=== PATIENT | female | born 1970 | race Caucasian/White ===

== ENCOUNTER → 2017-05-23 12:26 | Outpatient (CLI) | payer MEDICARE, MEDICAID, SELFPAY ==
[2017-05-23 13:43] VITALS: PULSE 100; PULSE 102; PULSE 82; PULSE 94; PULSE 97; PULSE 98; O2SAT 85; O2SAT 92; O2SAT 93; O2SAT 96
--- NOTE | 2017-05-23 14:20 | CPS ---
Patient has oxygen setup by [employer]. She was placed on room air for beginning of test. By 1 minute, spo2 dropped to 85% room air, patient rested and was placed on 2lpm nc which she wore for remainder of test. Her baseline respiratory status she rates at 3, this did not change throughout testing.
--- NOTE | 2017-05-24 08:21 | PCM.PSN.6M ---
PSN 6 Minute Walk Test - 6 Minute Walk Test 6 Minute Walk Test: 6 Minute Walk Test PSN:6-Minute Walk Test Start: 05/23/17 13:43 Freq: Status: Active Protocol: [id number] Document 05/23/17 13:43 [facility] (Rec: 05/23/17 14:25 [facility] [id number]) 6 Minute Walk Test Date Performed 05/23/17 Time Performed 12:30 Height 6 ft Weight: 120 lb Weight in Pounds 120.[address]: Pola Vee FIO2 (% Oxygen) 2 Assistive device used: None Pre-test Oxygen Delivery Method Room Air Pulse Ox (%) 93 Pulse Rate (60-100 beats/min) 94 Dyspnea Chen Scale (0-10) 3 1st minute Oxygen Delivery Method Room Air Pulse Ox (%) 85 Pulse Rate (60-100 beats/min) 102 H Dyspnea Chen Scale (0-10) 3 Number of Rests Taken 1 2nd minute Oxygen Flow Rate (L/min) 2 Oxygen Delivery Method Nasal Cannula Pulse Ox (%) 93 Pulse Rate (60-100 beats/min) 97 Dyspnea Chen Scale (0-10) 3 3rd minute Oxygen Flow Rate (L/min) 2 Oxygen Delivery Method Nasal Cannula Pulse Ox (%) 92 Pulse Rate (60-100 beats/min) 98 Dyspnea Chen Scale (0-10) 3 4th minute Oxygen Flow Rate (L/min) 2 Oxygen Delivery Method Nasal Cannula Pulse Ox (%) 92 Pulse Rate (60-100 beats/min) 97 Dyspnea Chen Scale (0-10) 3 5th minute Oxygen Flow Rate (L/min) 2 Oxygen Delivery Method Nasal Cannula Pulse Ox (%) 93 Pulse Rate (60-100 beats/min) 98 Dyspnea Chen Scale (0-10) 3 6th minute Oxygen Flow Rate (L/min) 2 Oxygen Delivery Method Nasal Cannula Pulse Ox (%) 92 Pulse Rate (60-100 beats/min) 100 Dyspnea Chen Scale (0-10) 3 Post-test Oxygen Flow Rate (L/min) 2 Oxygen Delivery Method Nasal Cannula Pulse Ox (%) 96 Pulse Rate (60-100 beats/min) 82 Dyspnea Chen Scale (0-10) 3 Full Laps Walked 16 Partial Lap, Number of Tiles Walked 44 Total Distance Walked (ft) 988 05/23/17 14:20 [facility]iop[facility] by [employer] Patient has oxygen setup by [employer]. She was placed on room air for beginning of test. By 1 minute, spo2 dropped to 85% room air, patient rested and was placed on 2lpm nc which she wore for remainder of test. Her baseline respiratory status she rates at 3, this did not change throughout testing. Initialized on 05/23/17 14:20 - END OF NOTE - Interpretation Interpretation: The patient ambulated 988 feet over the course of 6 minutes beginning on room air without assistive devices or breaks. Pretesting oxygen saturation was noted to be 93% on room air. By minute #1 of testing, the patient had desaturated to 85%. 2 L of supplemental oxygen was applied and the patient was able to complete the remainder of the test, while maintaining oxygen saturations at or above 88%. - Recommendations Recommendations: 2 L/min of supplemental oxygen should be utilized with exertion.
== END ==
PROVIDERS: Visit Provider Internal Medicine Critical Care Medicine
DX: J44.9 Chronic obstructive pulmonary disease, unspecified (principal)
CPT/HCPCS: 94618

== ENCOUNTER 2017-06-21 08:00 | Outpatient (RCR) | payer MEDICARE, MEDICAID, SELFPAY ==
--- NOTE | 2017-06-07 13:26 | PR.HP_ITS ---
History of Present Illness Arrival date:: 06/07/17 Arrival time:: 13:16 Date of Evaluation: 06/07/17 Referring Physician: Dr. Pola Vee Primary Diagnosis: COPD, Bronchiectasis, tobacco dependence in remission, metastatic lung CA History of Present Illness: The patinet is a 46/Female under the care of Dr. Pola Vee who has evidence of advanced stage COPD. The patient aslo has history of bronchiectasis, metastatic primary lung cancer with a history of tobacco dependence in remission. mMRC Breathless Scale: When is the patient short of breath? Y/N Grade: Description of Breathlessness: 0 I only get breathless with strenuous exercise. 1 I get short of breath when hurrying on level ground or walking up a slight hill. 2 On level ground, I walk slower than people of the same age because of breathless, or have to stop for breath when walking at my own pace. 3 I stop for breath after walking 100 yards or after a few minutes on level ground. 4 I am too breathless to leave the house or I am breathless when dressing. Respiratory Problems: Yes: Retain Secretions, Fatigue, Wheezing, Able to Speak in Full Sentences, Dyspnea at Rest, Dyspnea with Activity, Cough with Secretions No: Dizziness, Dyspnea Lying Down Flat - Secretions Normal Color:: dark green typically white Thick:: Yes Thin:: No Amount/Day:: 1 TSP - typically white to no color, hard to get up. Going to see Dr after this appointment. Cough:: Yes A.T.C.: Yes Sleep Disorder Evaluation: EPWORTH SLEEPINESS SCALE 0 = NO chance of dozing 2 = MODERATE chance of dozing 1 = SLIGHT chance of dozing 3 = HIGH chance of dozing : SITUATION: CHANCE OF DOZING: Sitting and Reading Watching TV Sitting inactive in a public place (i.e. Movies) As a passenger in a car for an hour without a break Lying down to rest in the afternoon when permitted Sitting and talking to someone Sitting quietly after lunch without alcohol In a car, while stopped for a few minutes in traffic Total Total Equals: 1-6 = Adequate Sleep 7-8 = Average > 9 = Sleep Study/Consult Indicated Past Medical History Past Medical History: Cancer - metastatic primary lung cancer, , Emphysema, Hypoxia, - - bronchiectasis, abnormal chest CT, dyspnea, non small cell, adenocardcinoma, unintentional weight loss, tobacco dependence in remission, nocturnal hypoxia, hypersomnia, acute and chronic respiratory failure with hypoxia, borderline elevated troponin, Surgical History: hysterectomy - 1999, - - D&C resolved, port placement, Additional Family History: Grandfather, Uncle and father all had lung, bone, and lymphoma. - Social History Marital Status: - living with significant other 15 years. Assistive Devices:: none; have a wheelchair will take out for long trips. Fall history:: none Interest/Hobbies:: abigail, rodger-stich, once cancer started lose eye sight and difficult Transportation Needs:: own Alcohol:: No Drugs:: No Employment:: Disabilty Smoking Status: Former smoker Quit Smoking Since: almost 2 years Packs per day: 3 Years Smoked: 30 - Living Arrangement Patient lives with other person(s) in the home:: AROUND [place] CLOCK Social History - Smoking History Smoking Status: Former smoker Years Smokin Packs Smoked per Day: 2.5 Hx Smoking Cessation Date: 1 year Hx Tobacco Use: Yes Hx Smoking Exposure: No - Alcohol Use Alcohol Usage: No - Substance Abuse Hx Substance Use: No - Occupation Occupation (List type of work in comments):: Unemployed - disability - Hobbies, Recreation, Social Activities Hobbies: Sewing, Reading Recreational Activities: I am able to engage in a few activities Medications & Vaccination Info Home Medications: Ambulatory Orders Aripiprazole [Abilify] 5 mg PO QHS 03/03/16 Dronabinol [Marinol] 5 mg PO BID PRN PRN 03/03/16 Gabapentin [Neurontin] 300 mg PO 4X/DAY 03/03/16 Guaifenesin [Mucinex] 1,200 mg PO DAILY PRN PRN 03/03/16 Morphine Sulfate [Morphine Sulfate ER] 60 mg PO BID 03/03/16 Oxycodone [Oxyir] 30 mg PO TID PRN PRN 03/03/16 Pramipexole Di-HCl [Mirapex] 1 mg PO QHS 03/03/16 ProMETHAzine [Phenergan] 25 mg PO PRN PRN 03/03/16 Trazodone HCl 200 mg PO QHS 03/03/16 BuPROPion [Wellbutrin] 75 mg PO BID #60 tab 03/06/16 Fluticasone 0.05% [Flonase Nasal [place]] 1 spray NASAL BID #1 bottle 03/06/16 Lorazepam [Ativan] 0.5 mg PO DAILY PRN #0 03/06/16 Nebulizer and Compressor [Portable Nebulizer System] 1 ea MC Q2H PRN PRN #1 ea 03/06/16 methylphenidate 10 mg tablet 10 mg PO QAM AND QPM 04/12/17 prednisone 10 mg tablet 10 mg PO QDAY #30 tab 04/12/17 albuterol sulfate 2.5 mg/3 mL (0.083 %) solution for nebulization 2.5 mg INHALATION Q4H PRN #360 ml 04/25/17 albuterol sulfate HFA 90 mcg/actuation aerosol inhaler 2 puff INHALATION Q6H PRN #1 device 05/17/17 budesonide-formoterol HFA 160 mcg-4.5 mcg/actuation aerosol inhaler 2 inh INHALATION Q12H #10.2 g 05/17/17 tiotropium bromide 2.5 mcg/actuation mist for inhalation 2 puff INHALATION QDAY #1 device 05/17/17 Do you use a peak flow meter at home?: No Do you use a spacer device with your inhalers?: No Number of hospital visits in the last year?: 1 Reason for hospital visits: RESP INF-PNUEM,BRONCHITIS - in for 5 days, OTHER RESP PROBLEMS Do you see your physician on a regular schedule?: Yes How often?: monthly; oncologist twice monthly Has adequate access & meets healthcare needs?: Yes - Drug Regimen Review Indication of potential clinical significant med issues (drug reactions, ineffective therapy, side effects, interactions, duplicate therapy, omissions, dose errors, or non-compliance)?: No problems found during review Was a physician or the physican designee contacted within one calendar day to resolve clinically significant medication issues, including reconcilitation?: No Review of Systems Constitutional: Denies: Chills, Fever, Weight Change HEENT: Denies: Head Aches, Sinus Congestion, Sinus Drainage Cardiovascular: Denies: Chest Pain, Palpitations Respiratory: Reports: Shortness of Breath, Shortness of breath at rest, Shortness of breath upon exertion, Wheezing. Denies: Cough, Sputum production Musculoskeletal: Reports: - - body aches, left hip where tumor was located.. Denies: Joint Pain, Joint Tenderness Skin: Denies: Rash, Wounds Neurological: Reports: Blurred vision. Denies: Focal weakness, Numbness, Tingling Psychiatric: Reports: Anxiety, Depression. Denies: Homicidal Ideations, Suicidal Ideations Advanced Directives - Advanced Directives Power of Customer Support Analyst: No Living Will: No Advance Directives Information Provided: Yes Advance Directives on File: No DNR Order?:: No Coping/Social Support/Other - Abuse and Neglect Do you feel safe in your surroundings?:: YES Are there sign/symptoms of abuse?: No Has anyone physically or mentally abused you?: No Has anyone threatened to harm you in any way?: No Been asked to sign a document that you don't understand?: No - Exacerbation History Number of Exacerbations in a year:: 3 Recent exposure to illness?: No Known carrier?: No Number of Infections per year?: 3 Antibiotic Taken:: Yes I know I have an infection when:: Patient is able to verbalize signs and symptoms. - Nutrition Risk Factor Are you on a special diet?: Yes Diff. chewing/swallowing:: No Have you had a change in your weight?: Yes Amount lost:: 7 to 10 pound Physical Exam - Vital Signs Temperature: 98.7 F Pulse Rate: 84 Respiratory Rate: 18 Pulse Ox at rest: 95 Blood Pressure: 102/60 Nailbeds:: pink Height: 6 ft Weight:: 55.338 kg Weight Source: Standing Scale Body Mass Index (BMI): 16.5 - Physical Exam General: Alert, Oriented x3, Cooperative Neck: Supple, No JVD, Negative Carotid Bruits, Negative Hepatojugular Reflux Lungs: Clear to auscultation, Normal air movement Cardiovascular: Regular rate, Regular Rhythm, No murmurs Extremities: No clubbing, No cyanosis, No edema, Capillary Refill Less than 3 Seconds Musculoskeletal: No Tenderness to Palpation of Joints or Extremities Psych/Mental Status: Normal Affect, Appropriate - Pain Is Patient Pain Free?: Yes Pain Location: back Pain Level: 5/10 - forgot to take medications before driving today. - Hearing/Speech/Vision/Spiritual Cultural/Uatsdin Needs that may affect Treatment Plan: No Do you have any Spiritual/Emotional needs of which our Secondary School Teacher Librarian Ministry could be of assistance?: No Secondary School Teacher Librarian to contact Place of [place]?: No Primary Language: South Korean Preferred Language: South Korean Right Hearing Abillity: Normal Visual Difficulty: Near Sighted, Far Sighted - wears corrective lenses for vision - Motivation to Participate On a scale of 1 to 10, how prepared are you to commit to attending pulmonary rehabilitation?: 10 What do you see as barriers to successfully being able to complete the program? : appointments, other commitments What do you see as the benefits of succesfully completing the program? In other words, what do you hope to get out of participating in the program?: breathing better, correct breathing, increase stamina Do you have a spouse or signficant other, family or friends who will help support you to complete the program?: yes Diagnostic Data Review - Lab Results Hematology/Chemistry: [facility] EHR - Diagnostic and Imaging Results CXR:: [facility] - 6 Minute Walk Test 6 Minute Walk Test: [facility] - Pulmonary Function Test FEV1:: 0 - 38% predicted FVC:: 0 - 08/17/2016 Gold Classification: Gold class IV(very severe COPD)with FEV1/FVC <70, FEV1 <30 % predicted Functioning ADL/IADL - Functional Capacity ADL/IADL GROOMING: Current ability to tend safely to personal hygiene needs (i.e., washing face/hands, hair care, shaving or make up, teeth or denture care, fingernail care).: Able to groom self unaided, w/ or w/o the use of assistive devices. Current ABILITY TO DRESS UPPER BODY safely (with or w/out dressing aids) including undergarments, pullovers, front-opening shirts & blouses, managing zippers, buttons, & snaps:: Gets clothes out, puts on, and removes from upper body w/o assist. Current ABILITY TO DRESS LOWER BODY safely (with or w/out dressing aids) including undergarments, slacks, socks or nylons, shoes:: Able to obtain, put on , & remove clothing and shoes w/out assistance. Bathing: Current ability to wash entire body safely. EXCLUDES grooming (washing face, washing hands and shampooing hair): Uses device to bathe independently in tub/shower, incl getting in &out TOILET TRANSFERRING: Current ability to get to & from the toilet/BSC safely and transfer on & off toilet/commode.: Gets to & from toilet, transfers independently w/ or w/o a device. TOILETING HYGIENE: Current ability to maintain perineal hygiene safely, adjust clothes and/or incontinence pads before & after using toilet, commode, bedpan, urinal. If managing ostomy, includes cleaning: Manages toileting hygiene & clothing management w/out assist TRANSFERRING: Current ability to move safely from bed to chair, or ability to turn and position self in bed if patient is bedfast.: Able to independently transfer. AMBULATION/LOCOMOTION: Current ability to walk safely, once in a standing position, or use wheelchair, once in a seated position, on a variety of surfaces.: Able to IND walk on even/uneven surface&use stairs with or w/o railing FEEDING or EATING: Current ability to feed self meals and snacks safely. NOTE: This refers only to the process of eating, chewing and swallowing, not preparing the food to be eaten.: Able to independently fee ABILITY TO PLAN AND PREPARE MEALS: (e.g., cereal, sandwich) or reheat delivered meals safely.: IND prepare light meals/reheat delvrd meals/Or can but hasn't done so. ABILITY TO USE TELEPHONE: Current ability to answer the phone safely, including dialing numbers, and effectively using the telephone to communicate.: Able to dial numbers and answer calls appropriately and as desired. - Pt Functioning Prior to Problem Self-Care (e.g.,grooming, dressing, & bathing): INDEPENDENT Ambulation: INDEPENDENT Transfer: INDEPENDENT Household tasks (e.g., light meal prep, laundry, shopping): INDEPENDENT
--- NOTE | 2017-06-07 13:36 | PR.ITP_ITS ---
General Information - General Information Admitting Diagnosis: COPD, Metastatic lung cancer, bronchiectasis Gold Classification:: GOLD 3: Severe - Education/Goals Barriers to Learning: Vision Impairment Individual Counseling: Initial Assessment: Dyspnea control techniques at rest, activity, and ADLs, Inhaled and respiratory medications, Exacerbation prevention & management, O2, Rx, system, safety, Intimacy, Safe travel Patient Goals: Breathe better: Initial Assessment, Increase endurance/stamina: Initial Assessment, Return to recreation/hobby: Initial Assessment, Control panic/anxiety: Initial Assessment, Improve diet and nutrition: Initial Assessment, Symptom management: Initial Assessment, Take medications correctly: Initial Assessment, Improve weight: Initial Assessment Exercise - Initial Assessment - Visit Date of Eval: 06/07/17 - Problem/Goals Problems: Knowledge deficit exercise guidelines, Knowledge deficit exercise safety - Exercise Prescription Mode:: Treadmill, Airdyne, NuStep Frequency (x/week): 3 MET LEVEL:: 2 - Plan Plan and Plan to Review:: Benefits of exercise, Core components of exercise, How to measure dyspnea level, How to monitor dyspnea level, Exercise intensity, Exercise safety guideline, Home exercise guidelines, Chen: 3-4/11-13 Disease Management - Initial - Problems/Goals-Hypoxemia Hypoxemia Problems:: Hypoxemia, Needs O2 Rx recommendation, Poor knowledge of O2 use/safety Hypoxemia Goals:: Using O2 as Rx's safely - Problems/Goals-Medications Medication Goals: Adherence to prescribed medications, Correct technique/timing & care of MDI, DPI, nebulizer, and spacer. - Problems/Goals-Bronchial Hygiene Bronchial Hygiene Problems:: Ineffective secretion clearance, Respiratory infection Prevention/Management Bronchial Hygiene Goals:: Pt demonstrates effective cough, effective secretion clearance., Pt describes signs and symptoms of infection. - Initial Assessment SpO2:: 98 Does pt report taking home meds as prescribed?: Yes Medications: Yes MDI, Yes NEB, No Spacer Psychosocial - Initial Assess - Problems/Goals Problems: Depression, Anxiety, Impaired Q.O.L. Psychosocial Goals: Improved psychosocial coping skills., Verbalizes coping strategies., Adequate treatment of depression., Improved Q.O.L. - Psychosocial Test Depression:: Anxiety, Panic, Impaired QOL Referred to MD for counseling:: No - Plan Reviewed screening results: No Instructions given regarding:: Benefits of exercise, Relaxation techniques, Training in coping strategies Stress management: On meds currently, Receiving counseling Tobacco - Initial Assessment - Program Goals Tobacco Program Goals: Complete smoking cessation. Attend education classes. Improve Knowledge Test score - Stage of Change Stages of Change:: Action - Learning Barriers Learning Barriers: Vision, Ready to Learn - Family Support Do you have family support?: Yes - Tobacco Use Tobacco Use: Cigarettes How long ago did you quit using tobacco products?: Greater than or equal to 6 months ago - Intervention Smoking Cessation Referral:: No Individual Education/Counseling:: No Education Schedule Given:: Yes - Education Gave Education Materials For:: Pulmonary Disease, Risk Factors, Breathing Techniques, Medical Compliance, Pulmonary A&P, Exacerbation Signs & Symptoms, Stress & Relaxation Nutrition/Wt Mgmt - Initial - Problems/Goals Problems: Underweight Goals: BMI 21-25 - Weight Management Knowledge Deficit Management of:: Underweight Admit Height:: 6 ft Admit Weight:: 55.338 kg Admit BMI:: 16.5 - Diabetes Diabetes:: No Insulin: No Do you monitor your blood sugar at home?: No - Intervention Referral to dietitian:: No Referral to Diabetic Clinic:: No Will attend diet classes:: No - Plan Nutrition Plan: Yes Review BMI or WC & identify target wt & strategies for wt control, Yes Nutrition education class:, Yes Weight control education class:, Yes Education re: Need for ongoing weight monitoring, Yes Food diary:, Yes Physical activity log: Patient Health Questionnaire Initial Assessment 1. Little interest or pleasure in doing things: Nearly every day 2. Feeling down, depressed, or hopeless: Several days 3. Trouble falling or staying asleep, or sleeping too much: Several days 4. Feeling tired or having little energy: Nearly every day 5. Poor appetite or overeating: Nearly every day 6. Feeling bad about yourself -- or that you are a failure or have let yourself or your family down: More than half the days 7. Trouble concentrating on things, such as reading the newspaper or watching television: Nearly every day 8. Moving or speaking so slowly that other people could have noticed. Or the opposite - being so fidgety or restless that you have been moving around a lot more than usual: More than half the days 9. Thoughts that you would be better off , or of hurting yourself in some way: Not at all How difficult have these problems made it for you to do your work, take care of things at home, or get along with other people?: Very difficult Total Score: 18 COPD Knowledge Test Initial COPD is a lung disease that:: Makes it hard to breathe & gets worse over time In the [place] the term COPD describes 2 main lung conditions:: Emphysema & chronic bronchitis The most common lung irritant that causes COPD is:: Cigarette smoke Common signs and symptoms of COPD include:: An ongoing cough/cough that produces a large amount of mucus, & SOB If you have COPD, what steps can you take?: All of the above Swelling of the ankles is common in COPD:: False Fatigue [tiredness] is common in COPD:: True Wheezing is common in COPD:: True Crushing chest pain is common in COPD:: False Rapid weight loss is common in COPD:: False Breathlessness is a normal response to exercise: True Exercise should be avoided if it makes you short of breath: False All bronchodilators act within 10 minutes: True A spacer device increases the medication to the lungs: False Annual flu vaccine is recommended for pts w/lung disease: True COPD Knowledge Test Total Score:: 13 COPD Assessment Test [CAT] - Questions Never cough = 0, Cough all the time = 5: 4 No phlegm = 0, Chest full of phlegm = 5: 4 No chest tightness = 0, Chest very tight = 5: 3 No breathless w/exertion = 0, Very breathless w/exertion = 5: 5 No limitations w/activity = 0, Very limited w/activity = 5: 5 Confident leaving home = 0, Not at all confident = 5: 3 Sleep soundly = 0, Don't sleep soundly = 5: 3 Lots of energy = 0, No energy at all = 5: 5 Total CAT score:: 32 Self-Efficacy Initial Assessment We would like to know how confident you are in doing certain activities. Please select your confidence level for:: Select your confidence level for the following using the scale 1-10 where 1 is not at all confident and 10 is totally confident. Your score is the average of all 6 responses. Fatigue: How confident are you that you can keep the fatigue caused by your disease from interfering with the things you want to do? Select Number: 2 Physical Discomfort or Pain: How confident are you that you can keep the physical discomfort or pain of your disease from interfering with the things you want to do? Select Number: 4 Emotional Distress: How confident are you that you can keep the emotional distress caused by your disease from interfering with the things you want to do? Select Number: 6 Other Symptoms or Health Problems: How confident are you that you can keep other symptoms or health problems from interfering with the things you want to do? Select Number: 5 Different Tasks and Activities: How confident are you that you can do the different tasks and activities needed to manage your health condition so as to reduce your need to see a doctor? Select Number: 4 Medication: How confident are you that you can do things other than just taking medication to reduce how much your illness affects your everyday life? Select Number: 7 Total Score:: 4 Nutrition Survey - Nutrition Survey Instructions Scoring Instructions: Scoring is as follows: Yes = 1 points. No = 0 point. Patient score that is >/=12 is considered to be at potential nutritional risk and could benefit from a referral to a registered dietitian. - Nutrition Survey Initial Have you lost >10 lbs over the past 2 months without trying?: Yes - unintentional weight loss, and additional 7 pounds this past week. Are you following a special diet at home for diabetes, low fat, or low salt?: No Are you interested in meeting with a dietitian for help understanding your diet? : No Do you eat less than 3 meals a day?: No Do you eat fatty meats (cordova, sausage, ribs, etc), fried foods, desserts, large amounts of salad dressings, margarine, butter, or cheese most days?: No Do you have food allergies? [Enter types in comment field]: No Do you eat in restaurants more than 3 times a week?: No Do you season food with salt, seasoning salt, or garlic salt?: Yes Do you used canned, boxed, frozen meals, or soups, seasoning packets?: Yes Total Score:: 3
[2017-06-07 13:53] VITALS: BP 102/60; PULSE 84; RESP 18; TEMP 37.1; O2SAT 95; BMI 16.5
[2017-06-07 14:39] VITALS: O2SAT 98; BMI 16.5
--- NOTE | 2017-06-07 14:41 | PR.DATECOV_ITS ---
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 Effective Dec 23, 2012 our hours will be changing to 8:00 to 4:30 on Monday, Monday and Monday. First Date of the Month: 06/07/17 Last Date of the Month: 06/21/17
--- NOTE | 2017-06-19 14:58 | PCM.PR.DAT ---
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 Effective Dec 23, 2012 our hours will be changing to 8:00 to 4:30 on Monday, Monday and Monday. First Date of the Month: 06/22/17 Last Date of the Month: 07/21/17
--- NOTE | 2017-06-19 14:58 | PCM.PR.TP ---
Exercise - 30-Day Assessment - Exercise Prescription Mode:: Treadmill, Airdyne, NuStep, Arm Ergometer Frequency (x/week): 3 Duration:: 30 Aerobic Exercise [30-60 min 3-7x/week]:: Progressing Target heart rate: 106 - THRR 106-114 Chen MET Level:: 3 - Home Exercise Home Exercise:: No Disease Management - 30-Day - Hypoxemia Reassessment: Demonstrates knowledge of O2 Rx at rest, Demonstrates knowledge of O2 Rx with exercise, Using O2 as prescribed, Has home O2 as prescribed, Uses port O2 as prescribed - Medications Medication list reviewed:: Yes Taking medications 100% of the time:: Met Medication reassessment: Yes Pt demonstrates correct technique timing for MDI, Yes Pt demonstrates correct technique timing for DPI, Yes Pt demonstrates correct technique timing for NEB, Yes Pt demonstrates correct technique timing for spacer Psychosocial - 30-Day - Assessment Reassessment: Practicing interventions Tobacco - 30-Day Assessment - Program Goals Tobacco Program Goals: Complete smoking cessation. Attend education classes. Improve Knowledge Test score - Stage of Change Stages of Change:: Action - Learning Barriers Learning Barriers: Participates in education - Family Support Do you have family support?: Yes - Tobacco Use Tobacco Use: Non-smoker Do you use smokeless tobacco?: No - Intervention Smoking Cessation Referral:: No Individual Education/Counseling:: No Education Schedule Given:: Yes - Education Gave Education Materials For:: Pulmonary Disease, Risk Factors, Breathing Techniques, Medical Compliance, Pulmonary A&P, Exacerbation Signs & Symptoms, Stress & Relaxation Nutrition/Wt Mgmt - 30-Day - Weight Management Weight Assessment:: Wt loss 1-2 lbs per week Weight:: 52.844 kg - loss of additional 6 pounds. Weight Goals Progress:: Not progressing Patient Health Questionnaire 30-Day Re-eval Assessment 1. Little interest or pleasure in doing things: More than half the days 2. Feeling down, depressed, or hopeless: Several days 3. Trouble falling or staying asleep, or sleeping too much: Several days 4. Feeling tired or having little energy: More than half the days 5. Poor appetite or overeating: More than half the days 6. Feeling bad about yourself -- or that you are a failure or have let yourself or your family down: Several days 7. Trouble concentrating on things, such as reading the newspaper or watching television: Nearly every day 8. Moving or speaking so slowly that other people could have noticed. Or the opposite - being so fidgety or restless that you have been moving around a lot more than usual: More than half the days 9. Thoughts that you would be better off , or of hurting yourself in some way: Not at all How difficult have these problems made it for you to do your work, take care of things at home, or get along with other people?: Very difficult Total Score: 14 COPD Assessment Test [CAT] - Questions Never cough = 0, Cough all the time = 5: 4 No phlegm = 0, Chest full of phlegm = 5: 4 No chest tightness = 0, Chest very tight = 5: 3 No breathless w/exertion = 0, Very breathless w/exertion = 5: 5 No limitations w/activity = 0, Very limited w/activity = 5: 5 Confident leaving home = 0, Not at all confident = 5: 3 Sleep soundly = 0, Don't sleep soundly = 5: 3 Lots of energy = 0, No energy at all = 5: 5 Total CAT score:: 32 Self-Efficacy 30-Day Re-eval Assessment We would like to know how confident you are in doing certain activities. Please select your confidence level for:: Select your confidence level for the following using the scale 1-10 where 1 is not at all confident and 10 is totally confident. Your score is the average of all 6 responses. Fatigue: How confident are you that you can keep the fatigue caused by your disease from interfering with the things you want to do? Select Number: 2 Physical Discomfort or Pain: How confident are you that you can keep the physical discomfort or pain of your disease from interfering with the things you want to do? Select Number: 4 Emotional Distress: How confident are you that you can keep the emotional distress caused by your disease from interfering with the things you want to do? Select Number: 6 Other Symptoms or Health Problems: How confident are you that you can keep other symptoms or health problems from interfering with the things you want to do? Select Number: 5 Different Tasks and Activities: How confident are you that you can do the different tasks and activities needed to manage your health condition so as to reduce your need to see a doctor? Select Number: 4 Medication: How confident are you that you can do things other than just taking medication to reduce how much your illness affects your everyday life? Select Number: 7 Total Score:: 4
== END 2017-06-21 23:59 ==
LOC: PR 08:00
PROVIDERS: Family Provider Family Medicine; PCP Family Medicine; Visit Provider Internal Medicine Critical Care Medicine
DX: J44.9 Chronic obstructive pulmonary disease, unspecified (principal)
CPT/HCPCS: 97150; G0424

== ENCOUNTER 2017-07-21 08:00 | Outpatient (RCR) | payer MEDICARE, MEDICAID, SELFPAY ==
[2017-06-22 00:11] VITALS: PULSE 84; RESP 18; TEMP 37.1; O2SAT 95
--- NOTE | 2017-07-17 13:23 | PCM.PR.DAT ---
Dates of Coverage Times for Dates Of Coverage; All dates of coverage are for physician supervision/lead medical technologist for during the times of 08:00 AM through 4:30 PM. Effective Dec 23, 2012 our hours will be changing to 8:00 to 4:30 on Monday, Monday and Monday. First Date of the Month: 07/23/17 Last Date of the Month: 08/21/17
--- NOTE | 2017-07-17 13:23 | PCM.PR.TP ---
Exercise - 60-Day Assessment - Current Level Mode:: Treadmill, NuStep, Arm Ergometer Frequency (x/week): 3 Duration:: 30 Aerobic Exercise [30-60 min 3-7x/week]:: Progressing Target heart rate: 114 - 106-114 w/max HR 109 Chen.5 MET Level:: 4 - Home Exercise Home Exercise:: No Disease Management - 60-Day - Hypoxemia Reassessment: Demonstrates knowledge of O2 Rx at rest, Demonstrates knowledge of O2 Rx with exercise, Using O2 as prescribed, Has home O2 as prescribed, Uses port O2 as prescribed - Medications Medication list reviewed:: Yes Taking medications 100% of the time:: Met Medication reassessment: Yes Pt demonstrates correct technique timing for MDI, Yes Pt demonstrates correct technique timing for DPI, Yes Pt demonstrates correct technique timing for NEB, Yes Pt demonstrates correct technique timing for spacer - Bronchial Hygiene Bronchial Hygiene Plan: Yes Pt demo correct for device - returned demonstration use of acapella, Yes Pt demo correct for improved hydration, Yes Pt demo correct for hand hygiene, Yes Pt demo correct for verbalize when to call MD Psychosocial - 60-Day - Assessment Depression reassess: Management of stress: Met, Management of depression: Met, Practicing interventions: Met Tobacco - 60-Day Assessment - Program Goals Tobacco Program Goals: Complete smoking cessation. Attend education classes. Improve Knowledge Test score - Stage of Change Stages of Change:: Action - Learning Barriers Learning Barriers: Participates in education - Family Support Do you have family support?: Yes - Tobacco Use Tobacco Use: Non-smoker Do you use smokeless tobacco?: No - Intervention Smoking Cessation Referral:: No Individual Education/Counseling:: No Education Schedule Given:: Yes - Education Gave Education Materials For:: Pulmonary Disease, Risk Factors, Breathing Techniques, Medical Compliance, Pulmonary A&P, Exacerbation Signs & Symptoms, Stress & Relaxation Nutrition/Wt Mgmt - 60-Day - Weight Management Weight:: 117 lb - increased 1 pound Weight Goals Progress:: Progressing Patient Health Questionnaire 60-Day Re-eval Assessment 1. Little interest or pleasure in doing things: Not at all 2. Feeling down, depressed, or hopeless: Not at all 3. Trouble falling or staying asleep, or sleeping too much: Several days 4. Feeling tired or having little energy: Several days 5. Poor appetite or overeating: Not at all 6. Feeling bad about yourself -- or that you are a failure or have let yourself or your family down: Not at all 7. Trouble concentrating on things, such as reading the newspaper or watching television: Not at all 8. Moving or speaking so slowly that other people could have noticed. Or the opposite - being so fidgety or restless that you have been moving around a lot more than usual: Not at all 9. Thoughts that you would be better off , or of hurting yourself in some way: Not at all How difficult have these problems made it for you to do your work, take care of things at home, or get along with other people?: Not difficult at all Total Score: 2 COPD Assessment Test [CAT] - Questions Never cough = 0, Cough all the time = 5: 2 No phlegm = 0, Chest full of phlegm = 5: 0 No chest tightness = 0, Chest very tight = 5: 0 No breathless w/exertion = 0, Very breathless w/exertion = 5: 2 No limitations w/activity = 0, Very limited w/activity = 5: 1 Confident leaving home = 0, Not at all confident = 5: 1 Sleep soundly = 0, Don't sleep soundly = 5: 3 Lots of energy = 0, No energy at all = 5: 2 Total CAT score:: 11 Self-Efficacy 60-Day Re-eval Assessment We would like to know how confident you are in doing certain activities. Please select your confidence level for:: Select your confidence level for the following using the scale 1-10 where 1 is not at all confident and 10 is totally confident. Your score is the average of all 6 responses. Fatigue: How confident are you that you can keep the fatigue caused by your disease from interfering with the things you want to do? Select Number: 8 Physical Discomfort or Pain: How confident are you that you can keep the physical discomfort or pain of your disease from interfering with the things you want to do? Select Number: 8 Emotional Distress: How confident are you that you can keep the emotional distress caused by your disease from interfering with the things you want to do? Select Number: 9 Other Symptoms or Health Problems: How confident are you that you can keep other symptoms or health problems from interfering with the things you want to do? Select Number: 9 Different Tasks and Activities: How confident are you that you can do the different tasks and activities needed to manage your health condition so as to reduce your need to see a doctor? Select Number: 10 Medication: How confident are you that you can do things other than just taking medication to reduce how much your illness affects your everyday life? Select Number: 10 Total Score:: 9
== END 2017-07-22 23:59 ==
LOC: PR 08:00
PROVIDERS: Family Provider Family Medicine; Visit Provider Internal Medicine Critical Care Medicine
DX: J44.9 Chronic obstructive pulmonary disease, unspecified (principal)
CPT/HCPCS: 97150; G0424

== ENCOUNTER → 2017-08-03 14:36 | Outpatient (CLI) | payer MEDICARE, MEDICAID, SELFPAY | PROVIDERS: Visit Provider Nurse Practitioner Acute Care | DX: J44.1 Chronic obstructive pulmonary disease with (acute) exacerbation (principal) | CPT/HCPCS: 87070; 87205 ==

== ENCOUNTER 2017-08-21 08:00 | Outpatient (RCR) | payer MEDICARE, MEDICAID, SELFPAY ==
[2017-07-23 00:16] VITALS: PULSE 84; RESP 18; TEMP 37.1; O2SAT 95
--- NOTE | 2017-08-15 07:28 | PCM.PR.DAT ---
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 Effective Dec 23, 2012 our hours will be changing to 8:00 to 4:30 on Monday, Monday and Monday. First Date of the Month: 08/22/17 Last Date of the Month: 09/20/17
--- NOTE | 2017-08-15 07:28 | PCM.PR.TP ---
Exercise - 90-Day Assessment - Exercise Prescription Mode:: Treadmill, NuStep, Arm Ergometer Frequency (x/week): 3 Duration:: 30 Aerobic Exercise [30-60 min 3-7x/week]:: Progressing Target heart rate: 129 - THRR 114-129 w/max HR of 110 Chen MET Level:: 5 - Home Exercise Home Exercise?: No Disease Management - 90-Day - Hypoxemia Reassessment: Demonstrates knowledge of O2 Rx at rest, Demonstrates knowledge of O2 Rx with exercise, Using O2 as prescribed, Has home O2 as prescribed, Uses port O2 as prescribed - Medications Medication list reviewed:: Yes Taking medications 100% of the time:: Met Psychosocial - 90-Day - Assessment Depression reassess: Management of stress: Met, Management of depression: Met, Practicing interventions: Met Tobacco - 90-Day Assessment - Program Goals Tobacco Program Goals: Complete smoking cessation. Attend education classes. Improve Knowledge Test score - Stage of Change Stages of Change:: Action - Learning Barriers Learning Barriers: Participates in education - Family Support Do you have family support?: Yes - Tobacco Use Tobacco Use: Non-smoker Do you use smokeless tobacco?: No - Intervention Smoking Cessation Referral:: No Individual Education/Counseling:: No Education Schedule Given:: Yes - Education Gave Education Materials For:: Pulmonary Disease, Risk Factors, Breathing Techniques, Medical Compliance, Pulmonary A&P, Exacerbation Signs & Symptoms, Stress & Relaxation Nutrition/Wt Mgmt - 90-Day - Weight Management Weight:: 116 lb Weight Goals Progress:: Progressing Patient Health Questionnaire 90-Day Re-eval Assessment 1. Little interest or pleasure in doing things: Not at all 2. Feeling down, depressed, or hopeless: Not at all 3. Trouble falling or staying asleep, or sleeping too much: Not at all 4. Feeling tired or having little energy: Several days 5. Poor appetite or overeating: More than half the days 6. Feeling bad about yourself -- or that you are a failure or have let yourself or your family down: Not at all 7. Trouble concentrating on things, such as reading the newspaper or watching television: Not at all 8. Moving or speaking so slowly that other people could have noticed. Or the opposite - being so fidgety or restless that you have been moving around a lot more than usual: Not at all 9. Thoughts that you would be better off , or of hurting yourself in some way: Not at all How difficult have these problems made it for you to do your work, take care of things at home, or get along with other people?: Not difficult at all Total Score: 3 COPD Assessment Test [CAT] - Questions Never cough = 0, Cough all the time = 5: 0 No phlegm = 0, Chest full of phlegm = 5: 0 No chest tightness = 0, Chest very tight = 5: 0 No breathless w/exertion = 0, Very breathless w/exertion = 5: 2 No limitations w/activity = 0, Very limited w/activity = 5: 1 Confident leaving home = 0, Not at all confident = 5: 0 Sleep soundly = 0, Don't sleep soundly = 5: 2 Lots of energy = 0, No energy at all = 5: 1 Total CAT score:: 6 Self-Efficacy 90-Day Re-eval Assessment We would like to know how confident you are in doing certain activities. Please select your confidence level for:: Select your confidence level for the following using the scale 1-10 where 1 is not at all confident and 10 is totally confident. Your score is the average of all 6 responses. Fatigue: How confident are you that you can keep the fatigue caused by your disease from interfering with the things you want to do? Select Number: 9 Physical Discomfort or Pain: How confident are you that you can keep the physical discomfort or pain of your disease from interfering with the things you want to do? Select Number: 10 Emotional Distress: How confident are you that you can keep the emotional distress caused by your disease from interfering with the things you want to do? Select Number: 10 Other Symptoms or Health Problems: How confident are you that you can keep other symptoms or health problems from interfering with the things you want to do? Select Number: 10 Different Tasks and Activities: How confident are you that you can do the different tasks and activities needed to manage your health condition so as to reduce your need to see a doctor? Select Number: 10 Medication: How confident are you that you can do things other than just taking medication to reduce how much your illness affects your everyday life? Select Number: 10 Total Score:: 9
== END 2017-08-21 23:59 ==
LOC: PR 08:00
PROVIDERS: Family Provider Family Medicine; PCP Family Medicine; Visit Provider Internal Medicine Critical Care Medicine
DX: J44.9 Chronic obstructive pulmonary disease, unspecified (principal)
CPT/HCPCS: 97150; G0424

== ENCOUNTER 2017-09-13 08:00 | Outpatient (RCR) | payer MEDICARE, MEDICAID, SELFPAY ==
[2017-08-22 00:18] VITALS: PULSE 84; RESP 18; TEMP 37.1; O2SAT 95
--- NOTE | 2017-09-14 09:02 | PR.ITP_ITS ---
General Information - General Information Admitting Diagnosis: Stage 3 COPD Gold Classification:: GOLD 3: Severe - Education/Goals Barriers to Learning: None Patient Goals: Breathe better: Discharge Assessment - Goal Met, Increase endurance/stamina: Discharge Assessment - Goal Met; program really has helped., Return to recreation/hobby: Discharge Assessment - Goal Met; doing alot more activities., Improve diet and nutrition: Discharge Assessment - gained some weight; doing better eating smaller meals., Improve weight: Discharge Assessment - Using protein supplements to gain weight 2-daily. Exercise - Final Assessment - Exercise Prescription Mode:: Treadmill, NuStep, Arm Ergometer Frequency (x/week): 3 Duration:: 30 Aerobic Exercise [30-60 min 3-7x/week]:: Met Further followup [see D/C Summary]:: No Target heart rate: 114-129 Chen MET Level:: 5.5 - 112% increase from start date! 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 Disease Management - Final - Hypoxemia Final Assessment: Demonstrates knowledge of O2 Rx at rest, Demonstrates knowledge of O2 Rx with exercise, Using O2 as prescribed, Has home O2 as prescribed, Uses port O2 as prescribed - Medications Medication list reviewed:: Yes Taking medications 100% of the time:: Met Medication reassessment: Yes Pt demonstrates correct technique timing for MDI, Yes Pt demonstrates correct technique timing for DPI, Yes Pt demonstrates correct technique timing for NEB, Yes Pt demonstrates correct technique timing for spacer - Bronchial Hygiene Bronchial Hygiene Plan: Yes Pt demonstrates correctly for effective cough, Yes Pt demo correct for device - return use acapella, Yes Pt demo correct for sputum management, Yes Pt demo correct for improved hydration, Yes Pt demo correct for evalute sputum, Yes Pt demo correct for verbalize when to call MD Psychosocial - Final Assess - Assessment Depression reassess: Management of stress: Met, Management of depression: Met, Practicing interventions: Met Tobacco - Final Assessment - Program Goals Tobacco Program Goals: Complete smoking cessation. Attend education classes. Improve Knowledge Test score - Stage of Change Stages of Change:: Action - Learning Barriers Learning Barriers: Participates in education, Change in behavior - Family Support Do you have family support?: Yes - Tobacco Use Tobacco Use: Non-smoker - Intervention Education Schedule Given:: Yes - Education Education Goal Reached?: Yes Nutrition/Wt Mgmt - Final - Weight Management Weight:: 118 lb - 122 beginning weight. Encouraged use of Boost or Ensure to prevent weight loss. Weight Goals Progress:: Not progressing Patient Health Questionnaire Discharge Assessment 1. Little interest or pleasure in doing things: Not at all 2. Feeling down, depressed, or hopeless: Not at all 3. Trouble falling or staying asleep, or sleeping too much: Not at all 4. Feeling tired or having little energy: Not at all 5. Poor appetite or overeating: Not at all 6. Feeling bad about yourself -- or that you are a failure or have let yourself or your family down: Not at all 7. Trouble concentrating on things, such as reading the newspaper or watching television: Not at all 8. Moving or speaking so slowly that other people could have noticed. Or the opposite - being so fidgety or restless that you have been moving around a lot more than usual: Not at all 9. Thoughts that you would be better off , or of hurting yourself in some way: Not at all How difficult have these problems made it for you to do your work, take care of things at home, or get along with other people?: Not difficult at all Total Score: 0 COPD Knowledge Test Discharge COPD is a lung disease that:: Makes it hard to breathe & gets worse over time In the [place] the term COPD describes 2 main lung conditions:: Emphysema & chronic bronchitis The most common lung irritant that causes COPD is:: Cigarette smoke Common signs and symptoms of COPD include:: An ongoing cough/cough that produces a large amount of mucus, & SOB If you have COPD, what steps can you take?: All of the above Swelling of the ankles is common in COPD:: False Fatigue [tiredness] is common in COPD:: True Wheezing is common in COPD:: False Crushing chest pain is common in COPD:: False Rapid weight loss is common in COPD:: False Breathlessness is a normal response to exercise: True Exercise should be avoided if it makes you short of breath: False All bronchodilators act within 10 minutes: False A spacer device increases the medication to the lungs: True Annual flu vaccine is recommended for pts w/lung disease: True COPD Knowledge Test Total Score:: 14 COPD Assessment Test [CAT] - Questions Never cough = 0, Cough all the time = 5: 1 No phlegm = 0, Chest full of phlegm = 5: 0 No chest tightness = 0, Chest very tight = 5: 0 No breathless w/exertion = 0, Very breathless w/exertion = 5: 2 No limitations w/activity = 0, Very limited w/activity = 5: 1 Confident leaving home = 0, Not at all confident = 5: 0 Sleep soundly = 0, Don't sleep soundly = 5: 1 Lots of energy = 0, No energy at all = 5: 1 Total CAT score:: 6 Self-Efficacy Discharge Assessment We would like to know how confident you are in doing certain activities. Please select your confidence level for:: Select your confidence level for the following using the scale 1-10 where 1 is not at all confident and 10 is totally confident. Your score is the average of all 6 responses. Fatigue: How confident are you that you can keep the fatigue caused by your disease from interfering with the things you want to do? Select Number: 10 Physical Discomfort or Pain: How confident are you that you can keep the physical discomfort or pain of your disease from interfering with the things you want to do? Select Number: 10 Emotional Distress: How confident are you that you can keep the emotional distress caused by your disease from interfering with the things you want to do? Select Number: 10 Other Symptoms or Health Problems: How confident are you that you can keep other symptoms or health problems from interfering with the things you want to do? Select Number: 10 Different Tasks and Activities: How confident are you that you can do the different tasks and activities needed to manage your health condition so as to reduce your need to see a doctor? Select Number: 10 Medication: How confident are you that you can do things other than just taking medication to reduce how much your illness affects your everyday life? Select Number: 10 Total Score:: 10 Nutrition Survey - Nutrition Survey Instructions Scoring Instructions: Scoring is as follows: Yes = 1 points. No = 0 point. Patient score that is >/=12 is considered to be at potential nutritional risk and could benefit from a referral to a registered dietitian. - Nutrition Survey Discharge Have you lost >10 lbs over the past 2 months without trying?: Yes - began using Boost and/or Ensure to maintain/gain weight. Also eating smaller meals more frequently throughout the day. Are you following a special diet at home for diabetes, low fat, or low salt?: No Are you interested in meeting with a dietitian for help understanding your diet? : No Do you eat less than 3 meals a day?: No Do you eat fatty meats (cordova, sausage, ribs, etc), fried foods, desserts, large amounts of salad dressings, margarine, butter, or cheese most days?: No Do you have food allergies? [Enter types in comment field]: No Do you eat in restaurants more than 3 times a week?: No Do you season food with salt, seasoning salt, or garlic salt?: No Do you used canned, boxed, frozen meals, or soups, seasoning packets?: Yes Total Score:: 2
== END 2017-09-21 23:59 ==
LOC: PR 08:00
PROVIDERS: Family Provider Family Medicine; PCP Family Medicine; Visit Provider Internal Medicine Critical Care Medicine
DX: J44.9 Chronic obstructive pulmonary disease, unspecified (principal)
CPT/HCPCS: 97150; G0424

== ENCOUNTER → 2018-01-04 07:36 | Outpatient (CLI) | payer MEDICARE, MEDICAID, SELFPAY ==
--- NOTE | 2018-01-05 12:04 | PFT ---
INTRODUCTION: The patient is a 52-year-old female that presents for pulmonary function testing secondary to a diagnosis of COPD. Respiratory therapy reports good patient effort. Bronchodilators were used during testing. INTERPRETATION: Forced expiration spirometry demonstrates the presence of a very severe large airways obstructive ventilatory defect. There was a significant response to aerosolized bronchodilators. Spirograms are of good quality and do not plateau indicating slow emptying of the lungs. The respiratory flow volume loop reveals decreased expiratory flow rates at all lung volumes consistent with airways obstruction. Body plethysmography was performed and reveals an elevated TLC and RV, indicative of underlying hyperinflation and air-trapping. Diffusing capacity by single breath CO is relatively preserved at 77% of predicted. When compared to previous pulmonary function studies dated April 2017, there has been a 38% reduction in the patient's FEV1. IMPRESSION: These pulmonary function studies demonstrate the presence of a partially reversible very severe large airways obstructive ventilatory defect with associated hyperinflation and air-trapping. There has been interval worsening the patient's pulmonary function testing, as noted above.
== END ==
PROVIDERS: Family Provider Family Medicine; PCP Family Medicine; Visit Provider Internal Medicine Critical Care Medicine
DX: J44.9 Chronic obstructive pulmonary disease, unspecified (principal)
CPT/HCPCS: 94060; 94726; 94729

== ENCOUNTER → 2018-01-10 10:09 | Outpatient (CLI) | payer MEDICARE, MEDICAID, SELFPAY ==
--- NOTE | 2018-01-10 10:15 | RAD_ITS ---
STUDY: INJECTION OF THE PORTACATHETER. REASON FOR EXAM: Female, 47 years old. No blood return from the indwelling left portacatheter. FLUOROSCOPY TIME (if supplied): (0:27) minutes/seconds. 5 images were obtained. TECHNIQUE: Contrast was injected into the indwelling left portacatheter. Imaging was obtained. COMPARISON: None. FINDINGS: The portacatheter is widely patent. RAD/Con Inj [facility] [employer] Fluro IMPRESSION: The portacatheter is widely patent. Electronically Signed: Hermilo Chowdary MD at 11:30 EDT Tel [phone], Service support ,
== END ==
PROVIDERS: Family Provider Family Medicine; PCP Family Medicine; Visit Provider Internal Medicine Hematology & Oncology
DX: T85.9XXA Unspecified complication of internal prosthetic device, implant and graft, initial encounter (principal)
CPT/HCPCS: 36598; Q9965; A4216

== ENCOUNTER → 2018-01-26 14:25 | Outpatient (CLI) | payer MEDICARE, MEDICAID, SELFPAY ==
[2018-01-26 14:37] VITALS: BP 103/66; PULSE 85; RESP 16; TEMP 36.4; O2SAT 92; BMI 16.7
[2018-01-26 15:30] VITALS: BP 96/52; O2SAT 92
== END ==
PROVIDERS: Family Provider Family Medicine; PCP Family Medicine; Referring Provider Nurse Practitioner Acute Care; Visit Provider Nurse Practitioner Acute Care
DX: E88.01 Alpha-1-antitrypsin deficiency (principal)
CPT/HCPCS: 96365; J7050; A4216; J0256

== ENCOUNTER → 2018-02-05 08:59 | Outpatient (CLI) | payer MEDICARE, MEDICAID, SELFPAY ==
[2018-02-05 09:08] VITALS: BP 111/63; PULSE 107; RESP 18; TEMP 36.4; O2SAT 91; BMI 16.2
== END ==
PROVIDERS: Family Provider Family Medicine; PCP Family Medicine; Referring Provider Nurse Practitioner Acute Care; Visit Provider Nurse Practitioner Acute Care
DX: E88.01 Alpha-1-antitrypsin deficiency (principal)
CPT/HCPCS: 96365; J7050; A4216; J0256

== ENCOUNTER → 2018-02-06 12:51 | Outpatient (CLI) | payer MEDICAID, MEDICARE, SELFPAY | PROVIDERS: Family Provider Family Medicine; PCP Family Medicine | DX: Z00.00 Encounter for general adult medical examination without abnormal findings (principal) ==

== ENCOUNTER → 2018-02-13 14:50 | Outpatient (CLI) | payer MEDICARE, MEDICAID, SELFPAY ==
[2018-02-13 15:08] VITALS: BP 95/61; PULSE 87; RESP 16; TEMP 36.3; O2SAT 94; BMI 15.3
== END ==
PROVIDERS: Family Provider Family Medicine; PCP Family Medicine; Referring Provider Nurse Practitioner Acute Care; Visit Provider Nurse Practitioner Acute Care
DX: E88.01 Alpha-1-antitrypsin deficiency (principal)
CPT/HCPCS: 96365; J7050; A4216; J0256

== ENCOUNTER → 2018-02-21 13:01 | Outpatient (CLI) | payer MEDICARE, MEDICAID, SELFPAY ==
[2018-02-21 13:34] VITALS: BP 102/55; PULSE 84; RESP 18; TEMP 36.8; O2SAT 98; BMI 15.6
== END ==
PROVIDERS: Family Provider Family Medicine; PCP Family Medicine; Referring Provider Nurse Practitioner Acute Care; Visit Provider Nurse Practitioner Acute Care
DX: E88.01 Alpha-1-antitrypsin deficiency (principal)
CPT/HCPCS: 96365; J7050; A4216; J0256

== ENCOUNTER → 2018-02-28 09:25 | Outpatient (CLI) | payer MEDICARE, MEDICAID, SELFPAY ==
[2018-02-28 09:35] VITALS: BP 106/76; PULSE 106; RESP 18; TEMP 37.2; O2SAT 97; BMI 15.2
== END ==
PROVIDERS: Family Provider Family Medicine; PCP Family Medicine; Referring Provider Nurse Practitioner Acute Care; Visit Provider Nurse Practitioner Acute Care
DX: E88.01 Alpha-1-antitrypsin deficiency (principal)
CPT/HCPCS: 96365; 96366; J7050; A4216; J0256

== ENCOUNTER → 2018-03-20 15:37 | Outpatient (CLI) | payer MEDICARE, MEDICAID, SELFPAY ==
[2018-03-20 14:35] VITALS: BMI 16.3
--- OUTSIDE RECORDS SUMMARY | 2018-05-16 08:37 | XMS RPT_ITS ---
:1970 Author Organization [place] Support Name Relationship Address Phone D Unavailable Unavailable Unavailable CHRISTY SAIRA Unavailable [address] + [place] [address] RADHA GRACE Unavailable [address] + [place] [address] D Unavailable Unavailable Unavailable CHRISTY, SAIRA Unavailable [address] + [place] [address] RADHA GRACE Unavailable [address] + [place] [address] D Unavailable Unavailable Unavailable CHRISTY, SAIRA Unavailable [address] + [place] [address] RADHA GRACE Unavailable [address] + [place] [address] D Unavailable Unavailable Unavailable CHRISTY, SAIRA Unavailable [address] + [place] [address] RADHA GRACE Unavailable [address] + [place] [address] D Unavailable Unavailable Unavailable CHRISTY, SAIRA Unavailable [address] + [place] [address] RADHA GRACE Unavailable [address] + [place] [address] D Unavailable Unavailable Unavailable CHRISTY, SAIRA Unavailable [address] + [place] [address] RAHDA GRACE Unavailable [address] + [place] [address] D Unavailable Unavailable Unavailable CHRISTY, SAIRA Unavailable [address] + [place] [address] RAHDA GRACE Unavailable [address] + [place] [address] D Unavailable Unavailable Unavailable CHRISTY, SAIRA Unavailable [address] + [place] [address] RADHA GRACE Unavailable [address] + [place] [address] D Unavailable Unavailable Unavailable CHRISTY, SAIRA Unavailable [address] + [place] [address] LENARD GRACEIN Unavailable [address] + [place] [place] [address] D Unavailable Unavailable Unavailable CHRISTY, SAIRA Unavailable [address] + [place] [address] LENARD GRACEIN Unavailable [address] + [place] [address] D Unavailable Unavailable Unavailable CHRISTY, SAIRA Unavailable [address] + [place] [address] LENARD GRACEIN Unavailable [address] + [place] [address] D Unavailable Unavailable Unavailable ELVA, MIKE Unavailable [address] + [place] [address] LENARD GRACEIN Unavailable [address] + [place] [address] D Unavailable Unavailable Unavailable ELVA, FRANI Unavailable [address] + [place] [address] LENARD GRACEIN Unavailable [address] + [place] [address] D Unavailable Unavailable Unavailable ELVA, MIKE Unavailable [address] + [place] [address] LENARD GRACEIN Unavailable [address] + [place] [address] D Unavailable Unavailable Unavailable ELVA, LATRELLNI Unavailable [address] + [place] [address] LENARD GRACEIN Unavailable [address] + [place] [address] D Unavailable Unavailable Unavailable ELVA, LATRELLNI Unavailable [address] + [place] [address] GRACELENARDIN Unavailable [address] + [place] [address] D Unavailable Unavailable Unavailable ELVA, LATRELLNI Unavailable [address] + [place] [address] LENARD GRACEIN Unavailable [address] + [place] [address] D Unavailable Unavailable Unavailable STEVENSON, FRANI Unavailable [address] + [place] [address] LENARD GRACEIN Unavailable [address] + [place] [address] D Unavailable Unavailable Unavailable STEVENSON, FRANI Unavailable [address] + [place] [place] [address] LENARD GRACEIN Unavailable [address] + [place] [address] D Unavailable Unavailable Unavailable STEVENSON, FRANI Unavailable [address] + [place] [address] LENARD GRACEIN Unavailable [address] + [place] [address] D Unavailable Unavailable Unavailable STEVENSON, FRANI Unavailable [address] + [place] [address] LENARD GRACEIN Unavailable [address] + [place] [address] D Unavailable Unavailable Unavailable STEVENSON, FRANI Unavailable [address] + [place] [address] GRACELENARDIN Unavailable [address] + [place] [address] D Unavailable Unavailable Unavailable STEVENSON, FRANI Unavailable [address] + [place] [address] GRACELENARDIN Unavailable [address] + [place] [address] D Unavailable Unavailable Unavailable STEVENSON, FRANI Unavailable [address] + [place] [address] RADHA GRACE Unavailable [address] + [place] [address] D Unavailable Unavailable Unavailable STEVENSON, FRANI Unavailable [address] + [place] [address] GRACELENARDIN Unavailable [address] + [place] [address] D Unavailable Unavailable Unavailable STEVENSON, FRANI Unavailable [address] + [place] [address] GRACE RADHA Unavailable [address] + [place] [address] D Unavailable Unavailable Unavailable RADHA GRACE Unavailable [address] + [place] [address] D Unavailable Unavailable Unavailable RADHA GRACE Unavailable [address] + [place] [address] D Unavailable Unavailable Unavailable RADHA GRACE Unavailable [address] + [place] [address] D Unavailable Unavailable Unavailable RADHA GRACE Unavailable [address] + [place] [address] D Unavailable Unavailable Unavailable MIKE STEVENSON Unavailable [address] + [place] [address] RADHA GRACE Unavailable [address] + [place] [address] D Unavailable Unavailable Unavailable RADHA GRACE Unavailable [address] + [place] [address] D Unavailable Unavailable Unavailable RADHA GRACE Unavailable [address] + [place] [address] Care Team Providers Name Role Phone CHERYLE CONROYMAN Referring Unavailable RAFIQ, LAPMAN Referring Unavailable RAFIQ, LAPMAN Referring Unavailable RAFIQ, LAPMAN Referring Unavailable RAFIQ, LAPMAN Attending Unavailable RAFIQ, LAPMAN Referring Unavailable RAFIQ, LAPMAN Referring Unavailable LOLY GIORDANO Attending Unavailable LOLY GIORDANO Referring Unavailable RAFIQ, LAPMAN Referring Unavailable RAFIQ, LAPMAN Referring Unavailable RAFIQ, LAPMAN Referring Unavailable RAFIQ, LAPMAN Referring Unavailable RAFIQ, LAPMAN Referring Unavailable RAFIQ, LAPMAN Attending Unavailable RAFIQ, LAPMAN Referring Unavailable RAFIQ, LAPMAN Referring Unavailable RAFIQ, LAPMAN Referring Unavailable RAFIQ, LAPMAN Referring Unavailable RAFIQ, LAPMAN Referring Unavailable RAFIQ, LAPMAN Referring Unavailable RAFIQ, LAPMAN Referring Unavailable LOLY GIORDANO Attending Unavailable LOLY GIORDANO Referring Unavailable RAFIQ, LAPMAN Referring Unavailable RAFIQ, LAPMAN Referring Unavailable RAFIQ, LAPMAN Referring Unavailable RAFIQ, LAPMAN Attending Unavailable RAFIQ, LAPMAN Referring Unavailable RAFIQ, LAPMAN Referring Unavailable RAFIQ, LAPMAN Referring Unavailable RAFIQ, LAPMAN Referring Unavailable CYNTHIA THEODORE Attending Unavailable LINDA SEGUNDO ([facility]) Attending Unavailable LOLY GIORDANO Referring Unavailable RAFIQ, LAPMAN Referring Unavailable RAFIQ, LAPMAN Referring Unavailable RAFIQ, LAPMAN Referring Unavailable CYNTHIA THEODORE Attending Unavailable RAFIQ, LAPMAN Referring Unavailable RAFIQ, LAPMAN Referring Unavailable RAFIQ, LAPMAN Attending Unavailable RAFIQ, LAPMAN Referring Unavailable RAFIQ, LAPMAN Referring Unavailable RAFIQ, LAPMAN Referring Unavailable RAFIQ, LAPMAN Referring Unavailable RAFIQ, LAPMAN Referring Unavailable RAFIQ, LAPMAN Referring Unavailable RAFIQ, LAPMAN Referring Unavailable CYNTHIA THEODORE Attending Unavailable RAFIQ, LAPMAN Referring Unavailable RAFIQ, LAPMAN Referring Unavailable RAFIQ, LAPMAN Referring Unavailable RAFIQ, LAPMAN Attending Unavailable RAFIQ, LAPMAN Referring Unavailable RAFIQ, LAPMAN Referring Unavailable LAGMAN, LOLY Attending Unavailable LAGMAN, LOLY Referring Unavailable RAFIQ, LAPMAN Referring Unavailable RAFIQ, LAPMAN Referring Unavailable RAFIQ, LAPMAN Referring Unavailable RAFIQ, LAPMAN Referring Unavailable RAFIQ, LAPMAN Referring Unavailable RAFIQ, LAPMAN Referring Unavailable RAFIQ, LAPMAN Attending Unavailable RAFIQ, LAPMAN Referring Unavailable RAFIQ, LAPMAN Referring Unavailable RAFIQ, LAPMAN Referring Unavailable RAFIQ, LAPMAN Referring Unavailable Pola Vee D.O. Attending Unavailable Primay Care Physicia, No Primary Care Unavailable Milo FariaO. Attending Unavailable Brown, Sven Referring Unavailable Bursley, Jarod Primary Care Unavailable Anyi Wells Attending Unavailable Wells, Anyi Referring Unavailable Bursley, Jarod Primary Care Unavailable Anyi Wells Attending Unavailable Bursley, Jarod Referring Unavailable Bursley, Jarod Primary Care Unavailable Anyi Wells Attending Unavailable Anyi Wells Referring Unavailable Wells, Anyi Attending Unavailable Bursley, Jarod Referring Unavailable Bursley, Jarod Primary Care Unavailable Candido Faria.O. Attending Unavailable Bursley, Jarod Primary Care Unavailable Sven Vee Referring Unavailable Pola Vee D.O. Attending Unavailable Bursley, Jarod Primary Care Unavailable Wilfredo Ortez Attending Unavailable Candido Faria.O. Referring Unavailable Anyi Wells Attending Unavailable Primay Care Physicia, No Referring Unavailable Milo FariaO. Attending Unavailable Bursley, Jarod Primary Care Unavailable Candido Faria.O. Attending Unavailable Candido Faria.O. Referring Unavailable Candido Faria.Elli. Attending Unavailable Candido Faria.O. Referring Unavailable Primay Care Physicia, No Primary Care Unavailable Pola Vee D.O. Attending Unavailable Primay Care Physicia, No Referring Unavailable Anyi Wells Attending Unavailable Primay Care Physicia, No Referring Unavailable Primay Care Physicia, No Primary Care Unavailable Destiney Ramirez Attending Unavailable Anyi Wells Attending Unavailable Bursley, Jarod Referring Unavailable Anyi Wells Attending Unavailable Priscilla, Anyi Referring Unavailable Bursley, Jarod Primary Care Unavailable Anyi Wells Attending Unavailable Wells, Anyi Referring Unavailable Bursley, Jarod Primary Care Unavailable Wells, Anyi Attending Unavailable Wells, Anyi Referring Unavailable Bursley, Jarod Primary Care Unavailable Wells, Anyi Attending Unavailable Bursley, Jarod Referring Unavailable Wells, Anyi Attending Unavailable Wells, Anyi Referring Unavailable Bursley, Jarod Primary Care Unavailable Wells, Anyi Attending Unavailable Bursley, Jarod Referring Unavailable , NANI Attending Unavailable NANI MUNOZ Referring Unavailable Bursley, Jarod Primary Care Unavailable Wells, Anyi Attending Unavailable Wlels, Anyi Referring Unavailable Bursley, Jarod Primary Care Unavailable Wells, Anyi Attending Unavailable Wells, Anyi Referring Unavailable Bursley, Jarod Primary Care Unavailable Pola Vee D.O. Attending Unavailable Pola Vee D.O. Referring Unavailable Wells, Anyi Attending Unavailable Bursley, Jarod Referring Unavailable Bursley, Jarod Primary Care Unavailable Shannan Conroy Attending Unavailable RafiqShannan Referring Unavailable Bursley, Jarod Primary Care Unavailable Pola Vee D.O. Attending Unavailable Pola Vee D.O. Referring Unavailable Bursley, Jarod Primary Care Unavailable Pola Vee D.O. Attending Unavailable Bursley, Jarod Referring Unavailable Wells, Anyi Attending Unavailable Primay Care Physicia, No Referring Unavailable Bursley, Jarod Primary Care Unavailable Pola Vee D.O. Attending Unavailable Sven Vee Referring Unavailable Bursley, Jarod Primary Care Unavailable Wells, Anyi S Admitting Unavailable Wells, Anyi S Attending Unavailable No Doctor Assigned, Nodr Primary Care Unavailable Priscilla, Anyi S Attending Unavailable No Doctor Assigned, Nodr Primary Care Unavailable Pola Vee Admitting Unavailable Pola Vee Attending Unavailable Bursley, Christopher B Primary Care Unavailable PROBLEMS PROBLEMS DATE TYPE CONDITION / CODE ATTENDING STATUS SOURCE 03/20/2018 Unknown J44.1 - Chronic Wells, Active [place] obstructive [facility] pulmonary disease Hospital with (acute) Repository exacerbation / J44.1(ICD-10) 03/20/2018 Unknown J47.9 - Wells, Active [place] Bronchiectasis, [facility] uncomplicated / Hospital J47.9(ICD-10) Repository 02/27/2018 Unknown E88.01 - Wells, Active [place] [id number] [facility] deficiency / Hospital E88.01(ICD-10) Repository 02/21/2018 Unknown J44.9 - Chronic Wells, Active [place] obstructive [facility] pulmonary disease, Hospital unspecified / Repository J44.9(ICD-10) 02/21/2018 Unknown J96.21 - Acute and Wells, Active [place] chronic respiratory [facility] failure with Hospital hypoxia / Repository J96.21(ICD-10) 02/21/2018 Unknown R09.82 - Postnasal Wells, Active [place] drip / [facility] R09.82(ICD-10) Hospital Repository 02/14/2018 Unknown R63.4 - Abnormal Wells, Active [place] weight loss / [facility] R63.4(ICD-10) Hospital Repository 03/29/2016 Active Secondary malignant NA Active [facility] neoplasm of bone / [place] C79.51(ICD-10) Repository 03/31/2015 Active Other malaise / NA Active [facility] R53.81(ICD-10) [place] Repository 03/31/2015 Active Other fatigue / NA Active [facility] R53.83(ICD-10) [place] Repository 06/22/2017 Active Chronic fatigue, NA Active [facility] unspecified / [place] R53.82(ICD-10) Repository 11/04/2014 Active Malignant neoplasm NA Active [facility] of upper lobe, [place] right bronchus or Repository lung / C34.11(ICD-10) 06/07/2017 Unknown R05 - Cough / Wells, Active [place] R05(ICD-10) [facility] Hospital Repository 01/22/2015 Active Secondary and NA Active [facility] unspecified [place] malignant neoplasm Repository of intra-abdominal lymph nodes / C77.2(ICD-10) 05/31/2013 Active Encounter for NA Active [facility] examination for [place] normal comparison Repository and control in clinical research program / Z00.6(ICD-10) 04/27/2017 Active Malignant neoplasm NA Active [facility] of unspecified part [place] of right bronchus Repository or lung / C34.91(ICD-10) 04/27/2017 Active Secondary malignant NA Active [facility] neoplasm of [place] unspecified lung / Repository C78.00(ICD-10) 04/27/2017 Active Cough / R05(ICD-10) NA Active [facility] [place] Repository 08/24/2014 Active Malignant neoplasm NA Active [facility] of unspecified part [place] of unspecified Repository bronchus or lung / C34.90(ICD-10) 04/14/2017 Active Unknown / NA Active [facility] UNK(Unknown) [place] Repository PROCEDURES PROCEDURES No Procedure Records FoundRESULTS RESULTS CNOVSP Observed: 03/29/2018 Status: COMPLETED Source: [place] 4:40 PM [facility] REPOSITORY Visit (SP) Office ([place]) JAZMYNE HARRISON ([id number]) 1970 F Date Time Provider Department 03/29/18 4:40 PM SHANNAN CONROY During your visit today, we recorded the following information about you: Temperature Pulse Blood pressure Weight 98.9 degrees 82/minute 111/57 52.6 kg Shannan Conroy MD 03/30/2018 7:27 AM Signed PATIENT NAME: Jazmyne Harrison. CLINIC NO: [id number]. ATTENDING PHYSICIAN: Shannan Conroy MD. ?? DATE OF SERVICE: 03/29/2018. DIAGNOSIS: Metastatic (adenocarcinoma) lung cancer, PD-L1+, EGFR AND?ALK negaitve ?? HPI:? Jazmyne Harrison is a 46?year old female whith metastatic (adenocarcinoma) lung cancer. H/o tobacco abuse, COPD who presented with cough and hemoptysis 2012 in the emergency room. Her initial chest x-ray showed a right upper lobe mass. CT scan of chest and subsequent CT-guided lung biopsy revealed non-small cell (adenocarcinoma) lung cancer. ?? Patient had right sided chest pain for over a year. Initially, she thought she pulled a muscle and has been using ibuprofen for pain. She used to smoke 2 packs cigarette per day for over 20 years and recently has cut down to less than 5 cigarettes per day. Chest -ray 2 years ago showed changes consistent with COPD but no lung mass. ?? Staging workup included bone scan show a focal increased activity in the left ilium along the medial left acetabular region. X-ray of the hip showed no lytic or blastic lesion. CT scan of the abdomen showed several small lesions scattered along the left and right hepatic lobes. Otherwise no evidence of metastatic disease. MRI scan and brain also showed no metastatic disease. Patient had a left hip pain for over 2 years. ?? Subsequent PET scan revealed metastatic disease. There were increased activity in the right upper hemithorax along with additional lung nodules in the right side consistent with metastatic disease. There was activity in the mediastinum right prehilar region and bone metastasis at the level of the left acetabulum. ?? Treatment history:? Patient received Taxol/carboplatin/avastin x 4 cycles with near complete response . She was placed on maintenance and Avastin therapy and she progressed on treatment. She then had additional treatment with Avastin and Alimta x4 cycles with further progression of disease. Avastin was discontinued because of hemostasis with her last 2 cycles of chemotherapy. ?? Patient completed palliative radiation therapy to her right upper lobe because of hemostasis and severe pain.She received palliative RT to the right apex lesion 3000 cGy on February 18, 2014 with good control of symptoms. On recent re-staging CT scans, she had improvement in the radiated RUL lesion however had a new 1.8 cm lesion in the RUL. ?? Patient completed 4 cycles of Carboplatin/Abraxane ( 05/02/14- 07/18/14 ) with partial response after 2 cycles and stable disease after 4 cycles. Patient had progression disease in July and started treatment with Check- point inhibitor this year. ?? Patient has progression of her primary lung lesion late last year. Her PET scan was otherwise negative metastatic disease. She had completed palliative radiation therapy to her right upper lobe lung lesion with 2400 cGy in 8 fx in March,. ?? Current treatment:?Nivolumab since July 2014. ?? Interim history: She is tolerating Nivolumab very well. ??She has occasional nonproductive cough, no fever, chills or shortness of breath or any sign of infection.??she is on continuous oxygen 24 hours because of hypoxemia from COPD. Patient denies headaches, + numbness in her left hand as well as on the back of her neck probably from a pinched nerve. She has no hip and lower back pain controlled with pain medications. She was also diagnosed with Alpha 1 antitrypsin deficiency receiving replacement therapy. ?? She has chronic?fatigue but no further weight loss with her prednisone intermittently after OPDIVO. She denies arthritis or neuropathy. Denies jaundice or diarrhea. thyroid function has been normal. ?? All medications AND allergies updated and reviewed by me. ?? Review of system: Appetite: Good Energy level: Fair Denies fevers. Mouth:denies sores Resp:dry cough, denies shortness of breath or hemoptysis Cardiac:denies chest pain/palpitations GI: denied nausea, vomiting or diarrhea. :denies dysuria/hematuria Extrem:pain to left hip and both knees Neuro:foot numbness/tingling/burning-as above. Skin:denies rashes Heme:denies bleeding ?? The ROS is otherwise negative. Past medical history,medications, allergies reviewed. No changes. ?? EXAM:? APPEARANCE Well appearing, alert, in no acute distress, well- hydrated, well nourished. Performance status 80%; BP 111/57 Pulse 82 Temp (Src) 98.9 (Temporal Artery) Wt 116 lb (52.6kg) LMP 05/06/1999 HEENT: Sclerae anicteric, WNL HEART RRR with normal S1 and S2, no murmurs, no gallops, no JVD appreciated LUNG clear to auscultation, diminished breath sound the right upper lobe, scattered rales on the right?lower lobe, no wheezing, LYMPH NODES No cervical lymphadenopathy, No supraclavicular lymphadenopathy and No axillary lymphadenopathy. ABDOMEN bowel sounds normoactive, no bruits, soft, non-tender, non-distended, without organomegaly or palpable masses EXTREMITIES Extremities normal, No deformities, No skin discoloration, No edema and Normal pulses bilaterally. NEURO Awake, alert and oriented x 3, Normal gait and No involuntary motions. SKIN Skin color, texture, turgor normal, no suspicious rashes or lesions ?? LABS: Component Latest Ref Rng AND Units 03/29/2018 WBC, [place] 3.70 - 11.00 k/uL 10.88 RBC, [place] 3.90 - 5.20 m/uL 4.29 Hemoglobin, [place] 11.5 - 15.5 g/dL 12.3 Hematocrit, [place] 36.0 - 46.0 % 39.9 MCV, [place] 80.0 - 100.0 fL 93.0 MCH, [place] 26.0 - 34.0 pg 28.7 MCHC, [place] 30.5 - 36.0 g/dL 30.8 RDW, [place] 11.5 - 15.0 % 15.3 (H) Platelet Cnt, [place] 150 - 400 k/uL 327 MPV, [place] 9.0 - 12.7 fL 9.1 Absol Gran Count 1.45 - 7.50 k/uL 8.87 (H) Component Latest Ref Rng AND Units 03/29/2018 Protein, Total 6.3 - 8.0 g/dL 7.1 Albumin 3.9 - 4.9 g/dL 4.0 Calcium 8.5 - 10.2 mg/dL 9.3 Bilirubin, Total 0.2 - 1.3 mg/dL 0.3 Alkaline Phosphatase 34 - 123 U/L 67 AST 13 - 35 U/L 26 Glucose 74 - 99 mg/dL 102 (H) BUN 7 - 21 mg/dL 12 Creatinine 0.58 - 0.96 mg/dL 0.51 (L) Sodium 136 - 144 mmol/L 137 Potassium 3.7 - 5.1 mmol/L 4.1 Chloride 97 - 105 mmol/L 93 (L) CO2 22 - 30 mmol/L 36 (H) Anion Gap mmol/L 8 ALT 7 - 38 U/L 34 eGFR- >60 eGFR-All Other Races . >60 TSH 0.400 - 5.500 uU/mL 0.922 CXR: Stable chest. ?No acute cardiopulmonary process. ASSESSMENT/PLAN:? 1. Metastatic Lung cancer Metastatic non-small cell (adenocarcinoma) lung cancer; EGFR AND ALK negaitve Tolerating treatment with Nivolumab with stable disease. (CXR) Fatigue and weight loss secondary to her treatment. Chronic hypoxemia secondary to pulmonary fibrosis and COPD AND alpha-1 antitrypsin deficiency. - Continue treatment with Nivolumab 480mg every 4 weeks - Continue MS Contin, and percocet as needed and Neurontin 300mg TID and Marinol as needed - Continue stool softener and laxative as needed. - Continue oxygen therapy and follow-up with Dr. Vee, director of orthopedics for replacement enzyme therapy. - Continue Mucinex and Tessalon Perles as needed for cough. - Repeat CBC, CMP, and chest x-ray?OV in 2?months ?? 2. Upper back pain and hip pain with history of bone metastasis - follow-up palliative medicine ? 3. ?chronic fatigue secondary to lung cancer AND?Immunotherapy treatment. - Continue Ritalin and short-courses of prednisone if needed after each OPDIVO treatment ? 4) left hand numbness- probably secondary to pinch ulnar nerve - no significant change or worsening of symptom. ? Shannan Conroy MD ? Cc: Dr. Loly Martinez LPN 03/29/2018 4:33 PM Signed Est patient. Discuss recent labs and CXR, treatment tomorrow. Barbara Martinez LPN Referring Provider: SHANNAN CONROY [[id number]] Allergies As of Date: 03/29/2018 Noted Allergy Reaction DALIRESP (ROFLUMILAST) 11/10/2017 9 - Itching Comments: red, warm, itching neck, lump in throat Date Reviewed: 03/29/2018 Reviewed by: Barbara Martinez LPN - Fully Assessed Reason for Visit: Established Patient [175] Primary Visit Diagnosis:Bone metastasis (HCC) [C79.51] Other Visit Diagnoses:Malignant neoplasm metastatic to lung, unspecified laterality (HCC) [C78.00] Non-small cell carcinoma of lung, stage 4, unspecified laterality (HCC) [C34.90] Malignant neoplasm of upper lobe of right lung (HCC) [C34.11] Examination of participant in clinical trial [Z00.6] Level of Service: EST PATIENT VISIT LEVEL 4 [[id number]] Disposition: Return in about 8 weeks (around 05/24/2018). LOS history recorded Follow-up and Disposition History Recorded Prescriptions as of 03/29/2018 Sig: DRONABINOL 2.5 MG CAPSULE Take 1 capsule by mouth twice* MORPHINE ER 60 MG TABLET,EXTE* Take 1 tablet by mouth twice * OXYCODONE 30 MG TABLET Take 1-2 tablets by mouth chad* OLANZAPINE 5 MG TABLET Take 1 tablet by mouth daily * PROMETHAZINE 25 MG TABLET Take 1 tablet by mouth every * PRAMIPEXOLE 1 MG TABLET TAKE 1 TABLET BY MOUTH EVERY * METHYLPHENIDATE 10 MG TABLET Take 1.5 tablets by mouth onc* BENZONATATE 100 MG CAPSULE Take 1 capsule by mouth three* ALBUTEROL SULFATE HFA 90 MCG/* Inhale 2 Puffs as instructed * GABAPENTIN 300 MG CAPSULE TAKE ONE CAPSULE BY MOUTH 4 T* PREDNISONE 10 MG TABLET Take 1 tablet by mouth once d* ZANTAC 75 ORAL Take by mouth twice daily. TRAZODONE 100 MG TABLET Take 3 tablets by mouth daily* STOOL SOFTENER ORAL Take 2 tablets by mouth at be* LORAZEPAM 0.5 MG TABLET Take 1-2 tablets PO daily PRN* BUDESONIDE-FORMOTEROL HFA 160* Inhale 1 Puff as instructed t* SODIUM CHLORIDE 0.9% FLUSH NURSING USE ONLY: USED FOR * HEPARIN LOCK FLUSH (PORCINE) * NURSING USE ONLY: USE FOR I* Medication notes this encounter ZANTAC 75 ORAL >> Barbara Martinez LPN 03/29/2018 4:31 PM >> BARBARA MARTINEZ LPN [facility] Mar 29, 2018 4:31 PM As needed Problem List As Of Date 03/29/2018 Noted Resolved Bone metastasis [C79.51] INVALID FOR* Secondary malignant neoplasm of intra-abdominal*INVALID FOR* More... Lung cancer [C34.90] INVALID FOR*06/26/2013 Lung metastases [C78.00] INVALID FOR* Examination of participant in clinical trial [Z*INVALID FOR* History of lung cancer [Z85.118] INVALID FOR* Lung cancer (HCC) [C34.90] INVALID FOR*11/04/2014 Non-small cell carcinoma of lung, stage 4 (HCC)*INVALID FOR* Malignant neoplasm of upper lobe of right lung *INVALID FOR* Malaise and fatigue [R53.81, R53.83] INVALID FOR* Family history of tobacco abuse and dependence *INVALID FOR* RLS (restless legs syndrome) [G25.81] INVALID FOR* COPD (chronic obstructive pulmonary disease) (H* Supplemental oxygen dependent [Z99.81] INVALID FOR* Port catheter in place [Z95.828] INVALID FOR* Chronic back pain [M54.9, G89.29] More... Bone pain [M89.8X9] Bone metastases (HCC) [C79.51] More... Restless leg syndrome [G25.81] Neuropathy (HCC) [G62.9] Nynxz-6-rerbqvoopox deficiency (HCC) [E88.01] INVALID FOR* Visit Notes: >> Barbara Martinez LPN [facility] Mar 29, 2018 4:31 PM Status: Signed Est patient. Discuss recent labs and CXR, treatment tomorrow. Barbara Martinez LPN Encounter Status:Closed by SHANNAN CONROY MD on 03/30/18 TSH Collected: 03/29/2018 Status: F Source: [place] 4:34 PM [facility] REPOSITORY TYPE CODE TESTS RESULT OUT OF RANGE REFERENCE UNITS LAB TSH 0.400-5.500 uU/mL TSH 0.922 Result Comment: If the patient is , TSH reference range varies by gestational period: First Trimester 0.100-2.500 uU/mL Second Trimester 0.200-3.000 uU/mL Third Trimester 0.300-3.000 uU/mL References: 1. Posey L, Keily M, Zana DO, et al. Management of Thyroid Dysfunction during and : An Endocrine Society Clinical Practice Guideline. J Clin Endocrinol Metab, 2012:97:2066-6136. 2. [place] ALLISON. Overview of thyroid disease in . UpToDate. 2016. Accessed on October 09, 2015. Performed By: #### TSH #### [facility] [address] [place], [place] [address] [place] ABS GR + CBC Collected: 03/29/2018 Status: F Source: [place] 4:33 PM [facility] REPOSITORY TYPE CODE TESTS RESULT OUT OF REFERENCE UNITS RANGE LAB WWBC 3.70-11.00 k/uL [place] WBC 10.88 LAB WRBC 3.90-5.20 m/uL [place] RBC 4.29 LAB WHGB 11.5-15.5 g/dL [place] Hemoglobin 12.3 LAB WHCT 36.0-46.0 % [place] Hematocrit 39.9 LAB WMCV 80.0-100.0 fL [place] MCV 93.0 LAB WMCH 26.0-34.0 pg [place] MCH 28.7 LAB WMCHC 30.5-36.0 g/dL [place] MCHC 30.8 LAB WRDW 11.5-15.0 % [place] High RDW 15.3 LAB WPLT 150-400 k/uL [place] Platelet Cnt 327 LAB WMPV 9.0-12.7 fL [place] MPV 9.1 Result Comment: Test performed at: [facility], [address] [place] [address] Rd[address] [place] [address]. LAB ABGRAN 1.45-7.50 k/uL High Absol 8.87 Gran Count COMP METABOLIC PANEL Collected: 03/29/2018 Status: F Source: [place] 4:33 PM [facility] REPOSITORY TYPE CODE TESTS RESULT OUT OF REFERENCE UNITS RANGE LAB TP 6.3-8.0 g/dL Protein, Total 7.1 LAB ALB 3.9-4.9 g/dL Albumin 4.0 LAB CA 8.5-10.2 mg/dL Calcium, Total 9.3 LAB TBIL 0.2-1.3 mg/dL Bilirubin, Total 0.3 LAB ALKP 34-123 U/L Alkaline Phosphatase 67 LAB AST 13-35 U/L AST 26 LAB GLU 74-99 mg/dL Glucose High 102 LAB BUN 7-21 mg/dL BUN 12 LAB CRET 0.58-0.96 mg/dL Creatinine Low 0.51 LAB NA 136-144 mmol/L Sodium 137 LAB K 3.7-5.1 mmol/L Potassium 4.1 LAB CL 97-105 mmol/L Chloride Low 93 LAB CO2 22-30 mmol/L CO2 High 36 LAB AGAP mmol/L Anion Gap 8 LAB ALT 7-38 U/L ALT 34 LAB GFRAA eGFR- >60 Amer. LAB GFRNAA . eGFR-All Other Races >60 Result Comment: eGFR (Estimated GFR) Units of measure: mL/min/1.73 meters squared eGFR is derived from the reexpressed MDRD Study equation using the following parameters: serum creatinine, age, gender and race. The creatinine assay has been calibrated to be traceable to IDMS. An eGFR <60 mL/min/1.73m2 for >3 months is consistent with chronic kidney disease. Refer to KDOQI guidelines for clinical interpretation. In patients with unstable renal function, e.g. those with acute kidney injury, the eGFR may not accurately reflect actual GFR. PROGRESS Observed: 03/29/2018 Status: COMPLETED Source: [place] 4:19 PM [facility] REPOSITORY O ID: [id number] Author: Shannan Conroy Service: (none) Author Type: Physician Type: Progress Notes Filed: 03/30/2018 7:27 AM Note Text: PATIENT NAME: Jazmyne Harrison. CLINIC NO: [id number]. ATTENDING PHYSICIAN: Shannan Conroy MD. ?? DATE OF SERVICE: 03/29/2018. DIAGNOSIS: Metastatic (adenocarcinoma) lung cancer, PD-L1+, EGFR AND?ALK negaitve ?? HPI:? Jazmyne Harrison is a 46?year old female whith metastatic (adenocarcinoma) lung cancer. H/o tobacco abuse, COPD who presented with cough and hemoptysis 2012 in the emergency room. Her initial chest x-ray showed a right upper lobe mass. CT scan of chest and subsequent CT-guided lung biopsy revealed non-small cell (adenocarcinoma) lung cancer. ?? Patient had right sided chest pain for over a year. Initially, she thought she pulled a muscle and has been using ibuprofen for pain. She used to smoke 2 packs cigarette per day for over 20 years and recently has cut down to less than 5 cigarettes per day. Chest -ray 2 years ago showed changes consistent with COPD but no lung mass. ?? Staging workup included bone scan show a focal increased activity in the left ilium along the medial left acetabular region. X-ray of the hip showed no lytic or blastic lesion. CT scan of the abdomen showed several small lesions scattered along the left and right hepatic lobes. Otherwise no evidence of metastatic disease. MRI scan and brain also showed no metastatic disease. Patient had a left hip pain for over 2 years. ?? Subsequent PET scan revealed metastatic disease. There were increased activity in the right upper hemithorax along with additional lung nodules in the right side consistent with metastatic disease. There was activity in the mediastinum right prehilar region and bone metastasis at the level of the left acetabulum. ?? Treatment history:? Patient received Taxol/carboplatin/avastin x 4 cycles with near complete response . She was placed on maintenance and Avastin therapy and she progressed on treatment. She then had additional treatment with Avastin and Alimta x4 cycles with further progression of disease. Avastin was discontinued because of hemostasis with her last 2 cycles of chemotherapy. ?? Patient completed palliative radiation therapy to her right upper lobe because of hemostasis and severe pain.She received palliative RT to the right apex lesion 3000 cGy on February 18, 2014 with good control of symptoms. On recent re-staging CT scans, she had improvement in the radiated RUL lesion however had a new 1.8 cm lesion in the RUL. ?? Patient completed 4 cycles of Carboplatin/Abraxane ( 05/02/14- 07/18/14 ) with partial response after 2 cycles and stable disease after 4 cycles. Patient had progression disease in July and started treatment with Check-point inhibitor this year. ?? Patient has progression of her primary lung lesion late last year. Her PET scan was otherwise negative metastatic disease. She had completed palliative radiation therapy to her right upper lobe lung lesion with 2400 cGy in 8 fx in March,. ?? Current treatment:?Nivolumab since July 2014. ?? Interim history: She is tolerating Nivolumab very well. ??She has occasional nonproductive cough, no fever, chills or shortness of breath or any sign of infection.??she is on continuous oxygen 24 hours because of hypoxemia from COPD. Patient denies headaches, + numbness in her left hand as well as on the back of her neck probably from a pinched nerve. She has no hip and lower back pain controlled with pain medications. She was also diagnosed with Alpha 1 antitrypsin deficiency receiving replacement therapy. ?? She has chronic?fatigue but no further weight loss with her prednisone intermittently after OPDIVO. She denies arthritis or neuropathy. Denies jaundice or diarrhea. thyroid function has been normal. ?? All medications AND allergies updated and reviewed by me. ?? Review of system: Appetite: Good Energy level: Fair Denies fevers. Mouth:denies sores Resp:dry cough, denies shortness of breath or hemoptysis Cardiac:denies chest pain/palpitations GI: denied nausea, vomiting or diarrhea. :denies dysuria/hematuria Extrem:pain to left hip and both knees Neuro:foot numbness/tingling/burning-as above. Skin:denies rashes Heme:denies bleeding ?? The ROS is otherwise negative. Past medical history,medications, allergies reviewed. No changes. ?? EXAM:? APPEARANCE Well appearing, alert, in no acute distress, well-hydrated, well nourished. Performance status 80%; BP 111/57 Pulse 82 Temp (Src) 98.9 (Temporal Artery) Wt 116 lb (52.6kg) LMP 05/06/1999 HEENT: Sclerae anicteric, WNL HEART RRR with normal S1 and S2, no murmurs, no gallops, no JVD appreciated LUNG clear to auscultation, diminished breath sound the right upper lobe, scattered rales on the right?lower lobe, no wheezing, LYMPH NODES No cervical lymphadenopathy, No supraclavicular lymphadenopathy and No axillary lymphadenopathy. ABDOMEN bowel sounds normoactive, no bruits, soft, non-tender, non-distended, without organomegaly or palpable masses EXTREMITIES Extremities normal, No deformities, No skin discoloration, No edema and Normal pulses bilaterally. NEURO Awake, alert and oriented x 3, Normal gait and No involuntary motions. SKIN Skin color, texture, turgor normal, no suspicious rashes or lesions ?? LABS: Component Latest Ref Rng AND Units 03/29/2018 WBC, [place] 3.70 - 11.00 k/uL 10.88 RBC, [place] 3.90 - 5.20 m/uL 4.29 Hemoglobin, [place] 11.5 - 15.5 g/dL 12.3 Hematocrit, [place] 36.0 - 46.0 % 39.9 MCV, [place] 80.0 - 100.0 fL 93.0 MCH, [place] 26.0 - 34.0 pg 28.7 MCHC, [place] 30.5 - 36.0 g/dL 30.8 RDW, [place] 11.5 - 15.0 % 15.3 (H) Platelet Cnt, [place] 150 - 400 k/uL 327 MPV, [place] 9.0 - 12.7 fL 9.1 Absol Gran Count 1.45 - 7.50 k/uL 8.87 (H) Component Latest Ref Rng AND Units 03/29/2018 Protein, Total 6.3 - 8.0 g/dL 7.1 Albumin 3.9 - 4.9 g/dL 4.0 Calcium 8.5 - 10.2 mg/dL 9.3 Bilirubin, Total 0.2 - 1.3 mg/dL 0.3 Alkaline Phosphatase 34 - 123 U/L 67 AST 13 - 35 U/L 26 Glucose 74 - 99 mg/dL 102 (H) BUN 7 - 21 mg/dL 12 Creatinine 0.58 - 0.96 mg/dL 0.51 (L) Sodium 136 - 144 mmol/L 137 Potassium 3.7 - 5.1 mmol/L 4.1 Chloride 97 - 105 mmol/L 93 (L) CO2 22 - 30 mmol/L 36 (H) Anion Gap mmol/L 8 ALT 7 - 38 U/L 34 eGFR- >60 eGFR-All Other Races . >60 TSH 0.400 - 5.500 uU/mL 0.922 CXR: Stable chest. ?No acute cardiopulmonary process. ASSESSMENT/PLAN:? 1. Metastatic Lung cancer Metastatic non-small cell (adenocarcinoma) lung cancer; EGFR AND ALK negaitve Tolerating treatment with Nivolumab with stable disease. (CXR) Fatigue and weight loss secondary to her treatment. Chronic hypoxemia secondary to pulmonary fibrosis and COPD AND alpha-1 antitrypsin deficiency. - Continue treatment with Nivolumab 480mg every 4 weeks - Continue MS Contin, and percocet as needed and Neurontin 300mg TID and Marinol as needed - Continue stool softener and laxative as needed. - Continue oxygen therapy and follow-up with Dr. Vee, director of orthopedics for replacement enzyme therapy. - Continue Mucinex and Tessalon Perles as needed for cough. - Repeat CBC, CMP, and chest x-ray?OV in 2?months ?? 2. Upper back pain and hip pain with history of bone metastasis - follow-up palliative medicine ? 3. ?chronic fatigue secondary to lung cancer AND?Immunotherapy treatment. - Continue Ritalin and short-courses of prednisone if needed after each OPDIVO treatment ? 4) left hand numbness- probably secondary to pinch ulnar nerve - no significant change or worsening of symptom. ? Shannan Conroy MD ? Cc: Dr. oLly Vee XR CHEST 2V FRONTAL/LAT Observed: 03/29/2018 Status: F Source: [place] 4:14 PM [facility] REPOSITORY * * *Final Report* * * DATE OF EXAM: Mar 29 2018 4:14PM WRX [id number] - XR CHEST 2V FRONTAL/LAT / PROCEDURE REASON: Malignant neoplasm of upper lobe of right lung (HCC) * * * * Physician Interpretation * * * * EXAMINATION: CHEST RADIOGRAPH (2 VIEW FRONTAL and LATERAL) CLINICAL HISTORY: Malignant neoplasm of upper lobe of right lung (HCC) MQ: XC2_5 Comparison: 01/05/2018 RESULT: Stable left medication port catheter. Pulmonary interstitial edema in the lower lung zones bilaterally are unchanged. Redemonstration of right apical interstitial and pleural fibrosis, unchanged. Small bilateral pleural effusions. No pneumothorax. Stable cardiomediastinal silhouette. Degenerative changes in the thoracic spine. IMPRESSION: Pulmonary edema with small bilateral pleural effusions. Stable right apical chronic interstitial and pleural fibrosis. Psychology Technician: CHIKA Transcribe Date/Time: Mar 29 2018 9:31P Dictated by : RINA MORALES MD This examination was interpreted and the report reviewed and electronically signed by: RINA MORALES MD on Mar 29 2018 9:34PM EST [id number] Observed: 03/29/2018 Status: COMPLETED Source: [place] 4:08 PM [facility] REPOSITORY O ID: [id number] Author: Dee Wei (Rt) George Phelps Service: (none) Author Type: [employer] Type: Progress Notes Filed: 03/29/2018 4:14 PM Note Text: Radiology Service Progress Note PATIENT NAME: Jazmyne Harrison DATE OF SERVICE: March 29, 2018 TIME: 4:08 PM PATIENT IDENTITY VERIFICATION COMPLETED USING TWO (2) METHODS: Patient confirmed name verbally and Date of . PATIENT GENDER DATA: Female. status: : No status: NO. PATIENT RELEVANT IMPLANT DATA REVIEWED: Not Applicable RADIOLOGY DEPARTMENT: General X-ray: Exam(s) Completed: Chest X-Ray PERIPHERAL IV DATA: Not applicable SIGNED BY: RT Demetria March 29, 2018 4:08 PM PULMONARY VISIT REPORT Observed: 03/21/2018 Status: F Source: [place] 4:[address] [facility] REPOSITORY [facility] of [address] [place] [address] OFFICE VISIT Date of Service: 03/20/18 MR#: [id number] Acct: [id number] Name: JAZMYNE HARRISON Rep #: [id number] : 1970 Provider: Anyi Wells Age/Sex: 47/F Location: [facility] [place] Status: Signed Assessment AND Plan Problems 1. Stage 3 severe COPD by GOLD classification J44.9 Plan Deteriorated. Treating for exacerbation of her COPD, possibly secondary to sinus infection, Augmentin twice daily for 10 days in addition to a prednisone taper. Beginning with a Kenalog injection in the office today. Continue all maintenance medications. Sputum culture pending. Keep previously scheduled routine follow-up. Contact the office if symptoms do not begin to improve after 3 days on these medications. Orders Orders: Medications New: amoxicillin-pot clavulanate 875-125 mg (Augmenti1 tab PO BID 20 tabs 0RF n) HPI Not feeling well: Chief Complaint: Cough HPI Comments Details: This patient presents the office today for an acute visit regarding cough and increasing shortness of breath. She is ambulatory, currently wearing nasal cannula oxygen. She reports that approximately 3-4 days ago she noticed a worsening in shortness of breath and increased need for supplemental oxygen to maintain saturations at 90%. She is coughing, and is productive of green to brown sputum. She reports that her cough is so frequent that she is now having headaches. She has chest tightness, chest congestion but denies any chest pain or palpitations. She denies any hemoptysis. She has not added any btyj-oen-ycnjefd medications to treat her symptoms. She continues compliance with her maintenance medications which consist of Spiriva daily, Symbicort twice daily, Flonase daily, Mucinex twice daily and as needed albuterol. She is also compliant with treatment for her alpha-1 antitrypsin deficiency. She does believe that since beginning treatment for her alpha-1 deficiency her symptoms of exacerbation have been less frequent. Intake Vital Signs03/20/18 Height 5 ft 11 in 03/20/18 Weight: 117 lb 03/20/18 Body Mass Index (BMI) 16.3 Intake Visit Reasons: Not feeling well [facility]ies [facility] Adverse Reaction (Mild, Verified 03/20/18 14:36) Rash Medications Aripiprazole [Abilify] 5 mg PO QHS 03/03/16 [History Confirmed 03/20/18] Dronabinol [Marinol] 2.5 mg PO TID PRN PRN 03/03/16 [History Confirmed 03/20/18] Gabapentin [Neurontin] 300 mg PO 4X/DAY 03/03/16 [History Confirmed 03/20/18] Morphine Sulfate [Morphine Sulfate ER] 60 mg PO BID 03/03/16 [History Confirmed 03/20/18] Oxycodone [Oxyir] 30 mg PO TID PRN PRN 03/03/16 [History Confirmed 03/20/18] Pramipexole Di-HCl [Mirapex] 1 mg PO QHS 03/03/16 [History Confirmed 03/20/18] Trazodone HCl 300 mg PO QHS 03/03/16 [History Confirmed 03/20/18] proMETHazine tablet [Phenergan tablet] 25 mg PO PRN PRN 03/03/16 [History Confirmed 03/20/18] Lorazepam [Ativan] 0.5 mg PO DAILY PRN #0 03/06/16 [Rx Confirmed 03/20/18] Nebulizer and Compressor [Portable Nebulizer System] 1 ea MC Q2H PRN PRN #1 ea 03/06/16 [Rx Confirmed 03/20/18] methylphenidate 10 mg tablet 10 mg PO QAM AND QPM 04/12/17 [History Confirmed 03/20/18] albuterol sulfate 2.5 mg/3 mL (0.083 %) solution for nebulization 2.5 mg INHALATION Q4H PRN #360 ml 04/25/17 [Rx Confirmed 03/20/18] albuterol sulfate HFA 90 mcg/actuation aerosol inhaler 2 puff INHALATION Q6H PRN #1 device 05/17/17 [Rx Confirmed 03/20/18] tiotropium bromide 2.5 mcg/actuation mist for inhalation 2 puff INHALATION QDAY #1 device 05/17/17 [Rx Confirmed 03/20/18] guaifenesin ER 1,200 mg tablet, extended release 12 hr 1,200 mg PO Q12H PRN #60 tab 11/10/17 [Rx Confirmed 03/20/18] budesonide-formoterol HFA 160 mcg-4.5 mcg/actuation aerosol inhaler 2 inh INHALATION Q12H #10.2 g 12/20/17 [Rx Confirmed 03/20/18] fluticasone 50 mcg/actuation nasal spray,suspension 2 spray INTRANASAL DAILY #16 g 02/16/18 [Rx Confirmed 03/20/18] Glassia See Rx Instructions IV QWEEK #12 unit 02/28/18 [Rx Confirmed 03/20/18] acapella See Rx Instructions .ROUTE .MEDSUPPLY #1 ea 03/20/18 [Rx Confirmed 03/20/18] amoxicillin 875 mg-potassium clavulanate 125 mg tablet 1 tab PO BID #20 tab 03/20/18 [Rx Confirmed 03/20/18] prednisone 10 mg tablet 10 mg PO QDAY #30 tab 03/20/18 [Rx Confirmed 03/20/18] PFSH Medical History D AND C (Resolved) Port placement (Resolved) H/O: hysterectomy (Resolved) Wheezing (Acute) Cough (Acute) Bronchiectasis (Chronic) Hypoxia (Acute) Abnormal chest CT (Chronic) Dyspnea (Acute) non small cell lung, adenocarcimona (Chronic) Unintentional weight loss (Chronic) Tobacco dependence in remission (Chronic) Nocturnal hypoxia (Chronic) Hypersomnia (Chronic) Stage 3 severe COPD by GOLD classification (Chronic) Acute and chronic respiratory failure with hypoxia (Chronic) Borderline elevated troponin (Acute) Healthcare-associated pneumonia (Suspected) Metastatic primary lung cancer (Chronic) COPD (chronic obstructive pulmonary disease) (Chronic) Surgical History H/O oral surgery (Resolved) Family History Uncle Cancer lung Father Cancer lung, bone Social History Smoking Status: Former smoker how long ago did patient quit smokin year/2.5 pk/day prior to quitting second hand exposure: Yes alcohol intake: never substance use type: does not use Review of Systems Const CONSTITUTIONAL: Positive fatigue; negative anorexia, body ache, chills, daytime sleepiness, fever(s), night sweats, oral thrush, stops breathing during sleep, weight loss, sleeping in chair, weight loss, weight gain, frequent colds, seasonal allergies, other, headache(s) or orthopnea EETM Ear Nose Throat Mouth: Positive hearing normal; negative hard of hearing, hoarseness, dry mouth in morning, change in vision, itchy eyes, eye pain, swallowing Difficulty, ear pain, nose bleed, headache(s), mouth pain, nasal congestion, nasal discharge, post nasal drip, sinus pain, sinus pressure, sore throat or other Cardio Cardiovascular: Negative chest pain, chest pain at rest, chest pain with activity, irregular heart rhythm, edema, shortness of breath when lying down, palpitations, murmur or other Resp Respiratory: Positive as per HPI, shortness of breath shortness of breath: Positive with activity and cough cough: Positive productive color: Positive thick, yellow and brown; negative pain with cough, wheezing, chest congestion, chest tightness, pain on inspiration, inhalers, increase use of rescue inhalers, snoring, apnea or other Gastro Gastrointestional: Negative bloody stools, change in appetite, difficulty swallowing, reflux, hematemesis, melena stool, loose stool, constipation or other Genitourinary: Negative blood in urine, nocturia, pain with urination or other Musc Musculoskeletal: Negative body pain, back pain, neck pain or other Skin/Breast Skin/Breast: Negative dry skin, itching, rash, unusual bruising, breast lump or other Neuro Neurological: Negative restless legs, confusion, weakness or other Psych Psychocological: Negative abnormal sleep pattern, anxiety, thoughts of hurting self/others, hopelessness or other Lymph Lymphatic: Negative easy bleeding, easy bruising, swollen lymph nodes or other Exam Const Constitutional: Positive conversant, cooperative, in no acute respiratory distress, well developed, well nourished, good hygiene, frail appearing, wearing supplemental oxygen and dyspenic Head Head: Positive normocephalic, atraumatic, frontal sinus tenderness and maxillary sinus tenderness; negative cyanosis of lips/distal nose Eyes Eye: Positive clear conjunctiva; negative nystagmus or scleral abnormality Ears Ear: Positive hearing normal and external ears normal; negative hard of hearing Nose Nose: Positive external nose normal and no nasal discharge; negative epistaxis Mouth Mouth: Positive oral mucosae normal, no lesions, good dentition and posterior oropharynx is adequate; negative post nasal drip, malodorous breath or oral thrush present Mallampati Score: I: Mallampati Score Neck Neck: Positive normal visual inspection, full ROM and trachea midline; negative lymphadenopathy, JVD or tender Chest Wall Chest: Positive symmetric chest movement and increased A/P diameter Resp lung sounds: Positive diminished, wheezes and increased work of breathing; negative rhonchi, rales, dullness to percussion or use of accessory muscles Cardio Cardiac: Positive regular rate, regular rhythm, S1 normal and S2 normal; negative murmur GI GI: Positive normal to inspection; negative distended Genitourinary: Positive deferred [facility] Musculoskeletal: Positive steady gait and ROM normal; negative kyphosis or scoliosis Skin Pulmonary Skin Exam: Positive intact; negative rash Pulses Pulse: Yes pulses normal x4 extremities Extremities Extremities: Yes capillary refill normal, Yes clubbing, No cyanosis, No edema Neuro Neurologic: Yes conversant, Yes no focal neuro deficits, Yes normal concentration, Yes understands questions, Yes cooperative, Yes normal cognition, Yes normal coordination Lymph Lymphatic: No lymphadenopathy, No tenderness Psych Appearance: Positive grossly normal, eye contact and well kempt Mental Status: Positive mental status grossly normal Mood: Positive congruent mood Affect: Positive normal affect Coding Level of Care Code Off vis,est,level 4 Diagnoses Stage 3 severe COPD by GOLD classification J44.9 03/21/18 1623 <Electronically signed by Anyi CARVALHO> Date Anyi FENTONC Cosigner Signature: Date (if applicable) CC: Jarod Mack MD Observed: 03/20/2018 Status: F Source: [place] CULTURE, [place] 3:[address] [facility] REPOSITORY Gram Stain Acceptable Specimen? Yes (<25 Epithelial cells per/lpf) Gram Stain 1+ White Blood Cells 1+ Epithelial cells 2+ Gram positive cocci Rare Gram negative rods Resp. Culture Mixed normal respiratory margi. No Streptococcus pneumoniae, beta-hemolytic Streptococcus or Staphylococcus aureus isolated. Performed By: #### [id number] #### [facility] [address] [place], [place], [address] TSH Collected: 03/02/2018 Status: F Source: [place] 1:54 PM [facility] REPOSITORY TYPE CODE TESTS RESULT OUT OF RANGE REFERENCE UNITS LAB TSH 0.400-5.500 uU/mL TSH 1.970 Result Comment: If the patient is , TSH reference range varies by gestational period: First Trimester 0.100-2.500 uU/mL Second Trimester 0.200-3.000 uU/mL Third Trimester 0.300-3.000 uU/mL References: 1. De Peyman L, Keily M, Zana EK, et al. Management of Thyroid Dysfunction during and : An Endocrine Society Clinical Practice Guideline. J Clin Endocrinol Metab, 2012:97:2390-0047. 2. [place] ALLISON. Overview of thyroid disease in . UpToDate. 2016. Accessed on October 09, 2015. Performed By: #### TSH #### [facility] [address] [place], [place] [address] SEVERO ABS GR + CBC Collected: 03/02/2018 Status: F Source: [place] 1:52 PM [facility] REPOSITORY TYPE CODE TESTS RESULT OUT OF REFERENCE UNITS RANGE LAB WWBC 3.70-11.00 k/uL [place] WBC 10.03 LAB WRBC 3.90-5.20 m/uL [place] RBC 4.04 LAB WHGB 11.5-15.5 g/dL [place] Hemoglobin 11.7 LAB WHCT 36.0-46.0 % [place] Hematocrit 37.3 LAB WMCV 80.0-100.0 fL [place] MCV 92.3 LAB WMCH 26.0-34.0 pg [place] MCH 29.0 LAB WMCHC 30.5-36.0 g/dL [place] MCHC 31.4 LAB WRDW 11.5-15.0 % [place] High RDW 15.9 LAB WPLT 150-400 k/uL [place] Platelet Cnt 253 LAB WMPV 9.0-12.7 fL [place] MPV 9.6 Result Comment: Test performed at: [facility], [address] [place] [address] Rd[address] [place] [address]. LAB ABGRAN 1.45-7.50 k/uL Absol Gran 7.48 Count COMP METABOLIC PANEL Collected: 03/02/2018 Status: F Source: [place] 1:52 PM [facility] REPOSITORY TYPE CODE TESTS RESULT OUT OF REFERENCE UNITS RANGE LAB TP 6.3-8.0 g/dL Protein, Total 7.1 LAB ALB 3.9-4.9 g/dL Albumin 3.9 LAB CA 8.5-10.2 mg/dL Calcium, Total 9.8 LAB TBIL 0.2-1.3 mg/dL Bilirubin, Total 0.2 LAB ALKP 34-123 U/L Alkaline Phosphatase 75 LAB AST 13-35 U/L AST 13 LAB GLU 74-99 mg/dL Glucose High 133 LAB BUN 7-21 mg/dL BUN 9 LAB CRET 0.58-0.96 mg/dL Creatinine Low 0.48 LAB NA 136-144 mmol/L Sodium 136 LAB K 3.7-5.1 mmol/L Potassium Low 3.6 LAB CL 97-105 mmol/L Chloride Low 96 LAB CO2 22-30 mmol/L CO2 High 34 LAB AGAP mmol/L Anion Gap 6 LAB ALT 7-38 U/L ALT 9 LAB GFRAA eGFR- >60 Amer. LAB GFRNAA . eGFR-All Other Races >60 Result Comment: eGFR (Estimated GFR) Units of measure: mL/min/1.73 meters squared eGFR is derived from the reexpressed MDRD Study equation using the following parameters: serum creatinine, age, gender and race. The creatinine assay has been calibrated to be traceable to IDMS. An eGFR <60 mL/min/1.73m2 for >3 months is consistent with chronic kidney disease. Refer to KDOQI guidelines for clinical interpretation. In patients with unstable renal function, e.g. those with acute kidney injury, the eGFR may not accurately reflect actual GFR. PULMONARY VISIT REPORT Observed: 02/16/2018 Status: F Source: [place] 2:[address] [facility] REPOSITORY Pulmonary Medicine of [address] [place] [address] OFFICE VISIT Date of Service: 02/16/18 MR#: [id number] Acct: [id number] Name: JAZMYNE HARRISON Rep #: [id number] : 1970 Provider: Anyi Wells Age/Sex: 47/F Location[place] [facility] [place] Status: Signed Assessment AND Plan 1. Stage 3 severe COPD by GOLD classification J44.9 Plan Improved. Does not appear to be an exacerbation of COPD today. No need for prednisone or antibiotic repeated. Continue current maintenance medication. No additional testing at this time. Contact the office for any new or worsening symptoms. An acute visit and typically be arranged within 1-2 days. Follow-up in 3 months. 2. Acute and chronic respiratory failure with hypoxia J96.21 Plan The patient is using and benefiting from oxygen. Continue to utilize to maintain a saturation of 89-92%. Follow-up in 3 months. 3. PND (post-nasal drip) R09.82 Plan New. Placing on fluticasone nasal spray, 1 spray each nostril daily. Advised that she may increase to 2 sprays each nostril daily if symptoms are not managed with 1 spray each nostril daily. Follow-up with Dr. Vee in 3 months. Contact the office with any new or worsening symptoms in the meantime. Plan Detail Other Medications New: Follow Up 3 Months (DMB) HPI 1 M FU: Chief Complaint: Ear pressure HPI Comments Details: This patient presents to the office today to follow- up after recently being treated for exacerbation of her COPD. She is ambulatory with the use of nasal cannula oxygen. She has completed the antibiotic as prescribed and continues to prednisone taper as prescribed. She reports that she has returned to her baseline is feeling much more improved. Her cough is less frequent and less productive. Her shortness of breath has also improved. She has returned to baseline. She is compliant with Symbicort 2 puffs twice daily, rinse her mouth out after each use. She denies any medication side effects such as sore throat or thrush. She is also compliant with Spiriva daily. She is using her rescue inhaler less frequently. Cough is less frequent and now nonproductive. She does report a sensation of fullness in her ears and popping in her ears. She has her baseline wheezing and chest tightness. The symptoms are somewhat relieved with use of her albuterol. She denies any fever, chills or body aches. She has continued compliance with her Prolastin infusions. She continues to use her noninvasive ventilator with sleep and for rescue. She uses her supplemental oxygen as needed to maintain saturations 89-92%. Intake Vital Signs02/16/18 Height 5 ft 11 in 02/16/18 Weight: 114 lb 02/16/18 Body Mass Index (BMI) 15.9 Intake Visit Reasons: 1 M FU Accompanied by: Self Allergies roflumilast [From Daliresp] Adverse Reaction (Mild, Verified 02/16/18 09:28) Rash Medications Aripiprazole [Abilify] 5 mg PO QHS 03/03/16 [History Confirmed 02/16/18] Dronabinol [Marinol] 2.5 mg PO TID PRN PRN 03/03/16 [History Confirmed 02/16/18] Gabapentin [Neurontin] 300 mg PO 4X/DAY 03/03/16 [History Confirmed 02/16/18] Morphine Sulfate [Morphine Sulfate ER] 60 mg PO BID 03/03/16 [History Confirmed 02/16/18] Oxycodone [Oxyir] 30 mg PO TID PRN PRN 03/03/16 [History Confirmed 02/16/18] Pramipexole Di-HCl [Mirapex] 1 mg PO QHS 03/03/16 [History Confirmed 02/16/18] Trazodone HCl 300 mg PO QHS 03/03/16 [History Confirmed 02/16/18] proMETHazine tablet [Phenergan tablet] 25 mg PO PRN PRN 03/03/16 [History Confirmed 02/16/18] Lorazepam [Ativan] 0.5 mg PO DAILY PRN #0 03/06/16 [Rx Confirmed 02/16/18] Nebulizer and Compressor [Portable Nebulizer System] 1 ea MC Q2H PRN PRN #1 ea 03/06/16 [Rx Confirmed 02/16/18] methylphenidate 10 mg tablet 10 mg PO QAM AND QPM 04/12/17 [History Confirmed 02/16/18] albuterol sulfate 2.5 mg/3 mL (0.083 %) solution for nebulization 2.5 mg INHALATION Q4H PRN #360 ml 04/25/17 [Rx Confirmed 02/16/18] albuterol sulfate HFA 90 mcg/actuation aerosol inhaler 2 puff INHALATION Q6H PRN #1 device 05/17/17 [Rx Confirmed 02/16/18] tiotropium bromide 2.5 mcg/actuation mist for inhalation 2 puff INHALATION QDAY #1 device 05/17/17 [Rx Confirmed 02/16/18] guaifenesin ER 1,200 mg tablet, extended release 12 hr 1,200 mg PO Q12H PRN #60 tab 11/10/17 [Rx Confirmed 02/16/18] budesonide-formoterol HFA 160 mcg-4.5 mcg/actuation aerosol inhaler 2 inh INHALATION Q12H #10.2 g 12/20/17 [Rx Confirmed 02/16/18] prednisone 10 mg tablet 10 mg PO QDAY #30 tab 02/09/18 [Rx Confirmed 02/16/18] fluticasone 50 mcg/actuation nasal spray,suspension 2 spray INTRANASAL DAILY #16 g 02/16/18 [Rx Confirmed 02/16/18] [facility] Medical History D AND C (Resolved) Port placement (Resolved) H/O: hysterectomy (Resolved) Wheezing (Acute) Cough (Acute) Bronchiectasis (Chronic) Hypoxia (Acute) Abnormal chest CT (Chronic) Dyspnea (Acute) non small cell lung, adenocarcimona (Chronic) Unintentional weight loss (Chronic) Tobacco dependence in remission (Chronic) Nocturnal hypoxia (Chronic) Hypersomnia (Chronic) Stage 3 severe COPD by GOLD classification (Chronic) Acute and chronic respiratory failure with hypoxia (Chronic) Borderline elevated troponin (Acute) Healthcare-associated pneumonia (Suspected) Metastatic primary lung cancer (Chronic) COPD (chronic obstructive pulmonary disease) (Chronic) Surgical History H/O oral surgery (Resolved) Family History Uncle Cancer lung Father Cancer lung, bone Social History Smoking Status: Former smoker how long ago did patient quit smokin year/2.5 pk/day prior to quitting second hand exposure: Yes alcohol intake: never substance use type: does not use Review of Systems Const CONSTITUTIONAL: Negative anorexia, body ache, chills, daytime sleepiness, fever(s), night sweats, oral thrush, stops breathing during sleep, weight loss, sleeping in chair, fatigue, weight loss, weight gain, frequent colds, seasonal allergies, other, headache(s) or orthopnea EETM Ear Nose Throat Mouth: Positive hearing normal and post nasal drip; negative hard of hearing, hoarseness, dry mouth in morning, change in vision, itchy eyes, eye pain, swallowing Difficulty, ear pain, nose bleed, headache(s), mouth pain, nasal congestion, nasal discharge, sinus pain, sinus pressure, sore throat or other Cardio Cardiovascular: Negative chest pain, chest pain at rest, chest pain with activity, irregular heart rhythm, edema, shortness of breath when lying down, palpitations, murmur or other Resp Respiratory: Positive as per HPI and shortness of breath shortness of breath: Positive with activity; negative pain with cough, wheezing, chest congestion, cough, chest tightness, pain on inspiration, inhalers, increase use of rescue inhalers, snoring, apnea or other Gastro Gastrointestional: Negative bloody stools, change in appetite, difficulty swallowing, reflux, hematemesis, melena stool, loose stool, constipation or other Genitourinary: Negative blood in urine, nocturia, pain with urination or other Musc Musculoskeletal: Negative body pain, back pain, neck pain or other Skin/Breast Skin/Breast: Negative dry skin, itching, rash, unusual bruising, breast lump or other Neuro Neurological: Negative restless legs, confusion, weakness or other Psych Psychocological: Negative abnormal sleep pattern, anxiety, thoughts of hurting self/others, hopelessness or other Lymph Lymphatic: Negative easy bleeding, easy bruising, swollen lymph nodes or other Exam Const Constitutional: Positive conversant, cooperative, in no acute respiratory distress, well developed, good hygiene, frail appearing, wearing supplemental oxygen and thin Head Head: Positive normocephalic and atraumatic; negative cyanosis of lips/distal nose Eyes Eye: Positive clear conjunctiva; negative nystagmus or scleral abnormality Ears Ear: Positive hearing normal and external ears normal; negative hard of hearing Nose Nose: Positive external nose normal and no nasal discharge; negative epistaxis Mouth Mouth: Positive post nasal drip, oral mucosae normal, no lesions, good dentition and posterior oropharynx is adequate; negative malodorous breath or oral thrush present Mallampati Score: II: Mallampati Score Neck Neck: Positive normal visual inspection, full ROM and trachea midline; negative lymphadenopathy, JVD or tender Chest Wall Chest: Positive symmetric chest movement and increased A/P diameter Resp lung sounds: Positive diminished, wheeze present on forced exhalation, prolonged expiratory time and normal chronic state of increased work of breathing; negative rhonchi, rales or dullness to percussion Cardio Cardiac: Positive S2 normal, regular rate, regular rhythm and S1 normal; negative murmur GI GI: Positive normal to inspection; negative distended Genitourinary: Positive deferred Musc Musculoskeletal: Positive steady gait and ROM normal; negative kyphosis or scoliosis Skin Pulmonary Skin Exam: Positive dermal atrophy and intact; negative rash Pulses Pulse: Yes pulses normal x4 extremities Extremities Extremities: Yes capillary refill normal, Yes clubbing, No cyanosis, No edema Neuro Neurologic: Yes conversant, Yes no focal neuro deficits, Yes normal concentration, Yes understands questions, Yes cooperative, Yes normal coordination, Yes normal cognition Lymph Lymphatic: No lymphadenopathy, No tenderness, No cervical adenopathy Psych Appearance: Positive grossly normal, eye contact and well kempt Mental Status: Positive mental status grossly normal Mood: Positive congruent mood Affect: Positive normal affect Coding Level of Care Code Off vis,est,level 4 Diagnoses Stage 3 severe COPD by GOLD classification J44.9 Acute and chronic respiratory failure with hypoxia J96.21 PND (post-nasal drip) R09.82 02/16/18 1417 <Electronically signed by Anyi CARVALHO> Date Anyi CARVALHO Cosigner Signature: Date (if applicable) CC: Jarod Mack MD PULMONARY VISIT REPORT Observed: 02/12/2018 Status: F Source: [place] 9:40 AM [facility] Pulmonary Medicine of [address] [place] [address] OFFICE VISIT Date of Service: 02/09/18 MR#: [id number] Acct: [id number] Name: JAZMYNE HARRISON Rep #: [id number] : 1970 Provider: Anyi Wells Age/Sex: 47/F Location: [facility] [place] Status: Signed Assessment AND Plan 1. COPD with acute exacerbation J44.1 Plan Deteriorated. Treating with Levaquin, prednisone taper and Kenalog injection in the office today. Continue maintenance medications. No additional testing. Continue Prolastin treatments. Follow up in 7-10 days. Orders Orders: Medications Discontinued: Kenalog (triamcinolone acetonide) Discontinued Rea60 mg (1.5 mL) IM ONCE 1.5 mL 0RF NS son: Office Medication has been Documented as given 2. Acute and chronic respiratory failure with hypoxia J96.21 Plan Continue supplemental oxygen 2 LPM at all times. She is using and benefitting from oxygen. Oder POC. 3. Unintentional weight loss R63.4 Plan Deteriorated. Encouraged to increase calorie intake. Plan Detail Other Medications New: Follow Up 1 Week (CSM) HPI not feeling well: Chief Complaint: shortness of breath HPI Comments Details: This patient presents to the office today for an acute visit regarding shortness of breath and cough. These symptoms presented approximately 4 days ago. She has a cough that she feels should be productive of sputum, however she states that it is difficult to cough out. She is having chest congestion, chest tightness, fatigue, chills and night sweats. She has had a lack of appetite also. She had a fever of 100 a few days ago. She denies any hemoptysis. She has not had any chest pain or palpitations. She is compliant with supplemental oxygen, wearing 2 LPM at all times. She took her oxygen off briefly on room air she dropped to 88%. She checks her saturations at home and reports that on 2 LPM she stays 89-92%. She is using her vest TID. See complete ROS. Intake Vital Signs02/09/18 Pulse Ox 88 02/09/18 Oxygen Delivery Method room air 02/09/18 Height 5 ft 11 in 02/09/18 Weight: 112 lb 02/09/18 Body Mass Index (BMI) 15.6 02/09/18 Blood Pressure 116/72 Intake Visit Reasons: not feeling well Accompanied by: Mother Allergies roflumilast [From Dalires] Adverse Reaction (Mild, Verified 02/09/18 09:36) Rash Medications Aripiprazole [Abilify] 5 mg PO QHS 03/03/16 [History Confirmed 02/09/18] Dronabinol [Marinol] 2.5 mg PO TID PRN PRN 03/03/16 [History Confirmed 02/09/18] Gabapentin [Neurontin] 300 mg PO 4X/DAY 03/03/16 [History Confirmed 02/09/18] Morphine Sulfate [Morphine Sulfate ER] 60 mg PO BID 03/03/16 [History Confirmed 02/09/18] Oxycodone [Oxyir] 30 mg PO TID PRN PRN 03/03/16 [History Confirmed 02/09/18] Pramipexole Di-HCl [Mirapex] 1 mg PO QHS 03/03/16 [History Confirmed 02/09/18] Trazodone HCl 300 mg PO QHS 03/03/16 [History Confirmed 02/09/18] proMETHazine tablet [Phenergan tablet] 25 mg PO PRN PRN 03/03/16 [History Confirmed 02/09/18] Lorazepam [Ativan] 0.5 mg PO DAILY PRN #0 03/06/16 [Rx Confirmed 02/09/18] Nebulizer and Compressor [Portable Nebulizer System] 1 ea MC Q2H PRN PRN #1 ea 03/06/16 [Rx Confirmed 02/09/18] methylphenidate 10 mg tablet 10 mg PO QAM AND QPM 04/12/17 [History Confirmed 02/09/18] albuterol sulfate 2.5 mg/3 mL (0.083 %) solution for nebulization 2.5 mg INHALATION Q4H PRN #360 ml 04/25/17 [Rx Confirmed 02/09/18] albuterol sulfate HFA 90 mcg/actuation aerosol inhaler 2 puff INHALATION Q6H PRN #1 device 05/17/17 [Rx Confirmed 02/09/18] tiotropium bromide 2.5 mcg/actuation mist for inhalation 2 puff INHALATION QDAY #1 device 05/17/17 [Rx Confirmed 02/09/18] guaifenesin ER 1,200 mg tablet, extended release 12 hr 1,200 mg PO Q12H PRN #60 tab 11/10/17 [Rx Confirmed 02/09/18] budesonide-formoterol HFA 160 mcg-4.5 mcg/actuation aerosol inhaler 2 inh INHALATION Q12H #10.2 g 12/20/17 [Rx Confirmed 02/09/18] levofloxacin 750 mg tablet 750 mg PO Q24H 7 Days #7 tab 02/09/18 [Rx Confirmed 02/09/18] prednisone 10 mg tablet 10 mg PO QDAY #30 tab 02/09/18 [Rx Confirmed 02/09/18] PFSH Medical History D AND C (Resolved) Port placement (Resolved) H/O: hysterectomy (Resolved) Wheezing (Acute) Cough (Acute) Bronchiectasis (Chronic) Hypoxia (Acute) Abnormal chest CT (Chronic) Dyspnea (Acute) non small cell lung, adenocarcimona (Chronic) Unintentional weight loss (Chronic) Tobacco dependence in remission (Chronic) Nocturnal hypoxia (Chronic) Hypersomnia (Chronic) Stage 3 severe COPD by GOLD classification (Chronic) Acute and chronic respiratory failure with hypoxia (Chronic) Borderline elevated troponin (Acute) Healthcare-associated pneumonia (Suspected) Metastatic primary lung cancer (Chronic) COPD (chronic obstructive pulmonary disease) (Chronic) Surgical History H/O oral surgery (Resolved) Family History Uncle Cancer lung Father Cancer lung, bone Social History Smoking Status: Former smoker how long ago did patient quit smokin year/2.5 pk/day prior to quitting second hand exposure: Yes alcohol intake: never substance use type: does not use Review of Systems Const CONSTITUTIONAL: Positive anorexia, body ache, chills, night sweats, fatigue and weight loss; negative daytime sleepiness, fever(s), oral thrush, stops breathing during sleep, weight loss, sleeping in chair, weight gain, frequent colds, seasonal allergies, other, headache(s) or orthopnea EETM Ear Nose Throat Mouth: Positive hearing normal; negative hard of hearing, hoarseness, dry mouth in morning, change in vision, itchy eyes, eye pain, swallowing Difficulty, ear pain, nose bleed, headache(s), mouth pain, nasal congestion, nasal discharge, post nasal drip, sinus pain, sinus pressure, sore throat or other Cardio Cardiovascular: Negative chest pain, chest pain at rest, chest pain with activity, irregular heart rhythm, edema, shortness of breath when lying down, palpitations, murmur or other Resp Respiratory: Positive as per HPI, shortness of breath shortness of breath: Positive with activity, wheezing, chest congestion, cough cough: Positive productive color: Positive thick and green and chest tightness; negative pain with cough, pain on inspiration, inhalers, increase use of rescue inhalers, snoring, apnea or other Gastro Gastrointestional: Negative bloody stools, change in appetite, difficulty swallowing, reflux, hematemesis, melena stool, loose stool, constipation or other Genitourinary: Negative blood in urine, nocturia, pain with urination or other Musc Musculoskeletal: Negative body pain, back pain, neck pain or other Skin/Breast Skin/Breast: Negative dry skin, itching, rash, unusual bruising, breast lump or other Neuro Neurological: Negative restless legs, confusion, weakness or other Psych Psychocological: Negative abnormal sleep pattern, anxiety, thoughts of hurting self/others, hopelessness or other Lymph Lymphatic: Negative easy bleeding, easy bruising, swollen lymph nodes or other Exam Const Constitutional: Positive conversant, cooperative, in no acute respiratory distress, well developed, well nourished, good hygiene, frail appearing, wearing supplemental oxygen and dyspenic Head Head: Positive normocephalic and atraumatic; negative cyanosis of lips/distal nose Eyes Eye: Positive clear conjunctiva; negative nystagmus or scleral abnormality Ears Ear: Positive hearing normal and external ears normal; negative hard of hearing Nose Nose: Positive no nasal discharge and external nose normal; negative epistaxis Mouth Mouth: Positive oral mucosae normal, no lesions, good dentition and posterior oropharynx is adequate; negative post nasal drip, malodorous breath or oral thrush present Mallampati Score: I: Mallampati Score Neck Neck: Positive normal visual inspection, full ROM and trachea midline; negative lymphadenopathy, JVD or tender Chest Wall Chest: Positive symmetric chest movement and increased A/P diameter Resp lung sounds: Positive diminished, wheezes, prolonged expiratory time and normal chronic state of increased work of breathing; negative rhonchi, rales, dullness to percussion, wheeze present on forced exhalation or use of accessory muscles Cardio Cardiac: Positive regular rate, regular rhythm, S1 normal and S2 normal; negative murmur GI GI: Positive normal to inspection; negative distended Genitourinary: Positive deferred Musc Musculoskeletal: Positive steady gait and ROM normal; negative kyphosis or scoliosis Skin Pulmonary Skin Exam: Positive intact and dermal atrophy; negative rash, lesion, ulcers or erythema Pulses Pulse: Yes pulses normal x4 extremities Extremities Extremities: Yes capillary refill normal, Yes clubbing, No cyanosis, No edema Neuro Neurologic: Yes conversant, Yes no focal neuro deficits, Yes normal concentration, Yes understands questions, Yes cooperative, Yes normal cognition, Yes normal coordination, No tremor Lymph Lymphatic: No lymphadenopathy, No tenderness, No cervical adenopathy Psych Appearance: Positive grossly normal, eye contact and well kempt Mental Status: Positive mental status grossly normal Mood: Positive congruent mood Affect: Positive normal affect Office Tatyana Cardoso Performing Provider: DEVEN Troy Administered by: Destiney Ramirez on 02/09/18 13:21 Dose Route Admin Location Lot Number Expiration Date NDC 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 60 mg IM Lt Gluteal [id number] 04/24/19 2451-1514-92 [facility] Coding Level of Care Code Off vis,est,level 4 Diagnoses COPD with acute exacerbation J44.1 Acute and chronic respiratory failure with hypoxia J96.21 Unintentional weight loss R63.4 02/12/18 0940 <Electronically signed by Anyi FENTONC> Date Anyi EFNTONC Cosigner Signature: Date (if applicable) CC: Jarod Mack MD QUANT PAIN PANEL, Collected: 02/06/2018 Status: F Source: [place] 1:32 [facility] REPOSIT[facility] TYPE CODE TESTS RESULT OUT OF REFERENCE UNITS RANGE LAB UQCANN <16 ng/mL High 339 Cannabinoid, Urine Result Comment: Tetrahydrocannabinol carboxylic acid (THCA) is a metabolite of bkbba-5-avsihtgasxxdxumkqahp which is the main active component of marijuana. Presence of THCA indicates use of marijuana. LAB UQBNZL <24 ng/mL Benzoylecognine, Ur <24 Result Comment: Benzoylecognine is a metabolite of cocaine. LAB UQACMR <5 ng/mL 6-Acetylmorphine, Ur <5 Result Comment: 6-ALYSSA (6-monoacetylmorphine, also known as 6-acetylmorphine) is a unique metabolite of heroin. Presence of 6-ALYSSA indicates use of heroin. 6-ALYSSA is further metabolized to morphine and absence of 6-ALYSSA does not rule out the use of heroin. LAB UQAMPH <5 ng/mL Amphetamine, Urine <5 LAB UQMAMP <8 ng/mL Methamphetamine, Ur <8 LAB UQBUPR <20 ng/mL Buprenorphine, Ur <20 LAB UQNBUP <20 ng/mL Norbuprenorphine, Ur <20 Result Comment: Norbuprenorphine is the primary active metabolite of buprenorphine. LAB UQMTHD <16 ng/mL Methadone, Urine <16 LAB UQEDDP <6 ng/mL EDDP, Urine <6 Result Comment: EDDP is a metabolite of methadone. LAB UQTRAM <25 ng/mL Tramadol, Urine <25 LAB UQDTRM <20 ng/mL Desmethyltramadol <20 ,Ur Result Comment: Desmethyltramadol is a metabolite of tramadol. LAB UQFNTL <6 ng/mL Fentanyl, Urine <6 LAB UQNFTL <6 ng/mL Norfentanyl, Urine <6 Result Comment: Norfentanyl is a metabolite of fentanyl. LAB UQCODE <11 ng/mL High Codeine, Urine 28 Result Comment: Codeine is not a recognized metabolite of other opiates and its presence indicates use of a codeine containing drug. Codeine is metabolized to morphine. Illicit use of heroin is indicated when 1) both codeine and morphine are detected in urine, and 2) morphine concentration is over 53470 ng/mL, and 3) cjkfzugz-zh-pzxfpjd ratio is above 2. LAB UQMORP <10 ng/mL High Morphine, Urine >5365 Result Comment: Morphine may arise from morphine containing drugs, poppy seeds, or by metabolism of codeine and heroin. Morphine is metabolized to hydromorphone. LAB UQDCDN <5 ng/mL Dihydrocodeine, Ur <5 LAB UQHCOD <8 ng/mL Hydrocodone, Urine <8 Result Comment: Hydrocodone is a metabolite of dihydrocodeine. LAB UQOXYC <10 ng/mL Oxycodone, High Urine >4719 Result Comment: Oxycodone is not a recognized metabolite of other opiates and its presence indicates use of an oxycodone containing drug. Oxycodone is metabolized to oxymorphone. LAB UQHMOR <5 ng/mL Hydromorphone, Ur High 495 Result Comment: Hydromorphone may arise from hydromorphone containing drugs or by metabolism of morphine and hydrocodone. LAB UQOXYM <5 ng/mL Oxymorphone, High Urine >4581 Result Comment: Oxymorphone may arise from oxymorphone containing drugs or by metabolism of oxycodone. LAB UQCREA 42.2-237.9 mg/dL Creatinine, 106.3 Urine LAB UQPH 4.5-8.0 pH, Urine 6.1 LAB UQSPGR 1.002-1.030 Specific 1.014 [place] LAB UQOXID <200 mg/L Oxidants, <38 Urine LAB SVNI01 <51 mg/L <50 NITRITES,URINE LAB SVCH01 <50 mg/L <10 CHROMATE,URINE LAB SVSQ01 Specimen QUALITY,URINE quality results within acceptable limits. LAB UQNOTE Note This test is for Medical use only. Result Comment: This test was developed and its performance characteristics determined by [facility] [place] ([facility]). It has not been cleared or approved by the FDA. -[facility] is regulated under CLIA as qualified to perform high-complexity testing. This test is used for clinical purposes. It should not be regarded as investigational or for research. Performed By: #### UQNTPP #### [facility] [address], [place] [address] PROGRESS Observed: 02/05/2018 Status: COMPLETED Source: LUSK 2:57 PM [facility] REPOSITORY HNO ID: [id number] Author: Loly Giordnao Service: (none) Author Type: Physician Type: Progress Notes Filed: 02/05/2018 4:48 PM Note Text: PALLIATIVE MEDICINE PROGRESS NOTE PDMP website checked and validated. All prescriptions have been APPROPRIATELY filled. No suspicious activity was identified. 02/05/2018 by Loly Giordano MD SERVICE DATE: 02/05/2018 SERVICE TIME: 145 pm Primary Site of Disease/Medical Illness: Lung Site of Metastasis: Bone, Lung, Lymph nodes CHIEF COMPLAINT: right upper back pain, anxiety, depression, neoplasm related fatigue PERTINENT MEDICAL HISTORY: Jazmyne Harrison is a 47 year old female with COPD and tobacco history who presened with cough and hemoptysis around January 2013. An initial CXR showed a right upper lobe mass. CT chest confirmed a mass and a biopsy of the mass showed adenocarcinoma of the lung. CT abdomen showed several small lesions in both hepatic lobes. She also has had chronic left hip pain. X-ray of the hip showed no lesions.? She received Taxol/carboplatin/Avastin with near complete response. She then was placed on maintenance Avastin. However, she progressed and had additional treatment with Avastin and Alimta with further disease progression. Avastin was stopped given hemostasis with her last 2 cycles of chemotherapy. She received palliative radiation to the right apex (30 Gy) completed January 2014. Restaging scans showed improvement of her RUL lesion but unfortunately showed a new lesion in the same lobe. ?? She then started carboplatin/Abraxane form April to June 2014 with partial response. She had disease progression and started nivolumab in July 2014. PET/CT 03/30/15 showed hypermetabolic right upper lobe but no distant metastases. She had a non-FDG avid lesion on the left acetabulum. ?? She was admitted to [facility] around 03/03- for pneumonia. She went home on oxygen and is wearing this all day. She quit smoking after that admission. She had pneumonia for most of March 2017 and now has a chronic cough. ?? She continues to be on nivolumab with no side effects. ? ?? She had a CXR on 06/22/17 per her oncologist and she has stable findings. ? HISTORY OF PRESENT ILLNESS: Today, she is reporting some pain on her left hip as she was sleeping on this side for a long time. She also had some swelling on left christian. This is now improving. She was taking extra doses of oxycodone for this new pain. A recent chest x-ray on 01/05/18 showed stable chest with no acute cardiopulmonary process. She is being followed for right posterior upper chest wall pain that wraps around her scapula. She is taking SR 60 mg bid. She continues to take oxycodone 30 mg every 2 hours as needed for breakthrough pain, averaging 8 tablets a day. She is also taking gabapentin 300 mg 4 times?daily as an?adjuvant. She has numbness and tingling on her hands and feet. ?Her right hip pain is stable. ?? She has severe fatigue. She is on methylphenidate 15 mg bid (8 am/12 nn) which is prescribed by her local psychiatrist. She tried [place] ginseng and did not like it. She has no history of cardiac dysrhythmias. Her appetite and weight are stable. ?? She has had depression and anxiety for a long time and now is under the care and supervision of a local psychiatrist. She also takes lorazepam 0.5 mg, 1-2 tablets at bedtime prn. ? She continues using a CPAP machine. She increased her trazodone 100 mg from 3 tablets (total 300 mg) at night which she says helped her sleep. ? Her bowels move every 4 days with daily bisacodyl and docusate. She is satisfied with this regimen. She has a chronic cough. Her appetite is poor to fair with dronabinol at 2.5 mg bid and olanzapine 2.5 mg qhs. This symptom is bothersome to her. Her weight is stable, however. Modified ESAS ([place] Symptom Assessment Scale) Information Provided By: Patient Pain: Moderate Nausea: None Loss of Appetite: Severe Constipation: None Shortness of Breath: None Drowsiness: None Tiredness: Moderate Depression: Mild Anxiety: Mild How you feel overall: Good Other problem: None Palliative Performance Scale % (PPS): > or = 60 (0) Oral Intake: Moderately reduced (> mouthfuls) (1.0) Edema: Absent (0) Dyspnea at Rest: Absent (0) Delirium: Absent (0) Palliative Prognostic Index (PPI) Total Score: 0-2 Note: The scores from each prognostic domain are added. A score of 0 to 2.0 was associated with a median survival of 90 days; score of 2.1 to 4.0 is 61 days, and score of >4.0 is 12 days. PHYSICAL EXAMINATION: Vital signs: BP (!) 112/44 Pulse 94 Temp 36.8 ?C (98.3 ?F) (Oral) Resp 20 Wt 52.3 kg (115 lb 6.4 oz) LMP 05/06/1999 (Exact Date) SpO2 92% BMI 15.65 kg/m? General Appearance: No apparent distress, Cachetic and Thin Skin: No rash and blanchable erythema on left hip, no swelling appreciated on bilateral temples. Eyes: Normal and No icterus HENT: Atraumatic and Oropharnyx clear with moist mucous membranes Neck: Grossly normal Lungs: Clear to auscultation CV: Regular rate and rhythm Abdomen: Soft, nontender, bowel sounds normal : Not examined Musculoskeletal: No edema and No gross deformity Lymphatics: No cervical, axillary, or inguinal lymphadenopathy Neuro: Alert and oriented to time, place, and person DATA: Diagnostic tests reviewed for today's visit: Most recent labs and imaging results. Opioid Management: Yes Indication for opioid prescribing: Cancer related pain Does the current medication regimen improve the patient's function and/or mobility? :Yes Opioid Risk Screening Tool Score [Administered at onset of prescribing: OPIOID RISK TOOL (ORT) José Miguel each box that applies Family History of Substance Abuse: Female Male Alcohol __1_ (1) ___ (3) Illegal drugs ___ (2) ___ (3) Prescription drugs ___ (4) ___ (4) Personal History of Substance Abuse: Alcohol ___ (3) ___ (3) Illegal drugs ___ (4) ___ (4) Prescription drugs ___ (5) ___ (5) Age (josé miguel box if between 16 and 45) ___ (1) ___ (1) History of Preadolescent Sexual Abuse ___ (3) ___ (0) Psychological Disease Attention deficit disorder, obsessive- compulsive disorder, bipolar, schizophrenia ___ (2) ___ (2) Depression _1__ (1) ___ (1) Scoring Totals: __2__ ____ Scoring (risk) 0?3: low 4?7: moderate ?8: high Opioid and adjuvant Rx history, including intolerances: No Opioid Prescribing Agreement (Benefits and risks discussed, see scanned documents): Yes Last Pain Panel: Urine Panel: No results found for: UQCANN, UQBNZL, LKF0AWL, UQAMPH, UQMAMP, UQBUPRE, UQNORBUP, UQMTHD, UQEDDP, UQTRAM, UQDTRM, UQFNTL, UQNFTL, UQCODE, UQMORP, UQDCDN, UQHCOD, UQOXYC, UQHMOR, UQOXYM, UQCREA, UQPH, UQSPGR, UQOXID, UQSPQ Aberrant result:Pending OARRS check: Yes Aberrant result:No Other: N/A Benefits of Opioid Therapy outweigh risks: Yes ASSESSMENT AND PLAN: 1. Adenocarcinoma of the lung, on nivolumab, stable disease 2. Right upper posterior wall pain, neoplasm related, controlled 3. Anxiety/panic disorder/depression, stable 4. Neoplasm related fatigue, improved 5. Chronic respiratory failure, on home oxygen 6. Emphysema 7. Pain on pressure points, no signs of early pressure ulcers 8. Anorexia?? Plan: 1. Continue?morphine SR 60 mg bid. 2. Continue oxycodone 30 mg every 2 hours as needed for breakthrough pain, average 8 tablets a day. 3. Continue gabapentin 300 mg qid. 4. Continue methylphenidate 15?mg bid (8am/12noon) for fatigue. This is being prescribed by her psychiatrist, Dr. Josep Ashby. 5. For her anorexia, increase olanzapine to 5 mg qhs and continue dronabinol 2.5 mg bid. 6. Chronic opioid pain management agreement signed today. 7. Urine pain panel ordered. 8. She will go to a DME provider and inquire what kind of bed/mattress (egg crate overlay) will be paid for by her insurance. The best prevention is to turn every 2 hours to offload pressure points which may be difficult for her when she is sleeping. 9. I recommended that she keep an accurate list of her medications and let her psychiatrist, Dr. Josep Ashby and myself know if there are any changes to her medication regimen. This is for safety purposes. ? Advance Care Planning: I did not discuss Advance Care Planning at this visit, this was done at a prior encounter. We discussed/reviewed advanced directives. Patient does not have advanced directives currently and I encouraged the patient to complete advanced directives paperwork. The patient's surrogate decision maker is spouse. Next Visit: 12 Weeks I spent 40 minutes with more than 50% of my qoqx-up-rjmb time spent counseling and coordination of care. SIGNATURE: Loly Giordano MD PATIENT NAME: Jazmyne Silvaore DATE: February 05, 2018 TIME: 2:57 PM PAGER/CONTACT #: [phone] CNOVSP Observed: 02/05/2018 Status: COMPLETED Source: LUSK 12:40 PM [facility] REPOSITORY Visit (SP) Office (PALMED) CHRISTYJAZMYNE ([id number]) 1970 F Date Time Provider Department 10/15/18 12:40 PM LOLY GIORDANO During your visit today, we recorded the following information about you: Temperature Pulse Respiration Blood pressure 98.3 degrees 94/minute 20/minute 112/44 Weight 52.3 kg Cricket Corey LPN, SAL 02/05/2018 1:44 PM Signed Additional intake questions: Has the patient had nausea, vomiting, diarrhea, constipation, fatigue for > 1 week? Fatigue, Yes, MD Notified Does the patient have a decreased appetite? Yes Does patient want to see a First Aid Attendant? No (yes to any of above refer patient to schedulers for dietitian appointment) ) Does patient have any new or increased numbness or tingling of extremities? No Is patient interested in fertility information? No Does patient need any prescription refills? No Electronically Signed By: SAL Kitchen MD 02/05/2018 2:13 PM Signed Continue other medications as usual. Please pass by a [facility] outpatient facility to give a urine sample within 24-48 hours. Call your nurse, Jeannette Bradford RN, with any problems ([phone] or after hours [phone] and ask for Palliative Medicine [facility] principal solution specialist) Return to clinic in 3 months. Loly Giordano MD MPH CHANI FACP FAAM February 05, 2018 2:12 PM Loly Giordano MD 02/05/2018 4:48 PM Addendum PALLIATIVE MEDICINE PROGRESS NOTE PDMP website checked and validated. All prescriptions have been APPROPRIATELY filled. No suspicious activity was identified. 02/05/2018 by Loly Giordano MD SERVICE DATE: 02/05/2018 SERVICE TIME: 145 pm Primary Site of Disease/Medical Illness: Lung Site of Metastasis: Bone, Lung, Lymph nodes CHIEF COMPLAINT: right upper back pain, anxiety, depression, neoplasm related fatigue PERTINENT MEDICAL HISTORY: Jazmyne Harrison is a 47 year old female with COPD and tobacco history who presened with cough and hemoptysis around January 2013. An initial CXR showed a right upper lobe mass. CT chest confirmed a mass and a biopsy of the mass showed adenocarcinoma of the lung. CT abdomen showed several small lesions in both hepatic lobes. She also has had chronic left hip pain. X-ray of the hip showed no lesions.? She received Taxol/carboplatin/Avastin with near complete response. She then was placed on maintenance Avastin. However, she progressed and had additional treatment with Avastin and Alimta with further disease progression. Avastin was stopped given hemostasis with her last 2 cycles of chemotherapy. She received palliative radiation to the right apex (30 Gy) completed January 2014. Restaging scans showed improvement of her RUL lesion but unfortunately showed a new lesion in the same lobe. ?? She then started carboplatin/Abraxane form April to June 2014 with partial response. She had disease progression and started nivolumab in July 2014. PET/CT 03/30/15 showed hypermetabolic right upper lobe but no distant metastases. She had a non-FDG avid lesion on the left acetabulum. ?? She was admitted to [facility] around 03/03- for pneumonia. She went home on oxygen and is wearing this all day. She quit smoking after that admission. She had pneumonia for most of March 2017 and now has a chronic cough. ?? She continues to be on nivolumab with no side effects. ? ?? She had a CXR on 06/22/17 per her oncologist and she has stable findings. ? HISTORY OF PRESENT ILLNESS: Today, she is reporting some pain on her left hip as she was sleeping on this side for a long time. She also had some swelling on left christian. This is now improving. She was taking extra doses of oxycodone for this new pain. A recent chest x-ray on 01/05/18 showed stable chest with no acute cardiopulmonary process. She is being followed for right posterior upper chest wall pain that wraps around her scapula. She is taking SR 60 mg bid. She continues to take oxycodone 30 mg every 2 hours as needed for breakthrough pain, averaging 8 tablets a day. She is also taking gabapentin 300 mg 4 times?daily as an?adjuvant. She has numbness and tingling on her hands and feet. ?Her right hip pain is stable. ?? She has severe fatigue. She is on methylphenidate 15 mg bid (8 am/12 nn) which is prescribed by her local psychiatrist. She tried [place] ginseng and did not like it. She has no history of cardiac dysrhythmias. Her appetite and weight are stable. ?? She has had depression and anxiety for a long time and now is under the care and supervision of a local psychiatrist. She also takes lorazepam 0.5 mg, 1-2 tablets at bedtime prn. ? She continues using a CPAP machine. She increased her trazodone 100 mg from 3 tablets (total 300 mg) at night which she says helped her sleep. ? Her bowels move every 4 days with daily bisacodyl and docusate. She is satisfied with this regimen. She has a chronic cough. Her appetite is poor to fair with dronabinol at 2.5 mg bid and olanzapine 2.5 mg qhs. This symptom is bothersome to her. Her weight is stable, however. Modified ESAS ([place] Symptom Assessment Scale) Information Provided By: Patient Pain: Moderate Nausea: None Loss of Appetite: Severe Constipation: None Shortness of Breath: None Drowsiness: None Tiredness: Moderate Depression: Mild Anxiety: Mild How you feel overall: Good Other problem: None Palliative Performance Scale % (PPS): > or = 60 (0) Oral Intake: Moderately reduced (> mouthfuls) (1.0) Edema: Absent (0) Dyspnea at Rest: Absent (0) Delirium: Absent (0) Palliative Prognostic Index (PPI) Total Score: 0-2 Note: The scores from each prognostic domain are added. A score of 0 to 2.0 was associated with a median survival of 90 days; score of 2.1 to 4.0 is 61 days, and score of >4.0 is 12 days. PHYSICAL EXAMINATION: Vital signs: BP (!) 112/44 Pulse 94 Temp 36.8 ?C (98.3 ?F) (Oral) Resp 20 Wt 52.3 kg (115 lb 6.4 oz) LMP 05/06/1999 (Exact Date) SpO2 92% BMI 15.65 kg/m? General Appearance: No apparent distress, Cachetic and Thin Skin: No rash and blanchable erythema on left hip, no swelling appreciated on bilateral temples. Eyes: Normal and No icterus HENT: Atraumatic and Oropharnyx clear with moist mucous membranes Neck: Grossly normal Lungs: Clear to auscultation CV: Regular rate and rhythm Abdomen: Soft, nontender, bowel sounds normal : Not examined Musculoskeletal: No edema and No gross deformity Lymphatics: No cervical, axillary, or inguinal lymphadenopathy Neuro: Alert and oriented to time, place, and person DATA: Diagnostic tests reviewed for today's visit: Most recent labs and imaging results. Opioid Management: Yes Indication for opioid prescribing: Cancer related pain Does the current medication regimen improve the patient's function and/or mobility? :Yes Opioid Risk Screening Tool Score [Administered at onset of prescribing: OPIOID RISK TOOL (ORT) José Miguel each box that applies Family History of Substance Abuse: Female Male Alcohol __1_ (1) ___ (3) Illegal drugs ___ (2) ___ (3) Prescription drugs ___ (4) ___ (4) Personal History of Substance Abuse: Alcohol ___ (3) ___ (3) Illegal drugs ___ (4) ___ (4) Prescription drugs ___ (5) ___ (5) Age (josé miguel box if between 16 and 45) ___ (1) ___ (1) History of Preadolescent Sexual Abuse ___ (3) ___ (0) Psychological Disease Attention deficit disorder, obsessive- compulsive disorder, bipolar, schizophrenia ___ (2) ___ (2) Depression _1__ (1) ___ (1) Scoring Totals: __2__ ____ Scoring (risk) 0?3: low 4?7: moderate ?8: high Opioid and adjuvant Rx history, including intolerances: No Opioid Prescribing Agreement (Benefits and risks discussed, see scanned documents): Yes Last Pain Panel: Urine Panel: No results found for: UQCANN, UQBNZL, VBD2SYN, UQAMPH, UQMAMP, UQBUPRE, UQNORBUP, UQMTHD, UQEDDP, UQTRAM, UQDTRM, UQFNTL, UQNFTL, UQCODE, UQMORP, UQDCDN, UQHCOD, UQOXYC, UQHMOR, UQOXYM, UQCREA, UQPH, UQSPGR, UQOXID, UQSPQ Aberrant result:Pending OARRS check: Yes Aberrant result:No Other: N/A Benefits of Opioid Therapy outweigh risks: Yes ASSESSMENT AND PLAN: 1. Adenocarcinoma of the lung, on nivolumab, stable disease 2. Right upper posterior wall pain, neoplasm related, controlled 3. Anxiety/panic disorder/depression, stable 4. Neoplasm related fatigue, improved 5. Chronic respiratory failure, on home oxygen 6. Emphysema 7. Pain on pressure points, no signs of early pressure ulcers 8. Anorexia?? Plan: 1. Continue?morphine SR 60 mg bid. 2. Continue oxycodone 30 mg every 2 hours as needed for breakthrough pain, average 8 tablets a day. 3. Continue gabapentin 300 mg qid. 4. Continue methylphenidate 15?mg bid (8am/12noon) for fatigue. This is being prescribed by her psychiatrist, Dr. Josep Ashby. 5. For her anorexia, increase olanzapine to 5 mg qhs and continue dronabinol 2.5 mg bid. 6. Chronic opioid pain management agreement signed today. 7. Urine pain panel ordered. 8. She will go to a DME provider and inquire what kind of bed/mattress (egg crate overlay) will be paid for by her insurance. The best prevention is to turn every 2 hours to offload pressure points which may be difficult for her when she is sleeping. 9. I recommended that she keep an accurate list of her medications and let her psychiatrist, Dr. Josep Ashby and myself know if there are any changes to her medication regimen. This is for safety purposes. ? Advance Care Planning: I did not discuss Advance Care Planning at this visit, this was done at a prior encounter. We discussed/reviewed advanced directives. Patient does not have advanced directives currently and I encouraged the patient to complete advanced directives paperwork. The patient's surrogate decision maker is spouse. Next Visit: 12 Weeks I spent 40 minutes with more than 50% of my fjmx-bj-nwty time spent counseling and coordination of care. SIGNATURE: Loly Giordano MD PATIENT NAME: Jazmyne Harrison DATE: February 05, 2018 TIME: 2:57 PM PAGER/CONTACT #: [phone] Referring Provider: LOLY GIORDANO [[id number]] Allergies As of Date: 02/05/2018 Noted Allergy Reaction DALIRESP (ROFLUMILAST) 11/10/2017 9 - Itching Comments: red, warm, itching neck, lump in throat Date Reviewed: 02/05/2018 Reviewed by: Cricket Chaves) SAL Corey - Fully Assessed Reason for Visit: Established Patient [175] Visit Diagnoses:Non-small cell carcinoma of lung, stage 4, unspecified laterality (HCC) [C34.90] Malaise and fatigue [R53.81, R53.83] Anorexia [R63.0] Palliative care encounter [Z51.5] Appetite loss [R63.0] Cancer related pain [G89.3] Neoplastic malignant related fatigue [R53.0] Pain, neuropathic [M79.2] Chronic respiratory failure with hypoxia (HCC) [J96.11] Order(s):methylphenidate (RITALIN) 10 mg tabletTake 1.5 tablets by mouth once daily for 30 days. Take 1.5 tablets (15 mg) at 8 am and 12 noon.Disp: 45 tabletRfl: 0 OLANZapine (ZYPREXA) 2.5 mg tabletTake 2 tablets by mouth daily at bedtime.Disp: 30 tabletRfl: 0 PAIN PANEL, UR QUANT [SQUQNTPP] Order #: [id number] Disposition: Return in about 3 months (around 05/08/2018). Follow-up and Disposition History Recorded Prescriptions as of 02/05/2018 Sig: METHYLPHENIDATE 10 MG TABLET Take 1.5 tablets by mouth onc* OLANZAPINE 2.5 MG TABLET Take 2 tablets by mouth daily* BENZONATATE 100 MG CAPSULE Take 1 capsule by mouth three* MORPHINE ER 60 MG TABLET,EXTE* Take 1 tablet by mouth twice * OXYCODONE 30 MG TABLET Take 1-2 tablets by mouth chad* DRONABINOL 2.5 MG CAPSULE Take 1 capsule by mouth twice* ALBUTEROL SULFATE HFA 90 MCG/* Inhale 2 Puffs as instructed * PROMETHAZINE 25 MG TABLET Take 1 tablet by mouth every * GABAPENTIN 300 MG CAPSULE TAKE ONE CAPSULE BY MOUTH 4 T* PREDNISONE 10 MG TABLET Take 1 tablet by mouth once d* PRAMIPEXOLE 1 MG TABLET TAKE 1 TABLET BY MOUTH DAILY * ZANTAC 75 ORAL Take by mouth twice daily. TRAZODONE 100 MG TABLET Take 3 tablets by mouth daily* STOOL SOFTENER ORAL Take 2 tablets by mouth at be* LORAZEPAM 0.5 MG TABLET Take 1-2 tablets PO daily PRN* BUDESONIDE-FORMOTEROL HFA 160* Inhale 1 Puff as instructed t* SODIUM CHLORIDE 0.9% FLUSH NURSING USE ONLY: USED FOR * HEPARIN LOCK FLUSH (PORCINE) * NURSING USE ONLY: USE FOR I* Problem List As Of Date 02/05/2018 Noted Resolved Bone metastasis [C79.51] INVALID FOR* Secondary malignant neoplasm of intra-abdominal*INVALID FOR* More... Lung cancer [C34.90] INVALID FOR*06/26/2013 Lung metastases [C78.00] INVALID FOR* Examination of participant in clinical trial [Z*INVALID FOR* History of lung cancer [Z85.118] INVALID FOR* Lung cancer (HCC) [C34.90] INVALID FOR*11/04/2014 Non-small cell carcinoma of lung, stage 4 (HCC)*INVALID FOR* Malignant neoplasm of upper lobe of right lung *INVALID FOR* Malaise and fatigue [R53.81, R53.83] INVALID FOR* Family history of tobacco abuse and dependence *INVALID FOR* RLS (restless legs syndrome) [G25.81] INVALID FOR* COPD (chronic obstructive pulmonary disease) (H* Supplemental oxygen dependent [Z99.81] INVALID FOR* Port catheter in place [Z95.828] INVALID FOR* Chronic back pain [M54.9, G89.29] More... Bone pain [M89.8X9] Bone metastases (HCC) [C79.51] More... 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 Please pass by a [facility] outpatient facility to give a urine sample within 24-48 hours. Call your nurse, Jeannette Bradford RN, with any problems ([phone] or after hours [phone] and ask for Palliative Medicine azure principal solution specialist) Return to clinic in 3 months. Loly Giordano MD MPH CHANI FACP [facility] February 05, 2018 2:12 PM Visit Notes: >> Fondthais (Sal) SAL Corey Mon Feb 05, 2018 1:37 PM Status: Signed Additional intake questions: Has the patient had nausea, vomiting, diarrhea, constipation, fatigue for > 1 week? Fatigue, Yes, Notified Does the patient have a decreased appetite? Yes Does patient want to see a First Aid Attendant? No (yes to any of above refer patient to schedulers for dietitian appointment) ) Does patient have any new or increased numbness or tingling of extremities? No Is patient interested in fertility information? No Does patient need any prescription refills? No Electronically Signed By: Cricket Corey LPN Encounter Status:Closed by LOLY GIORDANO MD on 02/05/18 PROGRESS Observed: 02/02/2018 Status: COMPLETED Source: [place] 10:28 AM [facility] [place] REPOSITORY HNO ID: [id number] Author: Shannan Conroy Service: (none) Author Type: Physician Type: Progress Notes Filed: 02/05/2018 7:23 AM Note Text: PATIENT NAME: Jazmyne Harrison. [facility] NO: [id number]. ATTENDING PHYSICIAN: Shannan Conroy MD. ?? DATE OF SERVICE: 02/01/2018. DIAGNOSIS: Metastatic (adenocarcinoma) lung cancer, PD-L1+, EGFR AND?ALK negaitve ?? HPI:? Jazmyne Harrison is a 46?year old female whith metastatic (adenocarcinoma) lung cancer. H/o tobacco abuse, COPD who presented with cough and hemoptysis 2012 in the emergency room. Her initial chest x-ray showed a right upper lobe mass. CT scan of chest and subsequent CT-guided lung biopsy revealed non-small cell (adenocarcinoma) lung cancer. ?? Patient had right sided chest pain for over a year. Initially, she thought she pulled a muscle and has been using ibuprofen for pain. She used to smoke 2 packs cigarette per day for over 20 years and recently has cut down to less than 5 cigarettes per day. Chest -ray 2 years ago showed changes consistent with COPD but no lung mass. ?? Staging workup included bone scan show a focal increased activity in the left ilium along the medial left acetabular region. X-ray of the hip showed no lytic or blastic lesion. CT scan of the abdomen showed several small lesions scattered along the left and right hepatic lobes. Otherwise no evidence of metastatic disease. MRI scan and brain also showed no metastatic disease. Patient had a left hip pain for over 2 years. ?? Subsequent PET scan revealed metastatic disease. There were increased activity in the right upper hemithorax along with additional lung nodules in the right side consistent with metastatic disease. There was activity in the mediastinum right prehilar region and bone metastasis at the level of the left acetabulum. ?? Treatment history:? Patient received Taxol/carboplatin/avastin x 4 cycles with near complete response . She was placed on maintenance and Avastin therapy and she progressed on treatment. She then had additional treatment with Avastin and Alimta x4 cycles with further progression of disease. Avastin was discontinued because of hemostasis with her last 2 cycles of chemotherapy. ?? Patient completed palliative radiation therapy to her right upper lobe because of hemostasis and severe pain.She received palliative RT to the right apex lesion 3000 cGy on February 18, 2014 with good control of symptoms. On recent re-staging CT scans, she had improvement in the radiated RUL lesion however had a new 1.8 cm lesion in the RUL. ?? Patient completed 4 cycles of Carboplatin/Abraxane ( 05/02/14- 07/18/14 ) with partial response after 2 cycles and stable disease after 4 cycles. Patient had progression disease in July and started treatment with Check-point inhibitor this year. ?? Patient has progression of her primary lung lesion late last year. Her PET scan was otherwise negative metastatic disease. She had completed palliative radiation therapy to her right upper lobe lung lesion with 2400 cGy in 8 fx in March,. ?? Current treatment:?Nivolumab since July 2014. ?? Interim history: She is tolerating Nivolumab very well. ??She has occasional nonproductive cough, no fever or shortness of breath or any sign of infection.??she is on continuous oxygen 24 hours because of hypoxemia. Patient denies headaches, complain of a numbness in her left hand as well as on the back of her neck probably from a pinched nerve. She has no hip and lower back pain controlled with pain medications. She has occasional chest and right upper rib pain from coughing. she was also recently diagnosed with Alpha 1 antitrypsin deficiency and possible worsening COPD related to this disorder. ?? She has chronic?fatigue but no further weight loss with her prednisone intermittently. She denies arthritis or neuropathy. Denies jaundice or diarrhea.her thyroid function has been normal. ?? All medications AND allergies updated and reviewed by me. ?? Review of system: Appetite: Good Energy level: Fair Denies fevers. Mouth:denies sores Resp:dry cough, denies shortness of breath or hemoptysis Cardiac:denies chest pain/palpitations GI: denied nausea, vomiting or diarrhea. :denies dysuria/hematuria Extrem:pain to left hip and both knees Neuro:foot numbness/tingling/burning-as above. Skin:denies rashes Heme:denies bleeding ?? The ROS is otherwise negative. Past medical history,medications, allergies reviewed. No changes. ?? EXAM:? APPEARANCE Well appearing, alert, in no acute distress, well-hydrated, well nourished. Performance status 80%; BP 102/62 Pulse 104 Temp (Src) 99.1 (Oral) Wt 116 lb (52.6kg) LMP 05/06/1999 HEENT: Sclerae anicteric, WNL HEART RRR with normal S1 and S2, no murmurs, no gallops, no JVD appreciated LUNG clear to auscultation, diminished breath sound the right upper lobe, scattered rales on the right?lower lobe, no wheezing, LYMPH NODES No cervical lymphadenopathy, No supraclavicular lymphadenopathy and No axillary lymphadenopathy. ABDOMEN bowel sounds normoactive, no bruits, soft, non-tender, non-distended, without organomegaly or palpable masses EXTREMITIES Extremities normal, No deformities, No skin discoloration, No edema and Normal pulses bilaterally. NEURO Awake, alert and oriented x 3, Normal gait and No involuntary motions. SKIN Skin color, texture, turgor normal, no suspicious rashes or lesions ?? LABS: Component Latest Ref Rng AND Units 02/02/2018 WBC, [place] 3.70 - 11.00 k/uL 14.81 (H) RBC, [place] 3.90 - 5.20 m/uL 4.17 Hemoglobin, [place] 11.5 - 15.5 g/dL 11.9 Hematocrit, [place] 36.0 - 46.0 % 38.5 MCV, [place] 80.0 - 100.0 fL 92.3 MCH, [place] 26.0 - 34.0 pg 28.5 MCHC, [place] 30.5 - 36.0 g/dL 30.9 RDW, [place] 11.5 - 15.0 % 15.1 (H) Platelet Cnt, [place] 150 - 400 k/uL 187 MPV, [place] 9.0 - 12.7 fL 9.3 Absol Gran Count 1.45 - 7.50 k/uL 12.90 (H) Component Latest Ref Rng AND Units 02/02/2018 Protein, Total 6.3 - 8.0 g/dL 7.1 Albumin 3.9 - 4.9 g/dL 3.8 (L) Calcium 8.5 - 10.2 mg/dL 9.1 Bilirubin, Total 0.2 - 1.3 mg/dL 0.4 Alkaline Phosphatase 34 - 123 U/L 73 AST 13 - 35 U/L 16 Glucose 74 - 99 mg/dL 96 BUN 7 - 21 mg/dL 8 Creatinine 0.58 - 0.96 mg/dL 0.60 Sodium 136 - 144 mmol/L 137 Potassium 3.7 - 5.1 mmol/L 3.4 (L) Chloride 97 - 105 mmol/L 90 (L) CO2 22 - 30 mmol/L 34 (H) Anion Gap 9 - 18 mmol/L 13 ALT 7 - 38 U/L 6 (L) eGFR- >60 eGFR-All Other Races . >60 TSH 0.400 - 5.500 uU/mL 1.110 CXR: Stable chest. ?No acute cardiopulmonary process. ? ASSESSMENT/PLAN:? 1. Metastatic Lung cancer Metastatic non-small cell (adenocarcinoma) lung cancer; EGFR AND ALK negaitve Tolerating treatment with Nivolumab with stable disease. (CXR) Fatigue and weight loss secondary to her treatment. Chronic hypoxemia secondary to pulmonary fibrosis and COPD AND alpha-1 antitrypsin deficiency. - Continue treatment with Nivolumab every 14 days x 4. - Continue MS Contin, and percocet as needed and Neurontin 300mg TID and Marinol as needed - Continue stool softener and laxative as needed. - Continue oxygen therapy and follow-up with Dr. Vee, director of orthopedics for replacement enzyme therapy. - Continue Mucinex and Tessalon Perles as needed for cough. - flu vaccine today. - Repeat CBC, CMP, TSH and chest x-ray?OV in 2?months ?? 2. Upper back pain and hip pain with history of bone metastasis - follow-up palliative medicine ? 3. chronic fatigue secondary to lung cancer AND Immunotherapy treatment. - Continue Ritalin and short-courses of prednisone if needed after each OPDIVO treatment 4) left hand numbness- probably secondary to pinch ulnar nerve - MRI scan of the brain if her symptom does not improve. or new symptom occurs. I spent 25 minutes in the visit, with more than 50% of the total hjll-vk-ahbb time of the visit in counseling / coordination of care. Shannan Conroy MD ? Cc: Dr. Loly Vee [place] ABS GR + CBC Collected: 02/02/2018 Status: F Source: [place] 9:39 AM [facility] REPOSITORY TYPE CODE TESTS RESULT OUT OF REFERENCE UNITS RANGE LAB WWBC 3.70-11.00 k/uL [place] High WBC 14.81 LAB WRBC 3.90-5.20 m/uL [place] RBC 4.17 LAB WHGB 11.5-15.5 g/dL [place] Hemoglobin 11.9 LAB WHCT 36.0-46.0 % [place] Hematocrit 38.5 LAB WMCV 80.0-100.0 fL [place] MCV 92.3 LAB WMCH 26.0-34.0 pg [place] MCH 28.5 LAB WMCHC 30.5-36.0 g/dL [place] MCHC 30.9 LAB WRDW 11.5-15.0 % [place] High RDW 15.1 LAB WPLT 150-400 k/uL [place] Platelet Cnt 187 LAB WMPV 9.0-12.7 fL [place] MPV 9.3 Result Comment: Test performed at: [facility], [address] [place] [address]. LAB ABGRAN 1.45-7.50 k/uL High Absol 12.90 Gran Count COMP METABOLIC PANEL Collected: 02/02/2018 Status: F Source: [place] 9:39 AM [facility] REPOSITORY TYPE CODE TESTS RESULT OUT OF REFERENCE UNITS RANGE LAB TP 6.3-8.0 g/dL Protein, Total 7.1 LAB ALB 3.9-4.9 g/dL Low Albumin 3.8 LAB CA 8.5-10.2 mg/dL Calcium, Total 9.1 LAB TBIL 0.2-1.3 mg/dL Bilirubin, Total 0.4 LAB ALKP 34-123 U/L Alkaline Phosphatase 73 LAB AST 13-35 U/L AST 16 LAB GLU 74-99 mg/dL Glucose 96 Result Comment: The [place] [employer] (ADA) provides guidance for cutoff values for fasting glucose and random glucose. The ADA defines fasting as no caloric intake for at least 8 hours. Fas ting plasma glucose results between 100 to 125 mg/dL indicate increased risk for diabetes (prediabetes). Fasting plasma glucose results greater than or equal to 126 mg/dL meet the criteria for diagnosis of diabetes. In the absence of unequivocal hyperglycemia, results should be confirmed by repeat testing. In a patient with classic symptoms of hyperglycemia or hyperglycemic crisis, random plasma glucose results greater than or equal to 200 mg/dL meet the criteria for diagnosis of diabetes. Reference: Standards of Medical Care in Diabetes 2016, [place] [employer]. Diabetes Care. 2016.39(Suppl 1). LAB BUN 7-21 mg/dL BUN 8 LAB CRET 0.58-0.96 mg/dL Creatinine 0.60 LAB NA 136-144 mmol/L Sodium 137 LAB K 3.7-5.1 mmol/L Low Potassium 3.4 LAB CL 97-105 mmol/L Low Chloride 90 LAB CO2 22-30 mmol/L CO2 High 34 LAB AGAP 9-18 mmol/L Anion Gap 13 LAB ALT 7-38 U/L Low ALT 6 LAB GFRAA eGFR- Amer. >60 LAB GFRNAA . eGFR-All Other Races >60 Result Comment: eGFR (Estimated GFR) Units of measure: mL/min/1.73 meters squared eGFR is derived from the reexpressed MDRD Study equation using the following parameters: serum creatinine, age, gender and race. The creatinine assay has been calibrated to be traceable to IDMS. An eGFR <60 mL/min/1.73m2 for >3 months is consistent with chronic kidney disease. Refer to KDOQI guidelines for clinical interpretation. In patients with unstable renal function, e.g. those with acute kidney injury, the eGFR may not accurately reflect actual GFR. Performed By: #### CMP, TSH #### [facility] [address] [place] [id number] TSH Collected: 02/02/2018 Status: F Source: [place]US[place] 9:39 AM [facility] REPOSITORY TYPE CODE TESTS RESULT OUT OF RANGE REFERENCE UNITS LAB TSH 0.400-5.500 uU/mL TSH 1.110 Result Comment: If the patient is , TSH reference range varies by gestational period: First Trimester 0.100-2.500 uU/mL Second Trimester 0.200-3.000 uU/mL Third Trimester 0.300-3.000 uU/mL References: 1. Posey L, Keily M, Zana EK, et al. Management of Thyroid Dysfunction during and : An Endocrine Society Clinical Practice Guideline. J Clin Endocrinol Metab, 2012:97:9500-5446. 2. [place] ALLISON. Overview of thyroid disease in . UpToDate. 2016. Accessed on October 09, 2015. Performed By: #### CMP, TSH #### [facility] [address] [place], [place] [address] CNOVSP Observed: 02/02/2018 Status: COMPLETED Source: [place]US[place] 9:20 AM [facility] REPOSITORY Visit (SP) Office ([place]) JAZMYNE HARRISON ([id number]) 1970 F Date Time Provider Department 02/02/18 9:20 AM SHANNAN CONROY During your visit today, we recorded the following information about you: Temperature Pulse Blood pressure Weight 99.1 degrees 104/minute 102/62 52.6 kg Barbara Martinez LPN 02/02/2018 10:14 AM Signed Est patient. Two month office visit. Discuss recent labs and CXR. C/O numbness to right hand/fingers, started this morning. Also c/o lump to back of head, right side, painful to touch. Barbara Conroy MD 02/05/2018 7:23 AM Signed PATIENT NAME: Jazmyne Harrison. CLINIC NO: [id number]. ATTENDING PHYSICIAN: Shannan Conroy MD. ?? DATE OF SERVICE: 02/01/2018. DIAGNOSIS: Metastatic (adenocarcinoma) lung cancer, PD-L1+, EGFR AND?ALK negaitve ?? HPI:? Jazmyne Harrison is a 46?year old female whith metastatic (adenocarcinoma) lung cancer. H/o tobacco abuse, COPD who presented with cough and hemoptysis 2012 in the emergency room. Her initial chest x-ray showed a right upper lobe mass. CT scan of chest and subsequent CT-guided lung biopsy revealed non-small cell (adenocarcinoma) lung cancer. ?? Patient had right sided chest pain for over a year. Initially, she thought she pulled a muscle and has been using ibuprofen for pain. She used to smoke 2 packs cigarette per day for over 20 years and recently has cut down to less than 5 cigarettes per day. Chest -ray 2 years ago showed changes consistent with COPD but no lung mass. ?? Staging workup included bone scan show a focal increased activity in the left ilium along the medial left acetabular region. X-ray of the hip showed no lytic or blastic lesion. CT scan of the abdomen showed several small lesions scattered along the left and right hepatic lobes. Otherwise no evidence of metastatic disease. MRI scan and brain also showed no metastatic disease. Patient had a left hip pain for over 2 years. ?? Subsequent PET scan revealed metastatic disease. There were increased activity in the right upper hemithorax along with additional lung nodules in the right side consistent with metastatic disease. There was activity in the mediastinum right prehilar region and bone metastasis at the level of the left acetabulum. ?? Treatment history:? Patient received Taxol/carboplatin/avastin x 4 cycles with near complete response . She was placed on maintenance and Avastin therapy and she progressed on treatment. She then had additional treatment with Avastin and Alimta x4 cycles with further progression of disease. Avastin was discontinued because of hemostasis with her last 2 cycles of chemotherapy. ?? Patient completed palliative radiation therapy to her right upper lobe because of hemostasis and severe pain.She received palliative RT to the right apex lesion 3000 cGy on February 18, 2014 with good control of symptoms. On recent re-staging CT scans, she had improvement in the radiated RUL lesion however had a new 1.8 cm lesion in the RUL. ?? Patient completed 4 cycles of Carboplatin/Abraxane ( 05/02/14- 07/18/14 ) with partial response after 2 cycles and stable disease after 4 cycles. Patient had progression disease in July and started treatment with Check- point inhibitor this year. ?? Patient has progression of her primary lung lesion late last year. Her PET scan was otherwise negative metastatic disease. She had completed palliative radiation therapy to her right upper lobe lung lesion with 2400 cGy in 8 fx in March,. ?? Current treatment:?Nivolumab since July 2014. ?? Interim history: She is tolerating Nivolumab very well. ??She has occasional nonproductive cough, no fever or shortness of breath or any sign of infection.??she is on continuous oxygen 24 hours because of hypoxemia. Patient denies headaches, complain of a numbness in her left hand as well as on the back of her neck probably from a pinched nerve. She has no hip and lower back pain controlled with pain medications. She has occasional chest and right upper rib pain from coughing. she was also recently diagnosed with Alpha 1 antitrypsin deficiency and possible worsening COPD related to this disorder. ?? She has chronic?fatigue but no further weight loss with her prednisone intermittently. She denies arthritis or neuropathy. Denies jaundice or diarrhea.her thyroid function has been normal. ?? All medications AND allergies updated and reviewed by me. ?? Review of system: Appetite: Good Energy level: Fair Denies fevers. Mouth:denies sores Resp:dry cough, denies shortness of breath or hemoptysis Cardiac:denies chest pain/palpitations GI: denied nausea, vomiting or diarrhea. :denies dysuria/hematuria Extrem:pain to left hip and both knees Neuro:foot numbness/tingling/burning-as above. Skin:denies rashes Heme:denies bleeding ?? The ROS is otherwise negative. Past medical history,medications, allergies reviewed. No changes. ?? EXAM:? APPEARANCE Well appearing, alert, in no acute distress, well- hydrated, well nourished. Performance status 80%; BP 102/62 Pulse 104 Temp (Src) 99.1 (Oral) Wt 116 lb (52.6kg) LMP 05/06/1999 HEENT: Sclerae anicteric, WNL HEART RRR with normal S1 and S2, no murmurs, no gallops, no JVD appreciated LUNG clear to auscultation, diminished breath sound the right upper lobe, scattered rales on the right?lower lobe, no wheezing, LYMPH NODES No cervical lymphadenopathy, No supraclavicular lymphadenopathy and No axillary lymphadenopathy. ABDOMEN bowel sounds normoactive, no bruits, soft, non-tender, non-distended, without organomegaly or palpable masses EXTREMITIES Extremities normal, No deformities, No skin discoloration, No edema and Normal pulses bilaterally. NEURO Awake, alert and oriented x 3, Normal gait and No involuntary motions. SKIN Skin color, texture, turgor normal, no suspicious rashes or lesions ?? LABS: Component Latest Ref Rng AND Units 02/02/2018 WBC, [place] 3.70 - 11.00 k/uL 14.81 (H) RBC, [place] 3.90 - 5.20 m/uL 4.17 Hemoglobin, [place] 11.5 - 15.5 g/dL 11.9 Hematocrit, [place] 36.0 - 46.0 % 38.5 MCV, [place] 80.0 - 100.0 fL 92.3 MCH, [place] 26.0 - 34.0 pg 28.5 MCHC, [place] 30.5 - 36.0 g/dL 30.9 RDW, [place] 11.5 - 15.0 % 15.1 (H) Platelet Cnt, [place] 150 - 400 k/uL 187 MPV, [place] 9.0 - 12.7 fL 9.3 Absol Gran Count 1.45 - 7.50 k/uL 12.90 (H) Component Latest Ref Rng AND Units 02/02/2018 Protein, Total 6.3 - 8.0 g/dL 7.1 Albumin 3.9 - 4.9 g/dL 3.8 (L) Calcium 8.5 - 10.2 mg/dL 9.1 Bilirubin, Total 0.2 - 1.3 mg/dL 0.4 Alkaline Phosphatase 34 - 123 U/L 73 AST 13 - 35 U/L 16 Glucose 74 - 99 mg/dL 96 BUN 7 - 21 mg/dL 8 Creatinine 0.58 - 0.96 mg/dL 0.60 Sodium 136 - 144 mmol/L 137 Potassium 3.7 - 5.1 mmol/L 3.4 (L) Chloride 97 - 105 mmol/L 90 (L) CO2 22 - 30 mmol/L 34 (H) Anion Gap 9 - 18 mmol/L 13 ALT 7 - 38 U/L 6 (L) eGFR- >60 eGFR-All Other Races . >60 TSH 0.400 - 5.500 uU/mL 1.110 CXR: Stable chest. ?No acute cardiopulmonary process. ? ASSESSMENT/PLAN:? 1. Metastatic Lung cancer Metastatic non-small cell (adenocarcinoma) lung cancer; EGFR AND ALK negaitve Tolerating treatment with Nivolumab with stable disease. (CXR) Fatigue and weight loss secondary to her treatment. Chronic hypoxemia secondary to pulmonary fibrosis and COPD AND alpha-1 antitrypsin deficiency. - Continue treatment with Nivolumab every 14 days x 4. - Continue MS Contin, and percocet as needed and Neurontin 300mg TID and Marinol as needed - Continue stool softener and laxative as needed. - Continue oxygen therapy and follow-up with Dr. Vee, director of orthopedics for replacement enzyme therapy. - Continue Mucinex and Tessalon Perles as needed for cough. - flu vaccine today. - Repeat CBC, CMP, TSH and chest x-ray?OV in 2?months ?? 2. Upper back pain and hip pain with history of bone metastasis - follow-up palliative medicine ? 3. chronic fatigue secondary to lung cancer AND Immunotherapy treatment. - Continue Ritalin and short-courses of prednisone if needed after each OPDIVO treatment 4) left hand numbness- probably secondary to pinch ulnar nerve - MRI scan of the brain if her symptom does not improve. or new symptom occurs. I spent 25 minutes in the visit, with more than 50% of the total [id number]-qc-repp time of the visit in counseling / coordination of care. Shannan Conroy MD ? Cc: Dr. 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 LOS history recorded Follow-up and Disposition History Recorded Prescriptions as of 02/02/2018 Sig: MORPHINE ER 60 MG TABLET,EXTE* Take 1 tablet by mouth twice * OXYCODONE 30 MG TABLET Take 1-2 tablets by mouth chad* DRONABINOL 2.5 MG CAPSULE Take 1 capsule by mouth twice* ALBUTEROL SULFATE HFA 90 MCG/* Inhale 2 Puffs as instructed * OLANZAPINE 2.5 MG TABLET Take 1 tablet by mouth daily * PROMETHAZINE 25 MG TABLET Take 1 tablet by mouth every * GABAPENTIN 300 MG CAPSULE TAKE ONE CAPSULE BY MOUTH 4 T* PREDNISONE 10 MG TABLET Take 1 tablet by mouth once d* PRAMIPEXOLE 1 MG TABLET TAKE 1 TABLET BY MOUTH DAILY * METHYLPHENIDATE 10 MG TABLET Take 1 tablet by mouth once d* TRAZODONE 100 MG TABLET Take 3 tablets by mouth daily* STOOL SOFTENER ORAL Take 2 tablets by mouth at be* LORAZEPAM 0.5 MG TABLET Take 1-2 tablets PO daily PRN* BUDESONIDE-FORMOTEROL HFA 160* Inhale 1 Puff as instructed t* SODIUM CHLORIDE 0.9% FLUSH NURSING USE ONLY: USED FOR * HEPARIN LOCK FLUSH (PORCINE) * NURSING USE ONLY: USE FOR I* BENZONATATE 100 MG CAPSULE Take 1 capsule by mouth three* ZANTAC 75 ORAL Take by mouth twice daily. Medication notes this encounter METHYLPHENIDATE 10 MG TABLET >> Barbara Martinez LPN 02/02/2018 9:42 AM >> BARBARA MARTINEZ LPN MonFeb 02, 2018 9:42 AM Taking 1.5 tablets twice a day GABAPENTIN 300 MG CAPSULE >> Barbara Martinez LPN 02/02/2018 9:41 AM >> BARBARA MARTINEZ LPN MonFeb 02, 2018 9:41 AM duplicate Problem List As Of Date 02/02/2018 Noted Resolved Bone metastasis [C79.51] INVALID FOR* Secondary malignant neoplasm of intra-abdominal*INVALID FOR* More... Lung cancer [C34.90] INVALID FOR*06/26/2013 Lung metastases [C78.00] INVALID FOR* Examination of participant in clinical trial [Z*INVALID FOR* History of lung cancer [Z85.118] INVALID FOR* Lung cancer (HCC) [C34.90] INVALID FOR*11/04/2014 Non-small cell carcinoma of lung, stage 4 (HCC)*INVALID FOR* Malignant neoplasm of upper lobe of right lung *INVALID FOR* Malaise and fatigue [R53.81, R53.83] INVALID FOR* Family history of tobacco abuse and dependence *INVALID FOR* RLS (restless legs syndrome) [G25.81] INVALID FOR* COPD (chronic obstructive pulmonary disease) (H* Supplemental oxygen dependent [Z99.81] INVALID FOR* Port catheter in place [Z95.828] INVALID FOR* Chronic back pain [M54.9, G89.29] More... Bone pain [M89.8X9] Bone metastases (HCC) [C79.51] More... Restless leg syndrome [G25.81] Neuropathy (HCC) [G62.9] Gimkz-0-neytgrlvmhc deficiency (HCC) [E88.01] INVALID FOR* Visit Notes: >> Barbara Martinez LPN MonFeb 02, 2018 9:42 AM Status: Signed Est patient. Two month office visit. Discuss recent labs and CXR. C/O numbness to right hand/fingers, started this morning. Also c/o lump to back of head, right side, painful to touch. Barbara Martinez LPN Encounter Status:Closed by SHANNAN CNOROY MD on 02/05/18 PULMONARY VISIT REPORT Observed: 01/12/2018 Status: F Source: [place] 3:[address] [facility] REPOSITORY [facility] of [address] [place] [address] OFFICE VISIT Date of Service: 01/12/18 MR#: [id number] Acct: [id number] Name: JAZMYNE HARRISON Rep #: [id number] : 1970 Provider: Anyi Wells Age/Sex: 47/F Location: [facility] [place] Status: Signed Assessment AND Plan 1. COPD with acute exacerbation J44.1 Plan Deteriorated. Treating for exacerbation with Levaquin 750 mg 7 days, prednisone taper for the next 12 days. Added Mucinex extra strength twice daily. Continue current maintenance medications. No additional testing at this time. Began Prolastin replacement as soon as approved. Follow-up in 1 month. Kenalog injection in the office today. Flu shot when not acutely ill. Orders Orders: Medications Discontinued: Kenalog (triamcinolone acetonide) [id number] mg (1.5 mL) IM ONCE CHANTAL grande Reason: Office Medication has been Documented as given 2. Acute and chronic respiratory failure with hypoxia J96.21 Plan She is using and benefiting from submental oxygen. Continue to titrate oxygen to maintain saturations 89%. Continue to use noninvasive ventilator with sleep and rescue. 3. Tobacco dependence in remission F17.201 Plan Continue to encourage smoking cessation. 4. Primary malignant neoplasm of lung metastatic to other site, unspecified laterality C34.90 Plan Complicates exam, plan, care and prognosis. Continue management to oncology, patient is currently in remission. Plan Detail Other Medications New: Follow Up 1 Month ([facility]) HPI HPI Comments Details: This is a 47 year old very pleasant f, currently under the care of Jarod Mack, , here to follow up on severe chronic obstructive pulmonary disease with a OSCAR index score of 6, alpha-1 antitrypsin deficiency, and chronic hypoxic respiratory failure. JAZMYNE was recently treated with antibiotics and prednisone, and was recently treated in the Urgent care for respiratory problems since the last office visit. She completed her 5 days of Levaquin and 5 days of prednisone 3 days ago. As soon as she stopped taking those medications she began to feel ill again. Current medications consist of Symbicort 2 puffs twice daily, Spiriva daily, and Pro Air rescue inhaler which is being used 3 times daily. She is also using albuterol nebulizer twice daily. Medication side effects: negative for sore throat, thrush, hoarseness, mouth lesions, or bleeding from nose or mouth. The patient reports compliance with rinsing mouth out after each use. JAZMYNE is utilizing Acapella daily, and chest physiotherapy vest 1-2 times daily. Current home oxygen use is 2 LPM on exertion and volume assured ventilation with sleep. She is currently experiencing a cough that is productive of green to brown sputum. She is having persistent fatigue, which she attributes to exhaustion from persistent cough. She has a headache and sinus pressure. She reports wheezing and chest tightness. She denies any fevers or chills but is experiencing body aches. She denies any lower extremity edema. She denies any orthopnea. Compliance report for the past 30 days shows 97% compliance with an average use of 5 hours and 31 minutes. COPD checklist: Last PFTs were done on January 04, 2018 FVC is 61 % of predicted FEV1 is 34 % of predicted FEV1/FVC is 44% of predicted Currently smoking 0 PPD Dyspnea 2 Exacerbations in the past 12 months 4 Last 6 min walk May 23, 2017, ambulated 988 feet, requires 2 L of nasal cannula oxygen on exertion Nutrition fair Mood fair Influenza vaccine pending Pneumococcal vaccine current *The GOLD (Global initiative on Obstructive Lung Disease) divides COPD into 4 categories based on the FEV1: I FEV1/FVC <0.7 and FEV1 <80% II FEV1/FVC <0.7 and FEV1 50-80% III FEV1/FVC <0.7 and FEV1 30-50% IV FEV1/FVC <0.7 and FEV1 <30% (or < 50% with respiratory failure) GOLD additionally stratifies patients by disease severity in order to guide therapy: A FEV1 >50% with few symptoms B FEV1 >50% with frequent symptoms C FEV1 <50% with few symptoms D FEV1 <50% with frequent symptoms Variable points on OSCAR Index 0 1 2 3 Fev1 [] % of predicted 65 50-64 36-49 <35 Distance walked in 6 min >0304 [phone] <149 MMRC dyspnea scale* 0-1 2 3 4 BMI >21 <21 OSCAR Index Score 0-2 2% 6% 19% 3-4 2% 8% 32% 4-6 2% 14% 40% 7-10 5% 31% 80% MMR SCALE Grade Degree of breathlessness related to activities 0 Not troubled by breathlessness except on strenuous exercise Intake Vital Signs01/12/18 Height 6 ft 01/12/18 Weight: 118 lb 01/12/18 Body Mass Index (BMI) 16.0 Intake Visit Reasons: 1 M FU Chief Complaint: Cough Support Service Tech Required: No Accompanied by: Self Is patient in pain?: Yes Allergies roflumilast [From Daliresp] Adverse Reaction (Mild, Verified 01/12/18 14:30) Rash Medications Aripiprazole [Abilify] 5 mg PO QHS 03/03/16 [History Confirmed 01/12/18] Dronabinol [Marinol] 5 mg PO BID PRN PRN 03/03/16 [History Confirmed 01/12/18] Gabapentin [Neurontin] 300 mg PO 4X/DAY 03/03/16 [History Confirmed 01/12/18] Morphine Sulfate [Morphine Sulfate ER] 60 mg PO BID 03/03/16 [History Confirmed 01/12/18] Oxycodone [Oxyir] 30 mg PO TID PRN PRN 03/03/16 [History Confirmed 01/12/18] Pramipexole Di-HCl [Mirapex] 1 mg PO QHS 03/03/16 [History Confirmed 01/12/18] Trazodone HCl 200 mg PO QHS 03/03/16 [History Confirmed 01/12/18] proMETHazine tablet [Phenergan tablet] 25 mg PO PRN PRN 03/03/16 [History Confirmed 01/12/18] Fluticasone 0.05% [Flonase Nasal [place]] 1 spray NASAL BID #1 bottle 03/06/16 [Rx Confirmed 01/12/18] Lorazepam [Ativan] 0.5 mg PO DAILY PRN #0 03/06/16 [Rx Confirmed 01/12/18] Nebulizer and Compressor [Portable Nebulizer System] 1 ea MC Q2H PRN PRN #1 ea 03/06/16 [Rx Confirmed 01/12/18] buPROPion tablets [Wellbutrin tablets] 75 mg PO BID #60 tab 03/06/16 [Rx Confirmed 01/12/18] methylphenidate 10 mg tablet 10 mg PO QAM AND QPM 04/12/17 [History Confirmed 01/12/18] albuterol sulfate 2.5 mg/3 mL (0.083 %) solution for nebulization 2.5 mg INHALATION Q4H PRN #360 ml 04/25/17 [Rx Confirmed 01/12/18] albuterol sulfate HFA 90 mcg/actuation aerosol inhaler 2 puff INHALATION Q6H PRN #1 device 05/17/17 [Rx Confirmed 01/12/18] tiotropium bromide 2.5 mcg/actuation mist for inhalation 2 puff INHALATION QDAY #1 device 05/17/17 [Rx Confirmed 01/12/18] guaifenesin ER 1,200 mg tablet, extended release 12 hr 1,200 mg PO Q12H PRN #60 tab 11/10/17 [Rx Confirmed 01/12/18] budesonide-formoterol HFA 160 mcg-4.5 mcg/actuation aerosol inhaler 2 inh INHALATION Q12H #10.2 g 08/29/18 [Rx Confirmed 01/12/18] levofloxacin 750 mg tablet 750 mg PO Q24H 7 Days #7 tab 01/12/18 [Rx Confirmed 01/12/18] prednisone 10 mg tablet 10 mg PO QDAY #30 tab 01/12/18 [Rx Confirmed 01/12/18] PFSH Medical History D AND C (Resolved) Port placement (Resolved) Wheezing (Acute) Cough (Acute) Bronchiectasis (Chronic) Hypoxia (Acute) Abnormal chest CT (Chronic) Dyspnea (Acute) non small cell lung, adenocarcimona (Chronic) Unintentional weight loss (Chronic) Tobacco dependence in remission (Chronic) Nocturnal hypoxia (Chronic) Hypersomnia (Chronic) Stage 3 severe COPD by GOLD classification (Chronic) Acute and chronic respiratory failure with hypoxia (Chronic) Borderline elevated troponin (Acute) Healthcare-associated pneumonia (Suspected) Metastatic primary lung cancer (Chronic) COPD (chronic obstructive pulmonary disease) (Chronic) Surgical History H/O oral surgery (Resolved) H/O: hysterectomy (Resolved) Family History Uncle Cancer lung Father Cancer lung, bone Social History Smoking Status: Former smoker how long ago did patient quit smokin year/2.5 pk/day prior to quitting second hand exposure: Yes alcohol intake: never substance use type: does not use FEV1% FEV1%: 34 Review of Systems Const CONSTITUTIONAL: Positive body ache, daytime sleepiness, fatigue and headache(s); negative anorexia, chills, fever(s), night sweats, oral thrush, stops breathing during sleep, weight loss, sleeping in chair, weight loss, weight gain, frequent colds, seasonal allergies, other or orthopnea EETM Ear Nose Throat Mouth: Positive hearing normal and headache(s); negative hard of hearing, hoarseness, dry mouth in morning, change in vision, itchy eyes, eye pain, swallowing Difficulty, ear pain, nose bleed, mouth pain, nasal congestion, nasal discharge, post nasal drip, sinus pain, sinus pressure, sore throat or other Cardio Cardiovascular: Negative chest pain, chest pain at rest, chest pain with activity, irregular heart rhythm, edema, shortness of breath when lying down, palpitations, murmur or other Resp Respiratory: Positive as per HPI, shortness of breath shortness of breath: Positive worsening, wheezing, cough cough: Positive productive color: Positive thick and brown and chest tightness; negative pain with cough, chest congestion, pain on inspiration, inhalers, increase use of rescue inhalers, snoring, apnea or other Gastro Gastrointestional: Negative bloody stools, change in appetite, difficulty swallowing, reflux, hematemesis, melena stool, loose stool, constipation or other Genitourinary: Negative blood in urine, nocturia, pain with urination or other Musc Musculoskeletal: Positive back pain; negative body pain, neck pain or other Skin/Breast Skin/Breast: Negative dry skin, itching, rash, unusual bruising, breast lump or other Neuro Neurological: Positive weakness; negative restless legs, confusion or other Psych Psychocological: Negative abnormal sleep pattern, anxiety, thoughts of hurting self/others, hopelessness or other Lymph Lymphatic: Negative easy bleeding, easy bruising, swollen lymph nodes or other Exam Const Constitutional: Positive conversant, cooperative, good hygiene, frail appearing, wearing supplemental oxygen, dyspenic, thin and cachectic Head Head: Positive normocephalic and atraumatic; negative cyanosis of lips/distal nose Eyes Eye: Positive clear conjunctiva; negative nystagmus or scleral abnormality Ears Ear: Positive hearing normal and external ears normal; negative hard of hearing Nose Nose: Positive external nose normal and no nasal discharge; negative epistaxis Mouth Mouth: Positive oral mucosae normal, no lesions, good dentition and posterior oropharynx is adequate; negative post nasal drip, malodorous breath or oral thrush present Mallampati Score: I: Mallampati Score Neck Neck: Positive normal visual inspection, full ROM and trachea midline; negative lymphadenopathy, JVD or tender Chest Wall Chest: Positive symmetric chest movement and increased A/P diameter Resp lung sounds: Positive diminished, wheezes, rhonchi, prolonged expiratory time and normal chronic state of increased work of breathing; negative rales, dullness to percussion or wheeze present on forced exhalation Cardio Cardiac: Positive regular rate, S1 normal, S2 normal and regular rhythm; negative murmur GI GI: Positive normal to inspection; negative distended Genitourinary: Positive deferred Musc Musculoskeletal: Positive steady gait and ROM normal; negative kyphosis or scoliosis Skin Pulmonary Skin Exam: Positive intact; negative rash, lesion, ulcers, erythema or scaly Pulses Pulse: Yes pulses normal x4 extremities Extremities Extremities: Yes capillary refill normal, Yes clubbing, No cyanosis, No edema Neuro Neurologic: Yes conversant, Yes no focal neuro deficits, Yes normal concentration, Yes understands questions, Yes cooperative, Yes normal cognition, Yes normal coordination Lymph Lymphatic: No lymphadenopathy, No tenderness, No cervical adenopathy Psych Appearance: Positive grossly normal, eye contact and well kempt Mental Status: Positive mental status grossly normal Mood: Positive congruent mood Affect: Positive normal affect Office Procedures Kenalog 40 mg/mL suspension for injection (triamcinolone acetonide) 60 mg IM ONCE Procedure Detail Procedure performed by: Destiney Ramirez Lot number: [id number] 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: [employer] date: 04/24/19 Dose of injection (mg): 60 Site of injection: left gluteal IM Medication Given: Yes Office Meds Kenalog Performing Provider: DEVEN Troy Administered by: Destiney Ramirez on 01/12/18 14:59 Dose Route Admin Location Lot Number Expiration Date NDC 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 60 mg IM Lt gluteal [id number] 04/24/19 0683-4222-24 Data Stream [employer]OT Coding Level of Care Code Off vis,est,level 4 Diagnoses COPD with acute exacerbation J44.1 Acute and chronic respiratory failure with hypoxia J96.21 Tobacco dependence in remission F17.201 Primary malignant neoplasm of lung metastatic to other site, unspecified laterality C34.90 Laterality: unspecified laterality 01/12/18 1526 <Electronically signed by Anyi CARVALHO> Date Anyi CARVALHO Cosigner Signature: Date (if applicable) CC: Jarod Mack MD PROGRESS Observed: 01/11/2018 Status: COMPLETED Source: [place] 4:05 PM [facility] REPOSITORY HNO ID: [id number] Author: Cynthia Theodore Service: (none) Author Type: Physician Type: Progress Notes Filed: 01/11/2018 4:15 PM Note Text: FOLLOW UP VISIT - POST OP NAME: Jazmyne Palm [facility] NO.: [id number] DATE OF SERVICE: January 11, 2018 : 1970 REFERRING PHYSICIAN: Jose Mack MD Jazmyne is a patient I am following for metastatic lung cancer. 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 I performed a left subclavian portacath on April 02, 2013. The patient previously noted that there is a small palpable, not just medial to the Port-A-Cath which when she presses against it is uncomfortable. She noted. Once there was a small scab over the site, but has never noticed a spitting suture. Since that visit 2 months ago. She notes no complaints of the tender site. Up to this point, the port has been functioning well, without difficulties. On the last attempted infusion treatment, they had difficulty and were unable to obtain blood return through the catheter. The patient was sent for portogram. This was performed yesterday. This demonstrated no difficulties with access flow or aspiration. VITALS: Blood pressure 84/52, pulse 100, last menstrual period 05/06/1999. On examination, the port incision sites are clean and intact. There is no breakdown over the suture currently. Assessment IMPRESSION: Status post left subclavian port a cath placement PLAN: I am comfortable with the port is in good location with the catheter tip intravascularly. It is possible that the tip of the catheter was either against the vessel sidewall. Its also possible. There is a fibrin sheath over the catheter, but there was such good flow out the end of the catheter on the portogram that I think that is less likely. I am comfortable continuing to use the port. Even if there is challenges with access, so long as her not swelling around the port pocket. Diagnoses: (Z78.9) Problem with vascular access (primary encounter diagnosis) Return to Clinic: The patient is instructed to follow- up with me as needed. Cynthia Theodore MD CNOV Observed: 01/11/2018 Status: COMPLETED Source: [place] 1:10 PM [facility] [place] REPOSITORY Office Visit (GENSWS) JAZMYNE HARRISON ([id number]) 1970 F Date Time Provider Department 01/11/18 1:10 PM CYNTHIA THEODORE GENSWJeremiah During your visit today, we recorded the following information about you: Pulse Blood pressure 100/minute 84/52 Cynthia Theodore MD 01/11/2018 4:15 PM Signed FOLLOW UP VISIT - POST OP NAME: Jazmyne Palm Christy [facility] NO.: [id number] DATE OF SERVICE: January 11, 2018 : 1970 REFERRING PHYSICIAN: Jose Mack MD Jazmyne is a patient I am following for metastatic lung cancer. The patient needed snf IV access for chemotherapy therapy. I performed a left subclavian portacath on April 02, 2013. The patient previously noted that there is a small palpable, not just medial to the Port-A-Cath which when she presses against it is uncomfortable. She noted. Once there was a small scab over the site, but has never noticed a spitting suture. Since that visit 2 months ago. She notes no complaints of the tender site. Up to this point, the port has been functioning well, without difficulties. On the last attempted infusion treatment, they had difficulty and were unable to obtain blood return through the catheter. The patient was sent for portogram. This was performed yesterday. This demonstrated no difficulties with access flow or aspiration. VITALS: Blood pressure 84/52, pulse 100, last menstrual period 05/06/1999. On examination, the port incision sites are clean and intact. There is no breakdown over the suture currently. Assessment IMPRESSION: Status post left subclavian port a cath placement PLAN: I am comfortable with the port is in good location with the catheter tip intravascularly. It is possible that the tip of the catheter was either against the vessel sidewall. Its also possible. There is a fibrin sheath over the catheter, but there was such good flow out the end of the catheter on the portogram that I think that is less likely. I am comfortable continuing to use the port. Even if there is challenges with access, so long as her not swelling around the port pocket. Diagnoses: (Z78.9) Problem with vascular access (primary encounter diagnosis) Return to Clinic: The patient is instructed to follow- up with me as needed. Cynthia Theodore MD Referring Provider: SHANNAN CONROY [[id number]] Allergies As of Date: 01/11/2018 Noted Allergy Reaction DALIRESP (ROFLUMILAST) 11/10/2017 9 - Itching Comments: red, warm, itching neck, lump in throat Date Reviewed: 01/11/2018 Reviewed by: Cynthia Theodore - Fully Assessed Reason for Visit: Established Patient [175] Cmt: consult malfunctioning port Primary Visit Diagnosis:Problem with vascular access [Z78.9] Prescriptions as of 01/11/2018 Sig: MORPHINE ER 60 MG TABLET,EXTE* Take 1 tablet by mouth twice * OXYCODONE 30 MG TABLET Take 1-2 tablets by mouth chad* OLANZAPINE 2.5 MG TABLET Take 1 tablet by mouth daily * PROMETHAZINE 25 MG TABLET Take 1 tablet by mouth every * GABAPENTIN 300 MG CAPSULE TAKE ONE CAPSULE BY MOUTH 4 T* DRONABINOL 2.5 MG CAPSULE Take 1 capsule by mouth twice* PREDNISONE 10 MG TABLET Take 1 tablet by mouth once d* GABAPENTIN 300 MG CAPSULE Take 1 capsule by mouth four * PRAMIPEXOLE 1 MG TABLET TAKE 1 TABLET BY MOUTH DAILY * ARIPIPRAZOLE 5 MG TABLET TAKE 1 TABLET BY MOUTH ONCE D* ZANTAC 75 ORAL Take by mouth twice daily. METHYLPHENIDATE 10 MG TABLET Take 1 tablet by mouth once d* ALBUTEROL SULFATE HFA 90 MCG/* Inhale 2 Puffs as instructed * TRAZODONE 100 MG TABLET Take 3 tablets by mouth daily* STOOL SOFTENER ORAL Take 2 tablets by mouth at be* LORAZEPAM 0.5 MG TABLET Take 1-2 tablets PO daily PRN* BUDESONIDE-FORMOTEROL HFA 160* Inhale 1 Puff as instructed t* SODIUM CHLORIDE 0.9% FLUSH NURSING USE ONLY: USED FOR * HEPARIN LOCK FLUSH (PORCINE) * NURSING USE ONLY: USE FOR I* Problem List As Of Date 01/11/2018 Noted Resolved Bone metastasis [C79.51] INVALID FOR* Secondary malignant neoplasm of intra-abdominal*INVALID FOR* More... Lung cancer [C34.90] INVALID FOR*06/26/2013 Lung metastases [C78.00] INVALID FOR* Examination of participant in clinical trial [Z*INVALID FOR* History of lung cancer [Z85.118] INVALID FOR* Lung cancer (HCC) [C34.90] INVALID FOR*11/04/2014 Non-small cell carcinoma of lung, stage 4 (HCC)*INVALID FOR* Malignant neoplasm of upper lobe of right lung *INVALID FOR* Malaise and fatigue [R53.81, R53.83] INVALID FOR* Family history of tobacco abuse and dependence *INVALID FOR* RLS (restless legs syndrome) [G25.81] INVALID FOR* COPD (chronic obstructive pulmonary disease) (H* Supplemental oxygen dependent [Z99.81] INVALID FOR* Port catheter in place [Z95.828] INVALID FOR* Chronic back pain [M54.9, G89.29] More... Bone pain [M89.8X9] Bone metastases (HCC) [C79.51] More... Restless leg syndrome [G25.81] Neuropathy (HCC) [G62.9] Follow-up and Disposition History Recorded Encounter Status:Closed by CYNTHIA THEODORE MD on 01/11/18 CON INJ CLAYTON EVAL Observed: 01/10/2018 Status: F Source: [place] [facility] 9:[address] [facility] REPOSITORY [facility] Imaging Services [address] [place] [address] Con Inj Clayton Eval [facility] MR#: [id number] Acct: [id number] Name: JAZMYNE HARRISON Rep #: [id number] : 1970 F 47 From: Hermilo Chowdary MD PCP: Jarod Mack MD Status: REG CLI Study: Con Inj Clayton Eval [facility]uro Date of Exam: 01/10/18 Exam# [id number] Ordering Dr: Shannan Conryo MD STUDY: INJECTION OF THE PORTACATHETER. REASON FOR EXAM: Female, 47 years old. No blood return from the indwelling left portacatheter. FLUOROSCOPY TIME (if supplied): (0:27) minutes/seconds. 5 images were obtained. TECHNIQUE: Contrast was injected into the indwelling left portacatheter. Imaging was obtained. COMPARISON: None. FINDINGS: The portacatheter is widely patent. RAD/Con Inj Clayton Eval [facility] IMPRESSION: The portacatheter is widely patent. Electronically Signed: Hermilo Chowdary MD at 11:30 EDT Tel [phone], Service support , CC: Jarod Mack MD; Shannan Conroy MD Psychology Technician: Signed XR CHEST 2V FRONTAL/LAT Observed: 01/05/2018 Status: F Source: [place] 3:29 PM [facility] REPOSITORY * * *Final Report* * * DATE OF EXAM: Jan 05 2018 3:29PM [id number] - XR CHEST 2V FRONTAL/LAT / PROCEDURE REASON: multiple diagnoses * * * * Physician Interpretation * * * * EXAMINATION: CHEST RADIOGRAPH (2 VIEW FRONTAL and LATERAL) CLINICAL HISTORY: Secondary malignant neoplasm of unspecified lung Malignant neoplasm of unspecified part of right bronchus or lung MQ: XC2_5 Comparison: Comparison is made to prior chest dated 07 December 2017 RESULT: Lines, tubes, and devices: Mediport catheter is unchanged and satisfactory in position. Lungs and pleura: Extensive bilateral chronic interstitial lung markings are again identified with right apical thickening and retraction of the right hilum, stable. Pleural parenchymal stranding with peribronchial thickening and likely bronchiectasis again noted in the lingula. Diffuse reticular nodular interstitial pattern is stable. No interval developing masses. No focal airspace consolidation or pleural fluid. Cardiomediastinal silhouette: Macro unchanged mediastinum Other: The bony structures appear stable. IMPRESSION: Stable chest. No acute cardiopulmonary process. Psychology Technician: PSCB Transcribe Date/Time: Jan 05 2018 3:50P Dictated by : KAT ROMO MD This examination was interpreted and the report reviewed and electronically signed by: KAT ROMO MD on Jan 05 2018 3:52PM EST [id number] Observed: 01/05/2018 Status: COMPLETED Source: [place] 3:25 PM [facility] REPOSITORY HNO ID: [id number] Author: ADAM Ramos (Ct) Service: (none) Author Type: Clinical [employer] Truck [employer] Type: Progress Notes Filed: 01/05/2018 3:27 PM Note Text: Radiology Service Progress Note PATIENT NAME: Jazmyne Harrison DATE OF SERVICE: January 05, 2018 TIME: 3:25 PM PATIENT IDENTITY VERIFICATION COMPLETED USING TWO (2) METHODS: Patient confirmed name verbally and Date of . PATIENT GENDER DATA: Female. status: : No status: NO. PATIENT RELEVANT IMPLANT DATA REVIEWED: Not Applicable RADIOLOGY DEPARTMENT: General X-ray: Exam(s) Completed: Chest X-Ray PERIPHERAL IV DATA: Not applicable SIGNED BY: ADAM Ramos January 05, 2018 3:25 PM COMP METABOLIC PANEL Collected: 01/05/2018 Status: F Source: [place] 2:35 PM [facility] REPOSITORY TYPE CODE TESTS RESULT OUT OF REFERENCE UNITS RANGE LAB TP 6.3-8.0 g/dL Protein, Total 6.9 LAB ALB 3.9-4.9 g/dL Low Albumin 3.6 LAB CA 8.5-10.2 mg/dL Calcium, Total 9.6 LAB TBIL 0.2-1.3 mg/dL Bilirubin, Total 0.3 LAB ALKP 32-117 U/L Alkaline Phosphatase 66 LAB AST 13-35 U/L AST 17 LAB GLU 74-99 mg/dL Glucose 90 Result Comment: The [place] [employer] (ADA) provides guidance for cutoff values for fasting glucose and random glucose. The ADA defines fasting as no caloric intake for at least 8 hours. Fas ting plasma glucose results between 100 to 125 mg/dL indicate increased risk for diabetes (prediabetes). Fasting plasma glucose results greater than or equal to 126 mg/dL meet the criteria for diagnosis of diabetes. In the absence of unequivocal hyperglycemia, results should be confirmed by repeat testing. In a patient with classic symptoms of hyperglycemia or hyperglycemic crisis, random plasma glucose results greater than or equal to 200 mg/dL meet the criteria for diagnosis of diabetes. Reference: Standards of Medical Care in Diabetes 2016, [place] [employer]. Diabetes Care. 2016.39(Suppl 1). LAB BUN 7-21 mg/dL BUN 11 LAB CRET 0.58-0.96 mg/dL Creatinine 0.71 LAB NA 136-144 mmol/L Sodium 138 LAB K 3.7-5.1 mmol/L Potassium 3.7 LAB CL 97-105 mmol/L Low Chloride 95 LAB CO2 22-30 mmol/L CO2 High 36 LAB AGAP 9-18 mmol/L Low Anion Gap 7 LAB ALT 7-38 U/L ALT 9 LAB GFRAA eGFR- Amer. >60 LAB GFRNAA . eGFR-All Other Races >60 Result Comment: eGFR (Estimated GFR) Units of measure: mL/min/1.73 meters squared eGFR is derived from the reexpressed MDRD Study equation using the following parameters: serum creatinine, age, gender and race. The creatinine assay has been calibrated to be traceable to IDMS. An eGFR <60 mL/min/1.73m2 for >3 months is consistent with chronic kidney disease. Refer to KDOQI guidelines for clinical interpretation. In patients with unstable renal function, e.g. those with acute kidney injury, the eGFR may not accurately reflect actual GFR. Performed By: #### CMP #### [facility] [address] [place] [id number] [place] ABS GR + CBC Collected: 01/05/2018 Status: F Source: [place] 2:34 PM [facility] REPOSITORY TYPE CODE TESTS RESULT OUT OF REFERENCE UNITS RANGE LAB WWBC 3.70-11.00 k/uL [place] WBC 10.92 LAB WRBC 3.90-5.20 m/uL [place] RBC 4.35 LAB WHGB 11.5-15.5 g/dL [place] Hemoglobin 12.3 LAB WHCT 36.0-46.0 % [place] Hematocrit 40.3 LAB WMCV 80.0-100.0 fL [place] MCV 92.6 LAB WMCH 26.0-34.0 pg [place] MCH 28.3 LAB WMCHC 30.5-36.0 g/dL [place] MCHC 30.5 LAB WRDW 11.5-15.0 % [place] RDW 14.2 LAB WPLT 150-400 k/uL [place] Platelet Cnt 355 LAB WMPV 9.0-12.7 fL Low [place] MPV 8.6 Result Comment: Test performed at: [facility] [place], [address] [place] [address]. LAB ABGRAN 1.45-7.50 k/uL High Absol 7.94 Gran Count PULMONARY FUNCTION Observed: 01/05/2018 Status: F Source: [place] TEST 12:[address] [facility] REPOSITORY [facility] Pulmonary Services/Neurology [address] [place] [address] MR#: [id number] Acct: [id number] Name: JAZMYNE HARRISON Rep #: [id number] : 1970 47 From: Pola Vee DO Referring Dr: Pola Vee D.O. Status: REG CLI Ordering Dr: Date: Location: [facility] Sex: F C INTRODUCTION: The patient is a 52-year-old female that presents for pulmonary function testing secondary to a diagnosis of COPD. Respiratory therapy reports good patient effort. Bronchodilators were used during testing. INTERPRETATION: Forced expiration spirometry demonstrates the presence of a very severe large airways obstructive ventilatory defect. There was a significant response to aerosolized bronchodilators. Spirograms are of good quality and do not plateau indicating slow emptying of the lungs. The respiratory flow volume loop reveals decreased expiratory flow rates at all lung volumes consistent with airways obstruction. Body plethysmography was performed and reveals an elevated TLC and RV, indicative of underlying hyperinflation and air-trapping. Diffusing capacity by single breath CO is relatively preserved at 77% of predicted. When compared to previous pulmonary function studies dated April 2017, there has been a 38% reduction in the patient's FEV1. IMPRESSION: These pulmonary function studies demonstrate the presence of a partially reversible very severe large airways obstructive ventilatory defect with associated hyperinflation and air-trapping. There has been interval worsening the patient's pulmonary function testing, as noted above. 01/05/18 1217 <Electronically signed by Pola Vee DO> Date Pola Vee DO CC: Jarod Mack MD; Pola Vee D.O. Date Dictated: 01/05/181203 Date Transcribed: 01/05/181203 Psychology Technician: SANTINO Signed CNPN Observed: 01/05/2018 Status: COMPLETED Source: [place] 12:00 AM [facility] REPOSITORY Telephone (HEMAWS) JAZMYNE HARRISON ([id number]) 1970 F Date Time Provider Department 01/05/18 SHANNAN CONROY During your visit today, we recorded the following information about you: Shannan Conroy MD 01/05/2018 2:[address] Theodore for port malfunction. Checks x-ray today for cough AND line placement. MD Mercedes Robles Psr 01/05/2018 2:49 PM Signed I called and spoke to Arley in general surgery and he scheduled the patient to see on Monday01/09/18 @ 3:30pm. Arley stated that a portogram at [facility] could be order since we do not do them here, he stated this is what would order. Please advise if you would like to go ahead with the chest x-ray or if you would like a portogram at [facility] scheduled. Mercedes Quezada Psr Shannan Conroy MD 01/08/2018 8:22 AM Signed Please schedule a PORTogram at [facility] She already had her CXR. MD Malu Robles PSR 01/08/2018 10:06 AM Signed Faxed orders and scheduled portogram for 01/10/18 @ 10 AM @ [facility]. Left message for patient to return call. When patient calls back, please confirm the above appointment for her. If that date/time is not acceptable, please have her call [phone] to reschedule at her convenience. Malu Linton PSR Aria Alarcon Psr 01/08/2018 10:30 AM Signed Patient returned call and was relayed message. Allergies As of Date: 01/05/2018 Noted Allergy Reaction DALIRESP (ROFLUMILAST) 11/10/2017 9 - Itching Comments: red, warm, itching neck, lump in throat Date Reviewed: 01/05/2018 Reviewed by: Malu Killian - Fully Assessed Reason for Visit: Referral Request [124] Primary Visit Diagnosis:Malignant neoplasm metastatic to lung, unspecified laterality (HCC) [C78.00] Other Visit Diagnoses:Non-small cell carcinoma of right lung, stage 4 (HCC) [C34.91] Cough in adult [R05] Order(s):XR CHEST 2V FRONTAL/LAT [[id number]] Order #: [id number] FUTURE Prescriptions as of 01/05/2018 Sig: MORPHINE ER 60 MG TABLET,EXTE* Take 1 tablet by mouth twice * OXYCODONE 30 MG TABLET Take 1-2 tablets by mouth chad* OLANZAPINE 2.5 MG TABLET Take 1 tablet by mouth daily * PROMETHAZINE 25 MG TABLET Take 1 tablet by mouth every * GABAPENTIN 300 MG CAPSULE TAKE ONE CAPSULE BY MOUTH 4 T* PREDNISONE 10 MG TABLET Take 1 tablet by mouth once d* PRAMIPEXOLE 1 MG TABLET TAKE 1 TABLET BY MOUTH DAILY * ARIPIPRAZOLE 5 MG TABLET TAKE 1 TABLET BY MOUTH ONCE D* ZANTAC 75 ORAL Take by mouth twice daily. ALBUTEROL SULFATE HFA 90 MCG/* Inhale 2 Puffs as instructed * TRAZODONE 100 MG TABLET Take 3 tablets by mouth daily* STOOL SOFTENER ORAL Take 2 tablets by mouth at be* LORAZEPAM 0.5 MG TABLET Take 1-2 tablets PO daily PRN* BUDESONIDE-FORMOTEROL HFA 160* Inhale 1 Puff as instructed t* SODIUM CHLORIDE 0.9% FLUSH NURSING USE ONLY: USED FOR * HEPARIN LOCK FLUSH (PORCINE) * NURSING USE ONLY: USE FOR I* Problem List As Of Date 01/05/2018 Noted Resolved Bone metastasis [C79.51] INVALID FOR* Secondary malignant neoplasm of intra-abdominal*INVALID FOR* More... Lung cancer [C34.90] INVALID FOR*06/26/2013 Lung metastases [C78.00] INVALID FOR* Examination of participant in clinical trial [Z*INVALID FOR* History of lung cancer [Z85.118] INVALID FOR* Lung cancer (HCC) [C34.90] INVALID FOR*11/04/2014 Non-small cell carcinoma of lung, stage 4 (HCC)*INVALID FOR* Malignant neoplasm of upper lobe of right lung *INVALID FOR* Malaise and fatigue [R53.81, R53.83] INVALID FOR* Family history of tobacco abuse and dependence *INVALID FOR* RLS (restless legs syndrome) [G25.81] INVALID FOR* COPD (chronic obstructive pulmonary disease) (H* Supplemental oxygen dependent [Z99.81] INVALID FOR* Port catheter in place [Z95.828] INVALID FOR* Chronic back pain [M54.9, G89.29] More... Bone pain [M89.8X9] Bone metastases (HCC) [C79.51] More... Restless leg syndrome [G25.81] Neuropathy (HCC) [G62.9] Encounter Status:Closed by SHANNAN CONROY MD on 01/06/18 COMP METABOLIC PANEL Collected: 12/07/2017 Status: F Source: [place] 4:04 PM [facility] REPOSITORY TYPE CODE TESTS RESULT OUT OF REFERENCE UNITS RANGE LAB TP 6.3-8.0 g/dL Protein, Total 7.8 LAB ALB 3.9-4.9 g/dL Albumin 4.0 LAB CA 8.5-10.2 mg/dL Calcium, Total 9.3 LAB TBIL 0.2-1.3 mg/dL Low Bilirubin, Total <0.2 LAB ALKP 32-117 U/L Alkaline Phosphatase 85 LAB AST 13-35 U/L AST 21 LAB GLU 74-99 mg/dL Glucose High 140 Result Comment: The [place] [employer] (ADA) provides guidance for cutoff values for fasting glucose and random glucose. The ADA defines fasting as no caloric intake for at least 8 hours. Fas ting plasma glucose results between 100 to 125 mg/dL indicate increased risk for diabetes (prediabetes). Fasting plasma glucose results greater than or equal to 126 mg/dL meet the criteria for diagnosis of diabetes. In the absence of unequivocal hyperglycemia, results should be confirmed by repeat testing. In a patient with classic symptoms of hyperglycemia or hyperglycemic crisis, random plasma glucose results greater than or equal to 200 mg/dL meet the criteria for diagnosis of diabetes. Reference: Standards of Medical Care in Diabetes 2016, [place] [employer]. Diabetes Care. 2016.39(Suppl 1). LAB BUN 7-21 mg/dL BUN 10 LAB CRET 0.58-0.96 mg/dL Creatinine 0.67 LAB NA 136-144 mmol/L Sodium 138 LAB K 3.7-5.1 mmol/L Potassium 4.2 LAB CL 97-105 mmol/L Low Chloride 90 LAB CO2 22-30 mmol/L CO2 27 LAB AGAP 9-18 mmol/L Anion Gap High 21 LAB ALT 7-38 U/L ALT 8 LAB GFRAA eGFR- Amer. >60 LAB GFRNAA . eGFR-All Other Races >60 Result Comment: eGFR (Estimated GFR) Units of measure: mL/min/1.73 meters squared eGFR is derived from the reexpressed MDRD Study equation using the following parameters: serum creatinine, age, gender and race. The creatinine assay has been calibrated to be traceable to IDMS. An eGFR <60 mL/min/1.73m2 for >3 months is consistent with chronic kidney disease. Refer to KDOQI guidelines for clinical interpretation. In patients with unstable renal function, e.g. those with acute kidney injury, the eGFR may not accurately reflect actual GFR. Performed By: #### CMP #### [facility] [address] [place], [place] [address] [place] ABS GR + CBC Collected: 12/07/2017 Status: F Source: [place] 4:03 PM [facility] REPOSITORY TYPE CODE TESTS RESULT OUT OF REFERENCE UNITS RANGE LAB WWBC 3.70-11.00 k/uL [place] WBC 7.36 LAB WRBC 3.90-5.20 m/uL [place] RBC 4.30 LAB WHGB 11.5-15.5 g/dL [place] Hemoglobin 12.3 LAB WHCT 36.0-46.0 % [place] Hematocrit 40.3 LAB WMCV 80.0-100.0 fL [place] MCV 93.7 LAB WMCH 26.0-34.0 pg [place] MCH 28.6 LAB WMCHC 30.5-36.0 g/dL [place] MCHC 30.5 LAB WRDW 11.5-15.0 % [place] RDW 13.4 LAB WPLT 150-400 k/uL [place] High Platelet Cnt 418 LAB WMPV 9.0-12.7 fL [place] MPV 9.1 Result Comment: Test performed at: [facility] [place], [address] [place] [address]. LAB ABGRAN 1.45-7.50 k/uL Absol Gran 6.44 Count CNOVSP Observed: 12/07/2017 Status: COMPLETED Source: [place] 4:00 PM [facility] REPOSITORY Visit (SP) Office (HEMAWS) JAZMYNE HARRISON ([id number]) 1970 F Date Time Provider Department 12/07/17 4:00 PM SHANNAN CONROY During your visit today, we recorded the following information about you: Temperature Pulse Blood pressure Weight 98.6 degrees 95/minute 92/57 53.5 kg Shannan Conroy MD 12/08/2017 7:54 AM Signed PATIENT NAME: Jazmyne [place]. CLINIC NO: [id number]. ATTENDING PHYSICIAN: Shannan Conroy MD. ?? DATE OF SERVICE: 12/07/2017. DIAGNOSIS: Metastatic (adenocarcinoma) lung cancer, PD-L1+, EGFR AND?ALK negaitve ?? HPI:? Jazmyne [place] is a 46 year old female whith metastatic (adenocarcinoma) lung cancer. H/o tobacco abuse, COPD who presented with cough and hemoptysis 2012 in the emergency room. Her initial chest x-ray showed a right upper lobe mass. CT scan of chest and subsequent CT-guided lung biopsy revealed non-small cell (adenocarcinoma) lung cancer. ?? Patient had right sided chest pain for over a year. Initially, she thought she pulled a muscle and has been using ibuprofen for pain. She used to smoke 2 packs cigarette per day for over 20 years and recently has cut down to less than 5 cigarettes per day. Chest -ray 2 years ago showed changes consistent with COPD but no lung mass. ?? Staging workup included bone scan show a focal increased activity in the left ilium along the medial left acetabular region. X-ray of the hip showed no lytic or blastic lesion. CT scan of the abdomen showed several small lesions scattered along the left and right hepatic lobes. Otherwise no evidence of metastatic disease. MRI scan and brain also showed no metastatic disease. Patient had a left hip pain for over 2 years. ?? Subsequent PET scan revealed metastatic disease. There were increased activity in the right upper hemithorax along with additional lung nodules in the right side consistent with metastatic disease. There was activity in the mediastinum right prehilar region and bone metastasis at the level of the left acetabulum. ?? Treatment history:? Patient received Taxol/carboplatin/avastin x 4 cycles with near complete response . She was placed on maintenance and Avastin therapy and she progressed on treatment. She then had additional treatment with Avastin and Alimta x4 cycles with further progression of disease. Avastin was discontinued because of hemostasis with her last 2 cycles of chemotherapy. ?? Patient completed palliative radiation therapy to her right upper lobe because of hemostasis and severe pain.She received palliative RT to the right apex lesion 3000 cGy on February 18, 2014 with good control of symptoms. On recent re-staging CT scans, she had improvement in the radiated RUL lesion however had a new 1.8 cm lesion in the RUL. ?? Patient completed 4 cycles of Carboplatin/Abraxane ( 05/02/14- 07/18/14 ) with partial response after 2 cycles and stable disease after 4 cycles. Patient had progression disease in July and started treatment with Check- point inhibitor this year. ?? Patient has progression of her primary lung lesion late last year. Her PET scan was otherwise negative metastatic disease. She had completed palliative radiation therapy to her right upper lobe lung lesion with 2400 cGy in 8 fx in March,. ?? Current treatment:?Nivolumab since July 2014. ?? Interim history: She is tolerating Nivolumab very well. She has occasional nonproductive cough, no fever or shortness of breath.??she is on continuous oxygen 24 hours because of hypoxemia.Patient denies headaches, or focal neurological symptoms. She has no hip and lower back pain controlled with pain medications. She has occasional chest and right upper rib pain from coughing. ?? She has chronic fatigue but no further weight loss with her treatment. She had increased her Ritalin which is helping her fatigue. ?no arthritis or neuropathy. Denies jaundice or diarrhea. ?? All medications AND allergies updated and reviewed by me. ?? Review of system: Appetite: Good Energy level: Fair Denies fevers. Mouth:denies sores Resp:dry cough, denies shortness of breath or hemoptysis Cardiac:denies chest pain/palpitations GI: denied nausea, vomiting or diarrhea. :denies dysuria/hematuria Extrem:pain to left hip and both knees Neuro:foot numbness/tingling/burning-as above. Skin:denies rashes Heme:denies bleeding ?? The ROS is otherwise negative. Past medical history,medications, allergies reviewed. No changes. ?? EXAM:? APPEARANCE Well appearing, alert, in no acute distress, well- hydrated, well nourished. Performance status 80%; BP 92/57 Pulse 95 Temp 98.6 Wt 118 lb (53.5kg) SpO2 92[oxygen at 3 L/M via N/C]% LMP 05/06/1999 HEENT: [place]clerae anicteric, WNL HEART RRR with normal S1 and S2, no murmurs, no gallops, no JVD appreciated LUNG clear to auscultation, diminished breath sound the right upper lobe, scattered rales on the right lower lobe, no wheezing, LYMPH NODES No cervical lymphadenopathy, No supraclavicular lymphadenopathy and No axillary lymphadenopathy. ABDOMEN bowel sounds normoactive, no bruits, soft, non-tender, non-distended, without organomegaly or palpable masses EXTREMITIES Extremities normal, No deformities, No skin discoloration, No edema and Normal pulses bilaterally. NEURO Awake, alert and oriented x 3, Normal gait and No involuntary motions. SKIN Skin color, texture, turgor normal, no suspicious rashes or lesions ?? LABS: Component Latest Ref Rng AND Units 12/07/2017 WBC, [place] 3.70 - 11.00 k/uL 7.36 RBC, [place] 3.90 - 5.20 m/uL 4.30 Hemoglobin, [place] 11.5 - 15.5 g/dL 12.3 Hematocrit, [place] 36.0 - 46.0 % 40.3 MCV, [place] 80.0 - 100.0 fL 93.7 MCH, [place] 26.0 - 34.0 pg 28.6 MCHC, [place] 30.5 - 36.0 g/dL 30.5 RDW, [place] 11.5 - 15.0 % 13.4 Platelet Cnt, [place] 150 - 400 k/uL 418 (H) MPV, [place] 9.0 - 12.7 fL 9.1 Absol Gran Count 1.45 - 7.50 k/uL 6.44 Component Latest Ref Rng AND Units 12/07/2017 Protein, Total 6.3 - 8.0 g/dL 7.8 Albumin 3.9 - 4.9 g/dL 4.0 Calcium 8.5 - 10.2 mg/dL 9.3 Bilirubin, Total 0.2 - 1.3 mg/dL <0.2 (L) Alkaline Phosphatase 32 - 117 U/L 85 AST 13 - 35 U/L 21 Glucose 74 - 99 mg/dL 140 (H) BUN 7 - 21 mg/dL 10 Creatinine 0.58 - 0.96 mg/dL 0.67 Sodium 136 - 144 mmol/L 138 Potassium 3.7 - 5.1 mmol/L 4.2 Chloride 97 - 105 mmol/L 90 (L) CO2 22 - 30 mmol/L 27 Anion Gap 9 - 18 mmol/L 21 (H) ALT 7 - 38 U/L 8 eGFR- >60 eGFR-All Other Races . >60 CXR: no changes compared to 11/09/2017 ASSESSMENT/PLAN:? 1. Metastatic Lung cancer Metastatic non-small cell (adenocarcinoma) lung cancer; EGFR AND ALK negaitve Tolerating treatment with Nivolumab with stable disease. (CR) on?CT chest and?bone scan on March 2016.?Fatigue and weight loss secondary to her treatment. Chronic hypoxemia secondary to pulmonary fibrosis and COPD. - Continue treatment with Nivolumab every 14 days x 4. - Continue MS Contin, and percocet as needed and Neurontin 300mg TID and Marinol as needed - Continue stool softener and laxative as needed. - Continue oxygen therapy and follow-up with Dr. Vee, director of orthopedics - Repeat CBC, CMP, TSH and chest x-ray?OV in 2?months ?? 2. Upper back pain and hip pain with history of bone metastasis - follow-up palliative medicine - Repeat bone scan only if indicated with additional or different site of bone pain 3. chronic fatigue secondary to lung cancer AND Immunotherapy treatment. - Continue Ritalin and short courses of prednisone if needed after each OPDIVO treatment Shannan Conroy MD Cc: Dr. Loly Valente LPN, LPN 12/07/2017 4:09 PM Signed Est pt, discuss recent labs and chest x-ray. Pt. Now on continious oxygen Jeannette Valente LPN Referring Provider: SHANNAN CONROY [[id number]] Allergies As of Date: 12/07/2017 Noted Allergy Reaction DALIRESP (ROFLUMILAST) 11/10/2017 9 - Itching Comments: red, warm, itching neck, lump in throat Date Reviewed: 12/07/2017 Reviewed by: Jeannette Lisa (Sal) SAL Valente - Fully Assessed Reason for Visit: Established Patient [175] Primary Visit Diagnosis:Non-small cell carcinoma of right lung, stage 4 (HCC) [C34.91] Other Visit Diagnoses:Bone metastasis (HCC) [C79.51] Malignant neoplasm metastatic to lung, unspecified laterality (HCC) [C78.00] Examination of participant in clinical trial [Z00.6] Malignant neoplasm of upper lobe of right lung (HCC) [C34.11] Pulmonary emphysema, unspecified emphysema type (HCC) [J43.9] Level of Service: EST PATIENT VISIT LEVEL 3 [[id number]] Disposition: Return in about 2 months (around 02/06/2018). Follow-up and Disposition History Recorded Prescriptions as of 12/07/2017 Sig: MORPHINE ER 60 MG TABLET,EXTE* Take 1 tablet by mouth twice * PROMETHAZINE 25 MG TABLET Take 1 tablet by mouth every * OXYCODONE 30 MG TABLET Take 1-2 tablets by mouth chad* OLANZAPINE 2.5 MG TABLET Take 1 tablet by mouth daily * GABAPENTIN 300 MG CAPSULE TAKE ONE CAPSULE BY MOUTH 4 T* DRONABINOL 2.5 MG CAPSULE Take 1 capsule by mouth twice* PREDNISONE 10 MG TABLET Take 1 tablet by mouth once d* GABAPENTIN 300 MG CAPSULE Take 1 capsule by mouth four * PRAMIPEXOLE 1 MG TABLET TAKE 1 TABLET BY MOUTH DAILY * ARIPIPRAZOLE 5 MG TABLET TAKE 1 TABLET BY MOUTH ONCE D* ZANTAC 75 ORAL Take by mouth twice daily. METHYLPHENIDATE 10 MG TABLET Take 1 tablet by mouth once d* ALBUTEROL SULFATE HFA 90 MCG/* Inhale 2 Puffs as instructed * TRAZODONE 100 MG TABLET Take 3 tablets by mouth daily* STOOL SOFTENER ORAL Take 2 tablets by mouth at be* LORAZEPAM 0.5 MG TABLET Take 1-2 tablets PO daily PRN* BUDESONIDE-FORMOTEROL HFA 160* Inhale 1 Puff as instructed t* SODIUM CHLORIDE 0.9% FLUSH NURSING USE ONLY: USED FOR * HEPARIN LOCK FLUSH (PORCINE) * NURSING USE ONLY: USE FOR I* Problem List As Of Date 12/07/2017 Noted Resolved Bone metastasis [C79.51] INVALID FOR* Secondary malignant neoplasm of intra-abdominal*INVALID FOR* More... Lung cancer [C34.90] INVALID FOR*06/26/2013 Lung metastases [C78.00] INVALID FOR* Examination of participant in clinical trial [Z*INVALID FOR* History of lung cancer [Z85.118] INVALID FOR* Lung cancer (HCC) [C34.90] INVALID FOR*11/04/2014 Non-small cell carcinoma of lung, stage 4 (HCC)*INVALID FOR* Malignant neoplasm of upper lobe of right lung *INVALID FOR* Malaise and fatigue [R53.81, R53.83] INVALID FOR* Family history of tobacco abuse and dependence *INVALID FOR* RLS (restless legs syndrome) [G25.81] INVALID FOR* COPD (chronic obstructive pulmonary disease) (H* Supplemental oxygen dependent [Z99.81] INVALID FOR* Port catheter in place [Z95.828] INVALID FOR* Chronic back pain [M54.9, G89.29] More... Bone pain [M89.8X9] Bone metastases (HCC) [C79.51] More... Restless leg syndrome [G25.81] Neuropathy (HCC) [G62.9] Visit Notes: >> Jeannette Lisa (Sal) SAL Valente Ada Dec 07, 2017 4:04 PM Status: Signed Est pt, discuss recent labs and chest x-ray. Pt. Now on continious oxygen Jeannette Valente LPN Encounter Status:Closed by SHANNAN CONROY MD on 12/08/17 PROGRESS Observed: 12/07/2017 Status: COMPLETED Source: [place] 3:55 PM [facility] REPOSITORY HNO ID: [id number] Author: Shannan Conroy Service: (none) Author Type: Physician Type: Progress Notes Filed: 12/08/2017 7:54 AM Note Text: PATIENT NAME: Jazmyne [place]. CLINIC NO: [id number]. ATTENDING PHYSICIAN: Shannan Conroy MD. ?? DATE OF SERVICE: 12/07/2017. DIAGNOSIS: Metastatic (adenocarcinoma) lung cancer, PD-L1+, EGFR AND?ALK negaitve ?? HPI:? Jazmyne [place] is a 46 year old female whith metastatic (adenocarcinoma) lung cancer. H/o tobacco abuse, COPD who presented with cough and hemoptysis 2012 in the emergency room. Her initial chest x-ray showed a right upper lobe mass. CT scan of chest and subsequent CT-guided lung biopsy revealed non-small cell (adenocarcinoma) lung cancer. ?? Patient had right sided chest pain for over a year. Initially, she thought she pulled a muscle and has been using ibuprofen for pain. She used to smoke 2 packs cigarette per day for over 20 years and recently has cut down to less than 5 cigarettes per day. Chest -ray 2 years ago showed changes consistent with COPD but no lung mass. ?? Staging workup included bone scan show a focal increased activity in the left ilium along the medial left acetabular region. X-ray of the hip showed no lytic or blastic lesion. CT scan of the abdomen showed several small lesions scattered along the left and right hepatic lobes. Otherwise no evidence of metastatic disease. MRI scan and brain also showed no metastatic disease. Patient had a left hip pain for over 2 years. ?? Subsequent PET scan revealed metastatic disease. There were increased activity in the right upper hemithorax along with additional lung nodules in the right side consistent with metastatic disease. There was activity in the mediastinum right prehilar region and bone metastasis at the level of the left acetabulum. ?? Treatment history:? Patient received Taxol/carboplatin/avastin x 4 cycles with near complete response . She was placed on maintenance and Avastin therapy and she progressed on treatment. She then had additional treatment with Avastin and Alimta x4 cycles with further progression of disease. Avastin was discontinued because of hemostasis with her last 2 cycles of chemotherapy. ?? Patient completed palliative radiation therapy to her right upper lobe because of hemostasis and severe pain.She received palliative RT to the right apex lesion 3000 cGy on February 18, 2014 with good control of symptoms. On recent re-staging CT scans, she had improvement in the radiated RUL lesion however had a new 1.8 cm lesion in the RUL. ?? Patient completed 4 cycles of Carboplatin/Abraxane ( 05/02/14- 07/18/14 ) with partial response after 2 cycles and stable disease after 4 cycles. Patient had progression disease in July and started treatment with Check-point inhibitor this year. ?? Patient has progression of her primary lung lesion late last year. Her PET scan was otherwise negative metastatic disease. She had completed palliative radiation therapy to her right upper lobe lung lesion with 2400 cGy in 8 fx in March,. ?? Current treatment:?Nivolumab since July 2014. ?? Interim history: She is tolerating Nivolumab very well. She has occasional nonproductive cough, no fever or shortness of breath.??she is on continuous oxygen 24 hours because of hypoxemia.Patient denies headaches, or focal neurological symptoms. She has no hip and lower back pain controlled with pain medications. She has occasional chest and right upper rib pain from coughing. ?? She has chronic fatigue but no further weight loss with her treatment. She had increased her Ritalin which is helping her fatigue. ?no arthritis or neuropathy. Denies jaundice or diarrhea. ?? All medications AND allergies updated and reviewed by me. ?? Review of system: Appetite: Good Energy level: Fair Denies fevers. Mouth:denies sores Resp:dry cough, denies shortness of breath or hemoptysis Cardiac:denies chest pain/palpitations GI: denied nausea, vomiting or diarrhea. :denies dysuria/hematuria Extrem:pain to left hip and both knees Neuro:foot numbness/tingling/burning-as above. Skin:denies rashes Heme:denies bleeding ?? The ROS is otherwise negative. Past medical history,medications, allergies reviewed. No changes. ?? EXAM:? APPEARANCE Well appearing, alert, in no acute distress, well-hydrated, well nourished. Performance status 80%; BP 92/57 Pulse 95 Temp 98.6 Wt 118 lb (53.5kg) SpO2 92[oxygen at 3 L/M via N/C]% LMP 05/06/1999 HEENT: Sclerae anicteric, WNL HEART RRR with normal S1 and S2, no murmurs, no gallops, no JVD appreciated LUNG clear to auscultation, diminished breath sound the right upper lobe, scattered rales on the right lower lobe, no wheezing, LYMPH NODES No cervical lymphadenopathy, No supraclavicular lymphadenopathy and No axillary lymphadenopathy. ABDOMEN bowel sounds normoactive, no bruits, soft, non-tender, non-distended, without organomegaly or palpable masses EXTREMITIES Extremities normal, No deformities, No skin discoloration, No edema and Normal pulses bilaterally. NEURO Awake, alert and oriented x 3, Normal gait and No involuntary motions. SKIN Skin color, texture, turgor normal, no suspicious rashes or lesions ?? LABS: Component Latest Ref Rng AND Units 12/07/2017 WBC, [place] 3.70 - 11.00 k/uL 7.36 RBC, [place] 3.90 - 5.20 m/uL 4.30 Hemoglobin, [place] 11.5 - 15.5 g/dL 12.3 Hematocrit, [place] 36.0 - 46.0 % 40.3 MCV, [place] 80.0 - 100.0 fL 93.7 MCH, [place] 26.0 - 34.0 pg 28.6 MCHC, [place] 30.5 - 36.0 g/dL 30.5 RDW, [place] 11.5 - 15.0 % 13.4 Platelet Cnt, [place] 150 - 400 k/uL 418 (H) MPV, [place] 9.0 - 12.7 fL 9.1 Absol Gran Count 1.45 - 7.50 k/uL 6.44 Component Latest Ref Rng AND Units 12/07/2017 Protein, Total 6.3 - 8.0 g/dL 7.8 Albumin 3.9 - 4.9 g/dL 4.0 Calcium 8.5 - 10.2 mg/dL 9.3 Bilirubin, Total 0.2 - 1.3 mg/dL <0.2 (L) Alkaline Phosphatase 32 - 117 U/L 85 AST 13 - 35 U/L 21 Glucose 74 - 99 mg/dL 140 (H) BUN 7 - 21 mg/dL 10 Creatinine 0.58 - 0.96 mg/dL 0.67 Sodium 136 - 144 mmol/L 138 Potassium 3.7 - 5.1 mmol/L 4.2 Chloride 97 - 105 mmol/L 90 (L) CO2 22 - 30 mmol/L 27 Anion Gap 9 - 18 mmol/L 21 (H) ALT 7 - 38 U/L 8 eGFR- >60 eGFR-All Other Races . >60 CXR: no changes compared to 11/09/2017 ASSESSMENT/PLAN:? 1. Metastatic Lung cancer Metastatic non-small cell (adenocarcinoma) lung cancer; EGFR AND ALK negaitve Tolerating treatment with Nivolumab with stable disease. (CR) on?CT chest and?bone scan on March 2016.?Fatigue and weight loss secondary to her treatment. Chronic hypoxemia secondary to pulmonary fibrosis and COPD. - Continue treatment with Nivolumab every 14 days x 4. - Continue MS Contin, and percocet as needed and Neurontin 300mg TID and Marinol as needed - Continue stool softener and laxative as needed. - Continue oxygen therapy and follow-up with Dr. Vee, director of orthopedics - Repeat CBC, CMP, TSH and chest x-ray?OV in 2?months ?? 2. Upper back pain and hip pain with history of bone metastasis - follow-up palliative medicine - Repeat bone scan only if indicated with additional or different site of bone pain 3. chronic fatigue secondary to lung cancer AND Immunotherapy treatment. - Continue Ritalin and short courses of prednisone if needed after each OPDIVO treatment Shannan Conroy MD Cc: Dr. Loly Giordano XR CHEST 2V FRONTAL/LAT Observed: 12/07/2017 Status: F Source: [place] 3:42 PM [facility] REPOSITORY * * *Final Report* * * DATE OF EXAM: Dec 07 2017 3:42PM [id number] [id number] - XR CHEST 2V FRONTAL/LAT / PROCEDURE REASON: Malignant neoplasm of upper lobe, right bronchus or lung * * * * Physician Interpretation * * * * EXAMINATION: XR CHEST 2V FRONTAL/LAT CLINICAL HISTORY: Lung carcinoma Comparison: 10/12/2017 RESULT: Left central venous catheter is in place with the tip over the mid superior vena cava. Right apical density is unchanged. Scarring and superior retraction of the right hilum is stable. Airspace disease in the left lower lobe is also stable. No suspicious or developing abnormality elsewhere. No pneumothorax. No pleural fluid. IMPRESSION: Stable abnormal appearance of the right lung apex. Airspace disease in the left lung base is unchanged. Psychology Technician: PSCB Transcribe Date/Time: Dec 07 2017 3:47P Dictated by : NELSON OKEEFE MD This examination was interpreted and the report reviewed and electronically signed by: NELSON OKEEFE MD on Dec 07 2017 3:49PM EST [id number] PROGRESS Observed: 12/07/2017 Status: COMPLETED Source: [place] 3:36 PM [facility] REPOSITORY HNO ID: [id number] Author: Sarah Soriano (Rt) George Saab Service: (none) Author Type: [employer] Type: Progress Notes Filed: 12/07/2017 3:43 PM Note Text: Radiology Service Progress Note PATIENT NAME: Jazmyne Harrison DATE OF SERVICE: December 07, 2017 TIME: 3:36 PM PATIENT IDENTITY VERIFICATION COMPLETED USING TWO (2) METHODS: Patient confirmed name verbally and Date of . PATIENT GENDER DATA: Female. status: : No status: NO. PATIENT RELEVANT IMPLANT DATA REVIEWED: Not Applicable RADIOLOGY DEPARTMENT: General X-ray: Exam(s) Completed: Chest X-Ray PERIPHERAL IV DATA: Not applicable SIGNED BY: RT Yoan December 07, 2017 3:36 PM PULMONARY VISIT REPORT Observed: 12/01/2017 Status: F Source: [place] 9:[address] [facility] REPOSITORY [facility] of [address] [place] [address] OFFICE VISIT Date of Service: 11/29/17 MR#: [id number] Acct: [id number] Name: JAZMYNE HARRISON Rep #: [id number] : 1970 Provider: Pola Vee D.O. Age/Sex: 46/F Location[place] [facility] [place] Status: Signed Assessment AND Plan 1. COPD (chronic obstructive pulmonary disease) J44.9 Plan - Pola Vee DO The patient has a history of advanced stage COPD and chronic hypoxemic respiratory failure. She is currently on maximal therapy from an inhaler standpoint, but continues to experience recurrent exacerbations. She was trialed on Daliresp previously but developed a rash and medication intolerance. The patient previously had a borderline alpha-1 level. Therefore, I have advocated rechecking her alpha-1 antitrypsin level and repeating her pulmonary function testing to assess for interval worsening in her pulmonary function. Depending on the level and the results of her pulmonary function testing, she may be a potential candidate for Prolastin C. I did call and personally speak with a member of the [facility] lung transplantation team in order to review the patient's case with them. At the current time, they have a cutoff that the patient has to be cancer free for a period of 5 years. Based upon documentation from the patient's oncologist, the last PET scan indicating disease remission was completed in March 2015. Using that date, she would not be a candidate until 2019. In addition, in order to be considered for potential transplantation, the patient is to be able to walk a minimum distance of 600 feet in 6 minutes. And he must have a BMI greater than 17, which the patient does not currently meet. They advised working to increase the patient's nutritional status and reevaluating in 1 year. Orders Orders: 2. Metastatic primary lung cancer C34.90 Plan - Pola Vee, DO Continue outpatient follow-up with Dr. Conroy of oncology. Continue Opdivo as prescribed. Plan Detail Other Orders Orders: Follow Up 6 Weeks (CSM) HPI HPI Comments Details: The patient is a 46-year-old female who presents to the clinic today for a routine scheduled follow-up office visit. If you recall, the patient has a history of severe COPD and primary lung cancer with metastasis, which has been under the management of Dr. Conroy of Oncology at [facility]. Pulmonary function testing completed in July 2016 showed evidence of a severe large airways obstructive ventilatory defect with an associated significant response to aerosolized bronchodilators, along with evidence of air trapping and a moderate reduction in diffusing capacity. The patient also has a history of bronchiectasis, for which she currently utilizes a smart vest in her home environment. 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 Patient is also currently prescribed an Astral noninvasive ventilator in her home environment, for which she is maintained on iVAPS. The patient previously had a noted borderline low alpha-1 antitrypsin level. She is currently on maximal therapy with Symbicort, Spiriva and as needed albuterol. She is already completed pulmonary rehabilitation. She remains on maintenance therapy from an oncology perspective with Opdivo. Per the last note I have from the patient's oncologist, Dr. Conroy at [facility], her lung cancer (Metastatic (adenocarcinoma) lung cancer, EGFR AND ALK negaitve) history includes the following: Patient received Taxol/carboplatin/avastin x 4 cycles with near complete response . She was placed on maintenance and Avastin therapy and she progressed on treatment. She then had additional treatment with Avastin and Alimta x4 cycles with further progression of disease. Avastin was discontinued because of hemostasis with her last 2 cycles of chemotherapy. Patient completed palliative radiation therapy to her right upper lobe because of hemostasis and severe pain.She received palliative RT to the right apex lesion 3000 cGy on February 18, 2014 with good control of symptoms. On recent re-staging CT scans, she had improvement in the radiated RUL lesion however had a new 1.8 cm lesion in the RUL. Patient completed 4 cycles of Carboplatin/Abraxane ( 05/02/14- 07/18/14 ) with partial response after 2 cycles and stable disease after 4 cycles. Patient had progression and started treatment with Check-point inhibitor. PET scan was otherwise negative metastatic disease. She had completed palliative radiation therapy to her right upper lobe lung lesion with 2400 cGy in 8 fx in March,. Current treatment: Nivolumab since July 2014. Today, the patient is accompanied by her mother. She reports continued difficulties with her breathing with multiple recent exacerbations. She continues to experience exertional dyspnea and frequent coughing. She is utilizing her rescue inhaler on average 3 times per day. She seems a bit discouraged about her current clinical state and wishes there is more that she could do to improve her health. She remains compliant with the use of her trilogy noninvasive ventilator. She remains compliant also with the use of her supplemental oxygen. She denies fevers, chills or night sweats. She denies chest pain, dizziness or lightheadedness. She reports feeling fatigued and rundown most of the time. Intake Vital Signs11/29/17 Height 6 ft 11/29/17 Weight: 116 lb 11/29/17 Body Mass Index (BMI) 15.7 Intake Visit Reasons: 2 M FU Accompanied by: Mother Allergies No Known Allergies Allergy (Verified 11/29/17 13:51) Medications Aripiprazole [Abilify] 5 mg PO QHS 03/03/16 [History Confirmed 11/02/17] Dronabinol [Marinol] 5 mg PO BID PRN PRN 03/03/16 [History Confirmed 11/02/17] Gabapentin [Neurontin] 300 mg PO 4X/DAY 03/03/16 [History Confirmed 11/02/17] Morphine Sulfate [Morphine Sulfate ER] 60 mg PO BID 03/03/16 [History Confirmed 11/02/17] Oxycodone [Oxyir] 30 mg PO TID PRN PRN 03/03/16 [History Confirmed 11/02/17] Pramipexole Di-HCl [Mirapex] 1 mg PO QHS 03/03/16 [History Confirmed 11/02/17] Trazodone HCl 200 mg PO QHS 03/03/16 [History Confirmed 11/02/17] proMETHazine tablet [Phenergan tablet] 25 mg PO PRN PRN 03/03/16 [History Confirmed 11/02/17] Fluticasone 0.05% [Flonase Nasal [place]] 1 spray NASAL BID #1 bottle 03/06/16 [Rx Confirmed 11/02/17] Lorazepam [Ativan] 0.5 mg PO DAILY PRN #0 03/06/16 [Rx Confirmed 11/02/17] Nebulizer and Compressor [Portable Nebulizer System] 1 ea MC Q2H PRN PRN #1 ea 03/06/16 [Rx Confirmed 11/02/17] buPROPion tablets [Wellbutrin tablets] 75 mg PO BID #60 tab 03/06/16 [Rx Confirmed 11/02/17] methylphenidate 10 mg tablet 10 mg PO QAM AND QPM 04/12/17 [History Confirmed 11/02/17] albuterol sulfate 2.5 mg/3 mL (0.083 %) solution for nebulization 2.5 mg INHALATION Q4H PRN #360 ml 04/25/17 [Rx Confirmed 11/02/17] albuterol sulfate HFA 90 mcg/actuation aerosol inhaler 2 puff INHALATION Q6H PRN #1 device 05/17/17 [Rx Confirmed 11/02/17] budesonide-formoterol HFA 160 mcg-4.5 mcg/actuation aerosol inhaler 2 inh INHALATION Q12H #10.2 g 05/17/17 [Rx Confirmed 11/02/17] tiotropium bromide 2.5 mcg/actuation mist for inhalation 2 puff INHALATION QDAY #1 device 05/17/17 [Rx Confirmed 11/02/17] roflumilast 250 mcg tablet 250 mcg PO QDAY #30 tab 11/02/17 [Rx Confirmed 11/02/17] guaifenesin ER 1,200 mg tablet, extended release 12 hr 1,200 mg PO Q12H PRN #60 tab 11/10/17 [Rx] PFSH Medical History D AND C (Resolved) Port placement (Resolved) Wheezing (Acute) Cough (Acute) Bronchiectasis (Chronic) Hypoxia (Acute) Abnormal chest CT (Chronic) Dyspnea (Acute) non small cell lung, adenocarcimona (Chronic) Unintentional weight loss (Chronic) Tobacco dependence in remission (Chronic) Nocturnal hypoxia (Chronic) Hypersomnia (Chronic) Stage 3 severe COPD by GOLD classification (Chronic) Acute and chronic respiratory failure with hypoxia (Chronic) Borderline elevated troponin (Acute) Healthcare-associated pneumonia (Suspected) Metastatic primary lung cancer (Chronic) COPD (chronic obstructive pulmonary disease) (Chronic) Surgical History H/O oral surgery (Resolved) H/O: hysterectomy (Resolved) Family History Uncle Cancer lung Father Cancer lung, bone Social History Smoking Status: Former smoker how long ago did patient quit smokin year/2.5 pk/day prior to quitting second hand exposure: Yes alcohol intake: never substance use type: does not use Review of Systems Const CONSTITUTIONAL: Negative anorexia, body ache, chills, daytime sleepiness, fever(s), night sweats, oral thrush, stops breathing during sleep, weight loss, sleeping in chair, fatigue, weight loss, weight gain, frequent colds, seasonal allergies, other, headache(s) or orthopnea EETM Ear Nose Throat Mouth: Positive hearing normal; negative hard of hearing, hoarseness, dry mouth in morning, change in vision, itchy eyes, eye pain, swallowing Difficulty, ear pain, nose bleed, headache(s), mouth pain, nasal congestion, nasal discharge, post nasal drip, sinus pain, sinus pressure, sore throat or other Cardio Cardiovascular: Negative chest pain, chest pain at rest, chest pain with activity, irregular heart rhythm, edema, shortness of breath when lying down, palpitations, murmur or other Resp Respiratory: Positive as per HPI, shortness of breath shortness of breath: Positive with activity and cough cough: Positive productive color: Positive thick, white and yellow; negative pain with cough, wheezing, chest congestion, chest tightness, pain on inspiration, inhalers, increase use of rescue inhalers, snoring, apnea or other Gastro Gastrointestional: Negative bloody stools, change in appetite, difficulty swallowing, reflux, hematemesis, melena stool, loose stool, constipation or other Genitourinary: Negative blood in urine, nocturia, pain with urination or other Musc Musculoskeletal: Negative body pain, back pain, neck pain or other Skin/Breast Skin/Breast: Negative dry skin, itching, rash, unusual bruising, breast lump or other Neuro Neurological: Positive weakness; negative restless legs, confusion or other Psych Psychocological: Negative abnormal sleep pattern, anxiety, thoughts of hurting self/others, hopelessness or other Lymph Lymphatic: Negative easy bleeding, easy bruising, swollen lymph nodes or other Exam Const Constitutional: Positive conversant, cooperative, in no acute respiratory distress, well developed, well nourished, good hygiene, cachectic, thin and wearing supplemental oxygen Head Head: Positive normocephalic and atraumatic; negative cyanosis of lips/distal nose Eyes Eye: Positive clear conjunctiva; negative nystagmus or scleral abnormality Ears Ear: Positive hearing normal and external ears normal; negative hard of hearing Nose Nose: Positive external nose normal; negative epistaxis Mouth Mouth: Positive oral mucosae normal and posterior oropharynx is adequate; negative no lesions or post nasal drip Mallampati Score: II: Mallampati Score Neck Neck: Positive normal visual inspection and trachea midline; negative lymphadenopathy Chest Wall Chest: Positive symmetric chest movement Normal AP diameter. Resp Globally diminished air movement throughout all lung guillory without appreciable wheezes, rales or rhonchi. Cardio Cardiac: Positive regular rate, regular rhythm, S1 normal and S2 normal; negative rub, gallop or murmur GI GI: Positive normal bowel sounds Soft without distention Genitourinary: Positive deferred Musc Musculoskeletal: Positive steady gait Skin Pulmonary Skin Exam: Positive intact; negative lesion, ulcers, dermal atrophy or rash Pulses Pulse: Yes Pedal pulses present: Extremities Extremities: No clubbing, No cyanosis, No edema Neuro Neurologic: Yes conversant, Yes no focal neuro deficits, Yes cooperative Lymph Lymphatic: No lymphadenopathy Psych Appearance: Positive grossly normal Mental Status: Positive mental status grossly normal Mood: Positive congruent mood Affect: Positive normal affect Coding Level of Care Code Off vis,est,level 3 Diagnoses COPD (chronic obstructive pulmonary disease) J44.9 Metastatic primary lung cancer C34.90 12/01/17840 <Electronically signed by Pola Vee DO> Date Pola Vee DO 12/01/17916<Electronically signed by Anyi Wells NP-C> Cosigner Signature: Date (if applicable) Anyi Wells CC: Jarod Mack MD PROGRESS Observed: 11/30/2017 Status: COMPLETED Source: [place] 8:48 PM [facility] REPOSITORY HNO ID: [id number] Author: Cynthia Theodore Service: (none) Author Type: Physician Type: Progress Notes Filed: 11/30/2017 8:50 PM Note Text: FOLLOW UP VISIT - POST OP NAME: Jazmyne Palm [facility] NO.: [id number] DATE OF SERVICE: 11/02/2017 : 1970 REFERRING PHYSICIAN: Jose Mack MD Jazmyne is a patient I am following for metastatic lung cancer. The patient needed snf IV access for hematuria therapy. I performed a left subclavian portacath on April 02, 2013. The patient currently notes that there is a small palpable, not just medial to the Port-A-Cath which when she presses against it is uncomfortable. She noted. Once there was a small scab over the site, but has never noticed a spitting suture. Otherwise, the port is functioning well, without difficulties. She returns today for follow-up visit. She notes that the site really does not bother her until she presses against. She notes no other difficulties VITALS: Last menstrual period 05/06/1999. On examination, the port incision sites are clean and intact. The area of concern to the patient is a Prolene suture which prevents the Port-A-Cath from rotating. There is no breakdown over the suture currently. Assessment IMPRESSION: Status post left subclavian port a cath placement PLAN: If the patient notes that the stitch/suture is spitting at that site and that there is compromise of the skin, she should return immediately to have that suture excised. Otherwise, as she is currently getting monthly palliative chemotherapy, if we elected to make an incision and remove that suture and the port became infected, it would have to be removed. If the site is persistently bothering her, but I recommend she return next month for excision one week before her next course of chemotherapy. Diagnoses: (Z78.9) Problem with vascular access (primary encounter diagnosis) Return to Clinic: The patient is instructed to follow- up with me as needed. Cynthia Theodore MD CNOV Observed: 11/30/2017 Status: COMPLETED Source: [place] 2:00 PM [facility] REPOSITORY Office Visit (GENSWS) JAZMYNE HARRISON ([id number]) 1970 F Date Time Provider Department 11/30/17 2:00 PM CYNTHIA THEODORE During your visit today, we recorded the following information about you: Cynthia Theodore MD 11/30/2017 8:50 PM Signed FOLLOW UP VISIT - POST OP NAME: Jazmyne Palm [facility] NO.: [id number] DATE OF SERVICE: 11/02/2017 : 1970 REFERRING PHYSICIAN: Jose Mack MD Jazmyne is a patient I am following for metastatic lung cancer. 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 I performed a left subclavian portacath on April 02, 2013. The patient currently notes that there is a small palpable, not just medial to the Port-A-Cath which when she presses against it is uncomfortable. She noted. Once there was a small scab over the site, but has never noticed a spitting suture. Otherwise, the port is functioning well, without difficulties. She returns today for follow-up visit. She notes that the site really does not bother her until she presses against. She notes no other difficulties VITALS: Last menstrual period 05/06/1999. On examination, the port incision sites are clean and intact. The area of concern to the patient is a Prolene suture which prevents the Port-A-Cath from rotating. There is no breakdown over the suture currently. Assessment IMPRESSION: Status post left subclavian port a cath placement PLAN: If the patient notes that the stitch/suture is spitting at that site and that there is compromise of the skin, she should return immediately to have that suture excised. Otherwise, as she is currently getting monthly palliative chemotherapy, if we elected to make an incision and remove that suture and the port became infected, it would have to be removed. If the site is persistently bothering her, but I recommend she return next month for excision one week before her next course of chemotherapy. Diagnoses: (Z78.9) Problem with vascular access (primary encounter diagnosis) Return to Clinic: The patient is instructed to follow- up with me as needed. Cynthia Theodroe MD Referring Provider: SELF [[id number]] Allergies As of Date: 11/30/2017 Noted Allergy Reaction DALIRESP (ROFLUMILAST) 11/10/2017 9 - Itching Comments: red, warm, itching neck, lump in throat Date Reviewed: 11/30/2017 Reviewed by: Cynthia Theodore - Fully Assessed Reason for Visit: check stitch [Other] Primary Visit Diagnosis:Problem with vascular access [Z78.9] Prescriptions as of 11/30/2017 Sig: MORPHINE ER 60 MG TABLET,EXTE* Take 1 tablet by mouth twice * PROMETHAZINE 25 MG TABLET Take 1 tablet by mouth every * OXYCODONE 30 MG TABLET Take 1-2 tablets by mouth chad* OLANZAPINE 2.5 MG TABLET Take 1 tablet by mouth daily * GABAPENTIN 300 MG CAPSULE TAKE ONE CAPSULE BY MOUTH 4 T* DRONABINOL 2.5 MG CAPSULE Take 1 capsule by mouth twice* PREDNISONE 10 MG TABLET Take 1 tablet by mouth once d* GABAPENTIN 300 MG CAPSULE Take 1 capsule by mouth four * PRAMIPEXOLE 1 MG TABLET TAKE 1 TABLET BY MOUTH DAILY * ARIPIPRAZOLE 5 MG TABLET TAKE 1 TABLET BY MOUTH ONCE D* ZANTAC 75 ORAL Take by mouth twice daily. METHYLPHENIDATE 10 MG TABLET Take 1 tablet by mouth once d* ALBUTEROL SULFATE HFA 90 MCG/* Inhale 2 Puffs as instructed * TRAZODONE 100 MG TABLET Take 3 tablets by mouth daily* STOOL SOFTENER ORAL Take 2 tablets by mouth at be* LORAZEPAM 0.5 MG TABLET Take 1-2 tablets PO daily PRN* BUDESONIDE-FORMOTEROL HFA 160* Inhale 1 Puff as instructed t* SODIUM CHLORIDE 0.9% FLUSH NURSING USE ONLY: USED FOR * HEPARIN LOCK FLUSH (PORCINE) * NURSING USE ONLY: USE FOR I* Problem List As Of Date 11/30/2017 Noted Resolved Bone metastasis [C79.51] INVALID FOR* Secondary malignant neoplasm of intra-abdominal*INVALID FOR* More... Lung cancer [C34.90] INVALID FOR*06/26/2013 Lung metastases [C78.00] INVALID FOR* Examination of participant in clinical trial [Z*INVALID FOR* History of lung cancer [Z85.118] INVALID FOR* Lung cancer (HCC) [C34.90] INVALID FOR*11/04/2014 Non-small cell carcinoma of lung, stage 4 (HCC)*INVALID FOR* Malignant neoplasm of upper lobe of right lung *INVALID FOR* Malaise and fatigue [R53.81, R53.83] INVALID FOR* Family history of tobacco abuse and dependence *INVALID FOR* RLS (restless legs syndrome) [G25.81] INVALID FOR* COPD (chronic obstructive pulmonary disease) (H* Supplemental oxygen dependent [Z99.81] INVALID FOR* Port catheter in place [Z95.828] INVALID FOR* Chronic back pain [M54.9, G89.29] More... Bone pain [M89.8X9] Bone metastases (HCC) [C79.51] More... Restless leg syndrome [G25.81] Neuropathy (HCC) [G62.9] Encounter Status:Closed by CYNTHIA THEODORE MD on 11/30/17 CBC W/ AUTO DIFF Collected: 11/29/2017 Status: F Source: JAIN 4:22 PM [facility] REPOSITORY TYPE CODE TESTS RESULT OUT OF RANGE REFERENCE UNITS LAB [id number](L 3.6-11.0 E3/mcL OINC) Normal WBC 9.6 LAB [id number](L 3.90-5.40 E6/mcL OINC) Normal RBC 4.21 LAB 03472572(L 12.0-16.0 G/DL OINC) Normal Hgb 12.2 LAB 41658207(L 36.0-48.0 % OINC) Normal Hct 37.9 LAB 35518832(L 11.5-14.5 % OINC) Normal RDW 13.4 LAB 60825865(L 27.0-31.0 pg OINC) Normal MCH 29.0 LAB [id number](L 33.0-37.0 G/DL OINC) Low MCHC 32.2 LAB 43618443(L 78.0-100.0 fL OINC) Normal MCV 89.9 LAB 50474349(L 7.4-11.0 fL OINC) Low MPV 7.3 LAB [id number](L 130-400 E3/mcL OINC) Normal Platelet 376 Performed By: #### [id number] #### FROILAN [facility] [address] [place] [address] AUTO DIFF Collected: 11/29/2017 Status: F Source: JAIN 4:22 [facility] REPOSITORY Order Comment: Order Added by Discern Expert. TYPE CODE TESTS RESULT OUT OF RANGE REFERENCE UNITS LAB [id number](L 37.0-75.0 % OINC) Normal Neutro Auto 71.9 LAB [id number](L 20.0-55.0 % OINC) Low Lymph Auto 16.4 LAB 34624631(L 0.0-10.0 % OINC) Normal [place] Auto 7.8 LAB 00454712(L 0.0-11.0 % OINC) Normal Eos Auto 3.2 LAB 39768051(L 0.0-2.0 % OINC) Normal Basophil Auto 0.7 LAB 61219846(L 1.4-6.5 E3/mcL OINC) High Neutro 6.9 Absolute LAB 70409884(L 1.2-3.4 E3/mcL OINC) Normal Lymph Absolute 1.6 LAB 74907800(L 0.0-0.7 E3/mcL OINC) High [place] Absolute 0.8 LAB 01729402(L 0.0-0.7 E3/mcL OINC) Normal Eos Absolute 0.3 LAB 35557844(L 0.0-0.2 E3/mcL OINC) Normal Basophil 0.1 Absolute Performed By: #### [id number] #### FROILAN [facility] [address] [id number] BMP Collected: 11/29/2017 Status: F Source: JAIN 4:22 [facility] REPOSITORY TYPE CODE TESTS RESULT OUT OF RANGE REFERENCE UNITS LAB [id number](L 70-99 mg/dL OINC) High Glucose Lvl 100 LAB 18116373(L 7-18 mg/dL OINC) BUN Normal 11 LAB 3421784(LO 0.6-1.3 mg/dL INC) Normal Creatinine 0.8 LAB 69165071(L 5.4-30.0 ratio OINC) Normal BUN/Creat Ratio 13.8 LAB 30381007(L 8.4-10.2 mg/dL OINC) Calcium Normal Lvl 9.0 LAB 98842941(L 136-145 mEq/L OINC) Low Sodium Lvl 131 LAB 60369687(L 3.5-5.1 mEq/L OINC) Normal Potassium Lvl 3.7 LAB 34005698(L 98-107 mEq/L OINC) Low Chloride 88 LAB 48127390(L 24.0-30.0 mEq/L OINC) High CO2 33.4 Performed By: #### [id number] #### FROILAN [facility] [address] [place] [address] EGFR Collected: 11/29/2017 Status: F Source: JAIN 4:22 [facility] REPOSITORY Order Comment: Order added by Discern Expert. TYPE CODE TESTS RESULT OUT OF RANGE REFERENCE UNITS LAB [id number](LO mL/min/1.73 INC) m2 Normal eGFR >60 LAB 09622919(LO mL/min/1.73 INC) m2 Normal eGFR AA >60 Performed By: #### [id number] #### FROILAN [facility] [address] [place] [address] TSH Collected: 11/29/2017 Status: F Source: JAIN 4:22 PM [facility] REPOSITORY TYPE CODE TESTS RESULT OUT OF RANGE REFERENCE UNITS LAB [id number](LO 0.30-5.60 mIU/m INC) Normal TSH 1.94 Performed By: #### [id number] #### FROILAN [facility] [address] [place] [address] COMP METABOLIC PANEL Collected: 11/10/2017 Status: F Source: LUSK 2:31 PM [facility] REPOSITORY TYPE CODE TESTS RESULT OUT OF REFERENCE UNITS RANGE LAB TP 6.3-8.0 g/dL Protein, Total 6.9 LAB ALB 3.9-4.9 g/dL Low Albumin 3.8 LAB CA 8.5-10.2 mg/dL Calcium, Total 8.7 LAB TBIL 0.2-1.3 mg/dL Bilirubin, Total 0.2 LAB ALKP 32-117 U/L Alkaline Phosphatase 70 LAB AST 13-35 U/L AST 22 LAB GLU 74-99 mg/dL Glucose High 102 Result Comment: The [place] [employer] (ADA) provides guidance for cutoff values for fasting glucose and random glucose. The ADA defines fasting as no caloric intake for at least 8 hours. Fas ting plasma glucose results between 100 to 125 mg/dL indicate increased risk for diabetes (prediabetes). Fasting plasma glucose results greater than or equal to 126 mg/dL meet the criteria for diagnosis of diabetes. In the absence of unequivocal hyperglycemia, results should be confirmed by repeat testing. In a patient with classic symptoms of hyperglycemia or hyperglycemic crisis, random plasma glucose results greater than or equal to 200 mg/dL meet the criteria for diagnosis of diabetes. Reference: Standards of Medical Care in Diabetes 2016, [place] [employer]. Diabetes Care. 2016.39(Suppl 1). LAB BUN 7-21 mg/dL BUN 10 LAB CRET 0.58-0.96 mg/dL Creatinine 0.87 LAB NA 136-144 mmol/L Sodium 137 LAB K 3.7-5.1 mmol/L Potassium 4.3 LAB CL 97-105 mmol/L Chloride Low 93 LAB CO2 22-30 mmol/L CO2 30 LAB AGAP 9-18 mmol/L Anion Gap 14 LAB ALT 7-38 U/L ALT 9 LAB GFRAA eGFR- Amer. >60 LAB GFRNAA . eGFR-All Other Races >60 Result Comment: eGFR (Estimated GFR) Units of measure: mL/min/1.73 meters squared eGFR is derived from the reexpressed MDRD Study equation using the following parameters: serum creatinine, age, gender and race. The creatinine assay has been calibrated to be traceable to IDMS. An eGFR <60 mL/min/1.73m2 for >3 months is consistent with chronic kidney disease. Refer to KDOQI guidelines for clinical interpretation. In patients with unstable renal function, e.g. those with acute kidney injury, the eGFR may not accurately reflect actual GFR. Performed By: #### CMP #### [facility] [address] [place], [place] [address] SEVERO ABS GR + CBC Collected: 11/10/2017 Status: F Source: LUSK 2:30 PM [facility] REPOSITORY TYPE CODE TESTS RESULT OUT OF REFERENCE UNITS RANGE LAB WWBC 3.70-11.00 k/uL [place] WBC 9.73 LAB WRBC 3.90-5.20 m/uL [place] RBC 4.29 LAB WHGB 11.5-15.5 g/dL [place] Hemoglobin 12.5 LAB WHCT 36.0-46.0 % [place] Hematocrit 40.1 LAB WMCV 80.0-100.0 fL [place] MCV 93.5 LAB WMCH 26.0-34.0 pg [place] MCH 29.1 LAB WMCHC 30.5-36.0 g/dL [place] MCHC 31.2 LAB WRDW 11.5-15.0 % [place] RDW 13.3 LAB WPLT 150-400 k/uL [place] Platelet Cnt 271 LAB WMPV 9.0-12.7 fL Low [place] MPV 8.9 Result Comment: Test performed at: [facility], [address] [place] [address]. LAB ABGRAN 1.45-7.50 k/uL Absol Gran 6.58 Count PROGRESS Observed: 11/06/2017 Status: COMPLETED Source: LUSK 11:25 PM [facility] REPOSITORY HNO ID: [id number] Author: Linda Martinez) KATHRYN Segundo.JAMIL Service: (none) Author Type: Nurse Practitioner Type: Progress Notes Filed: 11/14/2017 9:20 AM Note Text: PALLIATIVE MEDICINE PROGRESS NOTE SERVICE DATE: 11/06/2017 SERVICE TIME: 1345 Primary Site of Disease/Medical Illness: Lung Site of Metastasis: Bone, Lung, Lymph nodes CHIEF COMPLAINT: Routine F/U visit PERTINENT MEDICAL HISTORY: Jazmyne Harrison is a 46 year old female with COPD and tobacco history who presened with cough and hemoptysis around January 2013. An initial CXR showed a right upper lobe mass. CT chest confirmed a mass and a biopsy of the mass showed adenocarcinoma of the lung. CT abdomen showed several small lesions in both hepatic lobes. She also has had chronic left hip pain. X-ray of the hip showed no lesions.? She received Taxol/carboplatin/Avastin with near complete response. She then was placed on maintenance Avastin. However, she progressed and had additional treatment with Avastin and Alimta with further disease progression. Avastin was stopped given hemostasis with her last 2 cycles of chemotherapy. She received palliative radiation to the right apex (30 Gy) completed January 2014. Restaging scans showed improvement of her RUL lesion but unfortunately showed a new lesion in the same lobe. ?? She then started carboplatin/Abraxane form April to June 2014 with partial response. She had disease progression and started nivolumab in July 2014. PET/CT 03/30/15 showed hypermetabolic right upper lobe but no distant metastases. She had a non-FDG avid lesion on the left acetabulum. ?? She was admitted to [facility] around 03/03- for pneumonia. She went home on oxygen and is wearing this all day. She quit smoking after that admission. She had pneumonia for most of March 2017 and now has a chronic cough. ?? She continues to be on nivolumab with no side effects. ? HISTORY OF PRESENT ILLNESS: The patient is evaluated in Clinic, seen sitting comfortably in the chair. She is unaccompanied. Reports ongoing pain in her upper back which she describes as sharp, throbbing and constant. Also reports left hip pain which is aggravated by walking. She has been taking 6 doses of oxycodone/day which provides relief. Reports constipation, sometimes going without BM for 5-6 days. She notes that her pre-illness baseline was 3-4 days. She does not take a daily laxative. Reports nausea without emesis. Appetite is improved by marinol though it makes her feel high. She has been taking 5mg daily prior to dinner. Energy is helped somewhat by methylphenidate which is prescribed her by psychiatrist. Spirits are ok. Breathing at baseline. Modified ESAS ([place] Symptom Assessment Scale):Information Provided By: Patient Pain: Moderate Nausea: Moderate Loss of Appetite: Moderate Constipation: Moderate Shortness of Breath: Moderate Drowsiness: None Tiredness: Moderate Depression: Mild Anxiety: Mild How you feel overall: Fair Other problem: None Palliative Performance Scale % (PPS): > or = 60 (0) Oral Intake: Normal (0) Edema: Absent (0) Dyspnea at Rest: Absent (0) Delirium: Absent (0) Palliative Prognostic Index (PPI) Total Score: 0-2 Note: The scores from each prognostic domain are added. A score of 0 to 2.0 was associated with a median survival of 90 days; score of 2.1 to 4.0 is 61 days, and score of >4.0 is 12 days. PHYSICAL EXAMINATION: Vital signs: BP 106/64 Pulse 93 Temp 36.3 ?C (97.3 ?F) (Oral) Resp 20 Wt 53 kg (116 lb 14.4 oz) LMP 05/06/1999 (Exact Date) SpO2 100% BMI 15.85 kg/m? General Appearance: No apparent distress Skin: No jaundice, No rash and No breakdown Eyes: Normal and No icterus HENT: Atraumatic, Oropharnyx clear with moist mucous membranes and No mucosal ulcerations Neck: Grossly normal and No JVD Lungs: Clear to auscultation and oxygen supplementation in place via nasal cannula CV: Regular rate and rhythm and No murmur Abdomen: Soft, nontender, bowel sounds normal, No hepatomegaly and No splenomegaly : Not examined Musculoskeletal: No edema and No gross deformity Lymphatics: Not examined Neuro: Alert and oriented to time, place, and person, Delirium absent and No focal weakness DATA: Diagnostic tests reviewed for today's visit: Most recent labs and imaging results. ASSESSMENT AND PLAN: (C34.90) Non-small cell carcinoma of lung, stage 4, unspecified laterality (HCC) (primary encounter diagnosis) (C79.51) Bone metastases (HCC) (G89.3) Neoplasm related pain (Z51.5) Encounter for palliative care (R11.2, T45.1X5A) CINV (chemotherapy-induced nausea and vomiting) PDMP website checked and validated. All prescriptions have been APPROPRIATELY filled. No suspicious activity was identified. 11/13/2017 by LINDA SEGUNDO CNP The patient is evaluated in Clinic, seen sitting comfortably in the chair. She is unaccompanied. Neoplasm-related pain which pt feels is under good control with current regimen (taking 6 doses of oxycodone/day with relief). Appetite is helped by marinol but side effects make her feel high. Ongoing neoplasm-related fatigue despite methylphenidate. Continue morphine SR 60mg every 12 hours. No script needed today Continue oxycodone IR 30mg tabs: Take 1-2 tabs every 2 hours as needed for pain. No script needed today Continue gabapentin 300mg four times daily. Pt instructed to try moving morning dose to bedtime ([id number]) and taking 2 capsules at bedtime instead to improve daytime grogginess Start senna (senokot): Take 1-2 tabs daily for constipation. May titrate up to max of 8 tabs/day if needed. Aim for stools every 2- 4 days of normal caliber. Can get this over the counter Decrease marinol to 2.5mg once to twice a day. If appetite stimulation is not as robust and still giving side effects, consider change to olanzapine 2.5mg at bedtime. Consider dose increase of the Ritalin with patient's psychiatrist to improve daytime fatigue (recommend 15mg twice a day) Nella Elam RN will call the patient in one week to discuss the marinol. If not effective at lower dose, we can try olanzapine instead for appetite and nausea Contact Palliative Medicine with unresolved symptoms, concerns or refill requests Return to Clinic in 3 months Advance Care Planning: I did not discuss Advance Care Planning at this visit. Next Visit: 12 Weeks SIGNATURE: LINDA SEGUNDO CNP PATIENT NAME: Jazmyne Harrison DATE: November 13, 2017 TIME: 11:25 PM PAGER/CONTACT #: [id number] CNOVSP Observed: 11/06/2017 Status: COMPLETED Source: LUSK 1:10 PM [facility] REPOSITORY Visit (SP) Office (PALMED) JAZMYNE HARRISON ([id number]) 1970 F Date Time Provider Department 11/06/17 1:10 PM LINDA SEGUNDO (JAIML) PALMED During your visit today, we recorded the following information about you: Temperature Pulse Respiration Blood pressure 97.3 degrees 93/minute 20/minute 106/64 Weight 53 kg Marie Lucas LPN, SAL 11/06/2017 1:54 PM Signed Additional intake questions: Has the patient had nausea, vomiting, diarrhea, constipation, fatigue for > 1 week? Nausea, Yes, MD Notified Fatigue, Yes, MD Notifiedwould rate her fatigue at a 8. She is feeling the sensation that something is on her neck- tinlging and numbness Does the patient have a decreased appetite? No Does patient want to see a First Aid Attendant? No (yes to any of above refer patient to schedulers for dietitian appointment) ) Does patient have any new or increased numbness or tingling of extremities? Yes, feet and some of her fingers Is patient interested in fertility information? No Does patient need any prescription refills? No Electronically Signed By: SAL Fan CNP, APRN.JAMIL 11/06/2017 2:37 PM Signed Continue morphine SR 60mg every 12 hours Continue oxycodone IR 30mg tabs: Take 1-2 tabs every 2 hours as needed for pain Continue gabapentin 300mg four times daily. You can try omitting your morning capsules and taking 2 capsules at bedtime instead to improve daytime grogginess Start senna (senokot): Take 1-2 tabs daily for constipation. May titrate up to max of 8 tabs/day if needed. Aim for stools every 2-4 days of normal caliber. Can get this over the counter Decrease marinol to 2.5mg once to twice a day. Let's try this for a week. If appetite stimulation is not as robust and still making you feel out of it, we can try olanzapine 2.5mg at bedtime. Consider dose increase of the Ritalin with your psychiatrist to improve daytime fatigue (maybe 15mg twice a day) Nella Elam RN will call you in one week to discuss the marinol. If not effective at lower dose, we can try olanzapine instead for appetite and nausea Contact Palliative Medicine with unresolved symptoms, concerns or refill requests Return to Clinic in 3 months LINDA SEGUNDO CNP, WILDLIFE CONSERVATION OFFICER.JAMIL 11/14/2017 9:20 AM Signed PALLIATIVE MEDICINE PROGRESS NOTE SERVICE DATE: 11/06/2017 SERVICE TIME: 1345 Primary Site of Disease/Medical Illness: Lung Site of Metastasis: Bone, Lung, Lymph nodes CHIEF COMPLAINT: Routine F/U visit PERTINENT MEDICAL HISTORY: Jazmyne Harrison is a 46 year old female with COPD and tobacco history who presened with cough and hemoptysis around January 2013. An initial CXR showed a right upper lobe mass. CT chest confirmed a mass and a biopsy of the mass showed adenocarcinoma of the lung. CT abdomen showed several small lesions in both hepatic lobes. She also has had chronic left hip pain. X-ray of the hip showed no lesions.? She received Taxol/carboplatin/Avastin with near complete response. She then was placed on maintenance Avastin. However, she progressed and had additional treatment with Avastin and Alimta with further disease progression. Avastin was stopped given hemostasis with her last 2 cycles of chemotherapy. She received palliative radiation to the right apex (30 Gy) completed January 2014. Restaging scans showed improvement of her RUL lesion but unfortunately showed a new lesion in the same lobe. ?? She then started carboplatin/Abraxane form April to June 2014 with partial response. She had disease progression and started nivolumab in July 2014. PET/CT 03/30/15 showed hypermetabolic right upper lobe but no distant metastases. She had a non-FDG avid lesion on the left acetabulum. ?? She was admitted to [facility] around 03/03- for pneumonia. She went home on oxygen and is wearing this all day. She quit smoking after that admission. She had pneumonia for most of March 2017 and now has a chronic cough. ?? She continues to be on nivolumab with no side effects. ? HISTORY OF PRESENT ILLNESS: The patient is evaluated in Clinic, seen sitting comfortably in the chair. She is unaccompanied. Reports ongoing pain in her upper back which she describes as sharp, throbbing and constant. Also reports left hip pain which is aggravated by walking. She has been taking 6 doses of oxycodone/day which provides relief. Reports constipation, sometimes going without BM for 5-6 days. She notes that her pre-illness baseline was 3-4 days. She does not take a daily laxative. Reports nausea without emesis. Appetite is improved by marinol though it makes her feel high. She has been taking 5mg daily prior to dinner. Energy is helped somewhat by methylphenidate which is prescribed her by psychiatrist. Spirits are ok. Breathing at baseline. Modified ESAS ([place] Symptom Assessment Scale):Information Provided By: Patient Pain: Moderate Nausea: Moderate Loss of Appetite: Moderate Constipation: Moderate Shortness of Breath: Moderate Drowsiness: None Tiredness: Moderate Depression: Mild Anxiety: Mild How you feel overall: Fair Other problem: None Palliative Performance Scale % (PPS): > or = 60 (0) Oral Intake: Normal (0) Edema: Absent (0) Dyspnea at Rest: Absent (0) Delirium: Absent (0) Palliative Prognostic Index (PPI) Total Score: 0-2 Note: The scores from each prognostic domain are added. A score of 0 to 2.0 was associated with a median survival of 90 days; score of 2.1 to 4.0 is 61 days, and score of >4.0 is 12 days. PHYSICAL EXAMINATION: Vital signs: BP 106/64 Pulse 93 Temp 36.3 ?C (97.3 ?F) (Oral) Resp 20 Wt 53 kg (116 lb 14.4 oz) LMP 05/06/1999 (Exact Date) SpO2 100% BMI 15.85 kg/m? General Appearance: No apparent distress Skin: No jaundice, No rash and No breakdown Eyes: Normal and No icterus HENT: Atraumatic, Oropharnyx clear with moist mucous membranes and No mucosal ulcerations Neck: Grossly normal and No JVD Lungs: Clear to auscultation and oxygen supplementation in place via nasal cannula CV: Regular rate and rhythm and No murmur Abdomen: Soft, nontender, bowel sounds normal, No hepatomegaly and No splenomegaly : Not examined Musculoskeletal: No edema and No gross deformity Lymphatics: Not examined Neuro: Alert and oriented to time, place, and person, Delirium absent and No focal weakness DATA: Diagnostic tests reviewed for today's visit: Most recent labs and imaging results. ASSESSMENT AND PLAN: (C34.90) Non-small cell carcinoma of lung, stage 4, unspecified laterality (HCC) (primary encounter diagnosis) (C79.51) Bone metastases (HCC) (G89.3) Neoplasm related pain (Z51.5) Encounter for palliative care (R11.2, T45.1X5A) CINV (chemotherapy-induced nausea and vomiting) PDMP website checked and validated. All prescriptions have been APPROPRIATELY filled. No suspicious activity was identified. 11/13/2017 by LINDA SEGUNDO CNP The patient is evaluated in Clinic, seen sitting comfortably in the chair. She is unaccompanied. Neoplasm-related pain which pt feels is under good control with current regimen (taking 6 doses of oxycodone/day with relief). Appetite is helped by marinol but side effects make her feel high. Ongoing neoplasm-related fatigue despite methylphenidate. Continue morphine SR 60mg every 12 hours. No script needed today Continue oxycodone IR 30mg tabs: Take 1-2 tabs every 2 hours as needed for pain. No script needed today Continue gabapentin 300mg four times daily. Pt instructed to try moving morning dose to bedtime ([id number]) and taking 2 capsules at bedtime instead to improve daytime grogginess Start senna (senokot): Take 1-2 tabs daily for constipation. May titrate up to max of 8 tabs/day if needed. Aim for stools every 2-4 days of normal caliber. Can get this over the counter Decrease marinol to 2.5mg once to twice a day. If appetite stimulation is not as robust and still giving side effects, consider change to olanzapine 2.5mg at bedtime. Consider dose increase of the Ritalin with patient's psychiatrist to improve daytime fatigue (recommend 15mg twice a day) Nella Elam RN will call the patient in one week to discuss the marinol. If not effective at lower dose, we can try olanzapine instead for appetite and nausea Contact Palliative Medicine with unresolved symptoms, concerns or refill requests Return to Clinic in 3 months Advance Care Planning: I did not discuss Advance Care Planning at this visit. Next Visit: 12 Weeks SIGNATURE: LINDA SEGUNDO CNP PATIENT NAME: Jazmyne Harrison DATE: November 13, 2017 TIME: 11:25 PM PAGER/CONTACT #: [id number] Referring Provider: LOLY GIORDANO [[id number]] Allergies As of Date: 11/06/2017 (No Known Allergies) Date Reviewed: 11/06/2017 Reviewed by: Marie Martin (Industrial Design Engineer) SAL Lucas - Fully Assessed Reason for Visit: Established Patient [175] Primary Visit Diagnosis:Non-small cell carcinoma of lung, stage 4, unspecified laterality (HCC) [C34.90] Other Visit Diagnoses:Bone metastases (HCC) [C79.51] Neoplasm related pain [G89.3] Encounter for palliative care [Z51.5] CINV (chemotherapy-induced nausea and vomiting) [R11.2, T45.1X5A] Order(s):dronabinol (MARINOL) 2.5 mg capsuleTake 1 capsule by mouth twice daily before meals for 30 days.Disp: 60 capsuleRfl: 0 Disposition: Return in about 3 months (around 02/06/2018). Follow-up and Disposition History Recorded Prescriptions as of 11/06/2017 Sig: OXYCODONE 30 MG TABLET Take 1-2 tablets by mouth chad* MORPHINE ER 60 MG TABLET,EXTE* Take 1 tablet by mouth twice * PREDNISONE 10 MG TABLET Take 1 tablet by mouth once d* GABAPENTIN 300 MG CAPSULE Take 1 capsule by mouth four * PRAMIPEXOLE 1 MG TABLET TAKE 1 TABLET BY MOUTH DAILY * ARIPIPRAZOLE 5 MG TABLET TAKE 1 TABLET BY MOUTH ONCE D* ZANTAC 75 ORAL Take by mouth twice daily. METHYLPHENIDATE 10 MG TABLET Take 1 tablet by mouth once d* PROMETHAZINE 25 MG TABLET Take 1 tablet by mouth every * ALBUTEROL SULFATE HFA 90 MCG/* Inhale 2 Puffs as instructed * TRAZODONE 100 MG TABLET Take 3 tablets by mouth daily* STOOL SOFTENER ORAL Take 2 tablets by mouth at be* LORAZEPAM 0.5 MG TABLET Take 1-2 tablets PO daily PRN* BUDESONIDE-FORMOTEROL HFA 160* Inhale 1 Puff as instructed t* SODIUM CHLORIDE 0.9% FLUSH NURSING USE ONLY: USED FOR * HEPARIN LOCK FLUSH (PORCINE) * NURSING USE ONLY: USE FOR I* DRONABINOL 2.5 MG CAPSULE Take 1 capsule by mouth twice* Problem List As Of Date 11/06/2017 Noted Resolved Bone metastasis [C79.51] INVALID FOR* Secondary malignant neoplasm of intra-abdominal*INVALID FOR* More... Lung cancer [C34.90] INVALID FOR*06/26/2013 Lung metastases [C78.00] INVALID FOR* Examination of participant in clinical trial [Z*INVALID FOR* History of lung cancer [Z85.118] INVALID FOR* Lung cancer (HCC) [C34.90] INVALID FOR*11/04/2014 Non-small cell carcinoma of lung, stage 4 (HCC)*INVALID FOR* Malignant neoplasm of upper lobe of right lung *INVALID FOR* Malaise and fatigue [R53.81, R53.83] INVALID FOR* Family history of tobacco abuse and dependence *INVALID FOR* RLS (restless legs syndrome) [G25.81] INVALID FOR* COPD (chronic obstructive pulmonary disease) (H* Supplemental oxygen dependent [Z99.81] INVALID FOR* Port catheter in place [Z95.828] INVALID FOR* Chronic back pain [M54.9, G89.29] More... Bone pain [M89.8X9] Bone metastases (HCC) [C79.51] More... Restless leg syndrome [G25.81] Neuropathy (HCC) [G62.9] Other instructions from your clinician: Continue morphine SR 60mg every 12 hours Continue oxycodone IR 30mg tabs: Take 1-2 tabs every 2 hours as needed for pain Continue gabapentin 300mg four times daily. You can try omitting your morning capsules and taking 2 capsules at bedtime instead to improve daytime grogginess Start senna (senokot): Take 1-2 tabs daily for constipation. May titrate up to max of 8 tabs/day if needed. Aim for stools every 2-4 days of normal caliber. Can get this over the counter Decrease marinol to 2.5mg once to twice a day. Let's try this for a week. If appetite stimulation is not as robust and still making you feel out of it, we can try olanzapine 2.5mg at bedtime. Consider dose increase of the Ritalin with your psychiatrist to improve daytime fatigue (maybe 15mg twice a day) Nella Papa, RN will call you in one week to discuss the marinol. If not effective at lower dose, we can try olanzapine instead for appetite and nausea Contact Palliative Medicine with unresolved symptoms, concerns or refill requests Return to Clinic in 3 months Visit Notes: >> Marie Martin (Sal) SAL Lucas Mon Nov 06, 2017 1:51 PM Status: Signed Additional intake questions: Has the patient had nausea, vomiting, diarrhea, constipation, fatigue for > 1 week? Nausea, Yes, MD Notified Fatigue, Yes, MD Notifiedwould rate her fatigue at a 8. She is feeling the sensation that something is on her neck- tinlging and numbness Does the patient have a decreased appetite? No Does patient want to see a First Aid Attendant? No (yes to any of above refer patient to schedulers for dietitian appointment) ) Does patient have any new or increased numbness or tingling of extremities? Yes, feet and some of her fingers Is patient interested in fertility information? No Does patient need any prescription refills? No PULMONARY VISIT REPORT Observed: 11/03/2017 Status: F Source: [place] 5:[address] [facility] REPOS[facility] Pulmonary Medicine of [address] [place] [address] OFFICE VISIT Date of Service: 11/02/17 MR#: [id number] Acct: [id number] Name: JAZMYNE HARRISON Rep #: [id number] : 1970 Provider: Anyi Wells Age/Sex: 46/F [facility] Status: Signed Assessment AND Plan 1. Stage 3 severe COPD by GOLD classification J44.9 Status Chronic Plan Improved. Continue Daliresp in addition to other previously ordered maintenance medications. No additional testing at this time. Keep previously scheduled routine follow-up. She has been encouraged to contact the office with any worsening symptoms in the meantime. Plan Detail Other Medications New: HPI 6 M FU: Chief Complaint: Cough HPI Comments Details: This patient presents to the office today after recently being treated for exacerbation of her COPD and being started on the medication. She is ambulatory, currently wearing nasal oxygen She reports that she completed the prednisone previously ordered. Urine culture that was obtained at her last office visit root normal respiratory margi, therefore she was not treated with antibiotics. She reports that since completing the prednisone and beginning the Daliresp, or symptoms of shortness of breath and productive cough has She reports that she is now able to expectorate yellow thick sputum, was previously feeling as of the chest congestion should the producing sputum but she was unable to expectorate. She continues to use her chest physiotherapy vest several times daily. He states that now since adding the bowel rest and using the chest physiotherapy vest or cough, shortness of breath, chest congestion and chest tightness has significantly improved. She has not experienced any fever, chills or body aches. She denies any hemoptysis. See complete review of systems. Intake Vital Signs11/02/17 Height 6 ft 11/02/17 Weight: 117 lb 11/02/17 Body Mass Index (BMI) 15.8 Intake Visit Reasons: 6 M FU Accompanied by: Self Allergies No Known Allergies Allergy (Verified 11/02/17 15:16) Medications Aripiprazole [Abilify] 5 mg PO QHS 03/03/16 [History Confirmed 11/02/17] Dronabinol [Marinol] 5 mg PO BID PRN PRN 03/03/16 [History Confirmed 11/02/17] Gabapentin [Neurontin] 300 mg PO 4X/DAY 03/03/16 [History Confirmed 11/02/17] Guaifenesin [Mucinex] 1,200 mg PO DAILY PRN PRN 03/03/16 [History Confirmed 11/02/17] Morphine Sulfate [Morphine Sulfate ER] 60 mg PO BID 03/03/16 [History Confirmed 11/02/17] Oxycodone [Oxyir] 30 mg PO TID PRN PRN 03/03/16 [History Confirmed 11/02/17] Pramipexole Di-HCl [Mirapex] 1 mg PO QHS 03/03/16 [History Confirmed 11/02/17] Trazodone HCl 200 mg PO QHS 03/03/16 [History Confirmed 11/02/17] proMETHazine tablet [Phenergan tablet] 25 mg PO PRN PRN 03/03/16 [History Confirmed 11/02/17] Fluticasone 0.05% [Flonase Nasal [place]] 1 spray NASAL BID #1 bottle 03/06/16 [Rx Confirmed 11/02/17] Lorazepam [Ativan] 0.5 mg PO DAILY PRN #0 03/06/16 [Rx Confirmed 11/02/17] Nebulizer and Compressor [Portable Nebulizer System] 1 ea MC Q2H PRN PRN #1 ea 03/06/16 [Rx Confirmed 11/02/17] buPROPion tablets [Wellbutrin tablets] 75 mg PO BID #60 tab 03/06/16 [Rx Confirmed 11/02/17] methylphenidate 10 mg tablet 10 mg PO QAM AND QPM 04/12/17 [History Confirmed 11/02/17] albuterol sulfate 2.5 mg/3 mL (0.083 %) solution for nebulization 2.5 mg INHALATION Q4H PRN #360 ml 04/25/17 [Rx Confirmed 11/02/17] albuterol sulfate HFA 90 mcg/actuation aerosol inhaler 2 puff INHALATION Q6H PRN #1 device 05/17/17 [Rx Confirmed 11/02/17] budesonide-formoterol HFA 160 mcg-4.5 mcg/actuation aerosol inhaler 2 inh INHALATION Q12H #10.2 g 05/17/17 [Rx Confirmed 11/02/17] tiotropium bromide 2.5 mcg/actuation mist for inhalation 2 puff INHALATION QDAY #1 device 05/17/17 [Rx Confirmed 11/02/17] roflumilast 250 mcg tablet 250 mcg PO QDAY #30 tab 11/02/17 [Rx Confirmed 11/02/17] PFSH Medical History D AND C (Resolved) Port placement (Resolved) Wheezing (Acute) Cough (Acute) Bronchiectasis (Chronic) Hypoxia (Acute) Abnormal chest CT (Chronic) Dyspnea (Acute) non small cell lung, adenocarcimona (Chronic) Unintentional weight loss (Chronic) Tobacco dependence in remission (Chronic) Nocturnal hypoxia (Chronic) Hypersomnia (Chronic) Stage 3 severe COPD by GOLD classification (Chronic) Acute and chronic respiratory failure with hypoxia (Chronic) Borderline elevated troponin (Acute) Healthcare-associated pneumonia (Suspected) Metastatic primary lung cancer (Chronic) COPD (chronic obstructive pulmonary disease) (Chronic) Surgical History H/O oral surgery (Resolved) H/O: hysterectomy (Resolved) Family History Uncle Cancer lung Father Cancer lung, bone Social History Smoking Status: Former smoker how long ago did patient quit smokin year/2.5 pk/day prior to quitting second hand exposure: Yes alcohol intake: never substance use type: does not use Review of Systems Const CONSTITUTIONAL: Negative anorexia, body ache, chills, daytime sleepiness, fever(s), night sweats, oral thrush, stops breathing during sleep, weight loss, sleeping in chair, fatigue, weight loss, weight gain, frequent colds, seasonal allergies, other, headache(s) or orthopnea EETM Ear Nose Throat Mouth: Positive hearing normal; negative hard of hearing, hoarseness, dry mouth in morning, change in vision, itchy eyes, eye pain, swallowing Difficulty, ear pain, nose bleed, headache(s), mouth pain, nasal congestion, nasal discharge, post nasal drip, sinus pain, sinus pressure, sore throat or other Cardio Cardiovascular: Negative chest pain, chest pain at rest, chest pain with activity, irregular heart rhythm, edema, shortness of breath when lying down, palpitations, murmur or other Resp Respiratory: Positive as per HPI, shortness of breath shortness of breath: Positive with activity and cough cough: Positive productive color: Positive thick and yellow; negative pain with cough, wheezing, chest congestion, chest tightness, pain on inspiration, inhalers, increase use of rescue inhalers, snoring, apnea or other Gastro Gastrointestional: Negative bloody stools, change in appetite, difficulty swallowing, reflux, hematemesis, melena stool, loose stool, constipation or other Genitourinary: Negative blood in urine, nocturia, pain with urination or other Musc Musculoskeletal: Negative body pain, back pain, neck pain or other Skin/Breast Skin/Breast: Negative dry skin, itching, rash, unusual bruising, breast lump or other Neuro Neurological: Negative restless legs, confusion, weakness or other Psych Psychocological: Negative abnormal sleep pattern, anxiety, thoughts of hurting self/others, hopelessness or other Lymph Lymphatic: Negative easy bleeding, easy bruising, swollen lymph nodes or other Exam Const Constitutional: Positive conversant, cooperative, in no acute respiratory distress, well developed, well nourished, good hygiene, frail appearing, cachectic, wearing supplemental oxygen and appears older than stated age Head Head: Positive normocephalic and atraumatic; negative cyanosis of lips/distal nose Eyes Eye: Positive clear conjunctiva and nystagmus; negative scleral abnormality Ears Ear: Positive hearing normal and external ears normal; negative hard of hearing Nose Nose: Positive external nose normal and no nasal discharge; negative epistaxis Mouth Mouth: Positive oral mucosae normal, no lesions, good dentition and posterior oropharynx is adequate; negative post nasal drip, malodorous breath or oral thrush present Mallampati Score: I: Mallampati Score Neck Neck: Positive normal visual inspection, full ROM and trachea midline; negative lymphadenopathy, JVD or tender Chest Wall Chest: Positive normal inspection of the chest and symmetric chest movement; negative increased A/P diameter Resp lung sounds: Positive clear to auscultation, diminished, prolonged expiratory time and normal chronic state of increased work of breathing; negative wheezes, rhonchi, rales, dullness to percussion or wheeze present on forced exhalation Cardio Cardiac: Positive regular rate, regular rhythm, S1 normal and S2 normal; negative murmur GI GI: Positive normal to inspection and normal bowel sounds; negative distended Genitourinary: Positive deferred Musc Musculoskeletal: Positive steady gait and ROM normal; negative kyphosis or scoliosis Skin Pulmonary Skin Exam: Positive intact; negative rash, lesion, ulcers, erythema, scaly or dermal atrophy Pulses Pulse: Yes pulses normal x4 extremities Extremities Extremities: Yes capillary refill normal, No clubbing, No cyanosis, No edema, No stasis dermatitis Neuro Neurologic: Yes conversant, Yes no focal neuro deficits, Yes normal concentration, Yes understands questions, Yes cooperative, Yes normal cognition, Yes normal coordination, No tremor Lymph Lymphatic: No lymphadenopathy, No tenderness, No cervical adenopathy, No axillary adenopathy Psych Appearance: Positive grossly normal, eye contact and well kempt Mental Status: Positive mental status grossly normal Mood: Positive congruent mood Affect: Positive normal affect Coding Level of Care Code Off vis,est,level 3 Diagnoses Stage 3 severe COPD by GOLD classification J44.9 11/03/17 7812 <Electronically signed by Anyi Wells EMERGENCY PLANNING AND RESPONSE MANAGER-C> Date Anyi Wells EMERGENCY PLANNING AND RESPONSE MANAGER-C Cosigner Signature: Date (if applicable) CC: Jarod Mack MD PROGRESS Observed: 11/02/2017 Status: COMPLETED Source: [place] 7:46 PM [facility] RE[facility] HNO ID: [id number] Author: Cynthia Theodore Service: (none) Author Type: Physician Type: Progress Notes Filed: 11/02/2017 7:50 PM Note Text: FOLLOW UP VISIT - POST OP NAME: Jazmyne Palm [facility] NO.: [id number] DATE OF SERVICE: 11/02/2017 : 1970 REFERRING PHYSICIAN: Jose Mack MD Jazmyne is a patient I am following for metastatic lung cancer. The patient needed snf IV access for hematuria therapy. I performed a left subclavian portacath on April 02, 2013. The patient currently notes that there is a small palpable, not just medial to the Port-A-Cath which when she presses against it is uncomfortable. She noted. Once there was a small scab over the site, but has never noticed a spitting suture. Otherwise, the port is functioning well, without difficulties VITALS: Blood pressure 86/62, pulse 104, last menstrual period 05/06/1999. On examination, the port incision sites are clean and intact. The area of concern to the patient is a Prolene suture which prevents the Port-A-Cath from rotating. There is no breakdown over the suture currently. Assessment IMPRESSION: Status post left subclavian port a cath placement PLAN: If the patient notes that the stitch/suture is spitting at that site and that there is compromise of the skin, she should return immediately to have that suture excised. Otherwise, as she is currently getting monthly palliative chemotherapy, if we elected to make an incision and remove that suture and the port became infected, it would have to be removed. If the site is persistently bothering her, but I recommend she return next month for excision one week before her next course of chemotherapy. Diagnoses: (Z78.9) Problem with vascular access (primary encounter diagnosis) Return to Clinic: The patient is instructed to follow- up with me as needed. Cynthia Theodore MD CNOV Observed: 11/02/2017 Status: COMPLETED Source: [place] 1:30 PM [facility] REPOSITORY Office Visit (GENSWS) CHRISTYJAZMYNE Palm ([id number]) 1970 F Date Time Provider Department 11/02/17 1:30 PM CYNTHIA THEODORE [place] During your visit today, we recorded the following information about you: Pulse Blood pressure 104/minute 86/62 Cynthia Theodore MD 11/02/2017 7:50 PM Signed FOLLOW UP VISIT - POST OP NAME: Jazmyne Merchantdmore [facility] NO.: [id number] DATE OF SERVICE: 11/02/2017 : 1970 REFERRING PHYSICIAN: Jose Mack MD Jazmyne is a patient I am following for metastatic lung cancer. 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 I performed a left subclavian portacath on April 02, 2013. The patient currently notes that there is a small palpable, not just medial to the Port-A-Cath which when she presses against it is uncomfortable. She noted. Once there was a small scab over the site, but has never noticed a spitting suture. Otherwise, the port is functioning well, without difficulties VITALS: Blood pressure 86/62, pulse 104, last menstrual period 05/06/1999. On examination, the port incision sites are clean and intact. The area of concern to the patient is a Prolene suture which prevents the Port-A-Cath from rotating. There is no breakdown over the suture currently. Assessment IMPRESSION: Status post left subclavian port a cath placement PLAN: If the patient notes that the stitch/suture is spitting at that site and that there is compromise of the skin, she should return immediately to have that suture excised. Otherwise, as she is currently getting monthly palliative chemotherapy, if we elected to make an incision and remove that suture and the port became infected, it would have to be removed. If the site is persistently bothering her, but I recommend she return next month for excision one week before her next course of chemotherapy. Diagnoses: (Z78.9) Problem with vascular access (primary encounter diagnosis) Return to Clinic: The patient is instructed to follow- up with me as needed. Cynthia Theodore MD Referring Provider: SELF [[id number]] Allergies As of Date: 11/02/2017 (No Known Allergies) Date Reviewed: 11/02/2017 Reviewed by: Cynthia Theodore - Fully Assessed Reason for Visit: Established Patient [175] Cmt: Bump near port- was painful Primary Visit Diagnosis:Problem with vascular access [Z78.9] Prescriptions as of 11/02/2017 Sig: OXYCODONE 30 MG TABLET Take 1-2 tablets by mouth chad* MORPHINE ER 60 MG TABLET,EXTE* Take 1 tablet by mouth twice * PREDNISONE 10 MG TABLET Take 1 tablet by mouth once d* GABAPENTIN 300 MG CAPSULE Take 1 capsule by mouth four * PRAMIPEXOLE 1 MG TABLET TAKE 1 TABLET BY MOUTH DAILY * ARIPIPRAZOLE 5 MG TABLET TAKE 1 TABLET BY MOUTH ONCE D* ZANTAC 75 ORAL Take by mouth twice daily. METHYLPHENIDATE 10 MG TABLET Take 1 tablet by mouth once d* DRONABINOL 5 MG CAPSULE Take 1 capsule by mouth twice* PROMETHAZINE 25 MG TABLET Take 1 tablet by mouth every * ALBUTEROL SULFATE HFA 90 MCG/* Inhale 2 Puffs as instructed * TRAZODONE 100 MG TABLET Take 3 tablets by mouth daily* STOOL SOFTENER ORAL Take 2 tablets by mouth at be* LORAZEPAM 0.5 MG TABLET Take 1-2 tablets PO daily PRN* BUDESONIDE-FORMOTEROL HFA 160* Inhale 1 Puff as instructed t* MUCINEX D MAXIMUM STRENGTH OR* Take by mouth as needed. SODIUM CHLORIDE 0.9% FLUSH NURSING USE ONLY: USED FOR * HEPARIN LOCK FLUSH (PORCINE) * NURSING USE ONLY: USE FOR I* Problem List As Of Date 11/02/2017 Noted Resolved Bone metastasis [C79.51] INVALID FOR* Secondary malignant neoplasm of intra-abdominal*INVALID FOR* More... Lung cancer [C34.90] INVALID FOR*06/26/2013 Lung metastases [C78.00] INVALID FOR* Examination of participant in clinical trial [Z*INVALID FOR* History of lung cancer [Z85.118] INVALID FOR* Lung cancer (HCC) [C34.90] INVALID FOR*11/04/2014 Non-small cell carcinoma of lung, stage 4 (HCC)*INVALID FOR* Malignant neoplasm of upper lobe of right lung *INVALID FOR* Malaise and fatigue [R53.81, R53.83] INVALID FOR* Family history of tobacco abuse and dependence *INVALID FOR* RLS (restless legs syndrome) [G25.81] INVALID FOR* COPD (chronic obstructive pulmonary disease) (H* Supplemental oxygen dependent [Z99.81] INVALID FOR* Port catheter in place [Z95.828] INVALID FOR* Chronic back pain [M54.9, G89.29] More... Bone pain [M89.8X9] Bone metastases (HCC) [C79.51] More... Restless leg syndrome [G25.81] Neuropathy (HCC) [G62.9] Follow-up and Disposition History Recorded Encounter Status:Closed by CYNTHIA THEODORE MD on 11/02/17 Observed: 10/20/2017 Status: F Source: [place] 4:[address] [facility] REPOSITORY Final Report: Normal upper respiratory margi isolated Gram Stain Report: Few White Blood Cells Occasional epithelial cells Performed By: #### [id number] #### FROILAN Microbiology Subsection [facility] [place] [address] PULMONARY VISIT REPORT Observed: 10/19/2017 Status: F Source: [place] 4:[address] [facility] REPOSITORY Pulmonary Medicine of [address] [place] [address] OFFICE VISIT Date of Service: 10/19/17 MR#: [id number] Acct: [id number] Name: JAZMYNE HARRISON Rep #: [id number] : 1970 Provider: Anyi Wells Age/Sex: 46/F Location[facility] Status: Signed Assessment AND Plan 1. Bronchiectasis with acute exacerbation J47.1 Plan Deteriorated. Appears to be in exacerbation of her bronchiectasis/very severe COPD today. Will order a sputum culture, which may not be obtained for 1-2 days. Plan to start her on Daliresp. Samples provided for 1 month. Anticipate that after beginning this medication she will have thinner sputum and be able to expectorate a sample for culture and sensitivities. Holding off on ordering any antibiotics until culture and sensitivity results can be retrieved. Minimal wheezing on exam today, therefore I am not going to repeat prednisone at this time. She has been encouraged to contact the office early next week to give us an update on how she is responded to the new medication. If her shortness of breath and ability to expectorate her cough have not responded to the new medication she may require a prednisone taper and or antibiotics. This plan has been conveyed to the patient, she is agreeable. She has been encouraged to report to the emergency department with any worsening symptoms over the weekend. Continue current maintenance medications. Follow-up in 2 weeks to make sure that we have returned her to baseline. Keep previously scheduled routine follow-up with Dr. Vee in approximately 6 weeks from now. 2. Acute and chronic respiratory failure with hypoxia J96.21 Status Chronic Plan Deteriorated. The patient is now requiring supplemental oxygen at all times, and higher doses with exertion. She does have a portable pulse oximeter and has been encouraged to titrate oxygen as needed to maintain saturations 89-92%. No additional testing at this time. Follow-up in 2 weeks. Call the office if symptoms worsen in the meantime. Plan Detail Other Orders Orders: Follow Up 2 Weeks ([facility]) HPI Pneumonia: Chief Complaint: Shortness of breath Details: HPI Comments Details: This patient presents the office today for follow- up after recently being treated for pneumonia by her oncologist. She has called in with continued acute symptoms. She is ambulatory and currently wearing nasal cannula oxygen. She was prescribed Levaquin and prednisone, which she completed today. She reports a continued productive cough of yellow to green sputum. She reports difficulty expectorating the sputum. She has been compliant with her chest physiotherapy vest, but reports that she is not able to expectorate the sputum even with the use of the best. She has been using Mucinex, but reports that it has not been helpful in thinning secretions for her to expectorate. She is reporting increasing shortness of breath, she has been using her albuterol nebulizer twice daily as well as her rescue inhaler twice daily. She has also noticed that she is needing her supplemental oxygen more frequently. She has now been 87% saturation on room air at rest, but with 2 L of nasal cannula oxygen is 93%. She continues compliance with follow-up with the oncologist and had her last chemo treatment 6 days ago. She denies any fevers but reports that she is always cold she does not know if she has had chills. She denies any palpitations. She reports a burning sensation that she points to the bottom of her rib cage, and shows that it radiates around her chest. She denies any hemoptysis. She also reports occasional dizzy feelings and shakiness of the hands. See complete review of systems. She continues compliance with Symbicort 2 puffs twice daily, rinses her mouth out after each use. She denies any medication side effects such as sore throat or thrush. She is also using Flonase nasal spray daily, as well as her Spiriva Respimat daily. Intake Vital Signs10/19/17 Height 6 ft 10/19/17 Weight: 121 lb 10/19/17 Body Mass Index (BMI) 16.4 Intake Visit Reasons: Pneumonia Accompanied by: Self Allergies No Known Allergies Allergy (Verified 10/19/17 14:54) Medications Aripiprazole [Abilify] 5 mg PO QHS 03/03/16 [History Confirmed 10/19/17] Dronabinol [Marinol] 5 mg PO BID PRN PRN 03/03/16 [History Confirmed 10/19/17] Gabapentin [Neurontin] 300 mg PO 4X/DAY 03/03/16 [History Confirmed 10/19/17] Guaifenesin [Mucinex] 1,200 mg PO DAILY PRN PRN 03/03/16 [History Confirmed 10/19/17] Morphine Sulfate [Morphine Sulfate ER] 60 mg PO BID 03/03/16 [History Confirmed 10/19/17] Oxycodone [Oxyir] 30 mg PO TID PRN PRN 03/03/16 [History Confirmed 10/19/17] Pramipexole Di-HCl [Mirapex] 1 mg PO QHS 03/03/16 [History Confirmed 10/19/17] Trazodone HCl 200 mg PO QHS 03/03/16 [History Confirmed 10/19/17] proMETHazine tablet [Phenergan tablet] 25 mg PO PRN PRN 03/03/16 [History Confirmed 10/19/17] Fluticasone 0.05% [Flonase Nasal [place]] 1 spray NASAL BID #1 bottle 03/06/16 [Rx Confirmed 10/19/17] Lorazepam [Ativan] 0.5 mg PO DAILY PRN #0 03/06/16 [Rx Confirmed 10/19/17] Nebulizer and Compressor [Portable Nebulizer System] 1 ea MC Q2H PRN PRN #1 ea 03/06/16 [Rx Confirmed 10/19/17] buPROPion tablets [Wellbutrin tablets] 75 mg PO BID #60 tab 03/06/16 [Rx Confirmed 10/19/17] methylphenidate 10 mg tablet 10 mg PO QAM AND QPM 04/12/17 [History Confirmed 10/19/17] albuterol sulfate 2.5 mg/3 mL (0.083 %) solution for nebulization 2.5 mg INHALATION Q4H PRN #360 ml 04/25/17 [Rx Confirmed 10/19/17] albuterol sulfate HFA 90 mcg/actuation aerosol inhaler 2 puff INHALATION Q6H PRN #1 device 05/17/17 [Rx Confirmed 10/19/17] budesonide-formoterol HFA 160 mcg-4.5 mcg/actuation aerosol inhaler 2 inh INHALATION Q12H #10.2 g 05/17/17 [Rx Confirmed 10/19/17] tiotropium bromide 2.5 mcg/actuation mist for inhalation 2 puff INHALATION QDAY #1 device 05/17/17 [Rx Confirmed 10/19/17] PFSH Medical History D AND C (Resolved) Port placement (Resolved) Wheezing (Acute) Cough (Acute) Bronchiectasis (Chronic) Hypoxia (Acute) Abnormal chest CT (Chronic) Dyspnea (Acute) non small cell lung, adenocarcimona (Chronic) Unintentional weight loss (Chronic) Tobacco dependence in remission (Chronic) Nocturnal hypoxia (Chronic) Hypersomnia (Chronic) Stage 3 severe COPD by GOLD classification (Chronic) Acute and chronic respiratory failure with hypoxia (Acute) Borderline elevated troponin (Acute) Healthcare-associated pneumonia (Suspected) Metastatic primary lung cancer (Chronic) COPD (chronic obstructive pulmonary disease) (Chronic) Surgical History H/O oral surgery (Resolved) H/O: hysterectomy (Resolved) Family History Uncle Cancer lung Father Cancer lung, bone Social History Smoking Status: Former smoker how long ago did patient quit smokin year/2.5 pk/day prior to quitting second hand exposure: Yes alcohol intake: never substance use type: does not use Review of Systems Const CONSTITUTIONAL: Negative anorexia, body ache, chills, daytime sleepiness, fever(s), night sweats, oral thrush, stops breathing during sleep, weight loss, sleeping in chair, fatigue, weight loss, weight gain, frequent colds, seasonal allergies, other, headache(s) or orthopnea EETM Ear Nose Throat Mouth: Positive post nasal drip; negative hard of hearing, hearing normal, hoarseness, dry mouth in morning, change in vision, itchy eyes, eye pain, swallowing Difficulty, ear pain, nose bleed, headache(s), mouth pain, nasal congestion, nasal discharge, sinus pain, sinus pressure, sore throat or other Cardio Cardiovascular: Negative chest pain, chest pain at rest, chest pain with activity, irregular heart rhythm, edema, shortness of breath when lying down, palpitations, murmur or other Resp Respiratory: Positive as per HPI, shortness of breath shortness of breath: Positive with activity and worsening, chest congestion, cough cough: Positive productive color: Positive thick, yellow and green and chest tightness; negative pain with cough, wheezing, pain on inspiration, inhalers, increase use of rescue inhalers, snoring, apnea or other Gastro Gastrointestional: Negative bloody stools, change in appetite, difficulty swallowing, reflux, hematemesis, melena stool, loose stool, constipation or other Genitourinary: Negative blood in urine, nocturia, pain with urination or other Musc Musculoskeletal: Negative body pain, back pain, neck pain or other Skin/Breast Skin/Breast: Negative dry skin, itching, rash, unusual bruising, breast lump or other Neuro Neurological: Negative restless legs, confusion, weakness or other (dizziness/shakes ) Psych Psychocological: Negative abnormal sleep pattern, anxiety, thoughts of hurting self/others, hopelessness or other Lymph Lymphatic: Negative easy bleeding, easy bruising, swollen lymph nodes or other Exam Const Constitutional: Positive conversant, cooperative, in no acute respiratory distress, well developed, good hygiene, frail appearing, wearing supplemental oxygen, dyspenic and cachectic Head Head: Positive normocephalic and atraumatic; negative cyanosis of lips/distal nose Eyes Eye: Positive clear conjunctiva and nystagmus; negative scleral abnormality Ears Ear: Positive external ears normal; negative hard of hearing or hearing normal Nose Nose: Positive external nose normal and no nasal discharge; negative epistaxis Mouth Mouth: Positive post nasal drip, oral mucosae normal, no lesions, good dentition and posterior oropharynx is adequate; negative malodorous breath or oral thrush present Mallampati Score: II: Mallampati Score Neck Neck: Positive normal visual inspection, full ROM and trachea midline; negative lymphadenopathy, JVD or tender Chest Wall Chest: Positive normal inspection of the chest and symmetric chest movement; negative increased A/P diameter Resp lung sounds: Positive diminished, wheezes, wheeze present on forced exhalation, prolonged expiratory time and normal chronic state of increased work of breathing; negative rhonchi, rales or dullness to percussion Cardio Cardiac: Positive regular rate, regular rhythm, S1 normal and S2 normal; negative murmur GI GI: Positive normal to inspection and normal bowel sounds; negative distended Genitourinary: Positive deferred [facility] [place] Musculoskeletal: Positive steady gait and ROM normal; negative kyphosis or scoliosis Skin Pulmonary Skin Exam: Positive intact; negative rash, lesion, ulcers, erythema, scaly or dermal atrophy Pulses Pulse: Yes pulses normal x4 extremities Extremities Extremities: Yes capillary refill normal, No clubbing, No cyanosis, No edema Neuro Neurologic: Yes conversant, Yes no focal neuro deficits, Yes understands questions, No tremor, Yes cooperative, Yes normal cognition, Yes normal coordination, Yes normal concentration Lymph Lymphatic: No lymphadenopathy, No tenderness, No cervical adenopathy, No axillary adenopathy Psych Appearance: Positive grossly normal, eye contact and well kempt Mental Status: Positive mental status grossly normal Mood: Positive congruent mood Affect: Positive normal affect Coding Level of Care Code Off vis,est,level 4 Diagnoses Bronchiectasis with acute exacerbation J47.1 Bronchiectasis type: with acute exacerbation Acute and chronic respiratory failure with hypoxia J96.21 10/19/17 1635 <Electronically signed by Anyi Wells NP-C> Date Anyi Wells NP-C Cosigner Signature: Date (if applicable) CC: Jarod Mack MD CNOVSP Observed: 10/12/2017 Status: COMPLETED Source: [place] 4:00 PM [facility] REPOSITORY Visit (SP) Office ([place]) CHRISTYJAZMYNE LANZA ([id number]) 1970 F Date Time Provider Department 10/12/17 4:00 PM SHANNAN CONROY During your visit today, we recorded the following information about you: Temperature Pulse Blood pressure Weight 98.5 degrees 89/minute 94/66 52.6 kg Jeannette Valente LPN, LPN 10/12/2017 3:06 PM Signed Est pt., discuss recent lab results, tx tomorrow SAL Kruger MD 10/13/2017 8:04 AM Signed PATIENT NAME: Jazmyne Harrison. CLINIC NO: [id number]. ATTENDING PHYSICIAN: Shannan Conroy MD. ?? DATE OF SERVICE: 10/12/2017. DIAGNOSIS: Metastatic (adenocarcinoma) lung cancer, EGFR AND?ALK negaitve ?? HPI:? Jazmyne Harrison is a 46?year old female whith metastatic (adenocarcinoma) lung cancer. H/o tobacco abuse, COPD who presented with cough and hemoptysis 2012 in the emergency room. Her initial chest x-ray showed a right upper lobe mass. CT scan of chest and subsequent CT-guided lung biopsy revealed non-small cell (adenocarcinoma) lung cancer. ?? Patient had right sided chest pain for over a year. Initially, she thought she pulled a muscle and has been using ibuprofen for pain. She used to smoke 2 packs cigarette per day for over 20 years and recently has cut down to less than 5 cigarettes per day. Chest -ray 2 years ago showed changes consistent with COPD but no lung mass. ?? Staging workup included bone scan show a focal increased activity in the left ilium along the medial left acetabular region. X-ray of the hip showed no lytic or blastic lesion. CT scan of the abdomen showed several small lesions scattered along the left and right hepatic lobes. Otherwise no evidence of metastatic disease. MRI scan and brain also showed no metastatic disease. Patient had a left hip pain for over 2 years. ?? Subsequent PET scan revealed metastatic disease. There were increased activity in the right upper hemithorax along with additional lung nodules in the right side consistent with metastatic disease. There was activity in the mediastinum right prehilar region and bone metastasis at the level of the left acetabulum. ?? Treatment history:? Patient received Taxol/carboplatin/avastin x 4 cycles with near complete response . She was placed on maintenance and Avastin therapy and she progressed on treatment. She then had additional treatment with Avastin and Alimta x4 cycles with further progression of disease. Avastin was discontinued because of hemostasis with her last 2 cycles of chemotherapy. ?? Patient completed palliative radiation therapy to her right upper lobe because of hemostasis and severe pain.She received palliative RT to the right apex lesion 3000 cGy on February 18, 2014 with good control of symptoms. On recent re-staging CT scans, she had improvement in the radiated RUL lesion however had a new 1.8 cm lesion in the RUL. ?? Patient completed 4 cycles of Carboplatin/Abraxane ( 05/02/14- 07/18/14 ) with partial response after 2 cycles and stable disease after 4 cycles. Patient had progression disease in July and started treatment with Check- point inhibitor this year. ?? Patient has progression of her primary lung lesion late last year. Her PET scan was otherwise negative metastatic disease. She had completed palliative radiation therapy to her right upper lobe lung lesion with 2400 cGy in 8 fx in March,. ?? Current treatment:?Nivolumab since July 2014. ?? Interim history: She is tolerating Nivolumab very well. ??She has no cough or increased?shortness of breathhe??Patient denies headaches, or focal neurological symptoms. She has no hip and lower back pain controlled with medications (MS Contin, oxycodone and Neurontin). She denies any problem with anxiety, or depression. She has further weight loss since last visit. she has not been taking her supplement or Marinol since she has no nausea. She has chronic?fatigue somewhat improved after starting prednisone x 7 days after OPTIVA treatment. ?? All medications AND allergies updated and reviewed by me. ?? Review of system: Appetite: Fair Energy level: Fair Denies fevers. Mouth:denies sores Resp:dry cough, denies shortness of breath or hemoptysis Cardiac:denies chest pain/palpitations GI: denied nausea, vomiting or diarrhea. :denies dysuria/hematuria Extrem:pain to left hip and both knees Neuro:foot numbness/tingling/burning-as above. Skin:denies rashes Heme:denies bleeding ?? The ROS is otherwise negative. Past medical history,medications, allergies reviewed. No changes. ? Modified ESAS ([place] Symptom Assessment Scale):Information Provided By: ?Patient Pain: ?Mild Nausea: ?None Loss of Appetite: ?Mild Constipation: ?None Shortness of Breath: ?None Drowsiness: ?None Tiredness: ?Mild Depression: ?None Anxiety: ?None How you feel overall: ?Good Other problem: ?None ? Palliative Performance Scale % (PPS): > or = 60 (0) Oral Intake: Normal (0) Edema: Absent (0) Dyspnea at Rest: Absent (0) Delirium: Absent (0) Palliative Prognostic Index (PPI) Total Score: 0-2 Note: ?The scores from each prognostic domain are added. ?A score of 0 to 2.0 was associated with a median survival of 90 days; score of 2.1 to 4.0 is 61 days, and score of >4.0 is 12 days.? ?? EXAM:? APPEARANCE Well appearing, alert, in no acute distress, well- hydrated, thin but not cachectic Performance status 80%; BP 94/66 Pulse 89 Temp 98.5 Wt 116 lb (52.6kg) SpO2 92% LMP 05/06/1999 HEENT: Sclerae anicteric, WNL HEART RRR with normal S1 and S2, no murmurs, no gallops, no JVD appreciated LUNG clear to auscultation, diminished breath sound the right upper lobe, scattered rales on the right?lower lobe, no wheezing, LYMPH NODES No cervical lymphadenopathy, No supraclavicular lymphadenopathy and No axillary lymphadenopathy. ABDOMEN bowel sounds normoactive, no bruits, soft, non-tender, non-distended, without organomegaly or palpable masses EXTREMITIES Extremities normal, No deformities, No skin discoloration, No edema and Normal pulses bilaterally. NEURO Awake, alert and oriented x 3, Normal gait and No involuntary motions. SKIN Skin color, texture, turgor normal, no suspicious rashes or lesions ?? LABS: Component Latest Ref Rng AND Units 10/12/2017 WBC, [place] 3.70 - 11.00 k/uL 8.76 RBC, [place] 3.90 - 5.20 m/uL 4.00 Hemoglobin, [place] 11.5 - 15.5 g/dL 11.9 Hematocrit, [place] 36.0 - 46.0 % 37.1 MCV, [place] 80.0 - 100.0 fL 92.8 MCH, [place] 26.0 - 34.0 pg 29.8 MCHC, [place] 30.5 - 36.0 g/dL 32.1 RDW, [place] 11.5 - 15.0 % 13.8 Platelet Cnt, [place] 150 - 400 k/uL 357 MPV, [place] 9.0 - 12.7 fL 8.9 (L) Absol Gran Count 1.45 - 7.50 k/uL 6.20 Component Latest Ref Rng AND Units 10/12/2017 Protein, Total 6.3 - 8.0 g/dL 7.3 Albumin 3.9 - 4.9 g/dL 3.7 (L) Calcium 8.5 - 10.2 mg/dL 9.6 Bilirubin, Total 0.2 - 1.3 mg/dL 0.2 Alkaline Phosphatase 32 - 117 U/L 88 AST 13 - 35 U/L 18 Glucose 74 - 99 mg/dL 84 BUN 7 - 21 mg/dL 10 Creatinine 0.58 - 0.96 mg/dL 0.73 Sodium 136 - 144 mmol/L 136 Potassium 3.7 - 5.1 mmol/L 4.1 Chloride 97 - 105 mmol/L 94 (L) CO2 22 - 30 mmol/L 30 Anion Gap 9 - 18 mmol/L 12 ALT 7 - 38 U/L 7 eGFR- >60 eGFR-All Other Races . >60 TSH 0.400 - 5.500 uU/mL 1.880 CXR: Pending ASSESSMENT/PLAN:? 1. Metastatic Lung cancer Metastatic non-small cell (adenocarcinoma) lung cancer; EGFR AND ALK negaitve Tolerating treatment with Nivolumab with stable disease. (CR) on?CT chest and?bone scan on March 2016. -?Fatigue and weight loss secondary to her immunotherapy treatment. - Change Nivolumab 480mg every 28 days - Repeat CBC, CMP, and chest x-ray?OV in 2?months ?? 2. Upper back pain and hip pain with history of bone metastasis - Continue MS Contin and oxycodone and Neurontin for her pain. follow-up with palliative medicine, Dr. Giordano - Repeat bone scan only if indicated with additional or different site of bone pain ? 3. nausea and anorexia - resume Marinol 5mg twice daily to improve appetite and Phenergan as needed. - Boost- dietary supplement twice daily and monitor weight. ? 4. Anxiety disorder / depression - Psychotherapy in [place] - address with palliative medicine. ? Shannan Conroy MD ? Cc: Dr. Loly Giordano Referring Provider: SHANNAN CONROY [[id number]] Allergies As of Date: 10/12/2017 (No Known Allergies) Date Reviewed: 10/12/2017 Reviewed by: Jeannette Lisa (Sal) SAL Valente - Fully Assessed Reason for Visit: Established Patient [175] Primary Visit Diagnosis:Malignant neoplasm metastatic to lung, unspecified laterality (HCC) [C78.00] Other Visit Diagnoses:Non-small cell carcinoma of right lung, stage 4 (HCC) [C34.91] Bone metastases (HCC) [C79.51] Malaise and fatigue [R53.81, R53.83] Order(s):XR CHEST 2V FRONTAL/LAT [[id number]] Order #: [id number]. #:[id number] predniSONE (DELTASONE) 10 mg tabletTake 1 tablet by mouth once daily. For 7- 10 daysDisp: 30 tabletRfl: 2 Level of Service: EST PATIENT VISIT LEVEL 4 [[id number]] Disposition: Return in about 2 months (around 12/12/2017). LOS history recorded Follow-up and Disposition History Recorded Prescriptions as of 10/12/2017 Sig: PREDNISONE 10 MG TABLET Take 1 tablet by mouth once d* GABAPENTIN 300 MG CAPSULE Take 1 capsule by mouth four * PRAMIPEXOLE 1 MG TABLET TAKE 1 TABLET BY MOUTH DAILY * MORPHINE ER 60 MG TABLET,EXTE* Take 1 tablet by mouth twice * OXYCODONE 30 MG TABLET Take 1-2 tablets by mouth chad* ARIPIPRAZOLE 5 MG TABLET TAKE 1 TABLET BY MOUTH ONCE D* ZANTAC 75 ORAL Take by mouth twice daily. METHYLPHENIDATE 10 MG TABLET Take 1 tablet by mouth once d* DRONABINOL 5 MG CAPSULE Take 1 capsule by mouth twice* PROMETHAZINE 25 MG TABLET Take 1 tablet by mouth every * ALBUTEROL SULFATE HFA 90 MCG/* Inhale 2 Puffs as instructed * TRAZODONE 100 MG TABLET Take 3 tablets by mouth daily* STOOL SOFTENER ORAL Take 2 tablets by mouth at be* LORAZEPAM 0.5 MG TABLET Take 1-2 tablets PO daily PRN* BUDESONIDE-FORMOTEROL HFA 160* Inhale 1 Puff as instructed t* MUCINEX D MAXIMUM STRENGTH OR* Take by mouth as needed. SODIUM CHLORIDE 0.9% FLUSH NURSING USE ONLY: USED FOR * HEPARIN LOCK FLUSH (PORCINE) * NURSING USE ONLY: USE FOR I* Medication notes this encounter PREDNISONE 10 MG TABLET >> Jeannette Valente LPN, LPN 10/12/2017 2:35 PM >> JEANNETTE VALENTE Oct 12, 2017 2:35 PM Only after treatment Problem List As Of Date 10/12/2017 Noted Resolved Bone metastasis [C79.51] INVALID FOR* Secondary malignant neoplasm of intra-abdominal*INVALID FOR* More... Lung cancer [C34.90] INVALID FOR*06/26/2013 Lung metastases [C78.00] INVALID FOR* Examination of participant in clinical trial [Z*INVALID FOR* History of lung cancer [Z85.118] INVALID FOR* Lung cancer (HCC) [C34.90] INVALID FOR*11/04/2014 Non-small cell carcinoma of lung, stage 4 (HCC)*INVALID FOR* Malignant neoplasm of upper lobe of right lung *INVALID FOR* Malaise and fatigue [R53.81, R53.83] INVALID FOR* Family history of tobacco abuse and dependence *INVALID FOR* RLS (restless legs syndrome) [G25.81] INVALID FOR* COPD (chronic obstructive pulmonary disease) (H* Supplemental oxygen dependent [Z99.81] INVALID FOR* Port catheter in place [Z95.828] INVALID FOR* Chronic back pain [M54.9, G89.29] More... Bone pain [M89.8X9] Bone metastases (HCC) [C79.51] More... Restless leg syndrome [G25.81] Neuropathy (HCC) [G62.9] Visit Notes: >> Jeannette Valente LPN [place] Oct 12, 2017 2:35 PM Status: Signed Est pt., discuss recent lab results, tx tomorrow Jeannette Valente LPN Encounter Status:Closed by SHANNAN CONROY MD on 10/13/17 XR CHEST 2V FRONTAL/LAT Observed: 10/12/2017 Status: F Source: [place] 3:25 PM [facility] [place] REPOSITORY * * *Final Report* * * DATE OF EXAM: Oct 12 2017 3:25PM [id number] - XR CHEST 2V FRONTAL/LAT / PROCEDURE REASON: multiple diagnoses * * * * Physician Interpretation * * * * EXAMINATION: CHEST RADIOGRAPH (2 VIEW FRONTAL and LATERAL) Clinical History: Secondary malignant neoplasm of unspecified lung Malignant neoplasm of unspecified part of right bronchus or lung Secondary malignant neoplasm of bone MQ: XC2_5 Comparison: RESULT: Lines, tubes, and devices: There is a LEFT-sided Mediport Lungs and pleura: Volume loss RIGHT upper lobe with elevation RIGHT hilum. Interval opacification of RIGHT apical cavity surrounding parenchymal density stable. Ill-defined airspace disease LEFT lower lung. Questionable focal infiltrate lateral RIGHT lung base. Stable findings of hyperinflation. Cardiomediastinal silhouette: Stable cardiomediastinal silhouette. Stable deviation trachea to the RIGHT. Other: None IMPRESSION: Left lower lung infiltrate. Questionable focal lateral RIGHT basilar infiltrate. Right upper lobe volume loss RIGHT apical scarring/atelectasis and possible mass. Interval opacification of cavitary lesion in the apex Psychology Technician: CHIKA Transcribe Date/Time: Oct 13 2017 10:13A Dictated by : JOSÉ MIGUEL GATES MD This examination was interpreted and the report reviewed and electronically signed by: JOSÉ MIGUEL GATES MD on Oct 13 2017 10:18AM EST [id number] Observed: 10/12/2017 Status: COMPLETED Source: [place] 3:20 PM [facility] REPOSITORY HNO ID: [id number] Author: Dee Wei (Rt) George Phelps Service: (none) Author Type: [employer] Type: Progress Notes Filed: 10/12/2017 3:25 PM Note Text: Radiology Service Progress Note PATIENT NAME: Jazmyne Harrison DATE OF SERVICE: October 12, 2017 TIME: 3:20 PM PATIENT IDENTITY VERIFICATION COMPLETED USING TWO (2) METHODS: Patient confirmed name verbally and Date of . PATIENT GENDER DATA: Female. status: : No status: NO. PATIENT RELEVANT IMPLANT DATA REVIEWED: Not Applicable RADIOLOGY DEPARTMENT: General X-ray: Exam(s) Completed: Chest X-Ray PERIPHERAL IV DATA: Not applicable SIGNED BY: RT Demetria October 12, 2017 3:20 PM PROGRESS Observed: 10/12/2017 Status: COMPLETED Source: [place] 3:16 PM [facility] REPOSITORY HNO ID: [id number] Author: Shannan Conroy Service: (none) Author Type: Physician Type: Progress Notes Filed: 10/13/2017 8:04 AM Note Text: PATIENT NAME: Jazmyne Harrison. CLINIC NO: [id number]. ATTENDING PHYSICIAN: Shannan Conroy MD. ?? DATE OF SERVICE: 10/12/2017. DIAGNOSIS: Metastatic (adenocarcinoma) lung cancer, EGFR AND?ALK negaitve ?? HPI:? Jazmyne Harrison is a 46?year old female whith metastatic (adenocarcinoma) lung cancer. H/o tobacco abuse, COPD who presented with cough and hemoptysis 2012 in the emergency room. Her initial chest x-ray showed a right upper lobe mass. CT scan of chest and subsequent CT-guided lung biopsy revealed non-small cell (adenocarcinoma) lung cancer. ?? Patient had right sided chest pain for over a year. Initially, she thought she pulled a muscle and has been using ibuprofen for pain. She used to smoke 2 packs cigarette per day for over 20 years and recently has cut down to less than 5 cigarettes per day. Chest -ray 2 years ago showed changes consistent with COPD but no lung mass. ?? Staging workup included bone scan show a focal increased activity in the left ilium along the medial left acetabular region. X-ray of the hip showed no lytic or blastic lesion. CT scan of the abdomen showed several small lesions scattered along the left and right hepatic lobes. Otherwise no evidence of metastatic disease. MRI scan and brain also showed no metastatic disease. Patient had a left hip pain for over 2 years. ?? Subsequent PET scan revealed metastatic disease. There were increased activity in the right upper hemithorax along with additional lung nodules in the right side consistent with metastatic disease. There was activity in the mediastinum right prehilar region and bone metastasis at the level of the left acetabulum. ?? Treatment history:? Patient received Taxol/carboplatin/avastin x 4 cycles with near complete response . She was placed on maintenance and Avastin therapy and she progressed on treatment. She then had additional treatment with Avastin and Alimta x4 cycles with further progression of disease. Avastin was discontinued because of hemostasis with her last 2 cycles of chemotherapy. ?? Patient completed palliative radiation therapy to her right upper lobe because of hemostasis and severe pain.She received palliative RT to the right apex lesion 3000 cGy on February 18, 2014 with good control of symptoms. On recent re-staging CT scans, she had improvement in the radiated RUL lesion however had a new 1.8 cm lesion in the RUL. ?? Patient completed 4 cycles of Carboplatin/Abraxane ( 05/02/14- 07/18/14 ) with partial response after 2 cycles and stable disease after 4 cycles. Patient had progression disease in July and started treatment with Check-point inhibitor this year. ?? Patient has progression of her primary lung lesion late last year. Her PET scan was otherwise negative metastatic disease. She had completed palliative radiation therapy to her right upper lobe lung lesion with 2400 cGy in 8 fx in March,. ?? Current treatment:?Nivolumab since July 2014. ?? Interim history: She is tolerating Nivolumab very well. ??She has no cough or increased?shortness of breathhe??Patient denies headaches, or focal neurological symptoms. She has no hip and lower back pain controlled with medications (MS Contin, oxycodone and Neurontin). She denies any problem with anxiety, or depression. She has further weight loss since last visit. she has not been taking her supplement or Marinol since she has no nausea. She has chronic?fatigue somewhat improved after starting prednisone x 7 days after OPTIVA treatment. ?? All medications AND allergies updated and reviewed by me. ?? Review of system: Appetite: Fair Energy level: Fair Denies fevers. Mouth:denies sores Resp:dry cough, denies shortness of breath or hemoptysis Cardiac:denies chest pain/palpitations GI: denied nausea, vomiting or diarrhea. :denies dysuria/hematuria Extrem:pain to left hip and both knees Neuro:foot numbness/tingling/burning-as above. Skin:denies rashes Heme:denies bleeding ?? The ROS is otherwise negative. Past medical history,medications, allergies reviewed. No changes. ? Modified ESAS ([place] Symptom Assessment Scale):Information Provided By: ?Patient Pain: ?Mild Nausea: ?None Loss of Appetite: ?Mild Constipation: ?None Shortness of Breath: ?None Drowsiness: ?None Tiredness: ?Mild Depression: ?None Anxiety: ?None How you feel overall: ?Good Other problem: ?None ? Palliative Performance Scale % (PPS): > or = 60 (0) Oral Intake: Normal (0) Edema: Absent (0) Dyspnea at Rest: Absent (0) Delirium: Absent (0) Palliative Prognostic Index (PPI) Total Score: 0-2 Note: ?The scores from each prognostic domain are added. ?A score of 0 to 2.0 was associated with a median survival of 90 days; score of 2.1 to 4.0 is 61 days, and score of >4.0 is 12 days.? ?? EXAM:? APPEARANCE Well appearing, alert, in no acute distress, well-hydrated, thin but not cachectic Performance status 80%; BP 94/66 Pulse 89 Temp 98.5 Wt 116 lb (52.6kg) SpO2 92% LMP 05/06/1999 HEENT: Sclerae anicteric, WNL HEART RRR with normal S1 and S2, no murmurs, no gallops, no JVD appreciated LUNG clear to auscultation, diminished breath sound the right upper lobe, scattered rales on the right?lower lobe, no wheezing, LYMPH NODES No cervical lymphadenopathy, No supraclavicular lymphadenopathy and No axillary lymphadenopathy. ABDOMEN bowel sounds normoactive, no bruits, soft, non-tender, non-distended, without organomegaly or palpable masses EXTREMITIES Extremities normal, No deformities, No skin discoloration, No edema and Normal pulses bilaterally. NEURO Awake, alert and oriented x 3, Normal gait and No involuntary motions. SKIN Skin color, texture, turgor normal, no suspicious rashes or lesions ?? LABS: Component Latest Ref Rng AND Units 10/12/2017 WBC, [place] 3.70 - 11.00 k/uL 8.76 RBC, [place] 3.90 - 5.20 m/uL 4.00 Hemoglobin, [place] 11.5 - 15.5 g/dL 11.9 Hematocrit, [place] 36.0 - 46.0 % 37.1 MCV, [place] 80.0 - 100.0 fL 92.8 MCH, [place] 26.0 - 34.0 pg 29.8 MCHC, [place] 30.5 - 36.0 g/dL 32.1 RDW, [place] 11.5 - 15.0 % 13.8 Platelet Cnt, [place] 150 - 400 k/uL 357 MPV, [place] 9.0 - 12.7 fL 8.9 (L) Absol Gran Count 1.45 - 7.50 k/uL 6.20 Component Latest Ref Rng AND Units 10/12/2017 Protein, Total 6.3 - 8.0 g/dL 7.3 Albumin 3.9 - 4.9 g/dL 3.7 (L) Calcium 8.5 - 10.2 mg/dL 9.6 Bilirubin, Total 0.2 - 1.3 mg/dL 0.2 Alkaline Phosphatase 32 - 117 U/L 88 AST 13 - 35 U/L 18 Glucose 74 - 99 mg/dL 84 BUN 7 - 21 mg/dL 10 Creatinine 0.58 - 0.96 mg/dL 0.73 Sodium 136 - 144 mmol/L 136 Potassium 3.7 - 5.1 mmol/L 4.1 Chloride 97 - 105 mmol/L 94 (L) CO2 22 - 30 mmol/L 30 Anion Gap 9 - 18 mmol/L 12 ALT 7 - 38 U/L 7 eGFR- >60 eGFR-All Other Races . >60 TSH 0.400 - 5.500 uU/mL 1.880 CXR: Pending ASSESSMENT/PLAN:? 1. Metastatic Lung cancer Metastatic non-small cell (adenocarcinoma) lung cancer; EGFR AND ALK negaitve Tolerating treatment with Nivolumab with stable disease. (CR) on?CT chest and?bone scan on March 2016. -?Fatigue and weight loss secondary to her immunotherapy treatment. - Change Nivolumab 480mg every 28 days - Repeat CBC, CMP, and chest x-ray?OV in 2?months ?? 2. Upper back pain and hip pain with history of bone metastasis - Continue MS Contin and oxycodone and Neurontin for her pain. follow-up with palliative medicine, Dr. Giordano - Repeat bone scan only if indicated with additional or different site of bone pain ? 3. nausea and anorexia - resume Marinol 5mg twice daily to improve appetite and Phenergan as needed. - Boost- dietary supplement twice daily and monitor weight. ? 4. Anxiety disorder / depression - Psychotherapy in [place] - address with palliative medicine. ? Shannan Conroy MD ? Cc: Dr. Loly BARNARD ABS GR + CBC Collected: 10/12/2017 Status: F Source: [place] 2:32 PM [facility] REPOSITORY TYPE CODE TESTS RESULT OUT OF REFERENCE UNITS RANGE LAB WWBC 3.70-11.00 k/uL [place] WBC 8.76 LAB WRBC 3.90-5.20 m/uL [place] RBC 4.00 LAB WHGB 11.5-15.5 g/dL [place] Hemoglobin 11.9 LAB WHCT 36.0-46.0 % [place] Hematocrit 37.1 LAB WMCV 80.0-100.0 fL [place] MCV 92.8 LAB WMCH 26.0-34.0 pg [place] MCH 29.8 LAB WMCHC 30.5-36.0 g/dL [place] MCHC 32.1 LAB WRDW 11.5-15.0 % [place] RDW 13.8 LAB WPLT 150-400 k/uL [place] Platelet Cnt 357 LAB WMPV 9.0-12.7 fL Low [place] MPV 8.9 Result Comment: Test performed at: [facility] [place], [address] [place] [address]. LAB ABGRAN 1.45-7.50 k/uL Absol Gran 6.20 Count COMP METABOLIC PANEL Collected: 10/12/2017 Status: F Source: [place] 2:32 PM [facility] C[facility] REPOSITORY TYPE CODE TESTS RESULT OUT OF REFERENCE UNITS RANGE LAB TP 6.3-8.0 g/dL Protein, Total 7.3 LAB ALB 3.9-4.9 g/dL Low Albumin 3.7 LAB CA 8.5-10.2 mg/dL Calcium, Total 9.6 LAB TBIL 0.2-1.3 mg/dL Bilirubin, Total 0.2 LAB ALKP 32-117 U/L Alkaline Phosphatase 88 LAB AST 13-35 U/L AST 18 LAB GLU 74-99 mg/dL Glucose 84 Result Comment: The [place] [employer] (ADA) provides guidance for cutoff values for fasting glucose and random glucose. The ADA defines fasting as no caloric intake for at least 8 hours. Fas ting plasma glucose results between 100 to 125 mg/dL indicate increased risk for diabetes (prediabetes). Fasting plasma glucose results greater than or equal to 126 mg/dL meet the criteria for diagnosis of diabetes. In the absence of unequivocal hyperglycemia, results should be confirmed by repeat testing. In a patient with classic symptoms of hyperglycemia or hyperglycemic crisis, random plasma glucose results greater than or equal to 200 mg/dL meet the criteria for diagnosis of diabetes. Reference: Standards of Medical Care in Diabetes 2016, [place] [employer]. Diabetes Care. 2016.39(Suppl 1). LAB BUN 7-21 mg/dL BUN 10 LAB CRET 0.58-0.96 mg/dL Creatinine 0.73 LAB NA 136-144 mmol/L Sodium 136 LAB K 3.7-5.1 mmol/L Potassium 4.1 LAB CL 97-105 mmol/L Chloride Low 94 LAB CO2 22-30 mmol/L CO2 30 LAB AGAP 9-18 mmol/L Anion Gap 12 LAB ALT 7-38 U/L ALT 7 LAB GFRAA eGFR- Amer. >60 LAB GFRNAA . eGFR-All Other Races >60 Result Comment: eGFR (Estimated GFR) Units of measure: mL/min/1.73 meters squared eGFR is derived from the reexpressed MDRD Study equation using the following parameters: serum creatinine, age, gender and race. The creatinine assay has been calibrated to be traceable to IDMS. An eGFR <60 mL/min/1.73m2 for >3 months is consistent with chronic kidney disease. Refer to KDOQI guidelines for clinical interpretation. In patients with unstable renal function, e.g. those with acute kidney injury, the eGFR may not accurately reflect actual GFR. Performed By: #### CMP, TSH #### [facility] [address] [place], [place] [address] TSH Collected: 10/12/2017 Status: F Source: [place] 2:32 PM [facility] REPOSITORY TYPE CODE TESTS RESULT OUT OF RANGE REFERENCE UNITS LAB TSH 0.400-5.500 uU/mL TSH 1.880 Result Comment: If the patient is , TSH reference range varies by gestational period: First Trimester 0.100-2.500 uU/mL Second Trimester 0.200-3.000 uU/mL Third Trimester 0.300-3.000 uU/mL References: 1. Posey L, Keily M, Zana EK, et al. Management of Thyroid Dysfunction during and : An Endocrine Society Clinical Practice Guideline. J Clin Endocrinol Metab, 2012:97:5566-4186. 2. [place] ALLISON. Overview of thyroid disease in . UpToDate. 2016. Accessed on October 09, 2015. Performed By: #### CMP, TSH #### [facility] [address] [place], [place] [address] [place] - INDIVIDUAL Observed: 09/22/2017 Status: F Source: [place] TREATMENT PLAN 5:[address] 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, BS PCP: Jarod Mack MD General Information - General Information Admitting Diagnosis: Stage 3 COPD Gold Classification:: GOLD 3: Severe - Education/Goals Barriers to Learning: None Patient Goals: Breathe better: Discharge Assessment - Goal Met, Increase endurance/stamina: Discharge Assessment - Goal Met; program really has helped., Return to recreation/hobby: Discharge Assessment - Goal Met; doing alot more activities., Improve diet and nutrition: Discharge Assessment - gained some weight; doing better eating smaller meals., Improve weight: Discharge Assessment - Using protein supplements to gain weight 2-daily. Exercise - Final Assessment - Exercise Prescription Mode:: Treadmill, NuStep, Arm Ergometer Frequency (x/week): 3 Duration:: 30 Aerobic Exercise [30-60 min 3-7x/week]:: Met Further followup [see D/C Summary]:: No Target heart rate: 114-129 Chen MET Level:: 5.5 - 112% increase from start date! 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 Disease Management - Final - Hypoxemia Final Assessment: Demonstrates knowledge of O2 Rx at rest, Demonstrates knowledge of O2 Rx with exercise, Using O2 as prescribed, Has home O2 as prescribed, Uses port O2 as prescribed - Medications Medication list reviewed:: Yes Taking medications 100% of the time:: Met Medication reassessment: Yes Pt demonstrates correct technique timing for MDI, Yes Pt demonstrates correct technique timing for DPI, Yes Pt demonstrates correct technique timing for NEB, Yes Pt demonstrates correct technique timing for spacer - Bronchial Hygiene Bronchial Hygiene Plan: Yes Pt demonstrates correctly for effective cough, Yes Pt demo correct for device - return use acapella, Yes Pt demo correct for sputum management, Yes Pt demo correct for improved hydration, Yes Pt demo correct for evalute sputum, Yes Pt demo correct for verbalize when to call MD Psychosocial - Final Assess - Assessment Depression reassess: Management of stress: Met, Management of depression: Met, Practicing interventions: Met Tobacco - Final Assessment - Program Goals Tobacco Program Goals: Complete smoking cessation. Attend education classes. Improve Knowledge Test score - Stage of Change Stages of Change:: Action - Learning Barriers Learning Barriers: Participates in education, Change in behavior - Family Support Do you have family support?: Yes - Tobacco Use Tobacco Use: Non-smoker - Intervention Education Schedule Given:: Yes - Education Education Goal Reached?: Yes Nutrition/Wt Mgmt - Final - Weight Management Weight:: 118 lb - 122 beginning weight. Encouraged use of Boost or Ensure to prevent weight loss. Weight Goals Progress:: Not progressing Patient Health Questionnaire Discharge Assessment 1. Little interest or pleasure in doing things: Not at all 2. Feeling down, depressed, or hopeless: Not at all 3. Trouble falling or staying asleep, or sleeping too much: Not at all 4. Feeling tired or having little energy: Not at all 5. Poor appetite or overeating: Not at all 6. Feeling bad about yourself -- or that you are a failure or have let yourself or your family down: Not at all 7. Trouble concentrating on things, such as reading the newspaper or watching television: Not at all 8. Moving or speaking so slowly that other people could have noticed. Or the opposite - being so fidgety or restless that you have been moving around a lot more than usual: Not at all 9. Thoughts that you would be better off , or of hurting yourself in some way: Not at all How difficult have these problems made it for you to do your work, take care of things at home, or get along with other people?: Not difficult at all Total Score: 0 COPD Knowledge Test Discharge COPD is a lung disease that:: Makes it hard to breathe AND gets worse over time In the [place] the term COPD describes 2 main lung conditions:: Emphysema AND chronic bronchitis The most common lung irritant that causes COPD is:: Cigarette smoke Common signs and symptoms of COPD include:: An ongoing cough/cough that produces a large amount of mucus, AND SOB If you have COPD, what steps can you take?: All of the above Swelling of the ankles is common in COPD:: False Fatigue [tiredness] is common in COPD:: True Wheezing is common in COPD:: False Crushing chest pain is common in COPD:: False Rapid weight loss is common in COPD:: False Breathlessness is a normal response to exercise: True Exercise should be avoided if it makes you short of breath: False All bronchodilators act within 10 minutes: False A spacer device increases the medication to the lungs: True Annual flu vaccine is recommended for pts w/lung disease: True COPD Knowledge Test Total Score:: 14 COPD Assessment Test [CAT] - Questions Never cough = 0, Cough all the time = 5: 1 No phlegm = 0, Chest full of phlegm = 5: 0 No chest tightness = 0, Chest very tight = 5: 0 No breathless w/exertion = 0, Very breathless w/exertion = 5: 2 No limitations w/activity = 0, Very limited w/activity = 5: 1 Confident leaving home = 0, Not at all confident = 5: 0 Sleep soundly = 0, Don't sleep soundly = 5: 1 Lots of energy = 0, No energy at all = 5: 1 Total CAT score:: 6 Self-Efficacy Discharge Assessment We would like to know how confident you are in doing certain activities. Please select your confidence level for:: Select your confidence level for the following using the scale 1-10 where 1 is not at all confident and 10 is totally confident. Your score is the average of all 6 responses. Fatigue: How confident are you that you can keep the fatigue caused by your disease from interfering with the things you want to do? Select Number: 10 Physical Discomfort or Pain: How confident are you that you can keep the physical discomfort or pain of your disease from interfering with the things you want to do? Select Number: 10 Emotional Distress: How confident are you that you can keep the emotional distress caused by your disease from interfering with the things you want to do? Select Number: 10 Other Symptoms or Health Problems: How confident are you that you can keep other symptoms or health problems from interfering with the things you want to do? Select Number: 10 Different Tasks and Activities: How confident are you that you can do the different tasks and activities needed to manage your health condition so as to reduce your need to see a doctor? Select Number: 10 Medication: How confident are you that you can do things other than just taking medication to reduce how much your illness affects your everyday life? Select Number: 10 Total Score:: 10 Nutrition Survey - Nutrition Survey Instructions Scoring Instructions: Scoring is as follows: Yes = 1 points. No = 0 point. Patient score that is >/=12 is considered to be at potential nutritional risk and could benefit from a referral to a registered dietitian. - Nutrition Survey Discharge Have you lost >10 lbs over the past 2 months without trying?: Yes - began using Boost and/or Ensure to maintain/gain weight. Also eating smaller meals more frequently throughout the day. Are you following a special diet at home for diabetes, low fat, or low salt?: No Are you interested in meeting with a dietitian for help understanding your diet?: No Do you eat less than 3 meals a day?: No Do you eat fatty meats (cordova, sausage, ribs, etc), fried foods, desserts, large amounts of salad dressings, margarine, butter, or cheese most days?: No Do you have food allergies? [Enter types in comment field]: No Do you eat in restaurants more than 3 times a week?: No Do you season food with salt, seasoning salt, or garlic salt?: No Do you used canned, boxed, frozen meals, or soups, seasoning packets?: Yes Total Score:: 2 09/14/17 0920 <Electronically signed by Aj Oconnor CRT, RCP, CONCHITA> Date Aj Oconnor CRT, RCP, BS Outcome assessment reviewed. Exercise plan approved as documented. Treatment plan and goals support patient needs/abilities. Continue with current plan. I certify the patient demonstrates improvement and remains willing and capable of participation. the patient continues to benefit from pulmonary services/training. The patient may continue at current intensity, endurance and modality and progress per protocol. 09/22/17 1705<Electronically signed by Romaine Grace MD> Cosigner Signature: Date Romaine Grace MD CC: Signed [place] - INDIVIDUAL Observed: 08/21/2017 Status: F Source: [place] TREATMENT PLAN 7:[address] [facility] REPOSITORY [facility] Pulmonary Rehab Reports [address] [place] [address] [place] - Individual Treatment Plan MR#: [id number] Acct: [id number] Name: JAZMYNE HARRISON Rep #: [id number] : 1970 46 From: Aj Oconnor CRT, RCP, BS PCP: Jarod Mack MD Exercise - 90-Day Assessment - Exercise Prescription Mode:: Treadmill, NuStep, Arm Ergometer Frequency (x/week): 3 Duration:: 30 Aerobic Exercise [30-60 min 3-7x/week]:: Progressing Target heart rate: 129 - THRR 114-129 w/max HR of 110 Chen MET Level:: 5 - Home Exercise Home Exercise?: No Disease Management - 90-Day - Hypoxemia Reassessment: Demonstrates knowledge of O2 Rx at rest, Demonstrates knowledge of O2 Rx with exercise, Using O2 as prescribed, Has home O2 as prescribed, Uses port O2 as prescribed - Medications Medication list reviewed:: Yes Taking medications 100% of the time:: Met Psychosocial - 90-Day - Assessment Depression reassess: Management of stress: Met, Management of depression: Met, Practicing interventions: Met Tobacco - 90-Day Assessment - Program Goals Tobacco Program Goals: Complete smoking cessation. Attend education classes. Improve Knowledge Test score - Stage of Change Stages of Change:: Action - Learning Barriers Learning Barriers: Participates in education - Family Support Do you have family support?: Yes - Tobacco Use Tobacco Use: Non-smoker Do you use smokeless tobacco?: No - Intervention Smoking Cessation Referral:: No Individual Education/Counseling:: No Education Schedule Given:: Yes - Education Gave Education Materials For:: Pulmonary Disease, Risk Factors, Breathing Techniques, Medical Compliance, Pulmonary A AND P, Exacerbation Signs AND Symptoms, Stress AND Relaxation Nutrition/Wt Mgmt - 90-Day - Weight Management Weight:: 116 lb Weight Goals Progress:: Progressing Patient Health Questionnaire 90-Day Re-eval Assessment 1. Little interest or pleasure in doing things: Not at all 2. Feeling down, depressed, or hopeless: Not at all 3. Trouble falling or staying asleep, or sleeping too much: Not at all 4. Feeling tired or having little energy: Several days 5. Poor appetite or overeating: More than half the days 6. Feeling bad about yourself -- or that you are a failure or have let yourself or your family down: Not at all 7. Trouble concentrating on things, such as reading the newspaper or watching television: Not at all 8. Moving or speaking so slowly that other people could have noticed. Or the opposite - being so fidgety or restless that you have been moving around a lot more than usual: Not at all 9. Thoughts that you would be better off , or of hurting yourself in some way: Not at all How difficult have these problems made it for you to do your work, take care of things at home, or get along with other people?: Not difficult at all Total Score: 3 COPD Assessment Test [CAT] - Questions Never cough = 0, Cough all the time = 5: 0 No phlegm = 0, Chest full of phlegm = 5: 0 No chest tightness = 0, Chest very tight = 5: 0 No breathless w/exertion = 0, Very breathless w/exertion = 5: 2 No limitations w/activity = 0, Very limited w/activity = 5: 1 Confident leaving home = 0, Not at all confident = 5: 0 Sleep soundly = 0, Don't sleep soundly = 5: 2 Lots of energy = 0, No energy at all = 5: 1 Total CAT score:: 6 Self-Efficacy 90-Day Re-eval Assessment We would like to know how confident you are in doing certain activities. Please select your confidence level for:: Select your confidence level for the following using the scale 1-10 where 1 is not at all confident and 10 is totally confident. Your score is the average of all 6 responses. Fatigue: How confident are you that you can keep the fatigue caused by your disease from interfering with the things you want to do? Select Number: 9 Physical Discomfort or Pain: How confident are you that you can keep the physical discomfort or pain of your disease from interfering with the things you want to do? Select Number: 10 Emotional Distress: How confident are you that you can keep the emotional distress caused by your disease from interfering with the things you want to do? Select Number: 10 Other Symptoms or Health Problems: How confident are you that you can keep other symptoms or health problems from interfering with the things you want to do? Select Number: 10 Different Tasks and Activities: How confident are you that you can do the different tasks and activities needed to manage your health condition so as to reduce your need to see a doctor? Select Number: 10 Medication: How confident are you that you can do things other than just taking medication to reduce how much your illness affects your everyday life? 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 Exercise plan approved as documented. Treatment plan and goals support patient needs/abilities. Continue with current plan. I certify the patient demonstrates improvement and remains willing and capable of participation. the patient continues to benefit from pulmonary services/training. The patient may continue at current intensity, endurance and modality and progress per protocol. 08/21/171902<Electronically signed by Vahid Benitez MD> Cosigner Signature: Date Vahid Benitez MD CC: Signed PULMONARY VISIT REPORT Observed: 08/04/2017 Status: F Source: [place] 10:[address] [facility] REPOSITORY [facility] of [address] [place] [address] OFFICE VISIT Date of Service: 08/03/17 MR#: [id number] Acct: [id number] Name: JAZMYNE HARRISON Rep #: [id number] : 1970 Provider: Anyi Wells Age/Sex: 46/F Location: [facility] [place] Status: Signed Assessment AND Plan 1. COPD with acute exacerbation J44.1 Status Acute Plan Deteriorated. We will start with a prednisone taper at this time. Sputum culture obtained in the office today, very large amount of thick creamy brown colored sputum will be sent to the lab for culture and sensitivity. Will await for sensitivity results before prescribing an antibiotic. Follow-up with Dr. Vee in 6 weeks. Discussed the possibility of placing the patient on Prolastin, or at least having her evaluated for the appropriateness of it. She is agreeable. She has been encouraged to contact the office on Monday to give us an update on how she is feeling. She is also been encouraged to go to the emergency department this weekend if her symptoms worsen. Orders Orders: Plan Detail Other Medications New: prednisone take 4 tabs for three days, then 3 tabs for three days, then 10 mg PO QDAY 2 tabs for three days, then 1 tab for 3 days Follow Up 6 Weeks (DMB ) HPI NOT FEELING WELL: Chief Complaint: Productive cough HPI Comments Details: This patient presents the office today for an acute visit regarding cough. She is ambulatory, and currently wearing nasal cannula oxygen. She reports that her symptoms have been going on for approximately 3 days. She has a cough that is productive of green to brown sputum, and describes it as thick. She has noticed an increase in wheezing, chest tightness and chest congestion. She is also more short of breath. She reports sinus pressure and right ear pain. She did have a temperature 2 days ago, measured at 100 F, she used Tylenol which relieved that fever. The fever has not recurred since. She continues to use her nebulizer, and admits that she is overusing them. She is currently using the albuterol nebulizer every 2 hours, reports minimal relief that only lasts approximately 30 minutes. She is compliant using her chest physiotherapy vest multiple times a day and finds that it does relieve some of her congestion and allow her to expectorate more sputum. She continues compliance with Symbicort 2 puffs twice daily. She does report rinsing her mouth out after each use and denies medication side effects such as sore throat or thrush. She also continues her Spiriva Respimat daily. Intake Vital Signs08/03/17 Height 6 ft 08/03/17 Weight: 116 lb 08/03/17 Body Mass Index (BMI) 15.7 Intake Visit Reasons: NOT FEELING WELL Accompanied by: Self Allergies No Known Allergies Allergy (Verified 08/03/17 13:33) Medications Aripiprazole [Abilify] 5 mg PO QHS 03/03/16 [History Confirmed 08/03/17] Dronabinol [Marinol] 5 mg PO BID PRN PRN 03/03/16 [History Confirmed 08/03/17] Gabapentin [Neurontin] 300 mg PO 4X/DAY 03/03/16 [History Confirmed 08/03/17] Guaifenesin [Mucinex] 1,200 mg PO DAILY PRN PRN 03/03/16 [History Confirmed 08/03/17] Morphine Sulfate [Morphine Sulfate ER] 60 mg PO BID 03/03/16 [History Confirmed 08/03/17] Oxycodone [Oxyir] 30 mg PO TID PRN PRN 03/03/16 [History Confirmed 08/03/17] Pramipexole Di-HCl [Mirapex] 1 mg PO QHS 03/03/16 [History Confirmed 08/03/17] Trazodone HCl 200 mg PO QHS 03/03/16 [History Confirmed 08/03/17] proMETHazine tablet [Phenergan tablet] 25 mg PO PRN PRN 03/03/16 [History Confirmed 08/03/17] Fluticasone 0.05% [Flonase Nasal [place]] 1 spray NASAL BID #1 bottle 03/06/16 [Rx Confirmed 08/03/17] Lorazepam [Ativan] 0.5 mg PO DAILY PRN #0 03/06/16 [Rx Confirmed 08/03/17] Nebulizer and Compressor [Portable Nebulizer System] 1 ea MC Q2H PRN PRN #1 ea 03/06/16 [Rx Confirmed 08/03/17] buPROPion tablets [Wellbutrin tablets] 75 mg PO BID #60 tab 03/06/16 [Rx Confirmed 08/03/17] methylphenidate 10 mg tablet 10 mg PO QAM AND QPM 04/12/17 [History Confirmed 08/03/17] albuterol sulfate 2.5 mg/3 mL (0.083 %) solution for nebulization 2.5 mg INHALATION Q4H PRN #360 ml 04/25/17 [Rx Confirmed 08/03/17] albuterol sulfate HFA 90 mcg/actuation aerosol inhaler 2 puff INHALATION Q6H PRN #1 device 05/17/17 [Rx Confirmed 08/03/17] budesonide-formoterol HFA 160 mcg-4.5 mcg/actuation aerosol inhaler 2 inh INHALATION Q12H #10.2 g 05/17/17 [Rx Confirmed 08/03/17] tiotropium bromide 2.5 mcg/actuation mist for inhalation 2 puff INHALATION QDAY #1 device 05/17/17 [Rx Confirmed 08/03/17] prednisone 10 mg tablet 10 mg PO QDAY #30 tab 08/03/17 [Rx Confirmed 08/03/17] PFSH Medical History D AND C (Resolved) Port placement (Resolved) Wheezing (Acute) Cough (Acute) Bronchiectasis (Chronic) Hypoxia (Acute) Abnormal chest CT (Chronic) Dyspnea (Acute) non small cell lung, adenocarcimona (Chronic) Unintentional weight loss (Chronic) Tobacco dependence in remission (Chronic) Nocturnal hypoxia (Chronic) Hypersomnia (Chronic) Stage 3 severe COPD by GOLD classification (Chronic) Acute and chronic respiratory failure with hypoxia (Acute) Borderline elevated troponin (Acute) Healthcare-associated pneumonia (Suspected) Metastatic primary lung cancer (Chronic) COPD (chronic obstructive pulmonary disease) (Chronic) Surgical History H/O oral surgery (Resolved) H/O: hysterectomy (Resolved) Family History Uncle Cancer lung Father Cancer lung, bone Social History Smoking Status: Former smoker how long ago did patient quit smokin year/2.5 pk/day prior to quitting second hand exposure: Yes alcohol intake: never substance use type: does not use Review of Systems Const CONSTITUTIONAL: Positive fever(s) (100.0 on TUE, took Tylenol EFF) and fatigue; negative anorexia, body ache, chills, daytime sleepiness, night sweats, oral thrush, stops breathing during sleep, weight loss, sleeping in chair, weight loss, weight gain, frequent colds, seasonal allergies, other, headache(s) or orthopnea EETM Ear Nose Throat Mouth: Positive hearing normal; negative hard of hearing, hoarseness, dry mouth in morning, change in vision, itchy eyes, eye pain, swallowing Difficulty, ear pain (Rt ear), nose bleed, headache(s), mouth pain, nasal congestion, nasal discharge, post nasal drip, sinus pain, sinus pressure, sore throat or other Cardio Cardiovascular: Negative chest pain, chest pain at rest, chest pain with activity, irregular heart rhythm, edema, shortness of breath when lying down, palpitations, murmur or other Resp Respiratory: Positive as per HPI, shortness of breath shortness of breath: Positive with activity, wheezing, chest congestion, cough cough: Positive productive color: Positive thick, brown (light to dark ) and green and chest tightness; negative pain with cough, pain on inspiration, inhalers, increase use of rescue inhalers, snoring, apnea or other Gastro Gastrointestional: Negative bloody stools, change in appetite, difficulty swallowing, reflux, hematemesis, melena stool, loose stool, constipation or other Genitourinary: Negative blood in urine, nocturia, pain with urination or other Musc Musculoskeletal: Negative body pain, back pain, neck pain or other Skin/Breast Skin/Breast: Negative dry skin, itching, rash, unusual bruising, breast lump or other Neuro Neurological: Negative restless legs, confusion, weakness or other Psych Psychocological: Negative abnormal sleep pattern, anxiety, thoughts of hurting self/others, hopelessness or other Lymph Lymphatic: Negative easy bleeding, easy bruising, swollen lymph nodes or other Exam Const Constitutional: Positive conversant, cooperative, in no acute respiratory distress, well developed, well nourished, good hygiene, wearing supplemental oxygen, frail appearing, cachectic, dyspenic and ill appearing Head Head: Positive normocephalic and atraumatic; negative cyanosis of lips/distal nose Eyes Eye: Positive clear conjunctiva and nystagmus; negative scleral abnormality Ears Ear: Positive hearing normal and external ears normal; negative hard of hearing Nose Nose: Positive external nose normal and no nasal discharge; negative epistaxis Mouth Mouth: Positive oral mucosae normal, no lesions, good dentition and crowded posterior oropharynx; negative post nasal drip, malodorous breath or oral thrush present Mallampati Score: III: Mallampati Score Neck Neck: Positive normal visual inspection, full ROM and trachea midline; negative lymphadenopathy, JVD or tender Chest Wall Chest: Positive normal inspection of the chest and symmetric chest movement; negative increased A/P diameter Resp lung sounds: Positive wheezes, wheeze present on forced exhalation, diminished, prolonged expiratory time and increased work of breathing; negative rhonchi, rales, dullness to percussion or use of accessory muscles Cardio Cardiac: Positive regular rate, regular rhythm, S1 normal and S2 normal; negative murmur GI GI: Positive normal to inspection and normal bowel sounds; negative distended Genitourinary: Positive deferred Musc Musculoskeletal: Positive steady gait and ROM normal; negative kyphosis or scoliosis Skin Pulmonary Skin Exam: Positive intact; negative rash, lesion, ulcers, erythema, scaly or dermal atrophy Pulses Pulse: Yes pulses normal x4 extremities Extremities Extremities: Yes capillary refill normal, Yes clubbing, No cyanosis, No edema, No stasis dermatitis Neuro Neurologic: Yes conversant, Yes no focal neuro deficits, Yes cooperative, Yes normal cognition, Yes normal coordination, Yes normal concentration, Yes understands questions Lymph Lymphatic: No lymphadenopathy, No tenderness, No cervical adenopathy, No axillary adenopathy Psych Appearance: Positive grossly normal, eye contact and well kempt Mental Status: Positive mental status grossly normal Mood: Positive congruent mood Affect: Positive normal affect Coding Level of Care Code Off vis,est,level 3 Diagnoses COPD with acute exacerbation J44.1 08/04/17 1037 <Electronically signed by Anyi CARVALHO> Date Anyi CARVALHO Cosigner Signature: Date (if applicable) CC: Jarod Mack MD Observed: 08/03/2017 Status: F Source: [place] CULTURE, SPUTUM 2:[address] [facility] REPOSITORY Gram Stain Acceptable Specimen? Yes (<25 Epithelial cells per/lpf) Gram Stain 3+ White Blood Cells No Epithelial cells No organisms seen Resp. Culture Mixed normal respiratory margi. No Haemophilus, Streptococcus pneumoniae, beta-hemolytic Streptococcus or Staphylococcus aureus isolated. Performed By: #### M100.0800 #### [facility] [address] [place], [address] [place] - INDIVIDUAL Observed: 07/31/2017 Status: F Source: [place] TREATMENT PLAN 8:[address] 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, BS PCP: Care Physician, No Primary Exercise - 60-Day Assessment - Current Level Mode:: Treadmill, NuStep, Arm Ergometer Frequency (x/week): 3 Duration:: 30 Aerobic Exercise [30-60 min 3-7x/week]:: Progressing Target heart rate: 114 - 106-114 w/max HR 109 Chen.5 MET Level:: 4 - Home Exercise Home Exercise:: No Disease Management - 60-Day - Hypoxemia Reassessment: Demonstrates knowledge of O2 Rx at rest, Demonstrates knowledge of O2 Rx with exercise, Using O2 as prescribed, Has home O2 as prescribed, Uses port O2 as prescribed - Medications Medication list reviewed:: Yes Taking medications 100% of the time:: Met Medication reassessment: Yes Pt demonstrates correct technique timing for MDI, Yes Pt demonstrates correct technique timing for DPI, Yes Pt demonstrates correct technique timing for NEB, Yes Pt demonstrates correct technique timing for spacer - Bronchial Hygiene Bronchial Hygiene Plan: Yes Pt demo correct for device - returned demonstration use of acapella, Yes Pt demo correct for improved hydration, Yes Pt demo correct for hand hygiene, Yes Pt demo correct for verbalize when to call MD Psychosocial - 60-Day - Assessment Depression reassess: Management of stress: Met, Management of depression: Met, Practicing interventions: Met Tobacco - 60-Day Assessment - Program Goals Tobacco Program Goals: Complete smoking cessation. Attend education classes. Improve Knowledge Test score - Stage of Change Stages of Change:: Action - Learning Barriers Learning Barriers: Participates in education - Family Support Do you have family support?: Yes - Tobacco Use Tobacco Use: Non-smoker Do you use smokeless tobacco?: No - Intervention Smoking Cessation Referral:: No Individual Education/Counseling:: No Education Schedule Given:: Yes - Education Gave Education Materials For:: Pulmonary Disease, Risk Factors, Breathing Techniques, Medical Compliance, Pulmonary A AND P, Exacerbation Signs AND Symptoms, Stress AND Relaxation Nutrition/Wt Mgmt - 60-Day - Weight Management Weight:: 117 lb - increased 1 pound Weight Goals Progress:: Progressing Patient Health Questionnaire 60-Day Re-eval Assessment 1. Little interest or pleasure in doing things: Not at all 2. Feeling down, depressed, or hopeless: Not at all 3. Trouble falling or staying asleep, or sleeping too much: Several days 4. Feeling tired or having little energy: Several days 5. Poor appetite or overeating: Not at all 6. Feeling bad about yourself -- or that you are a failure or have let yourself or your family down: Not at all 7. Trouble concentrating on things, such as reading the newspaper or watching television: Not at all 8. Moving or speaking so slowly that other people could have noticed. Or the opposite - being so fidgety or restless that you have been moving around a lot more than usual: Not at all 9. Thoughts that you would be better off , or of hurting yourself in some way: Not at all How difficult have these problems made it for you to do your work, take care of things at home, or get along with other people?: Not difficult at all Total Score: 2 COPD Assessment Test [CAT] - Questions Never cough = 0, Cough all the time = 5: 2 No phlegm = 0, Chest full of phlegm = 5: 0 No chest tightness = 0, Chest very tight = 5: 0 No breathless w/exertion = 0, Very breathless w/exertion = 5: 2 No limitations w/activity = 0, Very limited w/activity = 5: 1 Confident leaving home = 0, Not at all confident = 5: 1 Sleep soundly = 0, Don't sleep soundly = 5: 3 Lots of energy = 0, No energy at all = 5: 2 Total CAT score:: 11 Self-Efficacy 60-Day Re-eval Assessment We would like to know how confident you are in doing certain activities. Please select your confidence level for:: Select your confidence level for the following using the scale 1-10 where 1 is not at all confident and 10 is totally confident. Your score is the average of all 6 responses. Fatigue: How confident are you that you can keep the fatigue caused by your disease from interfering with the things you want to do? Select Number: 8 Physical Discomfort or Pain: How confident are you that you can keep the physical discomfort or pain of your disease from interfering with the things you want to do? Select Number: 8 Emotional Distress: How confident are you that you can keep the emotional distress caused by your disease from interfering with the things you want to do? Select Number: 9 Other Symptoms or Health Problems: How confident are you that you can keep other symptoms or health problems from interfering with the things you want to do? Select Number: 9 Different Tasks and Activities: How confident are you that you can do the different tasks and activities needed to manage your health condition so as to reduce your need to see a doctor? Select Number: 10 Medication: How confident are you that you can do things other than just taking medication to reduce how much your illness affects your everyday life? Select Number: 10 Total Score:: 9 07/17/17 1328 <Electronically signed by Aj Oconnor CRT, RCP, BS> Date Aj Oconnor CRT, RCP, BS Outcome assessment reviewed. Exercise plan approved as documented. Treatment plan and goals support patient needs/abilities. Continue with current plan. I certify the patient demonstrates improvement and remains willing and capable of participation. the patient continues to benefit from pulmonary services/training. The patient may continue at current intensity, endurance and modality and progress per protocol. 07/31/17 0853<Electronically signed by Romaine Grace MD> Cosigner Signature: Date Romaine Grace MD CC: Signed PROGRESS Observed: 07/27/2017 Status: COMPLETED Source: [place] 2:34 PM [facility] REPOSITORY O ID: [id number] Author: Loly Giordano Service: (none) Author Type: Physician Type: Progress Notes Filed: 07/27/2017 2:46 PM Note Text: PALLIATIVE MEDICINE PROGRESS NOTE OARRS website checked and validated. All prescriptions have been APPROPRIATELY filled. No suspicious activity was identified.- 07/27/2017 by Loly Giordano MD SERVICE DATE: 07/27/2017 SERVICE TIME: 2 pm Primary Site of Disease/Medical Illness: Lung Site of Metastasis: Bone, Lung, Lymph nodes CHIEF COMPLAINT: right upper back pain, anxiety, depression, neoplasm related fatigue PERTINENT MEDICAL HISTORY: Jazmyne Harrison is a 46 year old female with COPD and tobacco history who presened with cough and hemoptysis around January 2013. An initial CXR showed a right upper lobe mass. CT chest confirmed a mass and a biopsy of the mass showed adenocarcinoma of the lung. CT abdomen showed several small lesions in both hepatic lobes. She also has had chronic left hip pain. X-ray of the hip showed no lesions.? She received Taxol/carboplatin/Avastin with near complete response. She then was placed on maintenance Avastin. However, she progressed and had additional treatment with Avastin and Alimta with further disease progression. Avastin was stopped given hemostasis with her last 2 cycles of chemotherapy. She received palliative radiation to the right apex (30 Gy) completed January 2014. Restaging scans showed improvement of her RUL lesion but unfortunately showed a new lesion in the same lobe. ?? She then started carboplatin/Abraxane form April to June 2014 with partial response. She had disease progression and started nivolumab in July 2014. PET/CT 03/30/15 showed hypermetabolic right upper lobe but no distant metastases. She had a non-FDG avid lesion on the left acetabulum. ?? She was admitted to [facility] around 03/03- for pneumonia. She went home on oxygen and is wearing this all day. She quit smoking after that admission. She had pneumonia for most of March 2017 and now has a chronic cough. ?? She continues to be on nivolumab with no side effects. ? ?? HISTORY OF PRESENT ILLNESS: She had a CXR on 06/22/17 per her oncologist and she has stable findings. ? She is being followed for right posterior upper chest wall pain that wraps around her scapula. She is taking SR 60 mg bid. She continues to take oxycodone 30 mg every 2 hours as needed for breakthrough pain, averaging 8 tablets a day. She is also taking gabapentin 300 mg 4 times daily as an?adjuvant. She has numbness and tingling on her hands and feet. ?Her right hip pain is stable. ?? She has severe fatigue. She is on methylphenidate 10 mg bid. She tried [place] ginseng and did not like it. She has no history of cardiac dysrhythmias. Her appetite and weight are stable. ?? She has had depression and anxiety for a long time. She is seeing a therapist regularly locally. She has now seen a local psychiatrist twice who has started prescribing her medications. She has been weaned off her wellbutrin. She is on ariprazole 5 mg daily. She is on methylphenidate 10 mg bid as above for neoplasm related fatigue. ? She also has started physical therapy. Her daughter has moved out of her house and mother-daughter relationship has improved significantly. ? Recently, she has started using a CPAP machine. She increased her trazodone 100 mg from 3 tablets at night which she says helped her sleep. ? Her bowels move every 4 days with daily bisacodyl and docusate. She is satisfied with this regimen. She has a chronic cough. Her appetite is stable with dronabinol 5 mg bid. Modified ESAS ([place] Symptom Assessment Scale):Information Provided By: Patient Pain: Mild Nausea: None Loss of Appetite: None Constipation: None Shortness of Breath: None Drowsiness: None Tiredness: Mild Depression: None Anxiety: None How you feel overall: Good Other problem: None Palliative Performance Scale % (PPS): > or = 60 (0) Oral Intake: Normal (0) Edema: Absent (0) Dyspnea at Rest: Absent (0) Delirium: Absent (0) Palliative Prognostic Index (PPI) Total Score: 0-2 Note: The scores from each prognostic domain are added. A score of 0 to 2.0 was associated with a median survival of 90 days; score of 2.1 to 4.0 is 61 days, and score of >4.0 is 12 days. PHYSICAL EXAMINATION: Vital signs: BP 118/71 Pulse 97 Temp 36.7 ?C (98 ?F) (Oral) Resp 20 Wt 53.6 kg (118 lb 3.2 oz) LMP 05/06/1999 (Exact Date) SpO2 90% BMI 16.03 kg/m2 General Appearance: No apparent distress, Thin and on chronic oxygen replacement Skin: No jaundice, No rash and No breakdown Eyes: Normal HENT: Atraumatic and Oropharnyx clear with moist mucous membranes Neck: Grossly normal Lungs: Audible respiratory secretions CV: Regular rate and rhythm Abdomen: Soft, nontender, bowel sounds normal : Not examined Musculoskeletal: No edema and No gross deformity Lymphatics: No cervical, axillary, or inguinal lymphadenopathy Neuro: Alert and oriented to time, place, and person DATA: Diagnostic tests reviewed for today's visit: Most recent labs and imaging results. ASSESSMENT AND PLAN: 1. Adenocarcinoma of the lung, on nivolumab, stable disease 2. Right upper posterior wall pain, neoplasm related, controlled 3. Anxiety/panic disorder/depression, stable 4. Neoplasm related fatigue, improved 5. Chronic respiratory failure, on home oxygen 6. Emphysema ?? Plan: 1. Continue morphine SR 60 mg bid. 2. Continue oxycodone 30 mg every 2 hours as needed for breakthrough pain, average 8 tablets a day. 3. Continue gabapentin 300 mg qid. 4. Continue methylphenidate 10 mg bid (8am/12noon) for fatigue. She denies any history of cardiac dysrhythmias. 5.She is seeing a psychologist locally. She also has established care with a local psychiatrist who is now refilling her medications. Advance Care Planning: I did not discuss Advance Care Planning at this visit, this was done at a prior encounter. We discussed goals of care related to the patient's current health and documented this within this note. We discussed/reviewed advanced directives. Patient does not have advanced directives currently and I encouraged the patient to complete advanced directives paperwork. The patient's surrogate decision maker is spouse. Next Visit: 12 Weeks SIGNATURE: Loly Giordano MD PATIENT NAME: Jazmyne Silvaore DATE: July 27, 2017 TIME: 2:34 PM PAGER/CONTACT #: [id number] Observed: 07/27/2017 Status: COMPLETED Source: [place] 1:40 PM [facility] REPOSITORY Visit (SP) Office (PALMDIONISIO) CHRISTYJAZMYNE LANZA ([id number]) 1970 F Date Time Provider Department 07/27/17 1:40 PM LOLY GIORDANO During your visit today, we recorded the following information about you: Temperature Pulse Respiration Blood pressure 98 degrees 97/minute 20/minute 118/71 Weight 53.6 kg Cricket Corey LPN, LPN 07/27/2017 1:46 PM Signed Additional intake questions: Has the patient had nausea, vomiting, diarrhea, constipation, fatigue for ANDgt; 1 week? Nausea, Yes, MD Notified Fatigue, Yes, MD Notified Constipation, Yes, MD Notified Does the patient have a decreased appetite? No Does patient want to see a First Aid Attendant? No (yes to any of above refer patient to schedulers for dietitian appointment) ) Does patient have any new or increased numbness or tingling of extremities? No Is patient interested in fertility information? No Does patient need any prescription refills? Yes, LIP notified Electronically Signed By: SAL Kitchen MD 07/27/2017 2:22 PM Signed Continue other medications as usual. Call your nurse, Jeannette Bradford RN, with any problems ([phone] or after hours [phone] and ask for Palliative Medicine [facility] principal solution specialist) Return to clinic in 3 months. Loly Giordano MD MPH CHANI FACP FAAHPM July 27, 2017 2:20 PM Loly Giordano MD 07/27/2017 2:46 PM Signed PALLIATIVE MEDICINE PROGRESS NOTE OARRS website checked and validated. All prescriptions have been APPROPRIATELY filled. No suspicious activity was identified.- 07/27/2017 by Loly Giordano MD SERVICE DATE: 07/27/2017 SERVICE TIME: 2 pm Primary Site of Disease/Medical Illness: Lung Site of Metastasis: Bone, Lung, Lymph nodes CHIEF COMPLAINT: right upper back pain, anxiety, depression, neoplasm related fatigue PERTINENT MEDICAL HISTORY: Jazmyne Harrison is a 46 year old female with COPD and tobacco history who presened with cough and hemoptysis around January 2013. An initial CXR showed a right upper lobe mass. CT chest confirmed a mass and a biopsy of the mass showed adenocarcinoma of the lung. CT abdomen showed several small lesions in both hepatic lobes. She also has had chronic left hip pain. X-ray of the hip showed no lesions.? She received Taxol/carboplatin/Avastin with near complete response. She then was placed on maintenance Avastin. However, she progressed and had additional treatment with Avastin and Alimta with further disease progression. Avastin was stopped given hemostasis with her last 2 cycles of chemotherapy. She received palliative radiation to the right apex (30 Gy) completed January 2014. Restaging scans showed improvement of her RUL lesion but unfortunately showed a new lesion in the same lobe. ?? She then started carboplatin/Abraxane form April to June 2014 with partial response. She had disease progression and started nivolumab in July 2014. PET/CT 03/30/15 showed hypermetabolic right upper lobe but no distant metastases. She had a non-FDG avid lesion on the left acetabulum. ?? She was admitted to [facility] around 03/03- for pneumonia. She went home on oxygen and is wearing this all day. She quit smoking after that admission. She had pneumonia for most of March 2017 and now has a chronic cough. ?? She continues to be on nivolumab with no side effects. ? ?? HISTORY OF PRESENT ILLNESS: She had a CXR on 06/22/17 per her oncologist and she has stable findings. ? She is being followed for right posterior upper chest wall pain that wraps around her scapula. She is taking SR 60 mg bid. She continues to take oxycodone 30 mg every 2 hours as needed for breakthrough pain, averaging 8 tablets a day. She is also taking gabapentin 300 mg 4 times daily as an?adjuvant. She has numbness and tingling on her hands and feet. ?Her right hip pain is stable. ?? She has severe fatigue. She is on methylphenidate 10 mg bid. She tried [place] ginseng and did not like it. She has no history of cardiac dysrhythmias. Her appetite and weight are stable. ?? She has had depression and anxiety for a long time. She is seeing a therapist regularly locally. She has now seen a local psychiatrist twice who has started prescribing her medications. She has been weaned off her wellbutrin. She is on ariprazole 5 mg daily. She is on methylphenidate 10 mg bid as above for neoplasm related fatigue. ? She also has started physical therapy. Her daughter has moved out of her house and mother-daughter relationship has improved significantly. ? Recently, she has started using a CPAP machine. She increased her trazodone 100 mg from 3 tablets at night which she says helped her sleep. ? Her bowels move every 4 days with daily bisacodyl and docusate. She is satisfied with this regimen. She has a chronic cough. Her appetite is stable with dronabinol 5 mg bid. Modified ESAS ([place] Symptom Assessment Scale):Information Provided By: Patient Pain: Mild Nausea: None Loss of Appetite: None Constipation: None Shortness of Breath: None Drowsiness: None Tiredness: Mild Depression: None Anxiety: None How you feel overall: Good Other problem: None Palliative Performance Scale % (PPS): ANDgt; or = 60 (0) Oral Intake: Normal (0) Edema: Absent (0) Dyspnea at Rest: Absent (0) Delirium: Absent (0) Palliative Prognostic Index (PPI) Total Score: 0-2 Note: The scores from each prognostic domain are added. A score of 0 to 2.0 was associated with a median survival of 90 days; score of 2.1 to 4.0 is 61 days, and score of ANDgt;4.0 is 12 days. PHYSICAL EXAMINATION: Vital signs: BP 118/71 Pulse 97 Temp 36.7 ?C (98 ?F) (Oral) Resp 20 Wt 53.6 kg (118 lb 3.2 oz) LMP 05/06/1999 (Exact Date) SpO2 90% BMI 16.03 kg/m2 General Appearance: No apparent distress, Thin and on chronic oxygen replacement Skin: No jaundice, No rash and No breakdown Eyes: Normal HENT: Atraumatic and Oropharnyx clear with moist mucous membranes Neck: Grossly normal Lungs: Audible respiratory secretions CV: Regular rate and rhythm Abdomen: Soft, nontender, bowel sounds normal : Not examined Musculoskeletal: No edema and No gross deformity Lymphatics: No cervical, axillary, or inguinal lymphadenopathy Neuro: Alert and oriented to time, place, and person DATA: Diagnostic tests reviewed for today's visit: Most recent labs and imaging results. ASSESSMENT AND PLAN: 1. Adenocarcinoma of the lung, on nivolumab, stable disease 2. Right upper posterior wall pain, neoplasm related, controlled 3. Anxiety/panic disorder/depression, stable 4. Neoplasm related fatigue, improved 5. Chronic respiratory failure, on home oxygen 6. Emphysema ?? Plan: 1. Continue morphine SR 60 mg bid. 2. Continue oxycodone 30 mg every 2 hours as needed for breakthrough pain, average 8 tablets a day. 3. Continue gabapentin 300 mg qid. 4. Continue methylphenidate 10 mg bid (8am/12noon) for fatigue. She denies any history of cardiac dysrhythmias. 5.She is seeing a psychologist locally. She also has established care with a local psychiatrist who is now refilling her medications. Advance Care Planning: I did not discuss Advance Care Planning at this visit, this was done at a prior encounter. We discussed goals of care related to the patient's current health and documented this within this note. We discussed/reviewed advanced directives. Patient does not have advanced directives currently and I encouraged the patient to complete advanced directives paperwork. The patient's surrogate decision maker is spouse. Next Visit: 12 Weeks SIGNATURE: Loly Giordano MD PATIENT NAME: Jazmyne Harrison DATE: July 27, 2017 TIME: 2:34 PM PAGER/CONTACT #: [id number] Referring Provider: LOLY GIORDANO [[id number]] Allergies As of Date: 07/27/2017 (No Known Allergies) Date Reviewed: 07/27/2017 Reviewed by: Cricket (Sal) SAL Corey - Fully Assessed Reason for Visit: Established Patient [175] Visit Diagnoses:Non-small cell carcinoma of lung, stage 4, unspecified laterality (HCC) [C34.90] Bone metastases (HCC) [C79.51] Palliative care encounter [Z51.5] Cancer related pain [G89.3] Neoplastic malignant related fatigue [R53.0] Anxiety [F41.9] Depression, unspecified depression type [F32.9] Order(s):morphine SR (MS CONTIN, ORAMORPH SR) 60 mg 12 hr tabletTake 1 tablet by mouth twice daily for 30 days.Disp: 60 tabletRfl: 0 oxyCODONE IR (ROXICODONE) 30 mg immediate release tabletTake 1-2 tablets by mouth every 2 hours as needed for Pain for up to 30 days.Disp: 240 tabletRfl: 0 Disposition: Return in about 3 months (around 10/26/2017). Follow-up and Disposition History Recorded Prescriptions as of 07/27/2017 Sig: MORPHINE ER 60 MG TABLET,EXTE* Take 1 tablet by mouth twice * OXYCODONE 30 MG TABLET Take 1-2 tablets by mouth chad* ARIPIPRAZOLE 5 MG TABLET TAKE 1 TABLET BY MOUTH ONCE D* ZANTAC 75 ORAL Take by mouth twice daily. METHYLPHENIDATE 10 MG TABLET Take 1 tablet by mouth once d* DRONABINOL 5 MG CAPSULE Take 1 capsule by mouth twice* PROMETHAZINE 25 MG TABLET Take 1 tablet by mouth every * PREDNISONE 10 MG TABLET Take 1 tablet by mouth once d* ALBUTEROL SULFATE HFA 90 MCG/* Inhale 2 Puffs as instructed * PRAMIPEXOLE 1 MG TABLET TAKE 1 TABLET BY MOUTH DAILY * TRAZODONE 100 MG TABLET Take 3 tablets by mouth daily* STOOL SOFTENER ORAL Take 2 tablets by mouth at be* GABAPENTIN 300 MG CAPSULE TAKE ONE CAPSULE BY MOUTH 4 T* LORAZEPAM 0.5 MG TABLET Take 1-2 tablets PO daily PRN* BUDESONIDE-FORMOTEROL HFA 160* Inhale 1 Puff as instructed t* MUCINEX D MAXIMUM STRENGTH OR* Take by mouth as needed. SODIUM CHLORIDE 0.9% FLUSH NURSING USE ONLY: USED FOR * HEPARIN LOCK FLUSH (PORCINE) * NURSING USE ONLY: USE FOR I* Problem List As Of Date 07/27/2017 Noted Resolved Bone metastasis [C79.51] INVALID FOR* Secondary malignant neoplasm of intra-abdominal*INVALID FOR* More... Lung cancer [C34.90] INVALID FOR*06/26/2013 Lung metastases [C78.00] INVALID FOR* Examination of participant in clinical trial [Z*INVALID FOR* History of lung cancer [Z85.118] INVALID FOR* Lung cancer (HCC) [C34.90] INVALID FOR*11/04/2014 Non-small cell carcinoma of lung, stage 4 (HCC)*INVALID FOR* Malignant neoplasm of upper lobe of right lung *INVALID FOR* Malaise and fatigue [R53.81, R53.83] INVALID FOR* Family history of tobacco abuse and dependence *INVALID FOR* RLS (restless legs syndrome) [G25.81] INVALID FOR* COPD (chronic obstructive pulmonary disease) (H* Supplemental oxygen dependent [Z99.81] INVALID FOR* Port catheter in place [Z95.828] INVALID FOR* Chronic back pain [M54.9, G89.29] More... Bone pain [M89.8X9] Bone metastases (HCC) [C79.51] More... Restless leg syndrome [G25.81] Neuropathy (HCC) [G62.9] Other instructions from your clinician: Continue other medications as usual. Call your nurse, Jeannette Bradford RN, with any problems ([phone] or after hours [phone] and ask for Palliative Medicine azure principal solution specialist) Return to clinic in 3 months. Loly Giordano MD MPH CHANI FACP [facility] July 27, 2017 2:20 PM Visit Notes: >> Fondalisa (Industrial Design Engineer) SAL Corey Ada Jul 27, 2017 1:44 PM Status: Signed Additional intake questions: Has the patient had nausea, vomiting, diarrhea, constipation, fatigue for > 1 week? Nausea, Yes, Notified Fatigue, Yes, MD Notified Constipation, Yes, MD Notified Does the patient have a decreased appetite? No Does patient want to see a First Aid Attendant? No (yes to any of above refer patient to schedulers for dietitian appointment) ) Does patient have any new or increased numbness or tingling of extremities? No Is patient interested in fertility information? No Does patient need any prescription refills? Yes, LIP notified Electronically Signed By: Cricket Corey LPN Encounter Status:Closed by LOLY GIORDANO MD on 07/27/17 PROGRESS Observed: 07/18/2017 Status: COMPLETED Source: [place] 3:13 PM [facility] REPOSITORY HNO ID: [id number] Author: Nani Galaviz) Javier Service: (none) Author Type: Rn Training Type: Progress Notes Filed: 07/18/2017 3:14 PM Note Text: QUINTEN attempted to call patient to f/u regarding last session to see if she was able to make appointment with psychologist and/or attend [facility] support group. QUINTEN left voicemail for patient with call back number. CNPN Observed: 07/05/2017 Status: COMPLETED Source: [place] 12:00 AM [facility] REPOSITORY Telephone (DEEPA) JAZMYNE HARRISON ([id number]) 1970 F Date Time Provider Department 07/05/17 SHANNAN CONROY During your visit today, we recorded the following information about you: Shannan Conroy MD 07/05/2017 2:50 PM Signed Please change Nivolumab 480mg IV over 60 minutes every 4 weeks starting her next treatment. Please also notify patient about change in schedule based on manufacture recommendations for stable patient on treatment. MD Wen Robles 07/05/2017 4:39 PM Signed Left message for patient to contact office for message below. Please document and close when completed. Please inform patient that she is scheduled for treatment on 07/21 then treatment will be changed to every month instead of every 2 weeks. Aria Alarcon PSR 07/19/2017 9:04 AM Signed Patient notified. Allergies As of Date: 07/05/2017 (No Known Allergies) Date Reviewed: 07/05/2017 Reviewed by: Lyn Henning, RN, RN - Fully Assessed Reason for Visit: Treatment Planning [881] Prescriptions as of 07/05/2017 Sig: ZANTAC 75 ORAL Take by mouth twice daily. MORPHINE ER 60 MG TABLET,EXTE* Take 1 tablet by mouth twice * OXYCODONE 30 MG TABLET Take 1-2 tablets by mouth chad* METHYLPHENIDATE 10 MG TABLET Take 1 tablet by mouth once d* DRONABINOL 5 MG CAPSULE Take 1 capsule by mouth twice* PROMETHAZINE 25 MG TABLET Take 1 tablet by mouth every * PREDNISONE 10 MG TABLET Take 1 tablet by mouth once d* ALBUTEROL SULFATE HFA 90 MCG/* Inhale 2 Puffs as instructed * PRAMIPEXOLE 1 MG TABLET TAKE 1 TABLET BY MOUTH DAILY * TRAZODONE 100 MG TABLET Take 3 tablets by mouth daily* STOOL SOFTENER ORAL Take 2 tablets by mouth at be* ARIPIPRAZOLE 5 MG TABLET TAKE 1 TABLET BY MOUTH ONCE D* LORAZEPAM 0.5 MG TABLET Take 1-2 tablets PO daily PRN* BUDESONIDE-FORMOTEROL HFA 160* Inhale 1 Puff as instructed t* DRONABINOL 5 MG CAPSULE Take 1 capsule by mouth twice* MUCINEX D MAXIMUM STRENGTH OR* Take by mouth as needed. SODIUM CHLORIDE 0.9% FLUSH NURSING USE ONLY: USED FOR * HEPARIN LOCK FLUSH (PORCINE) * NURSING USE ONLY: USE FOR I* Problem List As Of Date 07/05/2017 Noted Resolved Bone metastasis [C79.51] INVALID FOR* Secondary malignant neoplasm of intra-abdominal*INVALID FOR* More... Lung cancer [C34.90] INVALID FOR*06/26/2013 Lung metastases [C78.00] INVALID FOR* Examination of participant in clinical trial [Z*INVALID FOR* History of lung cancer [Z85.118] INVALID FOR* Lung cancer (HCC) [C34.90] INVALID FOR*11/04/2014 Non-small cell carcinoma of lung, stage 4 (HCC)*INVALID FOR* Malignant neoplasm of upper lobe of right lung *INVALID FOR* Malaise and fatigue [R53.81, R53.83] INVALID FOR* Family history of tobacco abuse and dependence *INVALID FOR* RLS (restless legs syndrome) [G25.81] INVALID FOR* COPD (chronic obstructive pulmonary disease) (H* Supplemental oxygen dependent [Z99.81] INVALID FOR* Port catheter in place [Z95.828] INVALID FOR* Chronic back pain [M54.9, G89.29] More... Bone pain [M89.8X9] Bone metastases (HCC) [C79.51] More... Restless leg syndrome [G25.81] Neuropathy (HCC) [G62.9] Encounter Status:Closed by SHANNAN CONROY MD on 07/10/17 PROGRESS Observed: 06/22/2017 Status: COMPLETED Source: [place] 5:16 PM [facility] [place] REPOSITORY HNO ID: [id number] Author: Nani Galaviz) Javier Service: (none) Author Type: Rn Training Type: Progress Notes Filed: 06/22/2017 5:20 PM Note Text: Social Work Problem Referral Note INFORMATION/REFERRAL : Jazmyne Harrison 46 year old female was referred by physician - Dr. Conroy to [facility] Work for the following reason(s): psychiatric illness PERSONS INTERVIEWED: patient INTERVENTION: Individual Counseling and Information AND Referral Service Co-ordination Affect/Mood: The patient is noted as anxious IDENTIFIED PROBLEMS/NEEDS: Patient adjustment to illness Family adjustment to illness Child(bebeto)'s response to parent's diagnosis of cancer Emotional/behavioral/cognitive Intervention/Referral to be provided:Arrangements made for continuity of care Counseling provided for anxiety management IMPRESSION/PLAN: QUINTEN met with patient to discuss increased anxiety symptoms since finding out she is doing better with the cancer. Patient reports since her imaging and labs have been coming back more positive, she is worried about the ball dropping and getting bad news. Patient is currently in counseling and seeing a psychiatrist at [place], but says she doesn't click with the counselor. Patient is interested in seeing one of [facility]'s psychologist's. QUINTEN provided her with their information. QUINTEN discussed how patient has great insight and applauded patient for her attempt to find a counselor that will work well with her. QUINTEN provided supportive, active listening and also referred patient to [place], [facility] and SW's upcoming nutrition support group on August 22 here at [facility]. Patient is interested in these groups. F/U APPOINTMENT: IRON [place] PROGRESS Observed: 06/22/2017 Status: COMPLETED Source: [place] 4:56 PM [facility] RE[facility]IT[facility] HNO ID: [id number] Author: Shannan Conroy Service: (none) Author Type: Physician Type: Progress Notes Filed: 06/23/2017 8:49 AM Note Text: PATIENT NAME: Jazmyne Harrison. CLINIC NO: [id number]. ATTENDING PHYSICIAN: Shannan Conroy MD. ?? DATE OF SERVICE: 06/22/2017. DIAGNOSIS: Metastatic (adenocarcinoma) lung cancer, EGFR AND?ALK negaitve ?? HPI:? Jazmyne Harrison is a 46 year old female whith metastatic (adenocarcinoma) lung cancer. H/o tobacco abuse, COPD who presented with cough and hemoptysis 2012 in the emergency room. Her initial chest x-ray showed a right upper lobe mass. CT scan of chest and subsequent CT-guided lung biopsy revealed non-small cell (adenocarcinoma) lung cancer. ?? Patient had right sided chest pain for over a year. Initially, she thought she pulled a muscle and has been using ibuprofen for pain. She used to smoke 2 packs cigarette per day for over 20 years and recently has cut down to less than 5 cigarettes per day. Chest -ray 2 years ago showed changes consistent with COPD but no lung mass. ?? Staging workup included bone scan show a focal increased activity in the left ilium along the medial left acetabular region. X-ray of the hip showed no lytic or blastic lesion. CT scan of the abdomen showed several small lesions scattered along the left and right hepatic lobes. Otherwise no evidence of metastatic disease. MRI scan and brain also showed no metastatic disease. Patient had a left hip pain for over 2 years. ?? Subsequent PET scan revealed metastatic disease. There were increased activity in the right upper hemithorax along with additional lung nodules in the right side consistent with metastatic disease. There was activity in the mediastinum right prehilar region and bone metastasis at the level of the left acetabulum. ?? Treatment history:? Patient received Taxol/carboplatin/avastin x 4 cycles with near complete response . She was placed on maintenance and Avastin therapy and she progressed on treatment. She then had additional treatment with Avastin and Alimta x4 cycles with further progression of disease. Avastin was discontinued because of hemostasis with her last 2 cycles of chemotherapy. ?? Patient completed palliative radiation therapy to her right upper lobe because of hemostasis and severe pain.She received palliative RT to the right apex lesion 3000 cGy on February 18, 2014 with good control of symptoms. On recent re-staging CT scans, she had improvement in the radiated RUL lesion however had a new 1.8 cm lesion in the RUL. ?? Patient completed 4 cycles of Carboplatin/Abraxane ( 05/02/14- 07/18/14 ) with partial response after 2 cycles and stable disease after 4 cycles. Patient had progression disease in July and started treatment with Check-point inhibitor this year. ?? Patient has progression of her primary lung lesion late last year. Her PET scan was otherwise negative metastatic disease. She had completed palliative radiation therapy to her right upper lobe lung lesion with 2400 cGy in 8 fx in March,. ?? Current treatment:?Nivolumab since July 2014. ?? Interim history: She is tolerating Nivolumab very well. She has no nonproductive cough orincreased shortness of breathhe??Patient denies headaches, or focal neurological symptoms. She has no hip and lower back pain controlled with medications (MS Contin, oxycodone and Neurontin). She denies any problem with anxiety, but has been feeling down lately. She has further weight loss since last visit. She had several bout of bronchitis since her last visit and has been on a course of Levaquin. ?? She has chronic fatigue and occasional nausea. She past decrease Ritalin to once daily and she is sleeping better.?Her?appetite remains?stable after starting prednisone x 7 days after OPTIVA treatment. She would like to go back on Marinol for nausea and weight loss. ?? All medications AND allergies updated and reviewed by me. ?? Review of system: Appetite: Fair Energy level: Fair Denies fevers. Mouth:denies sores Resp:dry cough, denies shortness of breath or hemoptysis Cardiac:denies chest pain/palpitations GI: denied nausea, vomiting or diarrhea. :denies dysuria/hematuria Extrem:pain to left hip and both knees Neuro:foot numbness/tingling/burning-as above. Skin:denies rashes Heme:denies bleeding ?? The ROS is otherwise negative. Past medical history,medications, allergies reviewed. No changes. Modified ESAS ([place] Symptom Assessment Scale):Information Provided By: Patient Pain: Mild Nausea: None Loss of Appetite: Mild Constipation: None Shortness of Breath: None Drowsiness: None Tiredness: Mild Depression: None Anxiety: None How you feel overall: Good Other problem: None ? Palliative Performance Scale % (PPS): > or = 60 (0) Oral Intake: Normal (0) Edema: Absent (0) Dyspnea at Rest: Absent (0) Delirium: Absent (0) Palliative Prognostic Index (PPI) Total Score: 0-2 Note: The scores from each prognostic domain are added. A score of 0 to 2.0 was associated with a median survival of 90 days; score of 2.1 to 4.0 is 61 days, and score of >4.0 is 12 days. ?? EXAM:? APPEARANCE Well appearing, alert, in no acute distress, well-hydrated, thin but not cachectic Performance status 80%; BP 94/68 Pulse 66 Temp 97.9 Wt 118 lb (53.5kg) LMP 05/06/1999 HEENT: Sclerae anicteric, WNL HEART RRR with normal S1 and S2, no murmurs, no gallops, no JVD appreciated LUNG clear to auscultation, diminished breath sound the right upper lobe, scattered rales on the right lower lobe, no wheezing, LYMPH NODES No cervical lymphadenopathy, No supraclavicular lymphadenopathy and No axillary lymphadenopathy. ABDOMEN bowel sounds normoactive, no bruits, soft, non-tender, non-distended, without organomegaly or palpable masses EXTREMITIES Extremities normal, No deformities, No skin discoloration, No edema and Normal pulses bilaterally. NEURO Awake, alert and oriented x 3, Normal gait and No involuntary motions. SKIN Skin color, texture, turgor normal, no suspicious rashes or lesions ?? LABS: Component Latest Ref Rng AND Units 06/22/2017 WBC, [place] 3.70 - 11.00 k/uL 8.89 RBC, [place] 3.90 - 5.20 m/uL 4.20 Hemoglobin, [place] 11.5 - 15.5 g/dL 12.5 Hematocrit, [place] 36.0 - 46.0 % 38.6 MCV, [place] 80.0 - 100.0 fL 91.9 MCH, [place] 26.0 - 34.0 pg 29.8 MCHC, [place] 30.5 - 36.0 g/dL 32.4 RDW, [place] 11.5 - 15.0 % 13.7 Platelet Cnt, [place] 150 - 400 k/uL 232 MPV, [place] 9.0 - 12.7 fL 9.4 Absol Gran Count 1.45 - 7.50 k/uL 7.05 Component Latest Ref Rng AND Units 06/22/2017 Protein, Total 6.3 - 8.0 g/dL 7.2 Albumin 3.9 - 4.9 g/dL 4.0 Calcium 8.5 - 10.2 mg/dL 9.3 Bilirubin, Total 0.2 - 1.3 mg/dL 0.4 Alkaline Phosphatase 32 - 117 U/L 56 AST 13 - 35 U/L 20 Glucose 74 - 99 mg/dL 96 BUN 7 - 21 mg/dL 9 Creatinine 0.58 - 0.96 mg/dL 0.69 Sodium 136 - 144 mmol/L 132 (L) Potassium 3.7 - 5.1 mmol/L 4.3 Chloride 97 - 105 mmol/L 92 (L) CO2 22 - 30 mmol/L 30 Anion Gap 9 - 18 mmol/L 10 ALT 7 - 38 U/L 13 eGFR- >60 eGFR-All Other Races . >60 TSH 0.400 - 5.500 uU/mL 1.390 CXR: No significant or acute changes compared to last chest x-ray in April 2017. PHQ-4 score 1 for anxiety and 2 for depression ASSESSMENT/PLAN:? 1. Metastatic Lung cancer Metastatic non-small cell (adenocarcinoma) lung cancer; EGFR AND ALK negaitve Tolerating treatment with Nivolumab with stable disease. (CR) on?CT chest and?bone scan on March 2016.?Fatigue and weight loss secondary to her treatment. - Continue treatment with Nivolumab every 14 days x 6 - Repeat CBC, CMP, TSH and chest x-ray?OV in 3?months ?? 2. Upper back pain and hip pain with history of bone metastasis - Continue MS Contin and oxycodone and Neurontin for her pain. follow-up with palliative medicine, Dr. Giordano - Repeat bone scan only if indicated with additional or different site of bone pain 3. nausea and anorexia - Start Marinol 5mg twice daily and Phenergan as needed. - Boost- dietary supplement twice daily and monitor weight. 4. Anxiety disorder / depression - Psychotherapy in [facility] for distress management. - consider adding low-dose SSRI. I spent 25 minutes in the visit, with more than 50% of the total [id number] time of the visit in counseling / coordination of care. Shannan Conroy MD Cc: Dr. Loly Giordano ? CNOVSP Observed: 06/22/2017 Status: COMPLETED Source: [place] 4:40 PM [facility] [facility] REPOSITORY Visit (SP) Office (DEEPA) CHRISTYJAZMYNE TARIQ ([id number]) 1970 F Date Time Provider Department 06/22/17 4:40 PM SHANNAN CONROY During your visit today, we recorded the following information about you: Temperature Pulse Blood pressure Weight 97.9 degrees 66/minute 94/68 53.5 kg Barbara Martinez LPN 06/22/2017 4:37 PM Signed Est patient. Discuss recent CXR and labs. Would like a refill of Marinol. Concerned about low BP. Barbara Conroy MD 06/22/2017 4:52 PM Signed Bring in your Living Will ANDamp; DPOA. Shannan Conroy MD 06/23/2017 8:49 AM Signed PATIENT NAME: Jazmyne Harrison. CLINIC NO: [id number]. ATTENDING PHYSICIAN: Shannan Conroy MD. ?? DATE OF SERVICE: 06/22/2017. DIAGNOSIS: Metastatic (adenocarcinoma) lung cancer, EGFR ANDamp;?ALK negaitve ?? HPI:? Jazmyne Harrison is a 46 year old female whith metastatic (adenocarcinoma) lung cancer. H/o tobacco abuse, COPD who presented with cough and hemoptysis 2012 in the emergency room. Her initial chest x-ray showed a right upper lobe mass. CT scan of chest and subsequent CT-guided lung biopsy revealed non-small cell (adenocarcinoma) lung cancer. ?? Patient had right sided chest pain for over a year. Initially, she thought she pulled a muscle and has been using ibuprofen for pain. She used to smoke 2 packs cigarette per day for over 20 years and recently has cut down to less than 5 cigarettes per day. Chest -ray 2 years ago showed changes consistent with COPD but no lung mass. ?? Staging workup included bone scan show a focal increased activity in the left ilium along the medial left acetabular region. X-ray of the hip showed no lytic or blastic lesion. CT scan of the abdomen showed several small lesions scattered along the left and right hepatic lobes. Otherwise no evidence of metastatic disease. MRI scan and brain also showed no metastatic disease. Patient had a left hip pain for over 2 years. ?? Subsequent PET scan revealed metastatic disease. There were increased activity in the right upper hemithorax along with additional lung nodules in the right side consistent with metastatic disease. There was activity in the mediastinum right prehilar region and bone metastasis at the level of the left acetabulum. ?? Treatment history:? Patient received Taxol/carboplatin/avastin x 4 cycles with near complete response . She was placed on maintenance and Avastin therapy and she progressed on treatment. She then had additional treatment with Avastin and Alimta x4 cycles with further progression of disease. Avastin was discontinued because of hemostasis with her last 2 cycles of chemotherapy. ?? Patient completed palliative radiation therapy to her right upper lobe because of hemostasis and severe pain.She received palliative RT to the right apex lesion 3000 cGy on February 18, 2014 with good control of symptoms. On recent re-staging CT scans, she had improvement in the radiated RUL lesion however had a new 1.8 cm lesion in the RUL. ?? Patient completed 4 cycles of Carboplatin/Abraxane ( 05/02/14- 07/18/14 ) with partial response after 2 cycles and stable disease after 4 cycles. Patient had progression disease in July and started treatment with Check- point inhibitor this year. ?? Patient has progression of her primary lung lesion late last year. Her PET scan was otherwise negative metastatic disease. She had completed palliative radiation therapy to her right upper lobe lung lesion with 2400 cGy in 8 fx in March,. ?? Current treatment:?Nivolumab since July 2014. ?? Interim history: She is tolerating Nivolumab very well. She has no nonproductive cough orincreased shortness of breathhe??Patient denies headaches, or focal neurological symptoms. She has no hip and lower back pain controlled with medications (MS Contin, oxycodone and Neurontin). She denies any problem with anxiety, but has been feeling down lately. She has further weight loss since last visit. She had several bout of bronchitis since her last visit and has been on a course of Levaquin. ?? She has chronic fatigue and occasional nausea. She past decrease Ritalin to once daily and she is sleeping better.?Her?appetite remains?stable after starting prednisone x 7 days after OPTIVA treatment. She would like to go back on Marinol for nausea and weight loss. ?? All medications ANDamp; allergies updated and reviewed by me. ?? Review of system: Appetite: Fair Energy level: Fair Denies fevers. Mouth:denies sores Resp:dry cough, denies shortness of breath or hemoptysis Cardiac:denies chest pain/palpitations GI: denied nausea, vomiting or diarrhea. :denies dysuria/hematuria Extrem:pain to left hip and both knees Neuro:foot numbness/tingling/burning-as above. Skin:denies rashes Heme:denies bleeding ?? The ROS is otherwise negative. Past medical history,medications, allergies reviewed. No changes. Modified ESAS ([place] Symptom Assessment Scale):Information Provided By: Patient Pain: Mild Nausea: None Loss of Appetite: Mild Constipation: None Shortness of Breath: None Drowsiness: None Tiredness: Mild Depression: None Anxiety: None How you feel overall: Good Other problem: None ? Palliative Performance Scale % (PPS): ANDgt; or = 60 (0) Oral Intake: Normal (0) Edema: Absent (0) Dyspnea at Rest: Absent (0) Delirium: Absent (0) Palliative Prognostic Index (PPI) Total Score: 0-2 Note: The scores from each prognostic domain are added. A score of 0 to 2.0 was associated with a median survival of 90 days; score of 2.1 to 4.0 is 61 days, and score of ANDgt;4.0 is 12 days. ?? EXAM:? APPEARANCE Well appearing, alert, in no acute distress, well- hydrated, thin but not cachectic Performance status 80%; BP 94/68 Pulse 66 Temp 97.9 Wt 118 lb (53.5kg) LMP 05/06/1999 HEENT: Sclerae anicteric, WNL HEART RRR with normal S1 and S2, no murmurs, no gallops, no JVD appreciated LUNG clear to auscultation, diminished breath sound the right upper lobe, scattered rales on the right lower lobe, no wheezing, LYMPH NODES No cervical lymphadenopathy, No supraclavicular lymphadenopathy and No axillary lymphadenopathy. ABDOMEN bowel sounds normoactive, no bruits, soft, non-tender, non-distended, without organomegaly or palpable masses EXTREMITIES Extremities normal, No deformities, No skin discoloration, No edema and Normal pulses bilaterally. NEURO Awake, alert and oriented x 3, Normal gait and No involuntary motions. SKIN Skin color, texture, turgor normal, no suspicious rashes or lesions ?? LABS: Component Latest Ref Rng ANDamp; Units 06/22/2017 WBC, [place] 3.70 - 11.00 k/uL 8.89 RBC, [place] 3.90 - 5.20 m/uL 4.20 Hemoglobin, [place] 11.5 - 15.5 g/dL 12.5 Hematocrit, [place] 36.0 - 46.0 % 38.6 MCV, [place] 80.0 - 100.0 fL 91.9 MCH, [place] 26.0 - 34.0 pg 29.8 MCHC, [place] 30.5 - 36.0 g/dL 32.4 RDW, [place] 11.5 - 15.0 % 13.7 Platelet Cnt, [place] 150 - 400 k/uL 232 MPV, [place] 9.0 - 12.7 fL 9.4 Absol Gran Count 1.45 - 7.50 k/uL 7.05 Component Latest Ref Rng ANDamp; Units 06/22/2017 Protein, Total 6.3 - 8.0 g/dL 7.2 Albumin 3.9 - 4.9 g/dL 4.0 Calcium 8.5 - 10.2 mg/dL 9.3 Bilirubin, Total 0.2 - 1.3 mg/dL 0.4 Alkaline Phosphatase 32 - 117 U/L 56 AST 13 - 35 U/L 20 Glucose 74 - 99 mg/dL 96 BUN 7 - 21 mg/dL 9 Creatinine 0.58 - 0.96 mg/dL 0.69 Sodium 136 - 144 mmol/L 132 (L) Potassium 3.7 - 5.1 mmol/L 4.3 Chloride 97 - 105 mmol/L 92 (L) CO2 22 - 30 mmol/L 30 Anion Gap 9 - 18 mmol/L 10 ALT 7 - 38 U/L 13 eGFR- ANDgt;60 eGFR-All Other Races . ANDgt;60 TSH 0.400 - 5.500 uU/mL 1.390 CXR: No significant or acute changes compared to last chest x-ray in April 2017. PHQ-4 score 1 for anxiety and 2 for depression ASSESSMENT/PLAN:? 1. Metastatic Lung cancer Metastatic non-small cell (adenocarcinoma) lung cancer; EGFR ANDamp; ALK negaitve Tolerating treatment with Nivolumab with stable disease. (CR) on?CT chest and?bone scan on March 2016.?Fatigue and weight loss secondary to her treatment. - Continue treatment with Nivolumab every 14 days x 6 - Repeat CBC, CMP, TSH and chest x-ray?OV in 3?months ?? 2. Upper back pain and hip pain with history of bone metastasis - Continue MS Contin and oxycodone and Neurontin for her pain. follow-up with palliative medicine, Dr. Giordano - Repeat bone scan only if indicated with additional or different site of bone pain 3. nausea and anorexia - Start Marinol 5mg twice daily and Phenergan as needed. - Boost- dietary supplement twice daily and monitor weight. 4. Anxiety disorder / depression - Psychotherapy in [place] - Social service for distress management. - consider adding low-dose SSRI. I spent 25 minutes in the visit, with more than 50% of the total [id number] time of the visit in counseling / coordination of care. Shannan Conroy MD Cc: Dr. Loly Giordano ? Referring Provider: SHANNAN CONROY [[id number]] Allergies As of Date: 06/22/2017 (No Known Allergies) Date Reviewed: 06/22/2017 Reviewed by: Kat Horton, SUHAS, RN - Fully Assessed Reason for Visit: Established Patient [175] Primary Visit Diagnosis:Nausea [R11.0] Other Visit Diagnoses:Non-small cell carcinoma of lung, stage 4, unspecified laterality (HCC) [C34.90] Malaise and fatigue [R53.81, R53.83] Anoxia [R09.02] Order(s):methylphenidate (RITALIN) 10 mg tabletTake 1 tablet by mouth once daily for 30 days. (8am/12noon)Disp: 30 tabletRfl: 0 dronabinol (MARINOL) 5 mg capsuleTake 1 capsule by mouth twice daily before meals for 30 days.Disp: 60 capsuleRfl: 0 Level of Service: EST PATIENT VISIT LEVEL 4 [[id number]] Disposition: Return in about 3 months (around 09/22/2017). LOS history recorded Follow-up and Disposition History Recorded Prescriptions as of 06/22/2017 Sig: MORPHINE ER 60 MG TABLET,EXTE* Take 1 tablet by mouth twice * OXYCODONE 30 MG TABLET Take 1-2 tablets by mouth chad* METHYLPHENIDATE 10 MG TABLET Take 1 tablet by mouth once d* PROMETHAZINE 25 MG TABLET Take 1 tablet by mouth every * PREDNISONE 10 MG TABLET Take 1 tablet by mouth once d* ALBUTEROL SULFATE HFA 90 MCG/* Inhale 2 Puffs as instructed * PRAMIPEXOLE 1 MG TABLET TAKE 1 TABLET BY MOUTH DAILY * TRAZODONE 100 MG TABLET Take 3 tablets by mouth daily* STOOL SOFTENER ORAL Take 2 tablets by mouth at be* GABAPENTIN 300 MG CAPSULE TAKE ONE CAPSULE BY MOUTH 4 T* ARIPIPRAZOLE 5 MG TABLET TAKE 1 TABLET BY MOUTH ONCE D* LORAZEPAM 0.5 MG TABLET Take 1-2 tablets PO daily PRN* BUDESONIDE-FORMOTEROL HFA 160* Inhale 1 Puff as instructed t* MUCINEX D MAXIMUM STRENGTH OR* Take by mouth as needed. SODIUM CHLORIDE 0.9% FLUSH NURSING USE ONLY: USED FOR * HEPARIN LOCK FLUSH (PORCINE) * NURSING USE ONLY: USE FOR I* DRONABINOL 5 MG CAPSULE Take 1 capsule by mouth twice* Medication notes this encounter METHYLPHENIDATE 10 MG TABLET >> Barbara Martinez LPN 06/22/2017 4:29 PM >> BARBARA MARTINEZ LPN [place] Jun 22, 2017 4:29 PM Takes once a day BUPROPION HCL 75 MG TABLET >> Barbara Martinez LPN 06/22/2017 4:29 PM >> BARBARA MARTINEZ LPN [place] Jun 22, 2017 4:29 PM discontinued Problem List As Of Date 06/22/2017 Noted Resolved Bone metastasis [C79.51] INVALID FOR* Secondary malignant neoplasm of intra-abdominal*INVALID FOR* More... Lung cancer [C34.90] INVALID FOR*06/26/2013 Lung metastases [C78.00] INVALID FOR* Examination of participant in clinical trial [Z*INVALID FOR* History of lung cancer [Z85.118] INVALID FOR* Lung cancer (HCC) [C34.90] INVALID FOR*11/04/2014 Non-small cell carcinoma of lung, stage 4 (HCC)*INVALID FOR* Malignant neoplasm of upper lobe of right lung *INVALID FOR* Malaise and fatigue [R53.81, R53.83] INVALID FOR* Family history of tobacco abuse and dependence *INVALID FOR* RLS (restless legs syndrome) [G25.81] INVALID FOR* COPD (chronic obstructive pulmonary disease) (H* Supplemental oxygen dependent [Z99.81] INVALID FOR* Port catheter in place [Z95.828] INVALID FOR* Chronic back pain [M54.9, G89.29] More... Bone pain [M89.8X9] Bone metastases (HCC) [C79.51] More... Restless leg syndrome [G25.81] Neuropathy (HCC) [G62.9] Other instructions from your clinician: Bring in your Living Will AND DPOA. Visit Notes: >> Barbara Martinez LPN [place] Jun 22, 2017 4:30 PM Status: Signed Est patient. Discuss recent CXR and labs. Would like a refill of Marinol. Concerned about low BP. Barbara Martinez LPN Encounter Status:Closed by SHANNAN CONROY MD on 06/23/17 COMP METABOLIC PANEL Collected: 06/22/2017 Status: F Source: [place] 4:28 PM [facility] REPOSITORY TYPE CODE TESTS RESULT OUT OF REFERENCE UNITS RANGE LAB TP 6.3-8.0 g/dL Protein, Total 7.2 LAB ALB 3.9-4.9 g/dL Albumin 4.0 LAB CA 8.5-10.2 mg/dL Calcium, Total 9.3 LAB TBIL 0.2-1.3 mg/dL Bilirubin, Total 0.4 LAB ALKP 32-117 U/L Alkaline Phosphatase 56 LAB AST 13-35 U/L AST 20 LAB GLU 74-99 mg/dL Glucose 96 Result Comment: The [place] [employer] Association (ADA) provides guidance for cutoff values for fasting glucose and random glucose. The ADA defines fasting as no caloric intake for at least 8 hours. Fas ting plasma glucose results between 100 to 125 mg/dL indicate increased risk for diabetes (prediabetes). Fasting plasma glucose results greater than or equal to 126 mg/dL meet the criteria for diagnosis of diabetes. In the absence of unequivocal hyperglycemia, results should be confirmed by repeat testing. In a patient with classic symptoms of hyperglycemia or hyperglycemic crisis, random plasma glucose results greater than or equal to 200 mg/dL meet the criteria for diagnosis of diabetes. Reference: Standards of Medical Care in Diabetes 2016, [place] [employer] Association. Diabetes Care. 2016.39(Suppl 1). LAB BUN 7-21 mg/dL BUN 9 LAB CRET 0.58-0.96 mg/dL Creatinine 0.69 LAB NA 136-144 mmol/L Sodium Low 132 LAB K 3.7-5.1 mmol/L Potassium 4.3 LAB CL 97-105 mmol/L Chloride Low 92 LAB CO2 22-30 mmol/L CO2 30 LAB AGAP 9-18 mmol/L Anion Gap 10 LAB ALT 7-38 U/L ALT 13 LAB GFRAA eGFR- Amer. >60 LAB GFRNAA . eGFR-All Other Races >60 Result Comment: eGFR (Estimated GFR) Units of measure: mL/min/1.73 meters squared eGFR is derived from the reexpressed MDRD Study equation using the following parameters: serum creatinine, age, gender and race. The creatinine assay has been calibrated to be traceable to IDMS. An eGFR <60 mL/min/1.73m2 for >3 months is consistent with chronic kidney disease. Refer to KDOQI guidelines for clinical interpretation. In patients with unstable renal function, e.g. those with acute kidney injury, the eGFR may not accurately reflect actual GFR. Performed By: #### CMP, TSH #### [facility] [address] [place], [place] [address] TSH Collected: 06/22/2017 Status: F Source: [place] 4:28 PM [facility] REPOSITORY TYPE CODE TESTS RESULT OUT OF RANGE REFERENCE UNITS LAB TSH 0.400-5.500 uU/mL TSH 1.390 Result Comment: If the patient is , TSH reference range varies by gestational period: First Trimester 0.100-2.500 uU/mL Second Trimester 0.200-3.000 uU/mL Third Trimester 0.300-3.000 uU/mL References: 1. Susan Peresvich M, Zana EK, et al. Management of Thyroid Dysfunction during and : An Endocrine Society Clinical Practice Guideline. J Clin Endocrinol Metab, 2012:97:1090-8487. 2. [place] ALLISON. Overview of thyroid disease in . UpToDate. 2016. Accessed on October 09, 2015. Performed By: #### CMP, TSH #### [facility] [address] [place] [id number] [place] ABS GR + CBC Collected: 06/22/2017 Status: F Source: [place] 4:27 PM [facility] REPOSITORY TYPE CODE TESTS RESULT OUT OF REFERENCE UNITS RANGE LAB WWBC 3.70-11.00 k/uL [place] WBC 8.89 LAB WRBC 3.90-5.20 m/uL [place] RBC 4.20 LAB WHGB 11.5-15.5 g/dL [place] Hemoglobin 12.5 LAB WHCT 36.0-46.0 % [place] Hematocrit 38.6 LAB WMCV 80.0-100.0 fL [place] MCV 91.9 LAB WMCH 26.0-34.0 pg [place] MCH 29.8 LAB WMCHC 30.5-36.0 g/dL [place] MCHC 32.4 LAB WRDW 11.5-15.0 % [place] RDW 13.7 LAB WPLT 150-400 k/uL [place] Platelet Cnt 232 LAB WMPV 9.0-12.7 fL [place] MPV 9.4 Result Comment: Test performed by: [facility] [place], [address] [place] [address]. LAB ABGRAN 1.45-7.50 k/uL Absol Gran 7.05 Count XR CHEST 2V FRONTAL/LAT Observed: 06/22/2017 Status: F Source: [place] 4:13 PM [facility] REPOSITORY * * *Final Report* * * DATE OF EXAM: Jun 22 2017 4:13PM WRX [id number] - XR CHEST 2V FRONTAL/LAT / PROCEDURE REASON: Malignant neoplasm of upper lobe, right bronchus or lung * * * * Physician Interpretation * * * * EXAMINATION: CHEST RADIOGRAPH (2 VIEW FRONTAL and LATERAL) Clinical History: Malignant neoplasm of upper lobe, right bronchus or lung MQ: XC2_4 Comparison: 04/27/2017 RESULT: Lines, tubes, and devices: Right Mediport unchanged. Lungs and pleura: Opacity RIGHT apex with central air-fluid level grossly unchanged. Associated elevation RIGHT hilum. There is diaphragmatic flattening and widening of the AP diameter of the chest with upper lung hyperlucency consistent with emphysema. Stable 3 to 6 mm density overlying LEFT upper chest and anterior aspect LEFT sixth rib. Cardiomediastinal silhouette: Normal cardiomediastinal silhouette. Other: None IMPRESSION: Stable findings Psychology Technician: PSCB Transcribe Date/Time: Jun 22 2017 4:54P Dictated by : JOSÉ MIGUEL GATES MD This examination was interpreted and the report reviewed and electronically signed by: JOSÉ MIGUEL GATES MD on Jun 22 2017 4:57PM EST [id number] Observed: 06/22/2017 Status: COMPLETED Source: [place] 4:06 PM [facility] REPOSITORY HNO ID: [id number] Author: Dee Wei (Rt) George Phelps Service: (none) Author Type: [employer] Type: Progress Notes Filed: 06/22/2017 4:13 PM Note Text: Radiology Service Progress Note PATIENT NAME: Jazmyne Harrison DATE OF SERVICE: June 22, 2017 TIME: 4:06 PM PATIENT IDENTITY VERIFICATION COMPLETED USING TWO (2) METHODS: Patient confirmed name verbally and Date of . PATIENT GENDER DATA: Female. status: : No status: NO. PATIENT RELEVANT IMPLANT DATA REVIEWED: Not Applicable RADIOLOGY DEPARTMENT: General X-ray: Exam(s) Completed: Chest X-Ray PERIPHERAL IV DATA: Not applicable SIGNED BY: RT Demetria June 22, 2017 4:06 PM CNSW Observed: 06/22/2017 Status: COMPLETED Source: [place] 12:00 AM [facility] REPOSITORY Social Work (HEMAWS) CHRISTYJAZMYNE ([id number]) 1970 F Date Time Provider Department 06/22/17 NANI MARTI (SW) During your visit today, we recorded the following information about you: IRON Villafana 06/22/2017 5:20 PM Signed Sensitive Note Social Work Problem Referral Note INFORMATION/REFERRAL : Jazmyne Harrison 46 year old female was referred by physician - Dr. Conroy to [facility] for the following reason(s): psychiatric illness PERSONS INTERVIEWED: patient INTERVENTION: Individual Counseling and Information ANDamp; Referral Service Co-ordination Affect/Mood: The patient is noted as anxious IDENTIFIED PROBLEMS/NEEDS: Patient adjustment to illness Family adjustment to illness Child(bebeto)'s response to parent's diagnosis of cancer Emotional/behavioral/cognitive Intervention/Referral to be provided:Arrangements made for continuity of care Counseling provided for anxiety management IMPRESSION/PLAN: SW met with patient to discuss increased anxiety symptoms since finding out she is doing better with the cancer. Patient reports since her imaging and labs have been coming back more positive, she is worried about ANDquot;the ball droppingANDquot; and getting bad news. Patient is currently in counseling and seeing a psychiatrist at [facility], but says she doesn't ANDquot;clickANDquot; with the counselor. Patient is interested in seeing one of [facility]'s psychologist's. QUINTEN provided her with their information. QUINTEN discussed how patient has great insight and applauded patient for her attempt to find a counselor that will work well with her. QUINTEN provided supportive, active listening and also referred patient to [facility] and QUINTEN's upcoming nutrition support group on August 22 here at [facility]. Patient is interested in these groups. F/U APPOINTMENT: IRON Lawler LISW 07/18/2017 3:14 PM Signed Sensitive Note QUINTEN attempted to call patient to f/u regarding last session to see if she was able to make appointment with psychologist and/or attend [facility] support group. QUINTEN left voicemail for patient with call back number. Allergies As of Date: 06/22/2017 (No Known Allergies) Date Reviewed: 06/22/2017 Reviewed by: Kat Horton, RN, RN - Fully Assessed Reason for Visit: Social Work Services [507] Prescriptions as of 06/22/2017 Sig: MORPHINE ER 60 MG TABLET,EXTE* Take 1 tablet by mouth twice * OXYCODONE 30 MG TABLET Take 1-2 tablets by mouth chad* METHYLPHENIDATE 10 MG TABLET Take 1 tablet by mouth once d* DRONABINOL 5 MG CAPSULE Take 1 capsule by mouth twice* PROMETHAZINE 25 MG TABLET Take 1 tablet by mouth every * PREDNISONE 10 MG TABLET Take 1 tablet by mouth once d* ALBUTEROL SULFATE HFA 90 MCG/* Inhale 2 Puffs as instructed * PRAMIPEXOLE 1 MG TABLET TAKE 1 TABLET BY MOUTH DAILY * TRAZODONE 100 MG TABLET Take 3 tablets by mouth daily* STOOL SOFTENER ORAL Take 2 tablets by mouth at be* GABAPENTIN 300 MG CAPSULE TAKE ONE CAPSULE BY MOUTH 4 T* ARIPIPRAZOLE 5 MG TABLET TAKE 1 TABLET BY MOUTH ONCE D* LORAZEPAM 0.5 MG TABLET Take 1-2 tablets PO daily PRN* BUDESONIDE-FORMOTEROL HFA 160* Inhale 1 Puff as instructed t* DRONABINOL 5 MG CAPSULE Take 1 capsule by mouth twice* MUCINEX D MAXIMUM STRENGTH OR* Take by mouth as needed. SODIUM CHLORIDE 0.9% FLUSH NURSING USE ONLY: USED FOR * HEPARIN LOCK FLUSH (PORCINE) * NURSING USE ONLY: USE FOR I* Problem List As Of Date 06/22/2017 Noted Resolved Bone metastasis [C79.51] INVALID FOR* Secondary malignant neoplasm of intra-abdominal*INVALID FOR* More... Lung cancer [C34.90] INVALID FOR*06/26/2013 Lung metastases [C78.00] INVALID FOR* Examination of participant in clinical trial [Z*INVALID FOR* History of lung cancer [Z85.118] INVALID FOR* Lung cancer (HCC) [C34.90] INVALID FOR*11/04/2014 Non-small cell carcinoma of lung, stage 4 (HCC)*INVALID FOR* Malignant neoplasm of upper lobe of right lung *INVALID FOR* Malaise and fatigue [R53.81, R53.83] INVALID FOR* Family history of tobacco abuse and dependence *INVALID FOR* RLS (restless legs syndrome) [G25.81] INVALID FOR* COPD (chronic obstructive pulmonary disease) (H* Supplemental oxygen dependent [Z99.81] INVALID FOR* Port catheter in place [Z95.828] INVALID FOR* Chronic back pain [M54.9, G89.29] More... Bone pain [M89.8X9] Bone metastases (HCC) [C79.51] More... Restless leg syndrome [G25.81] Neuropathy (HCC) [G62.9] Encounter Status:Closed by NANI MARTI on 06/22/17 IA - INDIVIDUAL Observed: 06/19/2017 Status: F Source: [place] [facility] 7:[address] 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, BS PCP: Jarod Mack MD Exercise - 30-Day Assessment - Exercise Prescription Mode:: Treadmill, Airdyne, NuStep, Arm Ergometer Frequency (x/week): 3 Duration:: 30 Aerobic Exercise [30-60 min 3-7x/week]:: Progressing Target heart rate: 106 - THRR 106-114 Chen MET Level:: 3 - Home Exercise Home Exercise:: No Disease Management - 30-Day - Hypoxemia Reassessment: Demonstrates knowledge of O2 Rx at rest, Demonstrates knowledge of O2 Rx with exercise, Using O2 as prescribed, Has home O2 as prescribed, Uses port O2 as prescribed - Medications Medication list reviewed:: Yes Taking medications 100% of the time:: Met Medication reassessment: Yes Pt demonstrates correct technique timing for MDI, Yes Pt demonstrates correct technique timing for DPI, Yes Pt demonstrates correct technique timing for NEB, Yes Pt demonstrates correct technique timing for spacer Psychosocial - 30-Day - Assessment Reassessment: Practicing interventions Tobacco - 30-Day Assessment - Program Goals Tobacco Program Goals: Complete smoking cessation. Attend education classes. Improve Knowledge Test score - Stage of Change Stages of Change:: Action - Learning Barriers Learning Barriers: Participates in education - Family Support Do you have family support?: Yes - Tobacco Use Tobacco Use: Non-smoker Do you use smokeless tobacco?: No - Intervention Smoking Cessation Referral:: No Individual Education/Counseling:: No Education Schedule Given:: Yes - Education Gave Education Materials For:: Pulmonary Disease, Risk Factors, Breathing Techniques, Medical Compliance, Pulmonary A AND P, Exacerbation Signs AND Symptoms, Stress AND Relaxation Nutrition/Wt Mgmt - 30-Day - Weight Management Weight Assessment:: Wt loss 1-2 lbs per week Weight:: 52.844 kg - loss of additional 6 pounds. Weight Goals Progress:: Not progressing Patient Health Questionnaire 30-Day Re-eval Assessment 1. Little interest or pleasure in doing things: More than half the days 2. Feeling down, depressed, or hopeless: Several days 3. Trouble falling or staying asleep, or sleeping too much: Several days 4. Feeling tired or having little energy: More than half the days 5. Poor appetite or overeating: More than half the days 6. Feeling bad about yourself -- or that you are a failure or have let yourself or your family down: Several days 7. Trouble concentrating on things, such as reading the newspaper or watching television: Nearly every day 8. Moving or speaking so slowly that other people could have noticed. Or the opposite - being so fidgety or restless that you have been moving around a lot more than usual: More than half the days 9. Thoughts that you would be better off , or of hurting yourself in some way: Not at all How difficult have these problems made it for you to do your work, take care of things at home, or get along with other people?: Very difficult Total Score: 14 COPD Assessment Test [CAT] - Questions Never cough = 0, Cough all the time = 5: 4 No phlegm = 0, Chest full of phlegm = 5: 4 No chest tightness = 0, Chest very tight = 5: 3 No breathless w/exertion = 0, Very breathless w/exertion = 5: 5 No limitations w/activity = 0, Very limited w/activity = 5: 5 Confident leaving home = 0, Not at all confident = 5: 3 Sleep soundly = 0, Don't sleep soundly = 5: 3 Lots of energy = 0, No energy at all = 5: 5 Total CAT score:: 32 Self-Efficacy 30-Day Re-eval Assessment We would like to know how confident you are in doing certain activities. Please select your confidence level for:: Select your confidence level for the following using the scale 1-10 where 1 is not at all confident and 10 is totally confident. Your score is the average of all 6 responses. Fatigue: How confident are you that you can keep the fatigue caused by your disease from interfering with the things you want to do? Select Number: 2 Physical Discomfort or Pain: How confident are you that you can keep the physical discomfort or pain of your disease from interfering with the things you want to do? Select Number: 4 Emotional Distress: How confident are you that you can keep the emotional distress caused by your disease from interfering with the things you want to do? Select Number: 6 Other Symptoms or Health Problems: How confident are you that you can keep other symptoms or health problems from interfering with the things you want to do? Select Number: 5 Different Tasks and Activities: How confident are you that you can do the different tasks and activities needed to manage your health condition so as to reduce your need to see a doctor? Select Number: 4 Medication: How confident are you that you can do things other than just taking medication to reduce how much your illness affects your everyday life? Select Number: 7 Total Score:: 4 06/19/17 1505 <Electronically signed by Aj Oconnor CRT, RCP, BS> Date Aj Oconnor CRT, RCP, BS Outcome assessment reviewed. Exercise plan approved as documented. Treatment plan and goals support patient needs/abilities. Continue with current plan. I certify the patient demonstrates improvement and remains willing and capable of participation. the patient continues to benefit from pulmonary services/training. The patient may continue at current intensity, endurance and modality and progress per protocol. 06/19/17 190<Electronically signed by Vahid Benitez MD> [facility] Signature: Date Vahid Benitez MD CC: Signed [place] - HISTORY AND Observed: 06/12/2017 Status: F Source: [place] [facility] 6:[address] 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 Pola Vee Primary Diagnosis: COPD, Bronchiectasis, tobacco dependence in remission, metastatic lung CA History of Present Illness: The patinet is a 46/Female under the care of Dr. Pola Vee who has evidence of advanced stage COPD. The patient aslo has history of bronchiectasis, metastatic primary lung cancer with a history of tobacco dependence in remission. mMRC Breathless Scale: When is the patient short of breath? Y/N Grade: Description of Breathlessness: Respiratory Problems: Yes: Retain Secretions, Fatigue, Wheezing, Able to Speak in Full Sentences, Dyspnea at Rest, Dyspnea with Activity, Cough with Secretions No: Dizziness, Dyspnea Lying Down Flat - Secretions Normal Color:: dark green typically white Thick:: Yes Thin:: No Amount/Day:: 1 TSP - typically white to no color, hard to get up. Going to see Dr after this appointment. Cough:: Yes A.T.C.: Yes Sleep Disorder Evaluation: EPWORTH SLEEPINESS SCALE 0 = NO chance of dozing 2 = MODERATE chance of dozing 1 = SLIGHT chance of dozing 3 = HIGH chance of dozing : SITUATION: CHANCE OF DOZING: Sitting and Reading Watching TV Sitting inactive in a public place (i.e. Movies) As a passenger in a car for an hour without a break Lying down to rest in the afternoon when permitted Total Equals: 1-6 = Adequate Sleep 7-8 = Average > 9 = Sleep Study/Consult Indicated Past Medical History Past Medical History: Cancer - metastatic primary lung cancer, , Emphysema, Hypoxia, - - bronchiectasis, abnormal chest CT, dyspnea, non small cell, adenocardcinoma, unintentional weight loss, tobacco dependence in remission, nocturnal hypoxia, hypersomnia, acute and chronic respiratory failure with hypoxia, borderline elevated troponin, Surgical History: hysterectomy - 1998, - - D AND C resolved, port placement, Additional Family History: Grandfather, Uncle and father all had lung, bone, and lymphoma. - Social History Marital Status: - living with significant other 15 years. Assistive Devices:: none; have a wheelchair will take out for long trips. Fall history:: none Interest/Hobbies:: abigail, cross-stich, once cancer started lose eye sight and difficult Transportation Needs:: own Alcohol:: No Drugs:: No Employment:: Disabilty Smoking Status: Former smoker Quit Smoking Since: almost 2 years Packs per day: 3 Years Smoked: 30 - Living Arrangement Patient lives with other person(s) in the home:: AROUND THE CLOCK Social History - Smoking History Smoking Status: Former smoker Years Smokin Packs Smoked per Day: 2.5 Hx Smoking Cessation Date: 1 year Hx Tobacco Use: Yes Hx Smoking Exposure: No - Alcohol Use Alcohol Usage: No - Substance Abuse Hx Substance Use: No - Occupation Occupation (List type of work in comments):: Unemployed - disability - Hobbies, Recreation, Social Activities Hobbies: Sewing, Reading Recreational Activities: I am able to engage in a few activities Medications AND Vaccination Info Home Medications: Ambulatory Orders Aripiprazole [Abilify] 5 mg PO QHS 03/03/16 Dronabinol [Marinol] 5 mg PO BID PRN PRN 03/03/16 Gabapentin [Neurontin] 300 mg PO 4X/DAY 03/03/16 Guaifenesin [Mucinex] 1,200 mg PO DAILY PRN PRN 03/03/16 Morphine Sulfate [Morphine Sulfate ER] 60 mg PO BID 03/03/16 Oxycodone [Oxyir] 30 mg PO TID PRN PRN 03/03/16 Pramipexole Di-HCl [Mirapex] 1 mg PO QHS 03/03/16 ProMETHAzine [Phenergan] 25 mg PO PRN PRN 03/03/16 Trazodone HCl 200 mg PO QHS 03/03/16 BuPROPion [Wellbutrin] 75 mg PO BID #60 tab 03/06/16 Fluticasone 0.05% [Flonase Nasal [place]] 1 spray NASAL BID #1 bottle 03/06/16 Lorazepam [Ativan] 0.5 mg PO DAILY PRN #0 03/06/16 Nebulizer and Compressor [Portable Nebulizer System] 1 ea MC Q2H PRN PRN #1 ea 03/06/16 methylphenidate 10 mg tablet 10 mg PO QAM AND QPM 04/12/17 prednisone 10 mg tablet 10 mg PO QDAY #30 tab 04/12/17 albuterol sulfate 2.5 mg/3 mL (0.083 %) solution for nebulization 2.5 mg INHALATION Q4H PRN #360 ml 04/25/17 albuterol sulfate HFA 90 mcg/actuation aerosol inhaler 2 puff INHALATION Q6H PRN #1 device 05/17/17 budesonide-formoterol HFA 160 mcg-4.5 mcg/actuation aerosol inhaler 2 inh INHALATION Q12H #10.2 g 05/17/17 tiotropium bromide 2.5 mcg/actuation mist for inhalation 2 puff INHALATION QDAY #1 device 05/17/17 Do you use a peak flow meter at home?: No Do you use a spacer device with your inhalers?: No Number of hospital visits in the last year?: 1 Reason for hospital visits: RESP INF-PNUEM,BRONCHITIS - in for 5 days, OTHER RESP PROBLEMS Do you see your physician on a regular schedule?: Yes How often?: monthly; oncologist twice monthly Has adequate access AND meets healthcare needs?: Yes - Drug Regimen Review Indication of potential clinical significant med issues (drug reactions, ineffective therapy, side effects, interactions, duplicate therapy, omissions, dose errors, or non-compliance)?: No problems found during review Was a physician or the physican designee contacted within one calendar day to resolve clinically significant medication issues, including reconcilitation?: No Review of Systems Constitutional: Denies: Chills, Fever, Weight Change HEENT: Denies: Head Aches, Sinus Congestion, Sinus Drainage Cardiovascular: Denies: Chest Pain, Palpitations Respiratory: Reports: Shortness of Breath, Shortness of breath at rest, Shortness of breath upon exertion, Wheezing. Denies: Cough, Sputum production Musculoskeletal: Reports: - - body aches, left hip where tumor was located.. Denies: Joint Pain, Joint Tenderness Skin: Denies: Rash, Wounds Neurological: Reports: Blurred vision. Denies: Focal weakness, Numbness, Tingling Psychiatric: Reports: Anxiety, Depression. Denies: Homicidal Ideations, Suicidal Ideations Advanced Directives - Advanced Directives Power of Elementary School Professional: No Living Will: No Advance Directives Information Provided: Yes Advance Directives on File: No DNR Order?:: No Coping/Social Support/Other - Abuse and Neglect Do you feel safe in your surroundings?:: YES Are there sign/symptoms of abuse?: No Has anyone physically or mentally abused you?: No Has anyone threatened to harm you in any way?: No Been asked to sign a document that you don't understand?: No - Exacerbation History Number of Exacerbations in a year:: 3 Recent exposure to illness?: No Known carrier?: No Number of Infections per year?: 3 Antibiotic Taken:: Yes I know I have an infection when:: Patient is able to verbalize signs and symptoms. - Nutrition Risk Factor Are you on a special diet?: Yes Diff. chewing/swallowing:: No Have you had a change in your weight?: Yes Amount lost:: 7 to 10 pound Physical Exam - Vital Signs Temperature: 98.7 F Pulse Rate: 84 Respiratory Rate: 18 Pulse Ox at rest: 95 Blood Pressure: 102/60 Nailbeds:: pink Height: 6 ft Weight:: 55.338 kg Weight Source: Standing Scale Body Mass Index (BMI): 16.5 - Physical Exam General: Alert, Oriented x3, Cooperative Neck: Supple, No JVD, Negative Carotid Bruits, Negative Hepatojugular Reflux Lungs: Clear to auscultation, Normal air movement Cardiovascular: Regular rate, Regular Rhythm, No murmurs Extremities: No clubbing, No cyanosis, No edema, Capillary Refill Less than 3 Seconds Musculoskeletal: No Tenderness to Palpation of Joints or Extremities Psych/Mental Status: Normal Affect, Appropriate - Pain Is Patient Pain Free?: Yes Pain Location: back Pain Level: 5/10 - forgot to take medications before driving today. 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 In other words, what do you hope to get out of participating in the program?: breathing better, correct breathing, increase stamina Do you have a spouse or signficant other, family or friends who will help support you to complete the program?: yes Diagnostic Data Review - Lab Results Hematology/Chemistry: [facility] EHR - Diagnostic and Imaging Results CXR:: [facility] - 6 Minute Walk Test 6 Minute Walk Test: [facility] - Pulmonary Function Test FEV1:: 0 - 38% predicted FVC:: 0 - 08/17/2016 Gold Classification: Gold class IV(very severe COPD)with FEV1/FVC <70, FEV1 <30% predicted Functioning ADL/IADL - Functional Capacity ADL/IADL GROOMING: Current ability to tend safely to personal hygiene needs (i.e., washing face/hands, hair care, shaving or make up, teeth or denture care, fingernail care).: Able to groom self unaided, w/ or w/o the use of assistive devices. Current ABILITY TO DRESS UPPER BODY safely (with or w/out dressing aids) including undergarments, pullovers, front-opening shirts AND blouses, managing zippers, buttons, AND snaps:: Gets clothes out, puts on, and removes from upper body w/o assist. Current ABILITY TO DRESS LOWER BODY safely (with or w/out dressing aids) including undergarments, slacks, socks or nylons, shoes:: Able to obtain, put on, AND remove clothing and shoes w/out assistance. Bathing: Current ability to wash entire body safely. EXCLUDES grooming (washing face, washing hands and shampooing hair): Uses device to bathe independently in tub/shower, incl getting in AND out TOILET TRANSFERRING: Current ability to get to AND from the toilet/BSC safely and transfer on AND off toilet/commode.: Gets to AND from toilet, transfers independently w/ or w/o a device. TOILETING HYGIENE: Current ability to maintain perineal hygiene safely, adjust clothes and/or incontinence pads before AND after using toilet, commode, bedpan, urinal. If managing ostomy, includes cleaning: Manages toileting hygiene AND clothing management w/out assist TRANSFERRING: Current ability to move safely from bed to chair, or ability to turn and position self in bed if patient is bedfast.: Able to independently transfer. AMBULATION/LOCOMOTION: Current ability to walk safely, once in a standing position, or use wheelchair, once in a seated position, on a variety of surfaces.: Able to IND walk on even/uneven surface AND use stairs with or w/o railing FEEDING or EATING: Current ability to feed self meals and snacks safely. NOTE: This refers only to the process of eating, chewing and swallowing, not preparing the food to be eaten.: Able to independently fee ABILITY TO PLAN AND PREPARE MEALS: (e.g., cereal, sandwich) or reheat delivered meals safely.: IND prepare light meals/reheat delvrd meals/Or can but hasn't done so. ABILITY TO USE TELEPHONE: Current ability to answer the phone safely, including dialing numbers, and effectively using the telephone to communicate.: Able to dial numbers and answer calls appropriately and as desired. - Pt Functioning Prior to Problem Self-Care (e.g.,grooming, dressing, AND bathing): INDEPENDENT Ambulation: INDEPENDENT Transfer: INDEPENDENT Household tasks (e.g., light meal prep, laundry, shopping): INDEPENDENT 06/07/17 1354 <Electronically signed by Aj Oconnor CRT, GAVI, BS> Date Aj Oconnor CRT, RCP, BS Outcome assessment reviewed. Exercise plan approved as documented. Treatment plan and goals support patient needs/abilities. Continue with current plan. I certify the patient demonstrates improvement and remains willing and capable of participation. the patient continues to benefit from pulmonary services/training. The patient may continue at current intensity, endurance and modality and progress per protocol. 06/12/17 2427<Electronically signed by Vahid Benitez MD> Cosigner Signature: Date Vahid Benitez MD CC: Signed [place] - INDIVIDUAL Observed: 06/12/2017 Status: F Source: [place] [facility] 6:[address] 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, BS PCP: Jarod Mack MD General Information - General Information Admitting Diagnosis: COPD, Metastatic lung cancer, bronchiectasis Gold Classification:: GOLD 3: Severe - Education/Goals Barriers to Learning: Vision Impairment Individual Counseling: Initial Assessment: Dyspnea control techniques at rest, activity, and ADLs, Inhaled and respiratory medications, Exacerbation prevention AND management, O2, Rx, system, safety, Intimacy, Safe travel Patient Goals: Breathe better: Initial Assessment, Increase endurance/stamina: Initial Assessment, Return to recreation/hobby: Initial Assessment, Control panic/anxiety: Initial Assessment, Improve diet and nutrition: Initial Assessment, Symptom management: Initial Assessment, Take medications correctly: Initial Assessment, Improve weight: Initial Assessment Exercise - Initial Assessment - Visit Date of Eval: 06/07/17 - Problem/Goals Problems: Knowledge deficit exercise guidelines, Knowledge deficit exercise safety - Exercise Prescription Mode:: Treadmill, Airdyne, NuStep Frequency (x/week): 3 MET LEVEL:: 2 - Plan Plan and Plan to Review:: Benefits of exercise, Core components of exercise, How to measure dyspnea level, How to monitor dyspnea level, Exercise intensity, Exercise safety guideline, Home exercise guidelines, Chen: 3-4/11-13 Disease Management - Initial - Problems/Goals-Hypoxemia Hypoxemia Problems:: Hypoxemia, Needs O2 Rx recommendation, Poor knowledge of O2 use/safety Hypoxemia Goals:: Using O2 as Rx's safely - Problems/Goals-Medications Medication Goals: Adherence to prescribed medications, Correct technique/timing AND care of MDI, DPI, nebulizer, and spacer. - Problems/Goals-Bronchial Hygiene Bronchial Hygiene Problems:: Ineffective secretion clearance, Respiratory infection Prevention/Management Bronchial Hygiene Goals:: Pt demonstrates effective cough, effective secretion clearance., Pt describes signs and symptoms of infection. - Initial Assessment SpO2:: 98 Does pt report taking home meds as prescribed?: Yes Medications: Yes MDI, Yes NEB, No Spacer Psychosocial - Initial Assess - Problems/Goals Problems: Depression, Anxiety, Impaired Q.O.L. Psychosocial Goals: Improved psychosocial coping skills., Verbalizes coping strategies., Adequate treatment of depression., Improved Q.O.L. - Psychosocial Test Depression:: Anxiety, Panic, Impaired QOL Referred to MD for counseling:: No - Plan Reviewed screening results: No Instructions given regarding:: Benefits of exercise, Relaxation techniques, Training in coping strategies Stress management: On meds currently, Receiving counseling Tobacco - Initial Assessment - Program Goals Tobacco Program Goals: Complete smoking cessation. Attend education classes. Improve Knowledge Test score - Stage of Change Stages of Change:: Action - Learning Barriers Learning Barriers: Vision, Ready to Learn - Family Support Do you have family support?: Yes - Tobacco Use Tobacco Use: Cigarettes How long ago did you quit using tobacco products?: Greater than or equal to 6 months ago - Intervention Smoking Cessation Referral:: No Individual Education/Counseling:: No Education Schedule Given:: Yes - Education Gave Education Materials For:: Pulmonary Disease, Risk Factors, Breathing Techniques, Medical Compliance, Pulmonary A AND P, Exacerbation Signs AND Symptoms, Stress AND Relaxation Nutrition/Wt Mgmt - Initial - Problems/Goals Problems: Underweight Goals: BMI 21-25 - Weight Management Knowledge Deficit Management of:: Underweight Admit Height:: 6 ft Admit Weight:: 55.338 kg Admit BMI:: 16.5 - Diabetes Diabetes:: No Insulin: No Do you monitor your blood sugar at home?: No - Intervention Referral to dietitian:: No Referral to Diabetic Clinic:: No Will attend diet classes:: No - Plan Nutrition Plan: Yes Review BMI or WC AND identify target wt AND strategies for wt control, Yes Nutrition education class:, Yes Weight control education class:, Yes Education re: Need for ongoing weight monitoring, Yes Food diary:, Yes Physical activity log: Patient Health Questionnaire Initial Assessment 1. Little interest or pleasure in doing things: Nearly every day 2. Feeling down, depressed, or hopeless: Several days 3. Trouble falling or staying asleep, or sleeping too much: Several days 4. Feeling tired or having little energy: Nearly every day 5. Poor appetite or overeating: Nearly every day 6. Feeling bad about yourself -- or that you are a failure or have let yourself or your family down: More than half the days 7. Trouble concentrating on things, such as reading the newspaper or watching television: Nearly every day 8. Moving or speaking so slowly that other people could have noticed. Or the opposite - being so fidgety or restless that you have been moving around a lot more than usual: More than half the days 9. Thoughts that you would be better off , or of hurting yourself in some way: Not at all How difficult have these problems made it for you to do your work, take care of things at home, or get along with other people?: Very difficult Total Score: 18 COPD Knowledge Test Initial COPD is a lung disease that:: Makes it hard to breathe AND gets worse over time In the [place] the term COPD describes 2 main lung conditions:: Emphysema AND chronic bronchitis The most common lung irritant that causes COPD is:: Cigarette smoke Common signs and symptoms of COPD include:: An ongoing cough/cough that produces a large amount of mucus, AND SOB If you have COPD, what steps can you take?: All of the above Swelling of the ankles is common in COPD:: False Fatigue [tiredness] is common in COPD:: True Wheezing is common in COPD:: True Crushing chest pain is common in COPD:: False Rapid weight loss is common in COPD:: False Breathlessness is a normal response to exercise: True Exercise should be avoided if it makes you short of breath: False All bronchodilators act within 10 minutes: True A spacer device increases the medication to the lungs: False Annual flu vaccine is recommended for pts w/lung disease: True COPD Knowledge Test Total Score:: 13 COPD Assessment Test [CAT] - Questions Never cough = 0, Cough all the time = 5: 4 No phlegm = 0, Chest full of phlegm = 5: 4 No chest tightness = 0, Chest very tight = 5: 3 No breathless w/exertion = 0, Very breathless w/exertion = 5: 5 No limitations w/activity = 0, Very limited w/activity = 5: 5 Confident leaving home = 0, Not at all confident = 5: 3 Sleep soundly = 0, Don't sleep soundly = 5: 3 Lots of energy = 0, No energy at all = 5: 5 Total CAT score:: 32 Self-Efficacy Initial Assessment We would like to know how confident you are in doing certain activities. Please select your confidence level for:: Select your confidence level for the following using the scale 1-10 where 1 is not at all confident and 10 is totally confident. Your score is the average of all 6 responses. Fatigue: How confident are you that you can keep the fatigue caused by your disease from interfering with the things you want to do? Select Number: 2 Physical Discomfort or Pain: How confident are you that you can keep the physical discomfort or pain of your disease from interfering with the things you want to do? Select Number: 4 Emotional Distress: How confident are you that you can keep the emotional distress caused by your disease from interfering with the things you want to do? Select Number: 6 Other Symptoms or Health Problems: How confident are you that you can keep other symptoms or health problems from interfering with the things you want to do? Select Number: 5 Different Tasks and Activities: How confident are you that you can do the different tasks and activities needed to manage your health condition so as to reduce your need to see a doctor? Select Number: 4 Medication: How confident are you that you can do things other than just taking medication to reduce how much your illness affects your everyday life? Select Number: 7 Total Score:: 4 Nutrition Survey - Nutrition Survey Instructions Scoring Instructions: Scoring is as follows: Yes = 1 points. No = 0 point. Patient score that is >/=12 is considered to be at potential nutritional risk and could benefit from a referral to a registered dietitian. - Nutrition Survey Initial Have you lost >10 lbs over the past 2 months without trying?: Yes - unintentional weight loss, and additional 7 pounds this past week. Are you following a special diet at home for diabetes, low fat, or low salt?: No Are you interested in meeting with a dietitian for help understanding your diet?: No Do you eat less than 3 meals a day?: No Do you eat fatty meats (cordova, sausage, ribs, etc), fried foods, desserts, large amounts of salad dressings, margarine, butter, or cheese most days?: No Do you have food allergies? [Enter types in comment field]: No Do you eat in restaurants more than 3 times a week?: No Do you season food with salt, seasoning salt, or garlic salt?: Yes Do you used canned, boxed, frozen meals, or soups, seasoning packets?: Yes Total Score:: 3 06/07/17 1440 <Electronically signed by Aj Oconnor CRT, GAVI, CONCHITA> Date Aj Oconnor CRT, RCP, CONCHITA Outcome assessment reviewed. Exercise plan approved as documented. Treatment plan and goals support patient needs/abilities. Continue with current plan. I certify the patient demonstrates improvement and remains willing and capable of participation. the patient continues to benefit from pulmonary services/training. The patient may continue at current intensity, endurance and modality and progress per protocol. 06/12/171851<Electronically signed by Vahid Benitez MD> Cosigner Signature: Date Vahid Benitez MD CC: Signed PROGRESS Observed: 06/09/2017 Status: COMPLETED Source: [place] 3:42 PM [facility] [place] REPOSITORY [facility] ID: [id number] Author: Nani Marti (Sw) Service: (none) Author Type: Rn Training Type: Progress Notes Filed: 06/09/2017 3:44 PM Note Text: Social Work Problem Referral Note INFORMATION/REFERRAL : Jazmyne Harrison 46 year old female was referred by nurse to [facility] for the following reason(s): Advance Directive - Living Will, DPAHC, DNR PERSONS INTERVIEWED: patient INTERVENTION: Information AND Referral Service Co-ordination Affect/Mood: The patient is noted as appropriate IDENTIFIED PROBLEMS/NEEDS: Advance Directives Intervention/Referral to be provided:Arrangements made for continuity of care IMPRESSION/PLAN: QUINTEN met with patient initially regarding Medicaid issues. Patient reports she received a letter from [facility] stating she will be cut off Medicaid 06/21/17. Patient reports this has since been resolved. Patient says there was an error with the information SSA sent, which made it appear as though her income was over guidelines. Patient then asked SW about Advance Directives and SW discussed this with patient. SW will have to mail patient out copy of paperwork since patient left before SW provided her with copies here in office. SW called patient to confirm this is okay. Patient agreeable. F/U APPOINTMENT: IRON [place] Observed: 06/08/2017 Status: F Source: [place] 11:04 AM [facility] REPOSITORY Final Report: Light growth of Yeast Noelle albicans in Normal margi isolated ORGANISM: Yeast Gram Stain Report: Moderate White Blood Cells Few Gram Positive Cocci Rare Gram Negative Rods Performed By: #### [id number] #### FROILAN Microbiology [address] [place] [address] PULMONARY VISIT REPORT Observed: 06/07/2017 Status: F Source: [place] 4:[address] [facility] REPOSITORY Pulmonary Medicine of [address] [place] [address] OFFICE VISIT Date of Service: 06/07/17 MR#: [id number] Acct: [id number] Name: JAZMYNE HARRISON Rep #: [id number] : 1970 Provider: Anyi Wells Age/Sex: 46/F Location[place] [facility] [place] Status: Signed Assessment AND Plan Problems 1. COPD with acute exacerbation J44.1 Plan Worsen. Continued exacerbation of her COPD, it is possible that she is now resistant to Levaquin. A sputum culture has been requested. The patient was unable to provided the sample in the office today. She will provide a sample and either return to [facility] or [facility]. She has been encouraged to utilize her vest more frequently, she is currently using it once daily. She may also increase her Mucinex to 1200 mg twice daily. A prednisone taper has been ordered to treat the shortness of breath and wheezing heard on exam. Once sputum culture and sensitivity results are obtained the appropriate antibiotic will be ordered. Patient has been encouraged to report to the emergency department if symptoms worsen. Keep previously scheduled routine follow-up. Orders Orders: Medications New: prednisone take 4 tabs for three days, then 3 tabs for three days, then 10 mg PO QDAY 2 tabs for three days, then 1 tab for 3 days HPI HPI Comments Details: This patient presents to the office today for an acute visit regarding shortness of breath and cough. These symptoms began 7 days ago. She was recently treated for exacerbation of her COPD with a 5 day course of Levaquin 500 mg, no prednisone. She completed the medication as prescribed. She never really returned to her baseline respiratory function. She continues to have a cough that is productive of a dark green sputum. She has worsening shortness of breath on exertion as well as at rest. She is using her pro-air rescue inhaler every 3-4 hours, she continues compliant with her Symbicort 2 puffs twice daily. She also is compliant with Spiriva daily. She is using her albuterol nebulizer once daily as rescue. It does help with the wheezing. She has had a loss of appetite and also accompanied weight loss. She has had an increase in fatigue. She denies any fever or chills. She reports that she has chest congestion and that it is difficult to expectorate her sputum. She has been using Mucinex 600 mg twice daily. She has not used any additional [id number] medications. She denies any headache, sinus pressure or congestion. She denies any ear pain. She denies any palpitations. See complete review of systems. Intake Vital Signs06/07/17 Height 6 ft 06/07/17 Weight: 117 lb 06/07/17 Body Mass Index (BMI) 15.8 Intake Visit Reasons: Still not feeling well DME Vendor: [employer] Allergies No Known Allergies Allergy (Verified 05/17/17 14:18) Medications Aripiprazole [Abilify] 5 mg PO QHS 03/03/16 [History Confirmed 05/17/17] Dronabinol [Marinol] 5 mg PO BID PRN PRN 03/03/16 [History Confirmed 05/17/17] Gabapentin [Neurontin] 300 mg PO 4X/DAY 03/03/16 [History Confirmed 05/17/17] Guaifenesin [Mucinex] 1,200 mg PO DAILY PRN PRN 03/03/16 [History Confirmed 05/17/17] Morphine Sulfate [Morphine Sulfate ER] 60 mg PO BID 03/03/16 [History Confirmed 05/17/17] Oxycodone [Oxyir] 30 mg PO TID PRN PRN 03/03/16 [History Confirmed 05/17/17] Pramipexole Di-HCl [Mirapex] 1 mg PO QHS 03/03/16 [History Confirmed 05/17/17] ProMETHAzine [Phenergan] 25 mg PO PRN PRN 03/03/16 [History Confirmed 05/17/17] Trazodone HCl 200 mg PO QHS 03/03/16 [History Confirmed 05/17/17] BuPROPion [Wellbutrin] 75 mg PO BID #60 tab 03/06/16 [Rx Confirmed 05/17/17] Fluticasone 0.05% [Flonase Nasal [place]] 1 spray NASAL BID #1 bottle 03/06/16 [Rx Confirmed 05/17/17] Lorazepam [Ativan] 0.5 mg PO DAILY PRN #0 03/06/16 [Rx Confirmed 05/17/17] Nebulizer and Compressor [Portable Nebulizer System] 1 ea MC Q2H PRN PRN #1 ea 03/06/16 [Rx Confirmed 05/17/17] methylphenidate 10 mg tablet 10 mg PO QAM AND QPM 04/12/17 [History Confirmed 05/17/17] prednisone 10 mg tablet 10 mg PO QDAY #30 tab 04/12/17 [Rx Confirmed 05/17/17] albuterol sulfate 2.5 mg/3 mL (0.083 %) solution for nebulization 2.5 mg INHALATION Q4H PRN #360 ml 04/25/17 [Rx Confirmed 05/17/17] albuterol sulfate HFA 90 mcg/actuation aerosol inhaler 2 puff INHALATION Q6H PRN #1 device 05/17/17 [Rx Confirmed 05/17/17] budesonide-formoterol HFA 160 mcg-4.5 mcg/actuation aerosol inhaler 2 inh INHALATION Q12H #10.2 g 05/17/17 [Rx Confirmed 05/17/17] tiotropium bromide 2.5 mcg/actuation mist for inhalation 2 puff INHALATION QDAY #1 device 05/17/17 [Rx Confirmed 05/17/17] prednisone 10 mg tablet 10 mg PO QDAY #30 tab 06/07/17 [Rx Confirmed 06/07/17] PFSH Medical History D AND C (Resolved) Port placement (Resolved) Wheezing (Acute) Cough (Acute) Bronchiectasis (Chronic) Hypoxia (Acute) Abnormal chest CT (Chronic) Dyspnea (Acute) non small cell lung, adenocarcimona (Chronic) Unintentional weight loss (Chronic) Tobacco dependence in remission (Chronic) Nocturnal hypoxia (Chronic) Hypersomnia (Chronic) Stage 3 severe COPD by GOLD classification (Chronic) Acute and chronic respiratory failure with hypoxia (Acute) Borderline elevated troponin (Acute) Healthcare-associated pneumonia (Suspected) Metastatic primary lung cancer (Chronic) COPD (chronic obstructive pulmonary disease) (Chronic) Surgical History H/O oral surgery (Resolved) H/O: hysterectomy (Resolved) Family History Uncle Cancer lung Father Cancer lung, bone Social History Smoking Status: Former smoker how long ago did patient quit smokin year/2.5 pk/day prior to quitting second hand exposure: Yes alcohol intake: never substance use type: does not use Review of Systems Const CONSTITUTIONAL: Positive anorexia, body ache, daytime sleepiness and fatigue; negative chills, fever(s), night sweats, oral thrush, stops breathing during sleep, weight loss, sleeping in chair, weight loss, weight gain, frequent colds, seasonal allergies, other, headache(s) or orthopnea EETM Ear Nose Throat Mouth: Positive hearing normal, dry mouth in morning and swallowing Difficulty; negative hard of hearing, hoarseness, change in vision, itchy eyes, eye pain, ear pain, nose bleed, headache(s), mouth pain, nasal congestion, nasal discharge, post nasal drip, sinus pain, sinus pressure, sore throat or other Cardio Cardiovascular: Negative chest pain, chest pain at rest, chest pain with activity, irregular heart rhythm, edema, shortness of breath when lying down, palpitations, murmur or other Resp Respiratory: Positive as per HPI, shortness of breath, wheezing, cough cough: Positive productive color: Positive thick and green and increase use of rescue inhalers; negative pain with cough, chest congestion, chest tightness, pain on inspiration, inhalers, snoring, apnea or other Gastro Gastrointestional: Negative bloody stools, change in appetite, difficulty swallowing, reflux, hematemesis, melena stool, loose stool, constipation or other Genitourinary: Negative blood in urine, nocturia, pain with urination or other Musc Musculoskeletal: Positive body pain and back pain; negative neck pain or other Skin/Breast Skin/Breast: Positive dry skin; negative itching, rash, unusual bruising, breast lump or other Neuro Neurological: Positive weakness; negative restless legs, confusion or other Psych Psychocological: Positive anxiety and hopelessness; negative abnormal sleep pattern, thoughts of hurting self/others or other Lymph Lymphatic: Negative easy bleeding, easy bruising, swollen lymph nodes or other Exam Const Constitutional: Positive conversant, cooperative, in no acute respiratory distress, good hygiene, thin, cachectic, frail appearing, wearing supplemental oxygen and appears older than stated age Head Head: Positive normocephalic and atraumatic; negative cyanosis of lips/distal nose Eyes Eye: Positive clear conjunctiva and nystagmus; negative scleral abnormality Ears Ear: Positive hearing normal and external ears normal; negative hard of hearing Nose Nose: Positive external nose normal and no nasal discharge; negative epistaxis Mouth Mouth: Positive oral mucosae normal, no lesions, dentures and posterior oropharynx is adequate; negative post nasal drip, malodorous breath or oral thrush present Mallampati Score: I: Mallampati Score Neck Neck: Positive normal visual inspection, full ROM and trachea midline; negative lymphadenopathy, JVD or tender Chest Wall Chest: Positive normal inspection of the chest and symmetric chest movement; negative increased A/P diameter Resp lung sounds: Positive wheezes wheezing: Positive global, wheeze present on forced exhalation, diminished, prolonged expiratory time and normal chronic state of increased work of breathing; negative dullness to percussion, rales or rhonchi Cardio Cardiac: Positive regular rate, regular rhythm, S1 normal and S2 normal; negative murmur GI GI: Positive normal to inspection and normal bowel sounds; negative distended Genitourinary: Positive deferred Musc Musculoskeletal: Positive steady gait and ROM normal; negative kyphosis or scoliosis Skin Pulmonary Skin Exam: Positive intact; negative rash, lesion, ulcers, erythema, scaly or dermal atrophy Pulses Pulse: Yes pulses normal x4 extremities Extremities Extremities: No edema, Yes clubbing, Yes capillary refill normal, No cyanosis, No stasis dermatitis Neuro Neurologic: Yes conversant, Yes no focal neuro deficits, Yes cooperative, Yes normal cognition, Yes normal coordination, Yes understands questions, Yes normal concentration Lymph Lymphatic: No lymphadenopathy, No tenderness, No cervical adenopathy, No axillary adenopathy Psych Appearance: Positive grossly normal, eye contact and well kempt Mental Status: Positive mental status grossly normal Mood: Positive congruent mood Affect: Positive normal affect Coding Level of Care Code Off vis,est,level 3 Diagnoses COPD with acute exacerbation J44.1 06/07/17 1652 <Electronically signed by Anyi Wells EMERGENCY PLANNING AND RESPONSE MANAGER-C> Date Anyi Wells EMERGENCY PLANNING AND RESPONSE MANAGER-C Cosigner Signature: Date (if applicable) CC: 6 MINUTE WALK TEST Observed: 05/24/2017 Status: F Source: [place] 8:[address] [facility] REPOSITORY [facility] Pulmonary Services/Neurology [address] [place] [address] MR#: [id number] Acct: [id number] Name: JAZMYNE HARRISON Rep #: [id number] : 1970 46 From: Pola Vee DO Referring Dr: Pola Vee D.O. Date: Ordering Dr: Sex: F C Location: PSN PSN 6 Minute Walk Test - 6 Minute Walk Test 6 Minute Walk Test: 6 Minute Walk Test PSN:6-Minute Walk Test Start: 05/23/17 13:43 Freq: Status: Active Protocol: RESP.6MINW Document 05/23/17 13:43 [facility] (Rec: 05/23/17 14:25 [facility] [id number]) 6 Minute Walk Test Date Performed 05/23/17 Time Performed 12:30 Height 6 ft Weight: 120 lb Weight in Pounds 120.[address]: Pola Vee FIO2 (% Oxygen) 2 Assistive device used: None Pre-test Oxygen Delivery Method Room Air Pulse Ox (%) 93 Pulse Rate (60-100 beats/min) 94 Dyspnea Chen Scale (0-10) 3 1st minute Oxygen Delivery Method Room Air Pulse Ox (%) 85 Pulse Rate (60-100 beats/min) 102 H Dyspnea Chen Scale (0-10) 3 Number of Rests Taken 1 2nd minute Oxygen Flow Rate (L/min) 2 Oxygen Delivery Method Nasal Cannula Pulse Ox (%) 93 Pulse Rate (60-100 beats/min) 97 Dyspnea Chen Scale (0-10) 3 3rd minute Oxygen Flow Rate (L/min) 2 Oxygen Delivery Method Nasal Cannula Pulse Ox (%) 92 Pulse Rate (60-100 beats/min) 98 Dyspnea Chen Scale (0-10) 3 4th minute Oxygen Flow Rate (L/min) 2 Oxygen Delivery Method Nasal Cannula Pulse Ox (%) 92 Pulse Rate (60-100 beats/min) 97 Dyspnea Chen Scale (0-10) 3 5th minute Oxygen Flow Rate (L/min) 2 Oxygen Delivery Method Nasal Cannula Pulse Ox (%) 93 Pulse Rate (60-100 beats/min) 98 Dyspnea Chen Scale (0-10) 3 6th minute Oxygen Flow Rate (L/min) 2 Oxygen Delivery Method Nasal Cannula Pulse Ox (%) 92 Pulse Rate (60-100 beats/min) 100 Dyspnea Chen Scale (0-10) 3 Post-test Oxygen Flow Rate (L/min) 2 Oxygen Delivery Method Nasal Cannula Pulse Ox (%) 96 Pulse Rate (60-100 beats/min) 82 Dyspnea Chen Scale (0-10) 3 Full Laps Walked 16 Partial Lap, Number of Tiles Walked 44 Total Distance Walked (ft) 988 05/23/17 14:20 Cardiopulmonary Services by [employer] Patient has oxygen setup by [employer]. She was placed on room air for beginning of test. By 1 minute, spo2 dropped to 85% room air, patient rested and was placed on 2lpm nc which she wore for remainder of test. Her baseline respiratory status she rates at 3, this did not change throughout testing. Initialized on 05/23/17 14:20 - END OF NOTE - Interpretation Interpretation: The patient ambulated 988 feet over the course of 6 minutes beginning on room air without assistive devices or breaks. Pretesting oxygen saturation was noted to be 93% on room air. By minute #1 of testing, the patient had desaturated to 85%. 2 L of supplemental oxygen was applied and the patient was able to complete the remainder of the test, while maintaining oxygen saturations at or above 88%. - Recommendations Recommendations: 2 L/min of supplemental oxygen should be utilized with exertion. 05/24/17822 <Electronically signed by Pola Vee DO> Date Pola Vee DO CC: Date Dictated: 05/24/17820 Date Transcribed: 05/24/17820 Psychology Technician: Pola Vee DO Signed PULMONARY VISIT REPORT Observed: 05/17/2017 Status: F Source: [place] 3:[address] [facility] REPOSITORY Pulmonary Medicine of [address] [place] [address] OFFICE VISIT Date of Service: 05/17/17 MR#: [id number] Acct: [id number] Name: CHRISTYJAZMYNE Arpita Rep #: [id number] : 1970 Provider: Pola Vee D.O. Age/Sex: 46/F [facility] Status: Signed Assessment AND Plan 1. COPD (chronic obstructive pulmonary disease) J44.9 Plan The patient has evidence of advanced stage COPD, for which she is on a stable inhaler regimen with Symbicort and Spiriva. This will be continued without change. Refills will be provided. The idea of enrollment in pulmonary rehabilitation was discussed with the patient today. She is in agreement to proceed with enrollment. A referral order will be placed. I have asked that the patient obtain a 6 minute walk test prior to her follow-up office visit. Orders Orders: 2. Bronchiectasis J47.9 Plan Symptoms are stable at this time. Continue to utilize smart vest as prescribed in home environment. 3. Tobacco dependence in remission F17.201 Plan Ongoing tobacco cessation strongly encouraged. 4. Metastatic primary lung cancer C34.90 Plan Continue outpatient follow-up with oncology. Continue Opdivo. Plan Detail Other Medications New: Changed: To: albuterol sulfate HFA 90 mcg/actuation 2 puffs Inhalation Q6H PRN Sob AND /Or Wheezin g Refilled: Follow Up 6 Months ([facility]) HPI HPI Comments Details: The patient is a 46-year-old female who presents to the clinic today for a routine scheduled follow-up office visit. If you recall, the patient has a history of severe COPD primary lung cancer with metastasis, which has been under the management of Dr. Allen. Pulmonary function testing completed in July 2016 showed evidence of a severe large airways obstructive ventilatory defect with an associated significant response to aerosolized bronchodilators, along with evidence of air trapping and a moderate reduction in diffusing capacity. The patient also has a history of bronchiectasis, for which she currently utilizes a smart vest in her home environment. 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 Patient is also currently prescribed an Astral noninvasive ventilator in her home environment, for which she is maintained on iVAPS. Today, the patient reports interval improvement in her breathing quality since being optimized on her inhaler regimen and since being started on trilogy. She remains compliant with the use of Symbicort and Spiriva. She uses her rescue inhaler on average 2 times per day. She has baseline exertional dyspnea, which is largely unchanged from previous. She reports no significant cough complaints, chest tightness or wheezing. She continues to follow-up with Dr. Allen of oncology. She is being maintained on Opdivo therapy. Denies the presence of fevers, chills or night sweats. She reports no chest pain, dizziness or lightheadedness. Intake Vital Signs05/17/17 Height 6 ft 05/17/17 Weight: 122 lb Intake Visit Reasons: 6 M FU Accompanied by: Self Allergies No Known Allergies Allergy (Verified 05/17/17 14:18) Medications Aripiprazole [Abilify] 5 mg PO QHS 03/03/16 [History Confirmed 05/17/17] Dronabinol [Marinol] 5 mg PO BID PRN PRN 03/03/16 [History Confirmed 05/17/17] Gabapentin [Neurontin] 300 mg PO 4X/DAY 03/03/16 [History Confirmed 05/17/17] Guaifenesin [Mucinex] 1,200 mg PO DAILY PRN PRN 03/03/16 [History Confirmed 05/17/17] Morphine Sulfate [Morphine Sulfate ER] 60 mg PO BID 03/03/16 [History Confirmed 05/17/17] Oxycodone [Oxyir] 30 mg PO TID PRN PRN 03/03/16 [History Confirmed 05/17/17] Pramipexole Di-HCl [Mirapex] 1 mg PO QHS 03/03/16 [History Confirmed 05/17/17] ProMETHAzine [Phenergan] 25 mg PO PRN PRN 03/03/16 [History Confirmed 05/17/17] Trazodone HCl 200 mg PO QHS 03/03/16 [History Confirmed 05/17/17] BuPROPion [Wellbutrin] 75 mg PO BID #60 tab 03/06/16 [Rx Confirmed 05/17/17] Fluticasone 0.05% [Flonase Nasal [place]] 1 spray NASAL BID #1 bottle 03/06/16 [Rx Confirmed 05/17/17] Lorazepam [Ativan] 0.5 mg PO DAILY PRN #0 03/06/16 [Rx Confirmed 05/17/17] Nebulizer and Compressor [Portable Nebulizer System] 1 ea MC Q2H PRN PRN #1 ea 03/06/16 [Rx Confirmed 05/17/17] methylphenidate 10 mg tablet 10 mg PO QAM AND QPM 04/12/17 [History Confirmed 05/17/17] prednisone 10 mg tablet 10 mg PO QDAY #30 tab 04/12/17 [Rx Confirmed 05/17/17] albuterol sulfate 2.5 mg/3 mL (0.083 %) solution for nebulization 2.5 mg INHALATION Q4H PRN #360 ml 04/25/17 [Rx Confirmed 05/17/17] albuterol sulfate HFA 90 mcg/actuation aerosol inhaler 2 puff INHALATION Q6H PRN #1 device 05/17/17 [Rx Confirmed 05/17/17] budesonide-formoterol HFA 160 mcg-4.5 mcg/actuation aerosol inhaler 2 inh INHALATION Q12H #10.2 g 05/17/17 [Rx Confirmed 05/17/17] tiotropium bromide 2.5 mcg/actuation mist for inhalation 2 puff INHALATION QDAY #1 device 05/17/17 [Rx Confirmed 05/17/17] [facility] Medical History D AND C (Resolved) Port placement (Resolved) Wheezing (Acute) Cough (Acute) Bronchiectasis (Chronic) Hypoxia (Acute) Abnormal chest CT (Chronic) Dyspnea (Acute) non small cell lung, adenocarcimona (Chronic) Unintentional weight loss (Chronic) Tobacco dependence in remission (Chronic) Nocturnal hypoxia (Chronic) Hypersomnia (Chronic) Stage 3 severe COPD by GOLD classification (Chronic) Acute and chronic respiratory failure with hypoxia (Acute) Borderline elevated troponin (Acute) Healthcare-associated pneumonia (Suspected) Metastatic primary lung cancer (Chronic) COPD (chronic obstructive pulmonary disease) (Chronic) Surgical History H/O oral surgery (Resolved) H/O: hysterectomy (Resolved) Family History Uncle Cancer lung Father Cancer lung, bone Social History Smoking Status: Former smoker how long ago did patient quit smokin year/2.5 pk/day prior to quitting second hand exposure: Yes alcohol intake: never substance use type: does not use Review of Systems Const CONSTITUTIONAL: Positive body ache, daytime sleepiness and fatigue; negative anorexia, chills, fever(s), night sweats, oral thrush, stops breathing during sleep, weight loss, sleeping in chair, weight loss, weight gain, frequent colds, seasonal allergies, other, headache(s) or orthopnea EETM Ear Nose Throat Mouth: Positive hearing normal; negative hard of hearing, hoarseness, dry mouth in morning, change in vision, itchy eyes, eye pain, swallowing Difficulty, ear pain, nose bleed, headache(s), mouth pain, nasal congestion, nasal discharge, post nasal drip, sinus pain, sinus pressure, sore throat or other Cardio Cardiovascular: Negative chest pain, chest pain at rest, chest pain with activity, irregular heart rhythm, edema, shortness of breath when lying down, palpitations, murmur or other Resp Respiratory: Positive as per HPI, shortness of breath, wheezing, cough cough: Positive productive color: Positive thick, white and yellow and increase use of rescue inhalers; negative pain with cough, chest congestion, chest tightness, pain on inspiration, inhalers, snoring, apnea or other Gastro Gastrointestional: Negative bloody stools, change in appetite, difficulty swallowing, reflux, hematemesis, melena stool, loose stool, constipation or other Genitourinary: Positive nocturia; negative blood in urine, pain with urination or other Musc Musculoskeletal: Negative body pain, back pain, neck pain or other Skin/Breast Skin/Breast: Negative dry skin, itching, rash, unusual bruising, breast lump or other Neuro Neurological: Positive weakness; negative restless legs, confusion or other Psych Psychocological: Positive anxiety and hopelessness; negative abnormal sleep pattern, thoughts of hurting self/others or other Lymph Lymphatic: Negative easy bleeding, easy bruising, swollen lymph nodes or other Exam Const Constitutional: Positive conversant, cooperative, in no acute respiratory distress and thin Head Head: Positive normocephalic and atraumatic; negative cyanosis of lips/distal nose Eyes Eye: Positive clear conjunctiva; negative nystagmus or scleral abnormality Ears Ear: Positive hearing normal; negative hard of hearing Nose Nose: Positive external nose normal; negative epistaxis Mouth Mouth: Positive oral mucosae normal, no lesions and posterior oropharynx is adequate; negative post nasal drip or oral thrush present Neck Neck: Positive normal visual inspection and trachea midline Chest Wall Chest: Positive symmetric chest movement Resp lung sounds: Positive prolonged expiratory time Markedly diminished air movement bilaterally. No wheezes, rales or rhonchi. Cardio Cardiac: Positive regular rate, regular rhythm, S1 normal and S2 normal; negative murmur, rub or gallop GI GI: Positive normal to inspection and normal bowel sounds Genitourinary: Positive deferred Musc Musculoskeletal: Positive steady gait Skin Pulmonary Skin Exam: Positive intact; negative rash, lesion or ulcers Pulses Pulse: Yes Pedal pulses present: Extremities Extremities: No clubbing, No cyanosis, No edema Neuro Neurologic: Yes conversant, Yes no focal neuro deficits, Yes cooperative, Yes understands questions Lymph Lymphatic: No lymphadenopathy Psych Appearance: Positive grossly normal Mental Status: Positive mental status grossly normal Mood: Positive congruent mood Affect: Positive normal affect Coding Level of Care Code Off vis,est,level 3 Diagnoses COPD (chronic obstructive pulmonary disease) J44.9 Bronchiectasis J47.9 Tobacco dependence in remission F17.201 Metastatic primary lung cancer C34.90 05/17/17 1523 <Electronically signed by Pola Vee DO> Date Pola Silver Signature: Date (if applicable) CC: HOSP Observed: 05/15/2017 Status: COMPLETED Source: [place] 2:30 PM [facility] REPOSITORY Infusion Center ([facility]) JAZMYNE HARRISON ([id number]) 1970 F Date Time Provider Department 05/15/17 2:30 PM TREATMENT RM 6 [facility] During your visit today, we recorded the following information about you: Temperature Pulse Blood pressure Weight 97.5 degrees 70/minute 102/72 56.2 kg Referring Provider: SHANNAN CONROY [[id number]] Allergies As of Date: 05/15/2017 (No Known Allergies) Date Reviewed: 05/15/2017 Reviewed by: Kat Horton, RN, RN - Fully Assessed Reason for Visit: Chemotherapy Treatment [771] Primary Visit Diagnosis:Non-small cell carcinoma of lung, stage 4, unspecified laterality (HCC) [C34.90] Other Visit Diagnoses:Bone metastasis (HCC) [C79.51] 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] Malignant neoplasm metastatic to lung, unspecified laterality (HCC) [C78.00] Order(s):TREATMENT PARAMETER-NOT NEEDED [[id number]] Order #: [id number]: 1 nivolumab 160 mg in NaCl 0.9% 100 mL (OPDIVO)Disp: Rfl: NaCl 0.9% iv infusionDisp: Rfl: diphenhydrAMINE 50 mg injection (BENADRYL)Disp: Rfl: hydrocortisone sodium succinate (PF) 100 mg injection (Solu-CORTEF)Disp: Rfl: meperidine (PF) 25 mg injection (DEMEROL)Disp: Rfl: Prescriptions as of 05/15/2017 Sig: PRAMIPEXOLE 1 MG TABLET TAKE 1 TABLET BY MOUTH DAILY * MORPHINE ER 60 MG TABLET,EXTE* Take 1 tablet by mouth twice * OXYCODONE 30 MG TABLET Take 1-2 tablets by mouth chad* METHYLPHENIDATE 10 MG TABLET Take 1 tablet by mouth twice * TRAZODONE 100 MG TABLET Take 3 tablets by mouth daily* STOOL SOFTENER ORAL Take 2 tablets by mouth at be* GABAPENTIN 300 MG CAPSULE TAKE ONE CAPSULE BY MOUTH 4 T* ALBUTEROL SULFATE HFA 90 MCG/* Inhale 2 Puffs as instructed * PREDNISONE 10 MG TABLET Take 1 tablet by mouth once d* ARIPIPRAZOLE 5 MG TABLET TAKE 1 TABLET BY MOUTH ONCE D* PROMETHAZINE 25 MG TABLET Take 1 tablet by mouth every * LORAZEPAM 0.5 MG TABLET Take 1-2 tablets PO daily PRN* BUPROPION HCL 75 MG TABLET Take 1 tablet by mouth twice * BISACODYL 5 MG TABLET Take 1 tablet by mouth once d* BUDESONIDE-FORMOTEROL HFA 160* Inhale 1 Puff as instructed t* MUCINEX D MAXIMUM STRENGTH OR* Take by mouth as needed. SODIUM CHLORIDE 0.9% FLUSH NURSING USE ONLY: USED FOR * HEPARIN LOCK FLUSH (PORCINE) * NURSING USE ONLY: USE FOR I* Problem List As Of Date 05/15/2017 Noted Resolved Bone metastasis [C79.51] INVALID FOR* Secondary malignant neoplasm of intra-abdominal*INVALID FOR* More... Lung cancer [C34.90] INVALID FOR*06/26/2013 Lung metastases [C78.00] INVALID FOR* Examination of participant in clinical trial [Z*INVALID FOR* History of lung cancer [Z85.118] INVALID FOR* Lung cancer (HCC) [C34.90] INVALID FOR*11/04/2014 Non-small cell carcinoma of lung, stage 4 (HCC)*INVALID FOR* Malignant neoplasm of upper lobe of right lung *INVALID FOR* Malaise and fatigue [R53.81, R53.83] INVALID FOR* Family history of tobacco abuse and dependence *INVALID FOR* RLS (restless legs syndrome) [G25.81] INVALID FOR* COPD (chronic obstructive pulmonary disease) (H* Supplemental oxygen dependent [Z99.81] INVALID FOR* Port catheter in place [Z95.828] INVALID FOR* Chronic back pain [M54.9, G89.29] More... Bone pain [M89.8X9] Bone metastases (HCC) [C79.51] More... Restless leg syndrome [G25.81] Neuropathy (HCC) [G62.9] Prescriptions ordered this encounter Disp Refills Start End NIVOLUMAB IV INFUSION 05/15/2017 05/16/2017 Cmt: This is to document that 2.7 mg(s) have been wasted for this dose. Route: INTRAVENOUS SODIUM CHLORIDE 0.9 % INTRAVENOUS SO* 05/15/2017 Cmt: Inform physician Route: INTRAVENOUS DIPHENHYDRAMINE 50 MG/ML INJECTION S* 05/15/2017 Route: INTRAVENOUS HYDROCORTISONE SOD SUCCINATE (PF) 10* 05/15/2017 Route: INTRAVENOUS MEPERIDINE (PF) 50 MG/ML INJECTION S* 05/15/2017 Route: INTRAVENOUS Encounter Status:Closed by KAT HORTON on 05/15/17 PULMONARY FUNCTION Observed: 05/04/2017 Status: F Source: [place] REPORT COMP 3:[address] [facility] REPOSITORY [facility] Pulmonary Services/Neurology [address] [place] [address] MR#: [id number] Acct: [id number] Name: JAZMYNE HARRISON Rep #: [id number] : 1970 46 From: Wilfredo Ortez MD Referring Dr: Pola Vee D.O. Status: REG CLI Ordering Dr: Date: Location: [facility] Sex: F C COMPLETE PULMONARY FUNCTION TEST INTERPRETATION Brief HPI: Patient is a 46 year old female, currently under the care of Dr. Vee, who presents to [facility] for complete pulmonary function tests secondary to diagnosis of COPD. Respiratory therapist reports good effort and reproducible results. Interpretation: Forced expiration spirometry shows a severe large airways obstructive ventilatory defect with an FEV1 of 38 % predicted. There is no significant bronchodilator response by strict ATS criteria. Spirograms are of good quality and plateau slowly, indicating slowly emptying areas of the lungs. The respiratory flow volume loop shows decreased expiratory flow rates at all lung volumes consistent with airway obstruction. Lung volumes by body plethysmography show a normal total lung capacity at 7.15 L, 108 % predicted. FRC and RV are elevated out of proportion. Lung volume measurements are consistent with air-trapping. Diffusion capacity by carbon monoxide is decreased at 56 % predicted. The airway resistance is elevated. Compared to previous pulmonary function tests from 08/17/2016, there is been no significant change. Impression: Irreversible severe large airways obstructive ventilatory defect with a symmetric reduction diffusing capacity resulting in air trapping and consistent with patient's diagnosis of COPD. There is been no significant change compared to previous testing 05/04/17 1521 <Electronically signed by Wilfredo Ortez MD> Date Wilfredo Ortez MD CC: No Primary Care Physician; Wilfredo Ortez MD Date Dictated: 05/04/171517 Date Transcribed: 05/04/171517 Psychology Technician: GOVIND Signed JAMILN Observed: 05/02/2017 Status: COMPLETED Source: [place] 12:00 AM [facility] REPOSITORY Telephone ([facility]) JAZMYNE HARRISON ([id number]) 1970 F Date Time Provider Department 05/02/17 JEANNETTE BRADFORD (RN) HEM[facility] During your visit today, we recorded the following information about you: Jeannette Bradford RN, RN 05/04/2017 9:06 AM Addendum Received call from pharmacy requesting prior authorization/quantity override for the following medication: oxycodone 30 mg 240/30 Call placed to [employer] for authorization. Spoke to Jolanta. Information will be forwarded to clinical team for review. Awaiting response. May 02, 2017 4:02 PM Authorization effective today and good until 05/02/2018 Reference # [id number] Pharmacy notified. Allergies As of Date: 05/02/2017 (No Known Allergies) Date Reviewed: 05/01/2017 Reviewed by: Cricket Chaves) SAL Corey - Fully Assessed Reason for Visit: Insurance Authorization [[id number]] Cmt: oxycodone Care Coordination [3491] Prescriptions as of 05/02/2017 Sig: PRAMIPEXOLE 1 MG TABLET TAKE 1 TABLET BY MOUTH DAILY * MORPHINE ER 60 MG TABLET,EXTE* Take 1 tablet by mouth twice * OXYCODONE 30 MG TABLET Take 1-2 tablets by mouth chad* METHYLPHENIDATE 10 MG TABLET Take 1 tablet by mouth twice * TRAZODONE 100 MG TABLET Take 3 tablets by mouth daily* STOOL SOFTENER ORAL Take 2 tablets by mouth at be* LEVOFLOXACIN 500 MG TABLET Take 1 tablet by mouth once d* GABAPENTIN 300 MG CAPSULE TAKE ONE CAPSULE BY MOUTH 4 T* ALBUTEROL SULFATE HFA 90 MCG/* Inhale 2 Puffs as instructed * PREDNISONE 10 MG TABLET Take 1 tablet by mouth once d* ARIPIPRAZOLE 5 MG TABLET TAKE 1 TABLET BY MOUTH ONCE D* PROMETHAZINE 25 MG TABLET Take 1 tablet by mouth every * LORAZEPAM 0.5 MG TABLET Take 1-2 tablets PO daily PRN* BUPROPION HCL 75 MG TABLET Take 1 tablet by mouth twice * BISACODYL 5 MG TABLET Take 1 tablet by mouth once d* BUDESONIDE-FORMOTEROL HFA 160* Inhale 1 Puff as instructed t* MUCINEX D MAXIMUM STRENGTH OR* Take by mouth as needed. SODIUM CHLORIDE 0.9% FLUSH NURSING USE ONLY: USED FOR * HEPARIN LOCK FLUSH (PORCINE) * NURSING USE ONLY: USE FOR I* Problem List As Of Date 05/02/2017 Noted Resolved Bone metastasis [C79.51] INVALID FOR* Secondary malignant neoplasm of intra-abdominal*INVALID FOR* More... Lung cancer [C34.90] INVALID FOR*06/26/2013 Lung metastases [C78.00] INVALID FOR* Examination of participant in clinical trial [Z*INVALID FOR* History of lung cancer [Z85.118] INVALID FOR* Lung cancer (HCC) [C34.90] INVALID FOR*11/04/2014 Non-small cell carcinoma of lung, stage 4 (HCC)*INVALID FOR* Malignant neoplasm of upper lobe of right lung *INVALID FOR* Malaise and fatigue [R53.81, R53.83] INVALID FOR* Family history of tobacco abuse and dependence *INVALID FOR* RLS (restless legs syndrome) [G25.81] INVALID FOR* COPD (chronic obstructive pulmonary disease) (H* Supplemental oxygen dependent [Z99.81] INVALID FOR* Port catheter in place [Z95.828] INVALID FOR* Chronic back pain [M54.9, G89.29] More... Bone pain [M89.8X9] Bone metastases (HCC) [C79.51] More... Restless leg syndrome [G25.81] Neuropathy (HCC) [G62.9] Encounter Status:Closed by JEANNETTE BRADFORD on 05/03/17 PROGRESS Observed: 05/01/2017 Status: COMPLETED Source: [place] 2:56 PM [facility] REPOSITORY HNO ID: [id number] Author: Loly Giordano Service: (none) Author Type: Physician Type: Progress Notes Filed: 05/02/2017 11:13 AM Note Text: PALLIATIVE MEDICINE PROGRESS NOTE OARRS website checked and validated. All prescriptions have been APPROPRIATELY filled. No suspicious activity was identified.- 05/01/2017 by Loly Giordano MD SERVICE DATE: 05/01/2017 SERVICE TIME: 230 pm Primary Site of Disease/Medical Illness: Lung Site of Metastasis: Bone, Lung, Lymph nodes CHIEF COMPLAINT: right upper back pain, anxiety, depression, neoplasm related fatigue PERTINENT MEDICAL HISTORY: Jazmyne Harrison is a 45 year old female with COPD and tobacco history who presened with cough and hemoptysis around January 2013. An initial CXR showed a right upper lobe mass. CT chest confirmed a mass and a biopsy of the mass showed adenocarcinoma of the lung. CT abdomen showed several small lesions in both hepatic lobes. She also has had chronic left hip pain. X-ray of the hip showed no lesions.? She received Taxol/carboplatin/Avastin with near complete response. She then was placed on maintenance Avastin. However, she progressed and had additional treatment with Avastin and Alimta with further disease progression. Avastin was stopped given hemostasis with her last 2 cycles of chemotherapy. She received palliative radiation to the right apex (30 Gy) completed January 2014. Restaging scans showed improvement of her RUL lesion but unfortunately showed a new lesion in the same lobe. ?? She then started carboplatin/Abraxane form April to June 2014 with partial response. She had disease progression and started nivolumab in July 2014. PET/CT 03/30/15 showed hypermetabolic right upper lobe but no distant metastases. She had a non-FDG avid lesion on the left acetabulum. ?? She was admitted to [facility] around 03/03- for pneumonia. She went home on oxygen and is wearing this all day. She quit smoking after that admission. ?? She continues to be on nivolumab and has been tolerating this so far. ? ?? HISTORY OF PRESENT ILLNESS: She has had a pneumonia for over a month and is reporting chronic productive cough. She is currently on levofloxacin 500 mg daily prescribed her oncologist. She is being followed for right posterior upper chest wall pain that wraps around her scapula. She is taking SR 60 mg bid. She continues to take oxycodone 30 mg every 2 hours as needed for breakthrough pain, averaging 8 tablets a day. She is also taking gabapentin 300 mg 4 times daily as an?adjuvant. She has numbness and tingling on her hands and feet. Her right hip pain is stable. ?? She has severe fatigue. She is on methylphenidate 10 mg bid. She tried [place] ginseng and did not like it. She has no history of cardiac dysrhythmias. Her appetite and weight are stable. ? She has had depression and anxiety for a long time. She is seeing a therapist regularly locally. She was being seen by a local psychiatrist who was prescribing her medications but she had left the practice. Our office then started refilling her medications. She was taking Wellbutrin 75 mg bid to stop smoking. She is on ariprazole 5 mg daily. She has stopped taking her lorazepam. She is on methylphenidate 10 mg bid as above for neoplasm related fatigue. Moreover, there has been ongoing tension at home as her daughter has moved in with them. Recently, she has started using a CPAP machine. She increased her trazodone 100 mg from 2 tablets to 3 tablets at night which she says helped her sleep. Her bowels move every 4 days with daily bisacodyl and docusate. She is satisfied with this regimen. Modified ESAS ([place] Symptom Assessment Scale):Information Provided By: Patient Pain: Mild Nausea: None Loss of Appetite: None Constipation: None Shortness of Breath: None Drowsiness: None Tiredness: Mild Depression: None Anxiety: Mild How you feel overall: Good Other problem: None Palliative Performance Scale % (PPS): > or = 60 (0) Oral Intake: Normal (0) Edema: Absent (0) Dyspnea at Rest: Absent (0) Delirium: Absent (0) Palliative Prognostic Index (PPI) Total Score: 0-2 Note: The scores from each prognostic domain are added. A score of 0 to 2.0 was associated with a median survival of 90 days; score of 2.1 to 4.0 is 61 days, and score of >4.0 is 12 days. PHYSICAL EXAMINATION: Vital signs: BP 101/53 Pulse 87 Temp 36.6 ?C (97.8 ?F) (Oral) Resp 20 Wt 55.1 kg (121 lb 8 oz) LMP 05/06/1999 (Exact Date) SpO2 92% BMI 16.48 kg/m2 General Appearance: Thin Skin: No jaundice, No rash and No breakdown Eyes: Normal and No icterus HENT: Atraumatic and Oropharnyx clear with moist mucous membranes Neck: Grossly normal Lungs: Clear to auscultation CV: Regular rate and rhythm Abdomen: Soft, nontender, bowel sounds normal : Not examined Musculoskeletal: No edema and No gross deformity Lymphatics: No cervical, axillary, or inguinal lymphadenopathy Neuro: Alert and oriented to time, place, and person DATA: Diagnostic tests reviewed for today's visit: Most recent labs and imaging results. ASSESSMENT AND PLAN: 1. Adenocarcinoma of the lung, on nivolumab, stable disease 2. Right upper posterior wall pain, neoplasm related, controlled 3. Pneumonia, resolving 4. Anxiety/panic disorder/depression, stable 5. Neoplasm related fatigue, improved 6. Chronic respiratory failure, on home oxygen 7. Emphysema ?? Plan: 1. Continue morphine SR 60 mg bid. 2. Continue oxycodone 30 mg every 2 hours as needed for breakthrough pain, average 8 tablets a day. 3. Continue gabapentin 300 mg qid. 4. Continue methylphenidate 10 mg bid (8am/12noon) for fatigue. She denies any history of cardiac dysrhythmias. 5. Continue levaquin per her local oncologist. 6. She is seeing a psychologist locally. I think that her anxiety, panic attacks and depression are significant enough that she needs to have another psychiatrist to take over needs and review her medications. She will find one locally. Advance Care Planning: I did not discuss Advance Care Planning at this visit, this was done at a prior encounter. We discussed/reviewed advanced directives. Patient does not have advanced directives currently and I encouraged the patient to complete advanced directives paperwork. The patient's surrogate decision maker is spouse. Next Visit: 12 Weeks SIGNATURE: Loly Giordano MD PATIENT NAME: Jazmyne Harrison DATE: May 01, 2017 TIME: 2:56 PM PAGER/CONTACT #: [id number] CNOVSP Observed: 05/01/2017 Status: COMPLETED Source: [place] 2:10 PM [facility] REPOSITORY Visit (SP) Office (PALMED) CHRISTYJAZMYNE TARIQ ([id number]) 1970 F Date Time Provider Department 05/01/17 2:10 PM LOLY GIORDANO During your visit today, we recorded the following information about you: Temperature Pulse Respiration Blood pressure 97.8 degrees 87/minute 20/minute 101/53 Weight 55.1 kg Cricket Corey LPN, LPN 05/01/2017 2:26 PM Signed Additional intake questions: Has the patient had nausea, vomiting, diarrhea, constipation, fatigue for ANDgt; 1 week? Vomiting, Yes, MD Notified Nausea, Yes, Notified Fatigue, Yes, Notified Diarrhea, Yes, Notified Constipation, Yes, Notified Does the patient have a decreased appetite? No Does patient want to see a First Aid Attendant? No (yes to any of above refer patient to schedulers for dietitian appointment) ) Does patient have any new or increased numbness or tingling of extremities? No Is patient interested in fertility information? NA Does patient need any prescription refills? No Electronically Signed By: SAL Kitchen MD 05/01/2017 2:54 PM Signed 1. Continue other medications as usual. 2. We recommend that you find a psychiatrist locally to help manage your medications. 3. Call your nurse, Jeannette Gamier, RN, with any problems ([phone] or after hours [phone] and ask for Palliative Medicine azure principal solution specialist) 4. Return to clinic in 3 months. Loly Giordano MD MPH CHANI FACP FAAHPM May 01, 2017 2:52 PM Loly Giordano MD 05/02/2017 11:13 AM Signed PALLIATIVE MEDICINE PROGRESS NOTE OARRS website checked and validated. All prescriptions have been APPROPRIATELY filled. No suspicious activity was identified.- 05/01/2017 by Loly Giordano MD SERVICE DATE: 05/01/2017 SERVICE TIME: 230 pm Primary Site of Disease/Medical Illness: Lung Site of Metastasis: Bone, Lung, Lymph nodes CHIEF COMPLAINT: right upper back pain, anxiety, depression, neoplasm related fatigue PERTINENT MEDICAL HISTORY: Jazmyne Harrison is a 45 year old female with COPD and tobacco history who presened with cough and hemoptysis around January 2013. An initial CXR showed a right upper lobe mass. CT chest confirmed a mass and a biopsy of the mass showed adenocarcinoma of the lung. CT abdomen showed several small lesions in both hepatic lobes. She also has had chronic left hip pain. X-ray of the hip showed no lesions.? She received Taxol/carboplatin/Avastin with near complete response. She then was placed on maintenance Avastin. However, she progressed and had additional treatment with Avastin and Alimta with further disease progression. Avastin was stopped given hemostasis with her last 2 cycles of chemotherapy. She received palliative radiation to the right apex (30 Gy) completed January 2014. Restaging scans showed improvement of her RUL lesion but unfortunately showed a new lesion in the same lobe. ?? She then started carboplatin/Abraxane form April to June 2014 with partial response. She had disease progression and started nivolumab in July 2014. PET/CT 03/30/15 showed hypermetabolic right upper lobe but no distant metastases. She had a non-FDG avid lesion on the left acetabulum. ?? She was admitted to [facility] around 03/03- for pneumonia. She went home on oxygen and is wearing this all day. She quit smoking after that admission. ?? She continues to be on nivolumab and has been tolerating this so far. ? ?? HISTORY OF PRESENT ILLNESS: She has had a pneumonia for over a month and is reporting chronic productive cough. She is currently on levofloxacin 500 mg daily prescribed her oncologist. She is being followed for right posterior upper chest wall pain that wraps around her scapula. She is taking SR 60 mg bid. She continues to take oxycodone 30 mg every 2 hours as needed for breakthrough pain, averaging 8 tablets a day. She is also taking gabapentin 300 mg 4 times daily as an?adjuvant. She has numbness and tingling on her hands and feet. Her right hip pain is stable. ?? She has severe fatigue. She is on methylphenidate 10 mg bid. She tried [place] ginseng and did not like it. She has no history of cardiac dysrhythmias. Her appetite and weight are stable. ? She has had depression and anxiety for a long time. She is seeing a therapist regularly locally. She was being seen by a local psychiatrist who was prescribing her medications but she had left the practice. Our office then started refilling her medications. She was taking Wellbutrin 75 mg bid to stop smoking. She is on ariprazole 5 mg daily. She has stopped taking her lorazepam. She is on methylphenidate 10 mg bid as above for neoplasm related fatigue. Moreover, there has been ongoing tension at home as her daughter has moved in with them. Recently, she has started using a CPAP machine. She increased her trazodone 100 mg from 2 tablets to 3 tablets at night which she says helped her sleep. Her bowels move every 4 days with daily bisacodyl and docusate. She is satisfied with this regimen. Modified ESAS ([place] Symptom Assessment Scale):Information Provided By: Patient Pain: Mild Nausea: None Loss of Appetite: None Constipation: None Shortness of Breath: None Drowsiness: None Tiredness: Mild Depression: None Anxiety: Mild How you feel overall: Good Other problem: None Palliative Performance Scale % (PPS): ANDgt; or = 60 (0) Oral Intake: Normal (0) Edema: Absent (0) Dyspnea at Rest: Absent (0) Delirium: Absent (0) Palliative Prognostic Index (PPI) Total Score: 0-2 Note: The scores from each prognostic domain are added. A score of 0 to 2.0 was associated with a median survival of 90 days; score of 2.1 to 4.0 is 61 days, and score of ANDgt;4.0 is 12 days. PHYSICAL EXAMINATION: Vital signs: BP 101/53 Pulse 87 Temp 36.6 ?C (97.8 ?F) (Oral) Resp 20 Wt 55.1 kg (121 lb 8 oz) LMP 05/06/1999 (Exact Date) SpO2 92% BMI 16.48 kg/m2 General Appearance: Thin Skin: No jaundice, No rash and No breakdown Eyes: Normal and No icterus HENT: Atraumatic and Oropharnyx clear with moist mucous membranes Neck: Grossly normal Lungs: Clear to auscultation CV: Regular rate and rhythm Abdomen: Soft, nontender, bowel sounds normal : Not examined Musculoskeletal: No edema and No gross deformity Lymphatics: No cervical, axillary, or inguinal lymphadenopathy Neuro: Alert and oriented to time, place, and person DATA: Diagnostic tests reviewed for today's visit: Most recent labs and imaging results. ASSESSMENT AND PLAN: 1. Adenocarcinoma of the lung, on nivolumab, stable disease 2. Right upper posterior wall pain, neoplasm related, controlled 3. Pneumonia, resolving 4. Anxiety/panic disorder/depression, stable 5. Neoplasm related fatigue, improved 6. Chronic respiratory failure, on home oxygen 7. Emphysema ?? Plan: 1. Continue morphine SR 60 mg bid. 2. Continue oxycodone 30 mg every 2 hours as needed for breakthrough pain, average 8 tablets a day. 3. Continue gabapentin 300 mg qid. 4. Continue methylphenidate 10 mg bid (8am/12noon) for fatigue. She denies any history of cardiac dysrhythmias. 5. Continue levaquin per her local oncologist. 6. She is seeing a psychologist locally. I think that her anxiety, panic attacks and depression are significant enough that she needs to have another psychiatrist to take over needs and review her medications. She will find one locally. Advance Care Planning: I did not discuss Advance Care Planning at this visit, this was done at a prior encounter. We discussed/reviewed advanced directives. Patient does not have advanced directives currently and I encouraged the patient to complete advanced directives paperwork. The patient's surrogate decision maker is spouse. Next Visit: 12 Weeks SIGNATURE: Loly Giordano MD PATIENT NAME: Jazmyne Harrison DATE: May 01, 2017 TIME: 2:56 PM PAGER/CONTACT #: [phone] Referring Provider: LOLY GIORDANO [[id number]] Allergies As of Date: 05/01/2017 (No Known Allergies) Date Reviewed: 05/01/2017 Reviewed by: Cricket (Sal) SAL Corey - Fully Assessed Reason for Visit: Established Patient [175] Visit Diagnoses:Non-small cell carcinoma of lung, stage 4, unspecified laterality (HCC) [C34.90] Bone metastases (HCC) [C79.51] Malaise and fatigue [R53.81, R53.83] Palliative care encounter [Z51.5] Anxiety [F41.9] Cancer related pain [G89.3] Depression, unspecified depression type [F32.9] Order(s):morphine SR (MS CONTIN, ORAMORPH SR) 60 mg 12 hr tabletTake 1 tablet by mouth twice daily for 30 days.Disp: 60 tabletRfl: 0 oxyCODONE IR (ROXICODONE) 30 mg immediate release tabletTake 1-2 tablets by mouth every 2 hours as needed for Pain for up to 30 days.Disp: 240 tabletRfl: 0 methylphenidate (RITALIN) 10 mg tabletTake 1 tablet by mouth twice daily for 30 days. (8am/12noon)Disp: 60 tabletRfl: 0 traZODone (DESYREL) 100 mg tabletTake 3 tablets by mouth daily at bedtime.Disp: 90 tabletRfl: 3 Disposition: Return in about 3 months (around 07/30/2017). Follow-up and Disposition History Recorded Prescriptions as of 05/01/2017 Sig: MORPHINE ER 60 MG TABLET,EXTE* Take 1 tablet by mouth twice * OXYCODONE 30 MG TABLET Take 1-2 tablets by mouth chad* METHYLPHENIDATE 10 MG TABLET Take 1 tablet by mouth twice * TRAZODONE 100 MG TABLET Take 3 tablets by mouth daily* STOOL SOFTENER ORAL Take 2 tablets by mouth at be* LEVOFLOXACIN 500 MG TABLET Take 1 tablet by mouth once d* GABAPENTIN 300 MG CAPSULE TAKE ONE CAPSULE BY MOUTH 4 T* ALBUTEROL SULFATE HFA 90 MCG/* Inhale 2 Puffs as instructed * PREDNISONE 10 MG TABLET Take 1 tablet by mouth once d* X PRAMIPEXOLE 1 MG TABLET Take 1 tablet by mouth daily * ARIPIPRAZOLE 5 MG TABLET TAKE 1 TABLET BY MOUTH ONCE D* PROMETHAZINE 25 MG TABLET Take 1 tablet by mouth every * LORAZEPAM 0.5 MG TABLET Take 1-2 tablets PO daily PRN* BUPROPION HCL 75 MG TABLET Take 1 tablet by mouth twice * BISACODYL 5 MG TABLET Take 1 tablet by mouth once d* BUDESONIDE-FORMOTEROL HFA 160* Inhale 1 Puff as instructed t* MUCINEX D MAXIMUM STRENGTH OR* Take by mouth as needed. SODIUM CHLORIDE 0.9% FLUSH NURSING USE ONLY: USED FOR * HEPARIN LOCK FLUSH (PORCINE) * NURSING USE ONLY: USE FOR I* Problem List As Of Date 05/01/2017 Noted Resolved Bone metastasis [C79.51] INVALID FOR* Secondary malignant neoplasm of intra-abdominal*INVALID FOR* More... Lung cancer [C34.90] INVALID FOR*06/26/2013 Lung metastases [C78.00] INVALID FOR* Examination of participant in clinical trial [Z*INVALID FOR* History of lung cancer [Z85.118] INVALID FOR* Lung cancer (HCC) [C34.90] INVALID FOR*11/04/2014 Non-small cell carcinoma of lung, stage 4 (HCC)*INVALID FOR* Malignant neoplasm of upper lobe of right lung *INVALID FOR* Malaise and fatigue [R53.81, R53.83] INVALID FOR* Family history of tobacco abuse and dependence *INVALID FOR* RLS (restless legs syndrome) [G25.81] INVALID FOR* COPD (chronic obstructive pulmonary disease) (H* Supplemental oxygen dependent [Z99.81] INVALID FOR* Port catheter in place [Z95.828] INVALID FOR* Chronic back pain [M54.9, G89.29] More... Bone pain [M89.8X9] Bone metastases (HCC) [C79.51] More... Restless leg syndrome [G25.81] Neuropathy (HCC) [G62.9] Other instructions from your clinician: 1. Continue other medications as usual. 2. We recommend that you find a psychiatrist locally to help manage your medications. 3. Call your nurse, Jeannette Bradford RN, with any problems ([phone] or after hours [phone] and ask for Palliative Medicine az[employer] principal solution specialist) 4. Return to clinic in 3 months. Loly Giordano MD MPH CHANI FACP [facility] May 01, 2017 2:52 PM Visit Notes: >> Fondalisa (Industrial Design Engineer) Smart, FLOOR INSTALLATION MECHANIC MonMay 01, 2017 2:25 PM Status: Signed Additional intake questions: Has the patient had nausea, vomiting, diarrhea, constipation, fatigue for > 1 week? Vomiting, Yes, Notified Nausea, Yes, MD Notified Fatigue, Yes, MD Notified Diarrhea, Yes, Notified Constipation, Yes, MD Notified Does the patient have a decreased appetite? No Does patient want to see a First Aid Attendant? No (yes to any of above refer patient to schedulers for dietitian appointment) ) Does patient have any new or increased numbness or tingling of extremities? No Is patient interested in fertility information? NA Does patient need any prescription refills? No Electronically Signed By: Cricket Corey LPN Encounter Status:Closed by LOLY GIORDANO MD on 05/02/17 OBSOLETE Observed: 04/29/2017 Status: COMPLETED Source: [place] 12:00 AM [facility] REPOSITORY Refill (PALMED) JAZMYNE HARRISON ([id number]) 1970 F Date Time Provider Department 04/29/17 LOLY GIORDANO During your visit today, we recorded the following information about you: Allergies As of Date: 04/29/2017 (No Known Allergies) Date Reviewed: 04/28/2017 Reviewed by: Kat Horton RN, RN - Fully Assessed Reason for Visit: Refill Request [94] Order(s):pramipexole (MIRAPEX) 1 mg tabletTAKE 1 TABLET BY MOUTH DAILY AT BEDTIME.Disp: 30 tabletRfl: 4 Prescriptions as of 04/29/2017 Sig: PRAMIPEXOLE 1 MG TABLET TAKE 1 TABLET BY MOUTH DAILY * STOOL SOFTENER ORAL Take 2 tablets by mouth at be* LEVOFLOXACIN 500 MG TABLET Take 1 tablet by mouth once d* X MORPHINE ER 60 MG TABLET,EXTE* Take 1 tablet by mouth twice * X OXYCODONE 30 MG TABLET Take 1-2 tablets by mouth chad* X METHYLPHENIDATE 10 MG TABLET Take 1 tablet by mouth twice * GABAPENTIN 300 MG CAPSULE TAKE ONE CAPSULE BY MOUTH 4 T* X TRAZODONE 100 MG TABLET Take 2 tablets by mouth daily* ALBUTEROL SULFATE HFA 90 MCG/* Inhale 2 Puffs as instructed * PREDNISONE 10 MG TABLET Take 1 tablet by mouth once d* ARIPIPRAZOLE 5 MG TABLET TAKE 1 TABLET BY MOUTH ONCE D* PROMETHAZINE 25 MG TABLET Take 1 tablet by mouth every * LORAZEPAM 0.5 MG TABLET Take 1-2 tablets PO daily PRN* X AUGMENTIN ORAL Take by mouth. BUPROPION HCL 75 MG TABLET Take 1 tablet by mouth twice * BISACODYL 5 MG TABLET Take 1 tablet by mouth once d* BUDESONIDE-FORMOTEROL HFA 160* Inhale 1 Puff as instructed t* MUCINEX D MAXIMUM STRENGTH OR* Take by mouth as needed. SODIUM CHLORIDE 0.9% FLUSH NURSING USE ONLY: USED FOR * HEPARIN LOCK FLUSH (PORCINE) * NURSING USE ONLY: USE FOR I* Problem List As Of Date 04/29/2017 Noted Resolved Bone metastasis [C79.51] INVALID FOR* Secondary malignant neoplasm of intra-abdominal*INVALID FOR* More... Lung cancer [C34.90] INVALID FOR*06/26/2013 Lung metastases [C78.00] INVALID FOR* Examination of participant in clinical trial [Z*INVALID FOR* History of lung cancer [Z85.118] INVALID FOR* Lung cancer (HCC) [C34.90] INVALID FOR*11/04/2014 Non-small cell carcinoma of lung, stage 4 (HCC)*INVALID FOR* Malignant neoplasm of upper lobe of right lung *INVALID FOR* Malaise and fatigue [R53.81, R53.83] INVALID FOR* Family history of tobacco abuse and dependence *INVALID FOR* RLS (restless legs syndrome) [G25.81] INVALID FOR* COPD (chronic obstructive pulmonary disease) (H* Supplemental oxygen dependent [Z99.81] INVALID FOR* Port catheter in place [Z95.828] INVALID FOR* Chronic back pain [M54.9, G89.29] More... Bone pain [M89.8X9] Bone metastases (HCC) [C79.51] More... Restless leg syndrome [G25.81] Neuropathy (HCC) [G62.9] Prescriptions ordered this encounter Disp Refills Start End PRAMIPEXOLE 1 MG TABLET 30 t* 4 05/01/2017 Sig: TAKE 1 TABLET BY MOUTH DAILY AT BEDTIME. Medications Discontinued During This Encounter pramipexole (MIRAPEX) 1 mg tablet 30 t* 4 12/05/2016 05/01/2017 Route: ORAL Sig: Take 1 tablet by mouth daily at bedtime. Disc: Reason for discontinue is not on file. Encounter Status:Closed by LOLY GIORDANO MD on 05/01/17 HOSP Observed: 04/28/2017 Status: COMPLETED Source: [place] 2:00 PM [facility] Infusion Center ([facility]) JAZMYNE HARRISON ([id number]) 1970 F Date Time Provider Department 04/28/17 2:00 PM TREATMENT RM 2 [facility] During your visit today, we recorded the following information about you: Temperature Pulse Blood pressure 97.3 degrees 72/minute 107/72 Referring Provider: SHANNAN CONROY [[id number]] Allergies As of Date: 04/28/2017 (No Known Allergies) Date Reviewed: 04/28/2017 Reviewed by: Kat Horton RN, RN - Fully Assessed Reason for Visit: Chemotherapy Treatment [771] Primary Visit Diagnosis:Non-small cell carcinoma of lung, stage 4, unspecified laterality (HCC) [C34.90] Other Visit Diagnoses:Bone metastasis (HCC) [C79.51] 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] Malignant neoplasm metastatic to lung, unspecified laterality (HCC) [C78.00] Order(s):TREATMENT PARAMETER-NOT NEEDED [[id number]] Order #: [id number]: 1 [] nivolumab 160 mg in NaCl 0.9% 100 mL (OPDIVO)Disp: Rfl: Prescriptions as of 04/28/2017 Sig: STOOL SOFTENER ORAL Take 2 tablets by mouth at be* LEVOFLOXACIN 500 MG TABLET Take 1 tablet by mouth once d* MORPHINE ER 60 MG TABLET,EXTE* Take 1 tablet by mouth twice * OXYCODONE 30 MG TABLET Take 1-2 tablets by mouth chad* METHYLPHENIDATE 10 MG TABLET Take 1 tablet by mouth twice * GABAPENTIN 300 MG CAPSULE TAKE ONE CAPSULE BY MOUTH 4 T* TRAZODONE 100 MG TABLET Take 2 tablets by mouth daily* ALBUTEROL SULFATE HFA 90 MCG/* Inhale 2 Puffs as instructed * PRAMIPEXOLE 1 MG TABLET Take 1 tablet by mouth daily * PREDNISONE 10 MG TABLET Take 1 tablet by mouth once d* ARIPIPRAZOLE 5 MG TABLET TAKE 1 TABLET BY MOUTH ONCE D* LORAZEPAM 0.5 MG TABLET Take 1-2 tablets PO daily PRN* AUGMENTIN ORAL Take by mouth. BUPROPION HCL 75 MG TABLET Take 1 tablet by mouth twice * BISACODYL 5 MG TABLET Take 1 tablet by mouth once d* BUDESONIDE-FORMOTEROL HFA 160* Inhale 1 Puff as instructed t* MUCINEX D MAXIMUM STRENGTH OR* Take by mouth as needed. SODIUM CHLORIDE 0.9% FLUSH NURSING USE ONLY: USED FOR * HEPARIN LOCK FLUSH (PORCINE) * NURSING USE ONLY: USE FOR I* PROMETHAZINE 25 MG TABLET Take 1 tablet by mouth every * Problem List As Of Date 04/28/2017 Noted Resolved Bone metastasis [C79.51] INVALID FOR* Secondary malignant neoplasm of intra-abdominal*INVALID FOR* More... Lung cancer [C34.90] INVALID FOR*06/26/2013 Lung metastases [C78.00] INVALID FOR* Examination of participant in clinical trial [Z*INVALID FOR* History of lung cancer [Z85.118] INVALID FOR* Lung cancer (HCC) [C34.90] INVALID FOR*11/04/2014 Non-small cell carcinoma of lung, stage 4 (HCC)*INVALID FOR* Malignant neoplasm of upper lobe of right lung *INVALID FOR* Malaise and fatigue [R53.81, R53.83] INVALID FOR* Family history of tobacco abuse and dependence *INVALID FOR* RLS (restless legs syndrome) [G25.81] INVALID FOR* COPD (chronic obstructive pulmonary disease) (H* Supplemental oxygen dependent [Z99.81] INVALID FOR* Port catheter in place [Z95.828] INVALID FOR* Chronic back pain [M54.9, G89.29] More... Bone pain [M89.8X9] Bone metastases (HCC) [C79.51] More... Restless leg syndrome [G25.81] Neuropathy (HCC) [G62.9] Prescriptions ordered this encounter Disp Refills Start End NIVOLUMAB IV INFUSION 04/28/2017 04/28/2017 Route: INTRAVENOUS SODIUM CHLORIDE 0.9 % INTRAVENOUS SO* 04/28/2017 04/28/2017 Cmt: Inform physician Route: INTRAVENOUS Disc: Auto DC at discharge. DIPHENHYDRAMINE 50 MG/ML INJECTION S* 04/28/2017 04/28/2017 Route: INTRAVENOUS Disc: Auto DC at discharge. HYDROCORTISONE SOD SUCCINATE (PF) 10* 04/28/2017 04/28/2017 Route: INTRAVENOUS Disc: Auto DC at discharge. MEPERIDINE (PF) 50 MG/ML INJECTION S* 04/28/2017 04/28/2017 Route: INTRAVENOUS Disc: Auto DC at discharge. Medications Discontinued During This Encounter meperidine (PF) 25 mg injection (DEM* 04/28/2017 04/28/2017 Route: INTRAVENOUS Sig: Disc: Auto DC at discharge. hydrocortisone sodium succinate (PF)* 04/28/2017 04/28/2017 Route: INTRAVENOUS Sig: Disc: Auto DC at discharge. diphenhydrAMINE 50 mg injection (SIMONE* 04/28/2017 04/28/2017 Route: INTRAVENOUS Sig: Disc: Auto DC at discharge. NaCl 0.9% iv infusion 04/28/2017 04/28/2017 Cmt: Inform physician Route: INTRAVENOUS Sig: Disc: Auto DC at discharge. Encounter Status:Closed by KAT HORTON on 04/28/17 XR CHEST 2V FRONTAL/LAT Observed: 04/27/2017 Status: F Source: [place] 4:18 PM [facility] REPOSITORY * * *Final Report* * * DATE OF EXAM: Apr 27 2017 4:18PM [id number] [id number] - XR CHEST 2V FRONTAL/LAT / PROCEDURE REASON: multiple diagnoses * * * * Physician Interpretation * * * * CHEST RADIOGRAPH (PA and lateral views) 04/27/2017 4:18 PM Indications: Secondary and unspecified malignant neoplasm of intra-abdominal lymph nodes Malignant neoplasm of unspecified part of right bronchus or lung Encounter for examination for normal comparison and control in clinical research program Secondary malignant neoplasm of unspecified lung Hx of cancer. Cough and chest tightness for several weeks. M: XC2_3 Comparison: Chest x-ray 01/05/2017 CT chest 02/24/2017 RESULTS: 1. Lines, Tubes, and Devices: LEFT subclavian line tip unchanged in position projecting over the expected region of the superior vena cava 2. Lungs and Pleura: RIGHT apical cavitary mass with an air- fluid level again noted. Question of some developing nodularity in the RIGHT infrahilar region. There is been nodular appearance in the LEFT infrahilar region on multiple previous studies. Pulmonary vascularity is unremarkable. 3. Cardiomediastinal silhouette: Heart size within normal limits. 4. Other: Bony structures unremarkable. IMPRESSION: 1. Question some developing nodularity in the RIGHT infrahilar region 2. Cavitary lesion with air-fluid level in the RIGHT apical region again noted Psychology Technician: [facility] Transcribe Date/Time: Apr 27 2017 5:31P Dictated by : LISA BOX DO This examination was interpreted and the report reviewed and electronically signed by: LISA BOX DO on Apr 27 2017 5:35PM EST [id number] Observed: 04/27/2017 Status: COMPLETED Source: [place] 4:12 PM [facility] REPOSITORY HNO ID: [id number] Author: George Milton (Rt) Service: (none) Author Type: [employer] Type: Progress Notes Filed: 04/27/2017 4:19 PM Note Text: Radiology Service Progress Note PATIENT NAME: Jazmyne Harrison DATE OF SERVICE: April 27, 2017 TIME: 4:12 PM PATIENT IDENTITY VERIFICATION COMPLETED USING TWO (2) METHODS: Patient confirmed name verbally and Date of . PATIENT GENDER DATA: Female. status: : No status: NO. PATIENT RELEVANT IMPLANT DATA REVIEWED: Not Applicable RADIOLOGY DEPARTMENT: General X-ray: Exam(s) Completed: Chest X-Ray PERIPHERAL IV DATA: Not applicable SIGNED BY: RT Yoan April 27, 2017 4:12 PM PROGRESS Observed: 04/27/2017 Status: COMPLETED Source: [place] 4:02 PM [facility] REPOSITORY HNO ID: [id number] Author: Shannan Conroy Service: (none) Author Type: Physician Type: Progress Notes Filed: 04/28/2017 7:55 AM Note Text: PATIENT NAME: Jazmyne Harrison. CLINIC NO: [id number]. ATTENDING PHYSICIAN: Shannan Conroy MD. ?? DATE OF SERVICE: 04/27/2017. DIAGNOSIS: Metastatic (adenocarcinoma) lung cancer, EGFR AND?ALK negaitve ?? HPI:? Jazmyne Harrison is a 46 year old female whith metastatic (adenocarcinoma) lung cancer. H/o tobacco abuse, COPD who presented with cough and hemoptysis 2012 in the emergency room. Her initial chest x-ray showed a right upper lobe mass. CT scan of chest and subsequent CT-guided lung biopsy revealed non-small cell (adenocarcinoma) lung cancer. ?? Patient had right sided chest pain for over a year. Initially, she thought she pulled a muscle and has been using ibuprofen for pain. She used to smoke 2 packs cigarette per day for over 20 years and recently has cut down to less than 5 cigarettes per day. Chest -ray 2 years ago showed changes consistent with COPD but no lung mass. ?? Staging workup included bone scan show a focal increased activity in the left ilium along the medial left acetabular region. X-ray of the hip showed no lytic or blastic lesion. CT scan of the abdomen showed several small lesions scattered along the left and right hepatic lobes. Otherwise no evidence of metastatic disease. MRI scan and brain also showed no metastatic disease. Patient had a left hip pain for over 2 years. ?? Subsequent PET scan revealed metastatic disease. There were increased activity in the right upper hemithorax along with additional lung nodules in the right side consistent with metastatic disease. There was activity in the mediastinum right prehilar region and bone metastasis at the level of the left acetabulum. ?? Treatment history:? Patient received Taxol/carboplatin/avastin x 4 cycles with near complete response . She was placed on maintenance and Avastin therapy and she progressed on treatment. She then had additional treatment with Avastin and Alimta x4 cycles with further progression of disease. Avastin was discontinued because of hemostasis with her last 2 cycles of chemotherapy. ?? Patient completed palliative radiation therapy to her right upper lobe because of hemostasis and severe pain.She received palliative RT to the right apex lesion 3000 cGy on February 18, 2014 with good control of symptoms. On recent re-staging CT scans, she had improvement in the radiated RUL lesion however had a new 1.8 cm lesion in the RUL. ?? Patient completed 4 cycles of Carboplatin/Abraxane ( 05/02/14- 07/18/14 ) with partial response after 2 cycles and stable disease after 4 cycles. Patient had progression disease in July and started treatment with Check-point inhibitor this year. ?? Patient has progression of her primary lung lesion late last year. Her PET scan was otherwise negative metastatic disease. She had completed palliative radiation therapy to her right upper lobe lung lesion with 2400 cGy in 8 fx in March,. ?? Current treatment:?Nivolumab since July 2014. ?? Interim history: She is tolerating Nivolumab very well. She has increased nonproductive cough for the last 3 weeks and has increased shortness of breathhis activity.??Patient denies headaches, or focal neurological symptoms. She has no hip and lower back pain controlled with medications. She complain of increased chest and right upper rib pain from coughing. ?? She has chronic fatigue but no weight loss with her treatment. She was started on Ritalin recently.?Her?appetite remains?stable after starting prednisone x 7 days after OPTIVA treatment. ?? All medications AND allergies updated and reviewed by me. ?? Review of system: Appetite: Good Energy level: Fair Denies fevers. Mouth:denies sores Resp:dry cough, denies shortness of breath or hemoptysis Cardiac:denies chest pain/palpitations GI: denied nausea, vomiting or diarrhea. :denies dysuria/hematuria Extrem:pain to left hip and both knees Neuro:foot numbness/tingling/burning-as above. Skin:denies rashes Heme:denies bleeding ?? The ROS is otherwise negative. Past medical history,medications, allergies reviewed. No changes. ?? EXAM:? APPEARANCE Well appearing, alert, in no acute distress, well-hydrated, well nourished. Performance status 80%; BP 103/56 Pulse 92 Temp (Src) 98.2 (Oral) Wt 122 lb 8 oz (55.6kg) SpO2 94% LMP 05/06/1999 HEENT: Sclerae anicteric, WNL HEART RRR with normal S1 and S2, no murmurs, no gallops, no JVD appreciated LUNG clear to auscultation, diminished breath sound the right upper lobe, scattered rales on the right lower lobe, no wheezing, LYMPH NODES No cervical lymphadenopathy, No supraclavicular lymphadenopathy and No axillary lymphadenopathy. ABDOMEN bowel sounds normoactive, no bruits, soft, non-tender, non-distended, without organomegaly or palpable masses EXTREMITIES Extremities normal, No deformities, No skin discoloration, No edema and Normal pulses bilaterally. NEURO Awake, alert and oriented x 3, Normal gait and No involuntary motions. SKIN Skin color, texture, turgor normal, no suspicious rashes or lesions ?? LABS: Component Latest Ref Rng AND Units 04/27/2017 Sodium, Whole Blood (iSTAT) 132 - 148 mmol/L 137 Potassium, Whole Blood (iSTAT) 3.5 - 5.0 mmol/L 4.3 Chloride, Whole Blood (iSTAT) 98 - 110 mmol/L 95 (L) Ionized Calcium, WB (iSTAT) 1.08 - 1.30 mmol/L 1.21 TCO2, Whole Blood (iSTAT) 23 - 32 mmol/L 33 (H) Glucose, Whole Blood (iSTAT) 65 - 100 mg/dL 93 BUN, Whole Blood (iSTAT) 8 - 25 mg/dL 11 Creatinine, Whole Blood (iSTAT) 0.70 - 1.40 mg/dL 0.80 Anion Gap, Whole Blood (iSTAT) 0 - 15 mmol/L 9 eGFR- >60 eGFR-All Other Races . >60 Albumin 3.9 - 4.9 g/dL 3.8 (L) Bilirubin, Total 0.2 - 1.3 mg/dL 0.3 Bilirubin, Conjug <0.2 mg/dL <0.2 Alkaline Phosphatase 32 - 117 U/L 53 AST 13 - 35 U/L 16 ALT 7 - 38 U/L 7 Protein, Total 6.3 - 8.0 g/dL 6.6 CT chest:Comparison: ?CT chest 12/21/2015 No significant change except for development of a small amount of layering fluid in the cavity. ?This could be due to infection, retained secretions, or interval necrosis. CXR: 1. ?Question some developing nodularity in the RIGHT infrahilar region 2. ?Cavitary lesion with air-fluid level in the RIGHT apical region again Noted ASSESSMENT/PLAN:? 1. Metastatic Lung cancer Metastatic non-small cell (adenocarcinoma) lung cancer; EGFR AND ALK negaitve Tolerating treatment with Nivolumab with stable disease. (CR) on?CT chest and?bone scan on March 2016.?Fatigue and weight loss secondary to her treatment. - Continue treatment with Nivolumab every 14 days x 4. - Continue MS Contin, and percocet as needed and Neurontin 300mg TID and Marinol as needed - Repeat CBC, CMP, TSH and chest x-ray OV in 2 months ?? 2. Upper back pain and hip pain with history of bone metastasis - Continue MS Contin and oxycodone and Neurontin for her pain. - Repeat bone scan only if indicated with additional or different site of bone pain 3. Cough/ bronchitis - Chest x-ray today - Levaquin 500mg once daily x 10 days. ?? Shannan Conroy MD CNOVSP Observed: 04/27/2017 Status: COMPLETED Source: [place] 3:40 PM [facility] REPOSITORY Visit (SP) Office (DEE[place]) JAZMYNE HARRISON ([id number]) 1970 F Date Time Provider Department 04/27/17 3:40 PM SHANNAN CONROY During your visit today, we recorded the following information about you: Temperature Pulse Blood pressure Weight 98.2 degrees 92/minute 103/56 55.6 kg Shannan Conroy MD 04/28/2017 7:55 AM Signed PATIENT NAME: Jazmyne Harrison. CLINIC NO: [id number]. ATTENDING PHYSICIAN: Shannan Conroy MD. ?? DATE OF SERVICE: 04/27/2017. DIAGNOSIS: Metastatic (adenocarcinoma) lung cancer, EGFR ANDamp;?ALK negaitve ?? HPI:? Jazmyne Harrison is a 46 year old female whith metastatic (adenocarcinoma) lung cancer. H/o tobacco abuse, COPD who presented with cough and hemoptysis 2012 in the emergency room. Her initial chest x-ray showed a right upper lobe mass. CT scan of chest and subsequent CT-guided lung biopsy revealed non-small cell (adenocarcinoma) lung cancer. ?? Patient had right sided chest pain for over a year. Initially, she thought she pulled a muscle and has been using ibuprofen for pain. She used to smoke 2 packs cigarette per day for over 20 years and recently has cut down to less than 5 cigarettes per day. Chest -ray 2 years ago showed changes consistent with COPD but no lung mass. ?? Staging workup included bone scan show a focal increased activity in the left ilium along the medial left acetabular region. X-ray of the hip showed no lytic or blastic lesion. CT scan of the abdomen showed several small lesions scattered along the left and right hepatic lobes. Otherwise no evidence of metastatic disease. MRI scan and brain also showed no metastatic disease. Patient had a left hip pain for over 2 years. ?? Subsequent PET scan revealed metastatic disease. There were increased activity in the right upper hemithorax along with additional lung nodules in the right side consistent with metastatic disease. There was activity in the mediastinum right prehilar region and bone metastasis at the level of the left acetabulum. ?? Treatment history:? Patient received Taxol/carboplatin/avastin x 4 cycles with near complete response . She was placed on maintenance and Avastin therapy and she progressed on treatment. She then had additional treatment with Avastin and Alimta x4 cycles with further progression of disease. Avastin was discontinued because of hemostasis with her last 2 cycles of chemotherapy. ?? Patient completed palliative radiation therapy to her right upper lobe because of hemostasis and severe pain.She received palliative RT to the right apex lesion 3000 cGy on February 18, 2014 with good control of symptoms. On recent re-staging CT scans, she had improvement in the radiated RUL lesion however had a new 1.8 cm lesion in the RUL. ?? Patient completed 4 cycles of Carboplatin/Abraxane ( 05/02/14- 07/18/14 ) with partial response after 2 cycles and stable disease after 4 cycles. Patient had progression disease in July and started treatment with Check- point inhibitor this year. ?? Patient has progression of her primary lung lesion late last year. Her PET scan was otherwise negative metastatic disease. She had completed palliative radiation therapy to her right upper lobe lung lesion with 2400 cGy in 8 fx in March,. ?? Current treatment:?Nivolumab since July 2014. ?? Interim history: She is tolerating Nivolumab very well. She has increased nonproductive cough for the last 3 weeks and has increased shortness of breathhis activity.??Patient denies headaches, or focal neurological symptoms. She has no hip and lower back pain controlled with medications. She complain of increased chest and right upper rib pain from coughing. ?? She has chronic fatigue but no weight loss with her treatment. She was started on Ritalin recently.?Her?appetite remains?stable after starting prednisone x 7 days after OPTIVA treatment. ?? All medications ANDamp; allergies updated and reviewed by me. ?? Review of system: Appetite: Good Energy level: Fair Denies fevers. Mouth:denies sores Resp:dry cough, denies shortness of breath or hemoptysis Cardiac:denies chest pain/palpitations GI: denied nausea, vomiting or diarrhea. :denies dysuria/hematuria Extrem:pain to left hip and both knees Neuro:foot numbness/tingling/burning-as above. Skin:denies rashes Heme:denies bleeding ?? The ROS is otherwise negative. Past medical history,medications, allergies reviewed. No changes. ?? EXAM:? APPEARANCE Well appearing, alert, in no acute distress, well- hydrated, well nourished. Performance status 80%; BP 103/56 Pulse 92 Temp (Src) 98.2 (Oral) Wt 122 lb 8 oz (55.6kg) SpO2 94% LMP 05/06/1999 HEENT: Sclerae anicteric, WNL HEART RRR with normal S1 and S2, no murmurs, no gallops, no JVD appreciated LUNG clear to auscultation, diminished breath sound the right upper lobe, scattered rales on the right lower lobe, no wheezing, LYMPH NODES No cervical lymphadenopathy, No supraclavicular lymphadenopathy and No axillary lymphadenopathy. ABDOMEN bowel sounds normoactive, no bruits, soft, non-tender, non-distended, without organomegaly or palpable masses EXTREMITIES Extremities normal, No deformities, No skin discoloration, No edema and Normal pulses bilaterally. NEURO Awake, alert and oriented x 3, Normal gait and No involuntary motions. SKIN Skin color, texture, turgor normal, no suspicious rashes or lesions ?? LABS: Component Latest Ref Rng ANDamp; Units 04/27/2017 Sodium, Whole Blood (iSTAT) 132 - 148 mmol/L 137 Potassium, Whole Blood (iSTAT) 3.5 - 5.0 mmol/L 4.3 Chloride, Whole Blood (iSTAT) 98 - 110 mmol/L 95 (L) Ionized Calcium, WB (iSTAT) 1.08 - 1.30 mmol/L 1.21 TCO2, Whole Blood (iSTAT) 23 - 32 mmol/L 33 (H) Glucose, Whole Blood (iSTAT) 65 - 100 mg/dL 93 BUN, Whole Blood (iSTAT) 8 - 25 mg/dL 11 Creatinine, Whole Blood (iSTAT) 0.70 - 1.40 mg/dL 0.80 Anion Gap, Whole Blood (iSTAT) 0 - 15 mmol/L 9 eGFR- ANDgt;60 eGFR-All Other Races . ANDgt;60 Albumin 3.9 - 4.9 g/dL 3.8 (L) Bilirubin, Total 0.2 - 1.3 mg/dL 0.3 Bilirubin, Conjug ANDlt;0.2 mg/dL ANDlt;0.2 Alkaline Phosphatase 32 - 117 U/L 53 AST 13 - 35 U/L 16 ALT 7 - 38 U/L 7 Protein, Total 6.3 - 8.0 g/dL 6.6 CT chest:Comparison: ?CT chest 12/21/2015 No significant change except for development of a small amount of layering fluid in the cavity. ?This could be due to infection, retained secretions, or interval necrosis. CXR: 1. ?Question some developing nodularity in the RIGHT infrahilar region 2. ?Cavitary lesion with air-fluid level in the RIGHT apical region again Noted ASSESSMENT/PLAN:? 1. Metastatic Lung cancer Metastatic non-small cell (adenocarcinoma) lung cancer; EGFR ANDamp; ALK negaitve Tolerating treatment with Nivolumab with stable disease. (CR) on?CT chest and?bone scan on March 2016.?Fatigue and weight loss secondary to her treatment. - Continue treatment with Nivolumab every 14 days x 4. - Continue MS Contin, and percocet as needed and Neurontin 300mg TID and Marinol as needed - Repeat CBC, CMP, TSH and chest x-ray OV in 2 months ?? 2. Upper back pain and hip pain with history of bone metastasis - Continue MS Contin and oxycodone and Neurontin for her pain. - Repeat bone scan only if indicated with additional or different site of bone pain 3. Cough/ bronchitis - Chest x-ray today - Levaquin 500mg once daily x 10 days. ?? 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 FOR 3 DAYS.Disp: 10 tabletRfl: 0 XR CHEST 2V FRONTAL/LAT [[id number]] Order #: [id number] FUTURE Level of Service: EST PATIENT VISIT LEVEL 4 [26243] Disposition: Return in about 8 weeks (around 06/22/2017). LOS history recorded Follow-up and Disposition History Recorded Prescriptions as of 04/27/2017 Sig: STOOL SOFTENER ORAL Take 2 tablets by mouth at be* MORPHINE ER 60 MG TABLET,EXTE* Take 1 tablet by mouth twice * OXYCODONE 30 MG TABLET Take 1-2 tablets by mouth chad* METHYLPHENIDATE 10 MG TABLET Take 1 tablet by mouth twice * GABAPENTIN 300 MG CAPSULE TAKE ONE CAPSULE BY MOUTH 4 T* TRAZODONE 100 MG TABLET Take 2 tablets by mouth daily* ALBUTEROL SULFATE HFA 90 MCG/* Inhale 2 Puffs as instructed * PRAMIPEXOLE 1 MG TABLET Take 1 tablet by mouth daily * PREDNISONE 10 MG TABLET Take 1 tablet by mouth once d* ARIPIPRAZOLE 5 MG TABLET TAKE 1 TABLET BY MOUTH ONCE D* PROMETHAZINE 25 MG TABLET Take 1 tablet by mouth every * LORAZEPAM 0.5 MG TABLET Take 1-2 tablets PO daily PRN* BUPROPION HCL 75 MG TABLET Take 1 tablet by mouth twice * BUDESONIDE-FORMOTEROL HFA 160* Inhale 1 Puff as instructed t* MUCINEX D MAXIMUM STRENGTH OR* Take by mouth as needed. SODIUM CHLORIDE 0.9% FLUSH NURSING USE ONLY: USED FOR * HEPARIN LOCK FLUSH (PORCINE) * NURSING USE ONLY: USE FOR I* LEVOFLOXACIN 500 MG TABLET Take 1 tablet by mouth once d* AUGMENTIN ORAL Take by mouth. BISACODYL 5 MG TABLET Take 1 tablet by mouth once d* Medication notes this encounter BISACODYL 5 MG TABLET >> Jazmyne Saldaña MA 04/27/2017 3:42 PM >> JAZMYNE SALDAÑA MA Ada Apr 27, 2017 3:42 PM Not taking. Problem List As Of Date 04/27/2017 Noted Resolved Bone metastasis [C79.51] INVALID FOR* Secondary malignant neoplasm of intra-abdominal*INVALID FOR* More... Lung cancer [C34.90] INVALID FOR*06/26/2013 Lung metastases [C78.00] INVALID FOR* Examination of participant in clinical trial [Z*INVALID FOR* History of lung cancer [Z85.118] INVALID FOR* Lung cancer (HCC) [C34.90] INVALID FOR*11/04/2014 Non-small cell carcinoma of lung, stage 4 (HCC)*INVALID FOR* Malignant neoplasm of upper lobe of right lung *INVALID FOR* Malaise and fatigue [R53.81, R53.83] INVALID FOR* Family history of tobacco abuse and dependence *INVALID FOR* RLS (restless legs syndrome) [G25.81] INVALID FOR* COPD (chronic obstructive pulmonary disease) (H* Supplemental oxygen dependent [Z99.81] INVALID FOR* Port catheter in place [Z95.828] INVALID FOR* Chronic back pain [M54.9, G89.29] More... Bone pain [M89.8X9] Bone metastases (HCC) [C79.51] More... Restless leg syndrome [G25.81] Neuropathy (HCC) [G62.9] Encounter Status:Closed by SHANNAN CONROY MD on 04/28/17 SEVERO ROBLES Collected: 04/27/2017 Status: F Source: [place] 3:30 PM [facility] REPOSITORY TYPE CODE TESTS RESULT OUT OF REFERENCE UNITS RANGE LAB NAWB 132-148 mmol/L Sodium, Whole 137 Bld LAB K1WB 3.5-5.0 mmol/L Potassium,Who 4.3 le Bld LAB CLWB 98-110 mmol/L Low Chloride, 95 Whole Bld LAB ICAWB 1.08-1.30 mmol/L Ionized 1.21 Calcium, WB Result Comment: Please note: This value represents ionized calcium not total calcium. LAB CO2WB 23-32 mmol/L High TCO2, Whole Blood 33 LAB GLUWB 65-100 mg/dL Glucose, Whole Bld 93 LAB BUNWB 8-25 mg/dL BUN, Whole Blood 11 LAB BCRET 0.70-1.40 mg/dL Creatinine,Wh ole Bld 0.80 LAB AGAPWB 0-15 mmol/L Anion Gap, 9 Whole Bld LAB GFRAA eGFR- Amer. >60 LAB GFRNAA . eGFR-All Other Races >60 Result Comment: eGFR (Estimated GFR) Units of measure: mL/min/1.73 meters squared eGFR is derived from the reexpressed MDRD Study equation using the following parameters: serum creatinine, age, gender and race. The creatinine assay has been calibrated to be traceable to IDMS. An eGFR <60 mL/min/1.73m2 for >3 months is consistent with chronic kidney disease. Refer to KDOQI guidelines for clinical interpretation. In patients with unstable renal function, e.g. those with acute kidney injury, the eGFR may not accurately reflect actual GFR. HEPATIC FUNCTN PANEL Collected: 04/27/2017 Status: F Source: [place] 3:30 PM [facility] REPOSITORY TYPE CODE TESTS RESULT OUT OF REFERENCE UNITS RANGE LAB ALB 3.9-4.9 g/dL Low Albumin 3.8 LAB TBIL 0.2-1.3 mg/dL Bilirubin, Total 0.3 LAB CBIL <0.2 mg/dL Bilirubin,Conjuga <0.2 yadira LAB ALKP 32-117 U/L Alkaline Phosphatase 53 LAB AST 13-35 U/L AST 16 LAB ALT 7-38 U/L ALT 7 LAB TP 6.3-8.0 g/dL Protein, Total 6.6 Performed By: #### HFP #### [facility] [address] [place], [place] [address] HOSP Observed: 04/27/2017 Status: COMPLETED Source: [place] 3:15 PM [facility] REPOSITORY Infusion Center ([facility]) JAZMYNE HARRISON ([id number]) 1970 F Date Time Provider Department 04/27/17 3:15 PM [facility] During your visit today, we recorded the following information about you: Referring Provider: SHANNAN CONROY [[id number]] Allergies As of Date: 04/27/2017 (No Known Allergies) Date Reviewed: 04/27/2017 Reviewed by: Jazmyne Saldaña - Fully Assessed Reason for Visit: Blood Draw (CVAD) [1488] Primary Visit Diagnosis: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] Prescriptions as of 04/27/2017 Sig: MORPHINE ER 60 MG TABLET,EXTE* Take 1 tablet by mouth twice * OXYCODONE 30 MG TABLET Take 1-2 tablets by mouth chad* METHYLPHENIDATE 10 MG TABLET Take 1 tablet by mouth twice * GABAPENTIN 300 MG CAPSULE TAKE ONE CAPSULE BY MOUTH 4 T* TRAZODONE 100 MG TABLET Take 2 tablets by mouth daily* ALBUTEROL SULFATE HFA 90 MCG/* Inhale 2 Puffs as instructed * PRAMIPEXOLE 1 MG TABLET Take 1 tablet by mouth daily * PREDNISONE 10 MG TABLET Take 1 tablet by mouth once d* ARIPIPRAZOLE 5 MG TABLET TAKE 1 TABLET BY MOUTH ONCE D* PROMETHAZINE 25 MG TABLET Take 1 tablet by mouth every * LORAZEPAM 0.5 MG TABLET Take 1-2 tablets PO daily PRN* AUGMENTIN ORAL Take by mouth. BUPROPION HCL 75 MG TABLET Take 1 tablet by mouth twice * BISACODYL 5 MG TABLET Take 1 tablet by mouth once d* BUDESONIDE-FORMOTEROL HFA 160* Inhale 1 Puff as instructed t* MUCINEX D MAXIMUM STRENGTH OR* Take by mouth as needed. SODIUM CHLORIDE 0.9% FLUSH NURSING USE ONLY: USED FOR * HEPARIN LOCK FLUSH (PORCINE) * NURSING USE ONLY: USE FOR I* Problem List As Of Date 04/27/2017 Noted Resolved Bone metastasis [C79.51] INVALID FOR* Secondary malignant neoplasm of intra-abdominal*INVALID FOR* More... Lung cancer [C34.90] INVALID FOR*06/26/2013 Lung metastases [C78.00] INVALID FOR* Examination of participant in clinical trial [Z*INVALID FOR* History of lung cancer [Z85.118] INVALID FOR* Lung cancer (HCC) [C34.90] INVALID FOR*11/04/2014 Non-small cell carcinoma of lung, stage 4 (HCC)*INVALID FOR* Malignant neoplasm of upper lobe of right lung *INVALID FOR* Malaise and fatigue [R53.81, R53.83] INVALID FOR* Family history of tobacco abuse and dependence *INVALID FOR* RLS (restless legs syndrome) [G25.81] INVALID FOR* COPD (chronic obstructive pulmonary disease) (H* Supplemental oxygen dependent [Z99.81] INVALID FOR* Port catheter in place [Z95.828] INVALID FOR* Chronic back pain [M54.9, G89.29] More... Bone pain [M89.8X9] Bone metastases (HCC) [C79.51] More... Restless leg syndrome [G25.81] Neuropathy (HCC) [G62.9] Encounter Status:Closed by ARYAN BURNS on 04/27/17 HOSP Observed: 04/14/2017 Status: COMPLETED Source: [place] 2:00 PM [facility] REPOSITORY Infusion Center ([facility]) JAZMYNE HARRISON ([id number]) 1970 F Date Time Provider Department 04/14/17 2:00 PM TREATMENT [facility] During your visit today, we recorded the following information about you: Temperature Pulse Respiration Blood pressure 98.1 degrees 89/minute 20/minute 102/62 Weight 54.7 kg Referring Provider: SHANNAN CONROY [[id number]] Allergies As of Date: 04/14/2017 (No Known Allergies) Date Reviewed: 03/27/2017 Reviewed by: Kesha (Rn) SUHAS Fry - Fully Assessed Reason for Visit: Chemotherapy Treatment [771] Primary Visit Diagnosis:Non-small cell carcinoma of lung, stage 4, unspecified laterality (HCC) [C34.90] Other Visit Diagnoses:Bone metastasis (HCC) [C79.51] 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] Malignant neoplasm metastatic to lung, unspecified laterality (HCC) [C78.00] Order(s):TREATMENT PARAMETER-NOT NEEDED [[id number]] Order #: [id number]: 1 nivolumab 160 mg in NaCl 0.9% 100 mL (OPDIVO)Disp: Rfl: NaCl 0.9% iv infusionDisp: Rfl: diphenhydrAMINE 50 mg injection (BENADRYL)Disp: Rfl: hydrocortisone sodium succinate (PF) 100 mg injection (Solu-CORTEF)Disp: Rfl: meperidine (PF) 25 mg injection (DEMEROL)Disp: Rfl: Prescriptions as of 04/14/2017 Sig: GABAPENTIN 300 MG CAPSULE TAKE ONE CAPSULE BY MOUTH 4 T* MORPHINE ER 60 MG TABLET,EXTE* Take 1 tablet by mouth twice * OXYCODONE 30 MG TABLET Take 1-2 tablets by mouth chad* METHYLPHENIDATE 10 MG TABLET Take twice daily (8am/12noon) TRAZODONE 100 MG TABLET Take 2 tablets by mouth daily* ALBUTEROL SULFATE HFA 90 MCG/* Inhale 2 Puffs as instructed * PRAMIPEXOLE 1 MG TABLET Take 1 tablet by mouth daily * PREDNISONE 10 MG TABLET Take 1 tablet by mouth once d* ARIPIPRAZOLE 5 MG TABLET TAKE 1 TABLET BY MOUTH ONCE D* PROMETHAZINE 25 MG TABLET Take 1 tablet by mouth every * LORAZEPAM 0.5 MG TABLET Take 1-2 tablets PO daily PRN* AUGMENTIN ORAL Take by mouth. BUPROPION HCL 75 MG TABLET Take 1 tablet by mouth twice * BISACODYL 5 MG TABLET Take 1 tablet by mouth once d* BUDESONIDE-FORMOTEROL HFA 160* Inhale 1 Puff as instructed t* MUCINEX D MAXIMUM STRENGTH OR* Take by mouth as needed. SODIUM CHLORIDE 0.9% FLUSH NURSING USE ONLY: USED FOR * HEPARIN LOCK FLUSH (PORCINE) * NURSING USE ONLY: USE FOR I* Problem List As Of Date 04/14/2017 Noted Resolved Bone metastasis [C79.51] INVALID FOR* Secondary malignant neoplasm of intra-abdominal*INVALID FOR* More... Lung cancer [C34.90] INVALID FOR*06/26/2013 Lung metastases [C78.00] INVALID FOR* Examination of participant in clinical trial [Z*INVALID FOR* History of lung cancer [Z85.118] INVALID FOR* Lung cancer (HCC) [C34.90] INVALID FOR*11/04/2014 Non-small cell carcinoma of lung, stage 4 (HCC)*INVALID FOR* Malignant neoplasm of upper lobe of right lung *INVALID FOR* Malaise and fatigue [R53.81, R53.83] INVALID FOR* Family history of tobacco abuse and dependence *INVALID FOR* RLS (restless legs syndrome) [G25.81] INVALID FOR* COPD (chronic obstructive pulmonary disease) (H* Supplemental oxygen dependent [Z99.81] INVALID FOR* Port catheter in place [Z95.828] INVALID FOR* Chronic back pain [M54.9, G89.29] More... Bone pain [M89.8X9] Bone metastases (HCC) [C79.51] More... Restless leg syndrome [G25.81] Neuropathy (HCC) [G62.9] Prescriptions ordered this encounter Disp Refills Start End NIVOLUMAB IV INFUSION 04/14/2017 04/15/2017 Cmt: This is to document that 2.7 mg(s) have been wasted for this dose. Route: INTRAVENOUS SODIUM CHLORIDE 0.9 % INTRAVENOUS SO* 04/14/2017 Cmt: Inform physician Route: INTRAVENOUS DIPHENHYDRAMINE 50 MG/ML INJECTION S* 04/14/2017 Route: INTRAVENOUS HYDROCORTISONE SOD SUCCINATE (PF) 10* 04/14/2017 Route: INTRAVENOUS MEPERIDINE (PF) 50 MG/ML INJECTION S* 04/14/2017 Route: INTRAVENOUS Encounter Status:Closed by MASTER DEJESUS on 04/14/17 PULMONARY VISIT REPORT Observed: 04/12/2017 Status: F Source: [place] 6:[address] [facility] REPOSITORY [facility] [address] [place] [address] OFFICE VISIT Date of Service: 04/12/17 MR#: [id number] Acct: [id number] Name: JAZMYNE HARRISON Rep #: [id number] : 1970 Provider: Anyi Wells Age/Sex: 46/F Location[place] [facility] [place] Status: Signed Assessment AND Plan Problems 1. COPD with acute exacerbation J44.1 Status Acute Plan She does appear to be in exacerbation of her COPD today. She was recently treated with antibiotics. At this point I am going to repeat a prednisone taper but reserve repeating antibiotics. If the patient's symptoms do not show some type of improvement by Monday we will consider adding an antibiotic. No change in maintenance medications. No additional testing at this time. Keep previously scheduled routine follow-up. Medications New: prednisone take 4 tabs for three days, then 3 tabs for three days, then 10 mg PO QDAY 2 tabs for three days, then 1 tab for 3 days Refilled: HPI Not feeling well: Chief Complaint: Chest congestion HPI Comments Details: This is a 46 year old pleasant f, currently under the care of No Primary Care Phys, here for an acute visit regarding increase in wheezing, shortness of breath and productive cough. The symptoms began 3 days ago, and consist of chest congestion, wheezing, shortness of breath and cough. JAZMYNE denies fever or chills, hemoptysis. Dyspnea score 3 per MMRC scale. See complete ROS. Current medications consist of Symbicort, Spiriva, and Ventolin rescue inhaler which is being used several times per day. Medication side effects: negative for sore throat, thrush, hoarseness, mouth lesions, or bleeding from nose or mouth. The patient reports compliance with rinsing mouth out after each use. JAZMYNE is utalizing Acapella 3 times daily as well as her chest physiotherapy vest twice daily. Current home oxygen use is 2 LPM on ambulation and noninvasive ventilator with 2 LPM bleed during sleep and for rescue. She admits that she has had difficulty tolerating her noninvasive ventilator while being sick, the chest congestion makes it difficult to tolerate. Has tried using Mucinex for the thick sputum. She reports that the Mucinex seemed to make things worse so she stopped taking it. MMRC SCALE Grade Degree of breathlessness related to activities 0 Not troubled by breathlessness except on strenuous exercise Intake Vital Signs04/12/17 Height 6 ft 04/12/17 Weight: 121 lb Intake Visit Reasons: Not feeling well Chief Complaint: dyspnea DME Vendor: [employer] Allergies No Known Allergies Allergy (Verified 04/12/17 11:04) Medications Albuterol Inhaler [Ventolin Hfa] 1 puff INHALATION PRN PRN 03/03/16 [History Confirmed 04/12/17] Aripiprazole [Abilify] 5 mg PO QHS 03/03/16 [History Confirmed 04/12/17] Budesonide/Formoterol 160/4.5 [Symbicort 160/4.5 Mcg Inhaler (SP)] 1 inhaler INHALATION BID 03/03/16 [History Confirmed 04/12/17] Dronabinol [Marinol] 5 mg PO BID PRN PRN 03/03/16 [History Confirmed 04/12/17] Gabapentin [Neurontin] 300 mg PO 4X/DAY 03/03/16 [History Confirmed 04/12/17] Guaifenesin [Mucinex] 1,200 mg PO DAILY PRN PRN 03/03/16 [History Confirmed 04/12/17] Morphine Sulfate [Morphine Sulfate ER] 60 mg PO BID 03/03/16 [History Confirmed 04/12/17] Oxycodone [Oxyir] 30 mg PO TID PRN PRN 03/03/16 [History Confirmed 04/12/17] Pramipexole Di-HCl [Mirapex] 1 mg PO QHS 03/03/16 [History Confirmed 04/12/17] ProMETHAzine [Phenergan] 25 mg PO PRN PRN 03/03/16 [History Confirmed 04/12/17] Trazodone HCl 200 mg PO QHS 03/03/16 [History Confirmed 04/12/17] BuPROPion [Wellbutrin] 75 mg PO BID #60 tab 03/06/16 [Rx Confirmed 04/12/17] Fluticasone 0.05% [Flonase Nasal [place]] 1 spray NASAL BID #1 bottle 03/06/16 [Rx Confirmed 04/12/17] Lorazepam [Ativan] 0.5 mg PO DAILY PRN #0 03/06/16 [Rx Confirmed 04/12/17] Nebulizer and Compressor [Portable Nebulizer System] 1 ea MC Q2H PRN PRN #1 ea 03/06/16 [Rx Confirmed 04/12/17] albuterol sulfate 2.5 mg/3 mL (0.083 %) solution for nebulization 2.5 mg INHALATION Q4H PRN #360 ml 04/12/17 [Rx Confirmed 04/12/17] methylphenidate 10 mg tablet 10 mg PO QAM AND QPM 04/12/17 [History Confirmed 04/12/17] prednisone 10 mg tablet 10 mg PO QDAY #30 tab 04/12/17 [Rx Confirmed 04/12/17] tiotropium bromide 2.5 mcg/actuation mist for inhalation 2 puff INHALATION QDAY 04/12/17 [History Confirmed 04/12/17] Review of Systems Const CONSTITUTIONAL: Positive body ache and fatigue; negative anorexia, chills, daytime sleepiness, fever(s), night sweats, oral thrush, stops breathing during sleep, weight loss, sleeping in chair, weight loss, weight gain, frequent colds, seasonal allergies, other, headache(s) or orthopnea EETM Ear Nose Throat Mouth: Positive hearing normal and dry mouth in morning; negative hard of hearing, hoarseness, change in vision, itchy eyes, eye pain, swallowing Difficulty, ear pain, nose bleed, headache(s), mouth pain, nasal congestion, nasal discharge, sinus pain, sinus pressure, sore throat, other or post nasal drip Cardio Cardiovascular: Negative chest pain, chest pain at rest, chest pain with activity, irregular heart rhythm, edema, shortness of breath when lying down, palpitations, murmur or other Resp Respiratory: Positive as per HPI, shortness of breath shortness of breath: Positive with activity, other (at rest) and worsening, wheezing, chest congestion, cough cough: Positive productive (olive green) color: Positive green and non-productive, inhalers, increase use of rescue inhalers and snoring; negative pain with cough, chest tightness, pain on inspiration, apnea or other Gastro Gastrointestional: Negative bloody stools, change in appetite, difficulty swallowing, reflux, hematemesis, melena stool, loose stool, constipation or other Genitourinary: Positive nocturia; negative blood in urine, pain with urination or other Musc Musculoskeletal: Positive back pain; negative body pain, neck pain or other Skin/Breast Skin/Breast: Positive dry skin; negative itching, rash, unusual bruising, breast lump or other Neuro Neurological: Positive restless legs and weakness; negative confusion or other Psych Psychocological: Positive anxiety and other (depression); negative abnormal sleep pattern, thoughts of hurting self/others or hopelessness Lymph Lymphatic: Positive easy bruising; negative easy bleeding, swollen lymph nodes or other Exam Const Constitutional: Positive conversant, cooperative, frail appearing, thin, good hygiene, dyspenic and ill appearing Head Head: Positive normocephalic and atraumatic; negative cyanosis of lips/distal nose Eyes Eye: Positive clear conjunctiva and nystagmus; negative scleral abnormality Ears Ear: Positive hearing normal and external ears normal; negative hard of hearing Nose Nose: Positive external nose normal and no nasal discharge; negative epistaxis Mouth Mouth: Positive oral mucosae normal, no lesions, good dentition and posterior oropharynx is adequate; negative post nasal drip, oral thrush present or malodorous breath Mallampati Score: I: Mallampati Score Neck Neck: Positive normal visual inspection, full ROM and trachea midline; negative lymphadenopathy, JVD or tender Chest Wall Chest: Positive increased A/P diameter and symmetric chest movement; negative crepitus or tenderness Resp lung sounds: Positive diminished diminished: Positive global, wheezes wheezing: Positive global, wheeze present on forced exhalation, prolonged expiratory time and increased work of breathing; negative rhonchi, rales or dullness to percussion Cardio Cardiac: Positive regular rate, regular rhythm, S1 normal and S2 normal; negative murmur GI GI: Positive normal to inspection and normal bowel sounds; negative distended Genitourinary: Positive deferred Musc Musculoskeletal: Positive steady gait and ROM normal; negative kyphosis or scoliosis Skin Pulmonary Skin Exam: Positive intact; negative rash, lesion, ulcers or erythema Pulses Pulse: Positive pulses normal x4 extremities Extremities Extremities: Positive clubbing and capillary refill normal; negative cyanosis or edema Neuro Neurologic: Positive conversant, no focal neuro deficits, cooperative, normal cognition, normal coordination, normal concentration and understands questions; negative tremor Lymph Lymphatic: Negative lymphadenopathy, tenderness, cervical adenopathy or axillary adenopathy Psych Appearance: Positive grossly normal, eye contact and well kempt Mental Status: Positive mental status grossly normal Mood: Positive congruent mood Affect: Positive normal affect 04/12/17 8869 <Electronically signed by Anyi CARVALHO> Date Anyi FENTONC Cosigner Signature: Date (if applicable) CC: OBSOLETE Observed: 04/12/2017 Status: COMPLETED Source: [place] 12:00 AM [facility] REPOSITORY Refill (HEMAMN) JAZMYNE HARRISON ([id number]) 1970 F Date Time Provider Department 04/12/17 LOLY GIORDANOAMN During your visit today, we recorded the following information about you: Jeannette Bradford RN, RN 04/12/2017 9:39 AM Signed The following prescription(s) will be transmitted electronically to [facility] pharmacy upon approval. Patient has been notified. Pending Prescriptions Disp Refills GABAPENTIN 300 MG CAPSULE 150 capsule 2 Sig: TAKE ONE CAPSULE BY MOUTH 4 TIMES A DAY MAY TAKE AN ADDITIONAL ONE DURING THE DAY NEEDED VALENTIN: Yes Allergies As of Date: 04/12/2017 (No Known Allergies) Date Reviewed: 03/27/2017 Reviewed by: Kesha (Rn) SUHAS Fry - Fully Assessed Reason for Visit: Refill Request [94] Order(s):gabapentin (NEURONTIN) 300 mg capsuleTAKE ONE CAPSULE BY MOUTH 4 TIMES A DAY MAY TAKE AN ADDITIONAL ONE DURING THE DAY NEEDEDDisp: 150 capsuleRfl: 2 Prescriptions as of 04/12/2017 Sig: GABAPENTIN 300 MG CAPSULE TAKE ONE CAPSULE BY MOUTH 4 T* MORPHINE ER 60 MG TABLET,EXTE* Take 1 tablet by mouth twice * OXYCODONE 30 MG TABLET Take 1-2 tablets by mouth chad* METHYLPHENIDATE 10 MG TABLET Take twice daily (8am/12noon) TRAZODONE 100 MG TABLET Take 2 tablets by mouth daily* ALBUTEROL SULFATE HFA 90 MCG/* Inhale 2 Puffs as instructed * PRAMIPEXOLE 1 MG TABLET Take 1 tablet by mouth daily * PREDNISONE 10 MG TABLET Take 1 tablet by mouth once d* ARIPIPRAZOLE 5 MG TABLET TAKE 1 TABLET BY MOUTH ONCE D* PROMETHAZINE 25 MG TABLET Take 1 tablet by mouth every * LORAZEPAM 0.5 MG TABLET Take 1-2 tablets PO daily PRN* AUGMENTIN ORAL Take by mouth. BUPROPION HCL 75 MG TABLET Take 1 tablet by mouth twice * BISACODYL 5 MG TABLET Take 1 tablet by mouth once d* BUDESONIDE-FORMOTEROL HFA 160* Inhale 1 Puff as instructed t* MUCINEX D MAXIMUM STRENGTH OR* Take by mouth as needed. SODIUM CHLORIDE 0.9% FLUSH NURSING USE ONLY: USED FOR * HEPARIN LOCK FLUSH (PORCINE) * NURSING USE ONLY: USE FOR I* Problem List As Of Date 04/12/2017 Noted Resolved Bone metastasis [C79.51] INVALID FOR* Secondary malignant neoplasm of intra-abdominal*INVALID FOR* More... Lung cancer [C34.90] INVALID FOR*06/26/2013 Lung metastases [C78.00] INVALID FOR* Examination of participant in clinical trial [Z*INVALID FOR* History of lung cancer [Z85.118] INVALID FOR* Lung cancer (HCC) [C34.90] INVALID FOR*11/04/2014 Non-small cell carcinoma of lung, stage 4 (HCC)*INVALID FOR* Malignant neoplasm of upper lobe of right lung *INVALID FOR* Malaise and fatigue [R53.81, R53.83] INVALID FOR* Family history of tobacco abuse and dependence *INVALID FOR* RLS (restless legs syndrome) [G25.81] INVALID FOR* COPD (chronic obstructive pulmonary disease) (H* Supplemental oxygen dependent [Z99.81] INVALID FOR* Port catheter in place [Z95.828] INVALID FOR* Chronic back pain [M54.9, G89.29] More... Bone pain [M89.8X9] Bone metastases (HCC) [C79.51] More... Restless leg syndrome [G25.81] Neuropathy (HCC) [G62.9] Prescriptions ordered this encounter Disp Refills Start End GABAPENTIN 300 MG CAPSULE 150 * 2 04/12/2017 05/12/2017 Sig: TAKE ONE CAPSULE BY MOUTH 4 TIMES A DAY MAY TAKE AN ADDITIONAL ONE DURING THE DAY NEEDED Medications Discontinued During This Encounter gabapentin (NEURONTIN) 300 mg capsule 150 * 5 11/29/2016 04/12/2017 Sig: TAKE 1 CAPSULE BY MOUTH FOUR TIMES DAILY. MAY TAKE AN ADDITIONAL ONE DURING THE DAY NEEDED Disc: Reason for discontinue is not on file. Encounter Status:Closed by LEE ATKINS MD on 04/12/17 ALLERGIES ALLERGIES DATE TYPE / CODE NAME / CODE REACTION SEVERITY SOURCE 03/20/2018 Drug roflumilast/B72085 Rash [place] Allergy/416 3499(RXNORM) [facility] 409389([facility] ED CT) Repository 11/29/2017 Drug No Known Unknown [place] Allergy/416 Allergies/K0890495 [facility] 578826([place] [address]([facility] ED CT) Repository 11/10/2017 DRUG ROFLUMILAST ITCHING [facility] INGREDI/419 [place] [address](SN Repository ED CT) Drug/318126 No Known Allergies [facility] 003([facility]) System Repository Drug NO KNOWN ALLERGIES [facility] Class/[address] [place] 1003(SNOMED Repository CT) ENCOUNTERS ENCOUNTERS ADMIT/DISCHARGE ACCOUNT NUMBER ADMITTING ENCOUNTER LOCATION SOURCE CLASS 03/30/2018/04/02/20 [id number] Ambulatory [address] [place] Repository 03/29/2018/03/29/20 [id number] Ambulatory [address] Repository 03/29/2018/03/30/20 [id number] Ambulatory [address] [place] Repository 03/29/2018/03/30/20 [id number] Ambulatory [address] Repository 03/29/2018/03/29/20 [id number] Ambulatory [address] Repository 03/29/2018/03/29/20 [id number] Ambulatory [address] Repository 03/20/[id number] [facility] ding:LABSPEC Repository 03/20/2018/03/20/20 [id number] Ambulatory BMSBuilding: [place] 18 BMS.[facility] Repository 03/09/[id number] [facility] ding:MEDOUTP Repository 03/02/2018/03/05/20 [id number] Ambulatory [address] Repository 03/02/2018/03/02/20 [id number] Ambulatory [address] Repository 03/02/2018/03/02/20 [id number] Ambulatory [address] Repository 03/02/2018/03/02/20 [id number] Ambulatory [address] Repository 02/28/[id number] [facility] ding:MEDOUTP Repository 02/21/[id number] [facility] ding:MEDOUTP Repository 02/16/2018/02/17/20 [id number] Ambulatory BMSBuilding: [place] [address] Repository 02/13/[id number] [facility] ding:MEDOUTP Repository 02/09/2018/02/10/20 [id number] Ambulatory BMSBuilding: [place] [address] Repository 02/06/[id number] [facility] ding:LAB Repository 02/05/2018/02/07/20 [id number] Ambulatory [address] Repository 02/05/[id number] [facility] ding:MEDOUTP Repository 02/02/2018/02/03/20 [id number] Ambulatory [address] Repository 02/02/2018/02/06/20 [id number] Ambulatory [address] Repository 02/02/2018/02/06/20 [id number] Ambulatory [address] Repository 02/02/2018/02/03/20 [id number] Ambulatory [address] Repository 01/26/[id number] [facility] ding:MEDOUTP Repository 01/12/2018/01/13/20 [id number] Ambulatory BMSBuilding: [place] [address] Repository 01/11/2018/01/13/20 [id number] Ambulatory [address] [place] Repository 01/10/[id number] [facility] ding:RAD Repository 01/05/2018/01/06/20 [id number] Ambulatory [address] [place] Repository 01/05/2018/01/09/20 [id number] Ambulatory [address] [place] Repository 01/05/2018/01/06/20 [id number] Ambulatory [address] [place] Repository 01/05/2018/01/06/20 [id number] Ambulatory [address] [place] Repository 01/05/2018 [id number] Ambulatory BMSBuilding: [place] [facility] Repository 01/04/[id number] [facility] ding:PSN Repository 12/08/2017/12/12/19 [id number] Ambulatory [address] [place] Repository 12/07/2017 [id number] Ambulatory [facility] [place] Repository 12/07/2017/12/09/19 [id number] Ambulatory [address] [place] Repository 12/07/2017/12/08/19 [id number] Ambulatory [address] [place] Repository 12/07/2017/12/08/19 [id number] Ambulatory [address] [place] Repository 11/30/2017/12/01/19 [id number] Ambulatory [address] [place] Repository 11/29/2017/11/30/19 [id number] [place] Ambulatory [address] ding:[facility] Repository 11/29/2017/11/30/19 [id number] Ambulatory BMSBuilding: [place] [address] Repository 11/29/2017 [id number] Ambulatory [address] [place] [address] Repository 11/10/2017/11/11/19 [id number] Ambulatory [address] [place] Repository 11/10/2017/11/14/19 [id number] Ambulatory [address] [place] Repository 11/10/2017/11/11/19 [id number] Ambulatory [address] [place] Repository 11/06/2017/11/15/19 [id number] Ambulatory [address] [place] Repository 11/02/2017/11/03/19 [id number] Ambulatory BMSBuilding: [place] [address] Repository 11/02/2017/11/04/19 [id number] Ambulatory [address] Repository 10/20/2017/10/21/19 [id number] Ambulatory [address] ding:.[facility] Repository 10/20/2017 [id number] Ambulatory [address] [place] [address] Repository 10/19/2017/10/20/19 [id number] Ambulatory BMSBuilding: [place] [address] Repository 10/13/2017/10/17/19 [id number] Ambulatory [address] Repository 10/12/2017/10/17/19 [id number] Ambulatory [address] Repository 10/12/2017/10/13/19 [id number] Ambulatory [address] Repository 10/12/2017/10/13/19 [id number] Ambulatory [address] Repository 10/12/2017/10/13/19 [id number] Ambulatory [address] Repository 10/02/[id number] [facility] ding:[place] Repository 09/15/2017/09/20/19 [id number] Ambulatory [address] Repository 09/13/2017/09/22/19 [id number] Ambulatory [address] ding:[place] Repository 08/21/2017/08/22/19 [id number] Ambulatory [address] ding:[place] Repository 08/18/2017/08/22/19 [id number] Ambulatory [address] Repository 08/03/[id number] [facility] ding:LABSPEC Repository 08/03/2017/08/04/19 [id number] Ambulatory BMSBuilding: [place] [address] Repository 07/27/2017/07/29/19 [id number] Ambulatory [address] Repository 07/21/2017/07/25/19 [id number] Ambulatory [address] Repository 07/21/2017/07/23/19 [id number] Ambulatory [place] [address] ding:[place] Repository 07/05/2017/07/07/19 [id number] Ambulatory [address] Repository 07/05/2017 [id number] Ambulatory [facility] Repository 07/05/2017/07/06/19 [id number] Ambulatory [address] Repository 06/23/2017/06/27/19 [id number] Ambulatory [address] Repository 06/22/2017/06/24/19 [id number] Ambulatory [address] Repository 06/22/2017/06/23/19 [id number] Ambulatory [address] Repository 06/22/2017 [id number] Ambulatory [facility] Repository 06/22/2017/06/23/19 [id number] Ambulatory [address] Repository 06/21/2017/06/21/19 [id number] Ambulatory [place] ding:[place] Repository 06/09/2017/06/12/19 [id number] Ambulatory [address] Repository 06/08/2017/06/08/19 [id number] ding:[facility] Repository 06/07/2017/06/07/19 [id number] Ambulatory BMSBuilding: [place] [address] Repository 05/26/2017/05/29/19 [id number] Ambulatory [address] Repository 05/24/2017 [id number] Ambulatory BMSBuilding: [place] [facility] Repository 05/23/[id number] [facility] ding:PSN Repository 05/17/2017/05/17/19 [id number] Ambulatory BMSBuilding: [place] [address] Repository 05/15/2017/05/16/19 [id number] Ambulatory [address] Repository 05/04/[id number] [facility] ding:PSN Repository 05/04/2017 [id number] Ambulatory BMSBuilding: [place] [facility] Repository 05/01/2017/05/02/19 [id number] Ambulatory [address] Repository 04/28/2017/04/28/19 [id number] Ambulatory [address] Repository 04/27/2017/05/01/19 [id number] Ambulatory [address] Repository 04/27/2017 [id number] Ambulatory [facility] Repository 04/27/2017/04/28/19 [id number] Ambulatory [address] Repository 04/27/2017/04/28/19 [id number] Ambulatory [address] Repository 04/14/2017/04/18/20 [id number] Ambulatory [address] Repository 04/12/2017/04/12/20 [id number] Ambulatory BMSBuilding: [place] [address] Repository 04/12/2017 [id number] Ambulatory BMSBuilding: [place] BMS.[facility] Repository PAYERS PAYERS ENCOUNTER GUARANTOR PAYER SUBSCRIBER SOURCE 03/20/2018 JAZMYNE A Primary JAZMYNE A [place] [id number] KEEN Insurance:MEDICARE SKIDMOREDOB: [facility] [id number] Hospital [address]Nbb: (330) Number: Repository [phone] () [id number] Date:2018-03-20 03/20/2018 Secondary JAZMYNE A [place] Insurance:MEDICAIDPol [facility] Number: [id number] Hospital [id number] Repository Date:2018-03-20 03/20/2018 Tertiary NOT GIVENUNK [place] Insurance:SELF PAY [facility] Number: Effective Repository Date:2018-03-20 03/20/2018 JAZMYNE A Primary JAZMYNE A [place] [id number] KEEN Insurance:MEDICARE SKIDMOREDOB: [place] PART A [facility] [id number] Hospital [address]Jtc: (330) Number: Repository [phone] () [id number] Date:2018-03-20 03/20/2018 Secondary JAZMYNE A [place] Insurance:MEDICAIDPol SKIDMOREDOB: [facility] Number: [id number] Hospital [id number] Repository Date:2018-03-20 03/20/2018 Tertiary NOT GIVENUNK [place] Insurance:SELF PAY [facility] Number: Effective Repository Date:2018-03-20 03/09/2018 JAZMYNE A Primary JAZMYNE A [place] [id number] KEEN Insurance:MEDICARE SKIDMOREDOB: [facility] [place] A [facility] [id number] Hospital [address]Jya: (330) Number: Repository [phone] () [id number] Date:2018-02-28 03/09/2018 Secondary JAZMYNE A [place] Insurance:MEDICAIDPol SKIDMOREDOB: [facility] ic Number: [id number] Hospital [id number] Repository Date:2018-02-28 03/09/2018 Tertiary NOT GIVENUNK [place] Insurance:SELF PAY [facility] Number: Effective Repository Date:2018-02-28 02/28/2018 JAZMYNE A Primary JAZMYNE A [place] [id number] KEEN Insurance:MEDICARE SKIDMOREDOB: [facility] [place] [facility] [id number] Hospital 552[address]Szg: (330) Number: Repository [phone] () [id number] Date:2018-02-27 02/28/2018 Secondary JAZMYNE A [place] Insurance:MEDICAIDPol SKIDMOREDOB: [facility] ic Number: [id number] Hospital [id number] Repository Date:2018-02-27 02/28/2018 Tertiary NOT GIVENUNK [place] Insurance:SELF PAY [facility] Number: Effective Repository Date:2018-02-27 02/21/2018 JAZMYNE A Primary JAZMYNE A [place] [id number] KEEN Insurance:MEDICARE SKIDMOREDOB: [facility] [place] [facility] [id number] Hospital 360[address]Kxu: (330) Number: Repository [phone] () [id number] Date:2018-02-13 02/21/2018 Secondary JAZMYNE A [place] Insurance:MEDICAIDPol SKIDMOREDOB: [facility] icy Number: [id number] Hospital [id number] Repository Date:2018-02-13 02/21/2018 Tertiary NOT GIVENUNK [place] Insurance:SELF PAY [facility] Number: Effective Repository Date:2018-02-13 02/16/2018 JAZMYNE A Primary JAZMYNE A [place] [id number] KEEN Insurance:MEDICARE SKIDMOREDOB: [facility] [place] [facility] [id number] Hospital [address]Ggl: (330) Number: Repository [phone] () [id number] Date:2018-01-12 02/16/2018 Secondary JAZMYNE A [place] Insurance:MEDICAIDPol SKIDMOREDOB: [facility] ic Number: [id number] Hospital [id number] Repository Date:2018-01-12 02/16/2018 Tertiary NOT GIVENUNK [place] Insurance:SELF PAY [facility] Number: Effective Repository Date:2018-02-05 02/13/2018 JAZMYNE A Primary JAZMYNE A [place] [id number] [place] Insurance:MEDICARE SKIDMOREDOB: [place] PART A [facility] [id number] Hospital [address]Sqd: (330) Number: Repository [phone] () [id number] Date:2018-02-05 02/13/2018 Secondary JAZMYNE A [place] Insurance:MEDICAIDPol SKIDMOREDOB: [facility] ic Number: [id number] Hospital [id number] Repository Date:2018-02-05 02/13/2018 Tertiary NOT GIVENUNK [place] Insurance:SELF PAY [facility] Number: Effective Repository Date:2018-02-05 02/09/2018 JAZMYNE A Primary JAZMYNE A [place] [id number] [place] Insurance:MEDICARE SKIDMOREDOB: [place] PART A [facility] [id number] Hospital [address]Xpv: (330) Number: Repository [phone] () [id number] Date:2018-02-08 02/09/2018 Secondary JAZMYNE A [place] Insurance:MEDICAIDPol SKIDMOREDOB: [facility] ic Number: [id number] Hospital [id number] Repository Date:2018-02-08 02/09/2018 Tertiary NOT GIVENUNK [place] Insurance:SELF PAY [facility] Number: Effective Repository Date:2018-02-08 02/06/2018 JAZMYNE A Primary JAZMYNE A [place] [id number] [place] Insurance:MEDICAIDPol SKIDMOREDOB: [place] ic Number: [id number] Hospital [address]Bqf: (330) [id number] Repository [phone] () Date:2018-02-06 02/06/2018 Secondary JAZMYNE A [place] Insurance:MEDICARE SKIDMOREDOB: Community PART A [facility] [id number] Hospital Number: Repository [id number] Date:2018-02-06 02/06/2018 Tertiary NOT GIVENUNK [place] Insurance:SELF PAY [facility] Number: Effective Repository Date:2018-02-06 02/05/2018 JAZMYNE A Primary JAZMYNE A [place] [id number] KEEN Insurance:MEDICARE SKIDMOREDOB: [place] PART A [facility] [id number] Hospital 164[address]Rho: (330) Number: Repository [phone] () [id number] Date:2018-01-26 02/05/2018 Secondary JAZMYNE A [place] Insurance:MEDICAIDPol SKIDMOREDOB: [facility] Number: [id number] Hospital [id number] Repository Date:2018-01-26 02/05/2018 Tertiary NOT GIVENUNK [place] Insurance:SELF PAY [facility] Number: Effective Repository Date:2018-01-26 01/26/2018 JAZMYNE A Primary JAZMYNE A [place] [id number] KEEN Insurance:MEDICARE SKIDMOREDOB: [place] PART A [facility] [id number] Hospital 5[address]Hvw: (330) Number: Repository [phone] () [id number] Date:2018-01-16 01/26/2018 Secondary JAZMYNE A [place] Insurance:MEDICAIDPol SKIDMOREDOB: [facility] ic Number: [id number] Hospital [id number] Repository Date:2018-01-16 01/26/2018 Tertiary NOT GIVENUNK [place] Insurance:SELF PAY [facility] Number: Effective Repository Date:2018-01-16 01/12/2018 JAZMYNE A Primary JAZMYNE A [place] [id number] KEEN Insurance:MEDICARE SKIDMOREDOB: [place] PART A [facility] [id number] Hospital [address]Ggc: (330) Number: Repository [phone] () [id number] Date:2017-11-29 01/12/2018 Secondary JAZMYNE A [place] Insurance:MEDICAIDPol SKIDMOREDOB: [facility] ic Number: [id number] Hospital [id number] Repository Date:2017-11-29 01/12/2018 Tertiary NOT GIVENUNK [place] Insurance:SELF PAY [facility] Number: Effective Repository Date:2018-01-02 01/10/2018 JAZMYNE A Primary JAZMYNE A [place] [id number] [place] Insurance:MEDICARE SKIDMOREDOB: [place] PART [place] [facility] [id number] Hospital 230[address]Wju: (330) Number: Repository [phone] () [id number] Date:2018-01-08 01/10/2018 Secondary JAZMYNE A [place] Insurance:MEDICAIDPol SKIDMOREDOB: [facility] Number: [id number] Hospital [id number] Repository Date:2018-01-08 01/10/2018 Tertiary NOT GIVENUNK [place] Insurance:SELF PAY [facility] Number: Effective Repository Date:2018-01-08 01/05/2018 JAZMYNE A Primary JAZMYNE A [place] [id number] KEEN Insurance:MEDICARE SKIDMOREDOB: [place] PART A [facility] [id number] [place] [id number]: (330) Number: Repository [phone] () [id number] Date:2017-11-29 01/05/2018 Secondary JAZMYNE A [place] Insurance:MEDICAIDPol SKIDMOREDOB: [facility] ic Number: [id number] Hospital [id number] Repository Date:2017-11-29 01/05/2018 Tertiary NOT GIVENUNK [place] Insurance:SELF PAY [facility] Number: Effective Repository Date:2018-01-05 01/04/2018 JAZMYNE A Primary JAZMYNE A [place] [id number] KEEN Insurance:MEDICARE SKIDMOREDOB: [place] PART [place] [facility] [id number] Hospital 27341Pvk: (330) Number: Repository [phone] () [id number] Date:2017-11-29 01/04/2018 Secondary JAZMYNE A [place] Insurance:MEDICAIDPol SKIDMOREDOB: [facility] icy Number: [id number] Hospital [id number] Repository Date:2017-11-29 01/04/2018 Tertiary NOT GIVENUNK [place] Insurance:SELF PAY [facility] Number: Effective Repository Date:2017-11-29 11/29/2017 JAZMYNE A Primary JAZMYNE A [facility] SKIDMOREDOB: Insurance:MedicarePol SKIDMOREDOB: [facility] icy Number: Effective [id number] System [facility], Date:2017-11-29 - [facility] [id number] [facility]Pdn: Name:CD:[id number] [place] [id number]: [id number], [place] (HP) [address]OG: [phone] (HP) [phone] (WP) 11/29/2017 Secondary JAZMYNE A [facility] Insurance:MedicaidPol [facility] ic Number: Effective [id number] System Date:2017-11-29 - [facility], Repository [id number] [place] Name:CD:[id number] [facility]Zaa: [facility] [address] [place], [place] ()Tel: [phone]: [phone]) [phone] 11/29/2017 JAZMYNE A Primary JAZMYNE A [place] [id number] [facility] Insurance:MEDICARE SKIDMOREDOB: [place] PART [place] [facility] [id number] Hospital 816[address]Vrc: (330) Number: Repository [phone] () [id number] Date:2017-09-22 11/29/2017 Secondary JAZMYNE A [place] Insurance:MEDICAIDPol SKIDMOREDOB: Community icy Number: [id number] Hospital [id number] Repository Date:2017-09-22 11/29/2017 Tertiary NOT GIVENUNK [place] Insurance:SELF PAY [facility] Number: Effective Repository Date:2017-11-22 11/29/2017 JAZMYNE Primary JAZMYNE [facility] SKIDMOREDOB: Insurance:MedicarePol SKIDMOREDOB: Hospitals icy Number: [id number] Repository [facility], [id number] [place], [place] [id number]: Date:Plan Name:[facility] [id number]: A () () 11/29/2017 Secondary JAZMYNE [facility] Insurance:MedicarePol SKIDMOREDOB: Hospitals icy Number: [id number] Repository [id number] [facility], Date:Plan Name:[facility] [id number]: B () 11/29/2017 Tertiary JAZMYNE [facility] Insurance:MedicaidPol SKIDMOREDOB: Hospitals icy Number: [id number] Repository [id number] [facility], Date:Plan [place] [id number]: Name:[facility] [address], [place] () [address]RN: 11/02/2017 JAZMYNE A Primary JAZMYNE A [place] [id number] [facility] Insurance:MEDICARE SKIDMOREDOB: [facility] [place] BPolicy [id number] Hospital [address]Gmw: (330) Number: Repository [phone] () [id number] Date:2017-05-17 11/02/2017 Secondary JAZMYNE A [place] Insurance:MEDICAIDPol SKIDMOREDOB: Community icy Number: [id number] Hospital [id number] Repository Date:2017-05-17 11/02/2017 Tertiary NOT GIVENUNK [place] Insurance:SELF PAY [facility] Number: Effective Repository Date:2017-10-26 10/20/2017 JAZMYNE A Primary [facility] SKIDMOREDOB: Insurance:MedicarePol SKIDMOREDOB: [facility] icy Number: Effective [id number] System [facility], Date:2017-10-20 - [facility] [id number] [facility]Bss: Name:CD:[id number] [place] [id number]: [id number], [place] (HP) [address]RI: [phone] (HP) [phone] (WP) 10/20/2017 Secondary JAZMYNE A [facility] Insurance:MedicaidPol SKIDMOREDOB: [facility] icy Number: Effective [id number] System Date:2017-10-20 - [facility] [id number] [place] Name:CD:[id number] [address]Vmh: [facility] [address] [place], [place] ()Tel: [phone]) [phone]: [phone] 10/20/2017 [facility] SKIDMOREDOB: Insurance:MedicarePol SKIDMOREDOB: Hospitals icy Number: [id number] Repository [facility], [id number], [place] [id number]: Date:Plan Name:[facility] [id number]: A (HP) (HP) 10/20/2017 Secondary [facility] Insurance:MedicarePol SKIDMOREDOB: Hospitals icy Number: [id number] Repository [id number], Date:Plan Name:[facility] [id number]: B (HP) 10/20/2017 Tertiary [facility] Insurance:MedicaidPol SKIDMOREDOB: Hospitals icy Number: [id number] Repository [id number] [facility], Date:[facility] [id number]: Name:Beck Elli Serrano [address] [place] () [address]SD: 10/19/2017 JAZMYNE A Primary JAZMYNE A [place] [id number] KEEN Insurance:MEDICARE SKIDMOREDOB: [place] [facility] [id number] Ville [id number]: (330) Number: Repository [phone] () [id number] Date:2017-10-19 10/19/2017 Secondary JAZMYNE A [place] Insurance:MEDICAIDPol [facility] icy Number: [id number] Hospital [id number] Repository Date:2017-10-19 10/19/2017 Tertiary NOT GIVENUNK [place] Insurance:SELF PAY [facility] Number: Effective Repository Date:2017-10-19 10/02/2017 JAZMYNE A Primary JAZMYNE A [place] [id number] KEEN Insurance:MEDICARE SKIDMOREDOB: [place] [facility] [id number] Hospital [address]Uma: (330) Number: Repository [phone] () [id number] Date:2017-05-22 10/02/2017 Secondary JAZMYNE A [place] Insurance:MEDICAIDPol [facility] icy Number: [id number] Hospital [id number] Repository Date:2017-05-22 10/02/2017 Tertiary NOT GIVENUNK [place] Insurance:SELF PAY [facility] Number: Effective Repository Date:2017-09-22 09/13/2017 JAZMYNE A Primary JAZMYNE A [place] [id number] KEEN Insurance:MEDICARE SKIDMOREDOB: [place] [facility] [id number] Hospital 325[address]Vbt: (330) Number: Repository [phone] () [id number] Date:2017-05-22 09/13/2017 Secondary JAZMYNE A [place] Insurance:MEDICAIDPol SKIDMOREDOB: [facility] icy Number: [id number] Hospital [id number] Repository Date:2017-05-22 09/13/2017 Tertiary NOT GIVENUNK [place] Insurance:SELF PAY [facility] Number: Effective Repository Date:2017-08-22 08/21/2017 JAZMYNE A Primary JAZMYNE A [place] [id number] KEEN Insurance:MEDICARE SKIDMOREDOB: [facility] [facility] [id number] Hospital [address]29[address]Bhm: (330) Number: Repository [phone] () [id number] Date:2017-05-22 08/21/2017 Secondary JAZMYNE A [place] Insurance:MEDICAIDPol SKIDMOREDOB: [facility] icy Number: [id number] Hospital [id number] Repository Date:2017-05-22 08/21/2017 Tertiary NOT GIVENUNK [place] Insurance:SELF PAY [facility] Number: Effective Repository Date:2017-07-23 08/03/2017 JAZMYNE A Primary JAZMYNE A [place] [id number] KEEN Insurance:MEDICARE SKIDMOREDOB: [facility] [facility] [id number] Hospital 289[address]Bgj: (330) Number: Repository [phone] () [id number] Date:2017-08-03 08/03/2017 Secondary JAZMYNE A [place] Insurance:MEDICAIDPol SKIDMOREDOB: [facility] ic Number: [id number] Hospital [id number] Repository Date:2017-08-03 08/03/2017 Tertiary NOT GIVENUNK [place] Insurance:SELF PAY [facility] Number: Effective Repository Date:2017-08-03 08/03/2017 JAZMYNE A Primary JAZMYNE A [place] [id number] KEEN Insurance:MEDICARE SKIDMOREDOB: [facility] [facility] [id number] Hospital 48324Mxe: (330) Number: Repository [phone] () [id number] Date:2017-08-01 08/03/2017 Secondary JAZMYNE A [place] Insurance:MEDICAIDPol SKIDMOREDOB: [facility] icy Number: [id number] Hospital [id number] Repository Date:2017-08-01 08/03/2017 Tertiary NOT GIVENUNK [place] Insurance:SELF PAY [facility] Number: Effective Repository Date:2017-08-03 07/21/2017 JAZMYNE A Primary JAZMYNE A [place] [id number] KEEN Insurance:MEDICARE SKIDMOREDOB: [place] [facility] [id number] [place]ille [id number]: 330) Number: Repository [phone] () [id number] Date:2017-05-22 07/21/2017 Secondary JAZMYNE A [place] Insurance:MEDICAIDPol SKIDMOREDOB: [facility] icy Number: [id number] Hospital [id number] Repository Date:2017-05-22 07/21/2017 Tertiary NOT GIVENUNK [place] Insurance:SELF PAY [facility] Number: Effective Repository Date:2017-06-22 06/21/2017 JAZMYNE A Primary JAZMYNE A [place] [id number] KEEN Insurance:MEDICARE SKIDMOREDOB: [place] [facility] [id number] [place] [address]Tel: (330) Number: Repository [phone] () [id number] Date:2017-05-22 06/21/2017 Secondary JAZMYNE A [place] Insurance:MEDICAIDPol SKIDMOREDOB: [facility] icy Number: [id number] Hospital [id number] Repository Date:2017-05-22 06/21/2017 Tertiary NOT GIVENUNK [place] Insurance:SELF PAY [facility] Number: Effective Repository Date:2017-05-22 06/08/2017 JAZMYNE A Primary JAZMYNE A [facility] SKIDMOREDOB: Insurance:MedicarePol SKIDMOREDOB: [facility] icy Number: Effective [id number] System HELEN AYALA, Date:2017-06-08 - [facility] 5560-71-37Dpzj [place] [address]Nul: Name:CD:[id number] [facility] [address]Ufv: [id number], [place] () [address]BJ: [phone] () [phone] (WP) 06/08/2017 Secondary JAZMYNE A [facility] Insurance:MedicaidPol SKIDMOREDOB: [facility] icy Number: Effective [id number] System Date:2017-06-08 - [facility], Repository 1031-45-64Hxox [place] Name::[id number]: [facility] [address] [place], [place] ()Tel: [phone]: [phone] 06/07/2017 JAZMYNE A Primary JAZMYNE A [place] [id number] KEEN Insurance:MEDICARE SKIDMOREDOB: [place] [facility] [id number] Hospital 18453Bge: 330) Number: Repository [phone] () [id number] Date:2017-06-06 06/07/2017 Secondary JAZMYNE A [place] Insurance:MEDICAIDPol [facility] icy Number: [id number] Hospital [id number] Repository Date:2017-06-06 06/07/2017 Tertiary NOT GIVENUNK [place] Insurance:SELF PAY [facility] Number: Effective Repository Date:2017-06-06 05/24/2017 JAZMYNE A Primary JAZMYNE A [place] [id number] KEEN Insurance:MEDICARE SKIDMOREDOB: [place] [facility] [id number] Hospital [address]Spv: 330) Number: Repository [phone] () [id number] Date:2017-05-17 05/24/2017 Secondary JAZMYNE A [place] Insurance:MEDICAIDPol [facility] icy Number: [id number] Hospital [id number] Repository Date:2017-05-17 05/24/2017 Tertiary NOT GIVENUNK [place] Insurance:SELF PAY [facility] Number: Effective Repository Date:2017-05-24 05/23/2017 JAZMYNE A Primary JAZMYNE A [place] [id number] KEEN Insurance:MEDICARE SKIDMOREDOB: [place] [facility] [id number] Hospital 326[address]Hxf: (330) Number: Repository [phone] () [id number] Date:2017-05-17 05/23/2017 Secondary JAZMYNE A [place] Insurance:MEDICAIDPol SKIDMOREDOB: [facility] ic Number: [id number] Hospital [id number] Repository Date:2017-05-17 05/23/2017 Tertiary NOT GIVENUNK [place] Insurance:SELF PAY [facility] Number: Effective Repository Date:2017-05-17 05/17/2017 JAZMYNE A Primary JAZMYNE A [place] [id number] KEEN Insurance:MEDICARE SKIDMOREDOB: [place] [facility] [id number] Hospital 67541Okz: (330) Number: Repository [phone] () [id number] Date:2017-03-31 05/17/2017 Secondary JAZMYNE A [place] Insurance:MEDICAIDPol SKIDMOREDOB: [facility] Number: [id number] Hospital [id number] Repository Date:2017-03-31 05/17/2017 Tertiary NOT GIVENUNK [place] Insurance:SELF PAY [facility] Number: Effective Repository Date:2017-03-31 05/04/2017 JAZMYNE A Primary JAZMYNE A [place] [id number] KEEN Insurance:MEDICARE SKIDMOREDOB: [place] [facility] [id number] Hospital 04235Hde: (330) Number: Repository [phone] () [id number] Date:2012-10-22 05/04/2017 Secondary JAZMYNE A [place] Insurance:MEDICAIDPol SKIDMOREDOB: [facility] ic Number: [id number] Hospital [id number] Repository Date:2013-02-22 05/04/2017 Tertiary NOT GIVENUNK [place] Insurance:SELF PAY [facility] Number: Effective Repository Date:2016-11-16 05/04/2017 JAZMYNE A Primary JAZMYNE A [place] [id number] KEEN Insurance:MEDICARE SKIDMOREDOB: [place] [facility] [id number] Hospital 69146Ndl: (330) Number: Repository [phone] () [id number] Date:2012-10-22 05/04/2017 Secondary JAZMYNE A [place] Insurance:MEDICAIDPol SKIDMOREDOB: Community icy Number: [id number] Hospital [id number] Repository Date:2013-02-22 05/04/2017 Tertiary NOT GIVENUNK [place] Insurance:SELF PAY [facility] Number: Effective Repository Date:2017-05-04 04/12/2017 JAZMYNE A Primary JAZMYNE A [place] [id number] EN Insurance:MEDICARE SKIDMOREDOB: [facility] [place] [place] [facility] [id number] Hospital [address]78[address]Mpu: (330) Number: Repository [phone] () [id number] Date:2017-04-11 04/12/2017 Secondary JAZMYNE A [place] Insurance:MEDICAIDPol SKIDMOREDOB: Community icy Number: [id number] Hospital [id number] Repository Date:2017-04-11 04/12/2017 Tertiary NOT GIVENUNK [place] Insurance:SELF PAY [facility] Number: Effective Repository Date:2017-04-11 04/12/2017 Jazmyne [id number] Primary Jazmyne [place] [facility]:MEDICARE SkidmoreDOB: [facility] [address]Erx: PART A [facility] [id number] Hospital Number: Repository () [id number] Date:2017-04-12 04/12/2017 Secondary Jazmyne [place] Insurance:MEDICAIDPol SkidmoreDOB: Community icy Number: [id number] Hospital [id number] Repository Date:2017-04-12 04/12/2017 Tertiary NOT GIVENUNK [place] Insurance:SELF PAY [facility] Number: Effective Repository Date:2017-04-12
== END ==
PROVIDERS: Family Provider Family Medicine; PCP Family Medicine; Referring Provider Nurse Practitioner Acute Care; Visit Provider Nurse Practitioner Acute Care
DX: J44.1 Chronic obstructive pulmonary disease with (acute) exacerbation (principal)
CPT/HCPCS: 87070; 87205

== ENCOUNTER → 2018-09-24 16:17 | Outpatient (CLI) | payer MEDICARE, MEDICAID, SELFPAY ==
[2018-09-24 15:19] VITALS: BMI 17.5
== END ==
PROVIDERS: Family Provider Family Medicine; PCP Family Medicine; Referring Provider Nurse Practitioner Acute Care; Visit Provider Nurse Practitioner Acute Care
DX: J47.9 Bronchiectasis, uncomplicated (principal)
CPT/HCPCS: 87070; 87077; 87186; 87205

== ENCOUNTER → 2019-01-30 14:53 | Outpatient (CLI) | payer MEDICARE, MEDICAID, SELFPAY ==
[2018-09-24 15:19] VITALS: BMI 17.5
== END ==
PROVIDERS: Family Provider Family Medicine; PCP Family Medicine; Referring Provider Nurse Practitioner Acute Care; Visit Provider Nurse Practitioner Acute Care
DX: R05 Cough (principal)
CPT/HCPCS: 87070; 87077; 87205

== ENCOUNTER → 2019-05-16 15:04 | Outpatient (CLI) | payer MEDICARE, MEDICAID, SELFPAY ==
[2019-05-16 13:44] VITALS: BMI 17.6
[2019-05-16 16:14] LABS: Anion Gap 3 (5-15); BUN 8 mg/dL (7-18); BUN/Creat Ratio 10.7 RATIO (10-20); Calcium,Total 8.9 mg/dL (8.5-10.1); Chloride 99 mmol/L (98-107); Creatinine, Serum 0.75 mg/dL (0.55-1.02); EST Glomerular Filtration Rate 87 mL/min (>60); Est Glom Filt Rate - Afr Amer 105 mL/min (>60); Glucose 98 mg/dL (74-106); Potassium 3.8 mmol/L (3.5-5.1); Sodium Level 136 mmol/L (136-145)
== END ==
PROVIDERS: PCP Family Medicine; Referring Provider Internal Medicine Critical Care Medicine; Visit Provider Internal Medicine Critical Care Medicine
DX: J44.1 Chronic obstructive pulmonary disease with (acute) exacerbation (principal)
CPT/HCPCS: 36415; 80048; 87633

== ENCOUNTER → 2019-10-11 09:06 | Outpatient (CLI) | payer MEDICARE, MEDICAID, SELFPAY ==
[2019-08-13 08:07] VITALS: BMI 17.6
--- NOTE | 2019-10-14 13:37 | PFTCOMP ---
COMPLETE PULMONARY FUNCTION TEST INTERPRETATION Brief HPI: Patient is a 48 year old female, currently under the care of Dr. Vee, who presents to [facility] for complete pulmonary function tests secondary to diagnosis of COPD. Respiratory therapist reports good effort and reproducible results. Interpretation: Forced expiration spirometry shows a very severe large airways obstructive ventilatory defect with an FEV1 of 21% predicted. There is a significant bronchodilator response in FVC by strict ATS criteria. Spirograms are of good quality and plateau slowly, indicating slowly emptying areas of the lungs. The respiratory flow volume loop shows decreased expiratory flow rates at all lung volumes consistent with airway obstruction. Lung volumes by body plethysmography show an elevated total lung capacity at 10.35 L, 157% predicted. FRC and RV are elevated out of proportion. Lung volume measurements are consistent with hyperinflation and air-trapping. Diffusion capacity by carbon monoxide is decreased at 28% predicted. The airway resistance is elevated. Compared to previous pulmonary function tests from 01/04/2018, there is been a significant decrease in FEV1 and DLCO by 25% and 61% respectively. Impression: Partial reversible very severe large airways obstructive ventilatory defect with a symmetric reduction diffusion capacity, resulting in air trapping with hyperinflation, with significant worsening compared to 2018.
== END ==
PROVIDERS: PCP Family Medicine; Referring Provider Nurse Practitioner Acute Care; Visit Provider Nurse Practitioner Acute Care
DX: J44.9 Chronic obstructive pulmonary disease, unspecified (principal)
CPT/HCPCS: 94060; 94726; 94729

== ENCOUNTER → 2020-01-30 14:07 | Outpatient (CLI) | payer MEDICARE, MEDICAID, SELFPAY ==
[2019-08-13 08:07] VITALS: BMI 17.6
[2020-01-30 15:41] LABS: CRP 4.24 mg/L (0.0-3.0); Rheumatoid Factor < 10.0 IU/mL (<15)
[2020-02-02 21:52] LABS: CCP IgG Antibodies 5 units (0-19)
== END ==
PROVIDERS: PCP Internal Medicine; Referring Provider Internal Medicine; Visit Provider Internal Medicine
DX: M19.90 Unspecified osteoarthritis, unspecified site (principal)
CPT/HCPCS: 36415; 86140; 86200; 86431

== ENCOUNTER → 2020-04-08 12:11 | Outpatient (CLI) | payer MEDICARE, MEDICAID, SELFPAY ==
[2020-04-08 11:38] VITALS: BMI 20.9
[2020-04-08 12:14] LABS: Bacteria 0 SEEN /hpf (None Seen); Mucous, Urine 0 SEEN /hpf (<or=2+); Red Blood Cells-Urine 0 SEEN /hpf (0-5); White Blood Cells 0 SEEN /hpf (0-5)
[2020-04-08 15:25] LABS: Absolute Lymphocyte Count 1.36 X10^3/uL (0.83-4.51); Basophil# 0.04 X10^3/uL; Basophil% 0.7 % (0-1); Eosinophil# 0.08 X10^3/uL; Eosinophils% 1.3 % (0-5); Hematocrit 40.8 % (37-47); Hemoglobin 12.2 g/dL (12.0-15.0); Lymphocyte # 1.36 X10^3/ul (4.0); Lymphocyte % 22.1 % (19-41); Mean Corp Hgb Conc 29.9 g/dL (32-36); Mean Corpuscular Hgb 28.5 pg (27.0-32.0); Mean Corpuscular Volume 95.3 fL (81-99); Mean Platelet Vol. 9.6 fl (6.2-12.0); Monocyte# 0.68 X10^3/uL; Monocyte% 11.1 % (0-10); NRBC Flagged by Analyzer 0 % (0-5); Neutrophil # 3.96 X10^3/uL (2.7-7.7); Neutrophil % 64.5 % (47-70); Platelet Count 234 K/mm3 (150-450); RBC Distribution Width CV 13.2 % (11.6-14.6); RBC Distribution Width SD 46.7 fl (35.1-43.9); Red Blood Count 4.28 M/mm3 (4.2-5.4); White Blood Count 6.1 K/mm3 (4.4-11.0)
[2020-04-08 15:31] LABS: Color, Urine Yellow (Yellow); Glucose, Dipstick Normal (Normal); Ketone-Dipstick Negative (Negative); Leukocyte Esterase-Dipstick Negative /ul (Negative); Nitrite-Dipstick Negative (Negative); Occult Blood-Urine Negative /ul (Negative); Protein-Dipstick Negative (Negative); Urine Bilirubin Dipstick Negative (Negative); Urine Clarity Clear (Clear); Urine Urobilinogen Normal (Normal)
[2020-04-08 15:44] LABS: ALB/GLOB Ratio 0.9 RATIO (0.9-2.4); AST(SGOT) 13 U/L (15-37); Alanine Aminotransfer ALT/SGPT 19 U/L (13-56); Albumin, Serum 3.5 g/dL (3.2-5.0); Alkaline Phosphatase 74 U/L (45-117); Anion Gap 4 (5-15); BUN 10 mg/dL (7-18); BUN/Creat Ratio 13.4 RATIO (10-20); Calcium,Total 9.1 mg/dL (8.5-10.1); Chloride 96 mmol/L (98-107); Creatinine, Serum 0.75 mg/dL (0.55-1.02); EST Glomerular Filtration Rate 87 mL/min (>60); Est Glom Filt Rate - Afr Amer 105 mL/min (>60); Globulin 3.8 g/dL (2.2-4.2); Glucose 85 mg/dL (74-106); Potassium 3.9 mmol/L (3.5-5.1); Protein, Total 7.3 g/dL (6.4-8.2); Sodium Level 137 mmol/L (136-145); T4 Free Direct 1.11 ng/dL (0.76-1.46); Thyroid Stim Hormone (TSH) 2.93 uIU/mL (0.358-3.74)
[2020-04-08 16:13] LABS: Squamous Epithelial Cells - UA 0-5 SEEN /hpf (5-10)
== END ==
PROVIDERS: PCP Internal Medicine; Referring Provider Internal Medicine; Visit Provider Internal Medicine
DX: G25.9 Extrapyramidal and movement disorder, unspecified (principal); R25.9 Unspecified abnormal involuntary movements
CPT/HCPCS: 36415; 80053; 81001; 84439; 84443; 85025

== ENCOUNTER → 2020-05-05 14:22 | Outpatient (CLI) | payer MEDICARE, MEDICAID, SELFPAY ==
[2020-04-28 09:26] VITALS: BMI 24.0
--- NOTE | 2020-05-05 14:22 | MRI_ITS ---
STUDY: MRI BRAIN WITH AND WITHOUT CONTRAST REASON FOR EXAM: Female, 49 years old. Migraine H/A, jerking, shaking, humming, hx lung ca TECHNIQUE: Standardized multiplanar fat and water weighted pulse sequences were obtained. IV Dotarem 15ml was administered for the contrast portion of the examination. COMPARISON: None. FINDINGS: Normal size of the ventricles and extra-axial spaces for the patient''s age. Solitary nonspecific white matter lesion in the right parietal lobe of uncertain clinical significance although likely due to small vessel ischemic changes in patient of this age.. No evidence for acute infarct. Normal bilateral basal ganglia. Normal thalami. There is no extra-axial fluid accumulation. Normal flow voids within the major intracranial circulation suggesting patency by spin echo criteria. Normal venous enhancement. There is no enhancing intra-axial or extra-axial abnormality. Normal sella turcica, pituitary gland, infundibular stalk, optic chiasm and hypothalamus. Normal tectal plate and pineal gland. Normal midbrain, lakeisha and medulla. Normal cerebellum. Normal basal cisterns. Normal bilateral temporal bones. Normal bilateral internal auditory canals. Fluid density noted within the right mastoid air cells which may be on the basis of inflammatory disease No demonstrated orbital abnormality, within the constraints of a routine brain study. Normal visualized paranasal sinuses. Normal calvarium and skull base. Normal visualized soft tissue structures. Normal visualized upper cervical spine. MRI/Brain W/WO Contrast IMPRESSION: Solitary white matter lesion in the right parietal lobe likely due to changes without evidence for acute infarct. No evidence for brain metastasis. Incidental finding of increased signal in the right mastoid air cells which may be consistent with mastoiditis. Electronically Signed: Carlos Short MD at 15:58 EST , Service support ,
[2020-05-05] MEDS: 0.9% Saline Lock 10 ML Syringe IV (15:27)
== END ==
PROVIDERS: PCP Internal Medicine; Referring Provider Psychiatry & Neurology Neurology; Visit Provider Psychiatry & Neurology Neurology
DX: C34.90 Malignant neoplasm of unspecified part of unspecified bronchus or lung (principal); G43.909 Migraine, unspecified, not intractable, without status migrainosus; G31.84 Mild cognitive impairment of uncertain or unknown etiology
CPT/HCPCS: 70553; A9575; A4216

== ENCOUNTER → 2020-06-11 14:59 | Outpatient (CLI) | payer MEDICARE, MEDICAID, SELFPAY ==
[2020-06-01 14:16] VITALS: BMI 17.6
[2020-06-11 16:11] LABS: Vitamin B12 448 pg/mL (211-911)
== END ==
PROVIDERS: PCP Internal Medicine; Referring Provider Psychiatry & Neurology Neurology; Visit Provider Psychiatry & Neurology Neurology
DX: R25.1 Tremor, unspecified (principal); F31.9 Bipolar disorder, unspecified
CPT/HCPCS: 82140; 82607; 82746

== ENCOUNTER → 2020-10-16 | Outpatient (CLI) | payer MEDICARE, MEDICAID, SELFPAY ==
[2020-10-16 14:16] VITALS: BMI 24.0
[2020-10-16 14:57] LABS: Bacteria 0 SEEN /hpf (None Seen); Mucous, Urine 0 SEEN /hpf (<or=2+); Red Blood Cells-Urine 0 SEEN /hpf (0-5); White Blood Cells 0 SEEN /hpf (0-5)
[2020-10-16 16:44] LABS: Color, Urine Yellow (Yellow); Glucose, Dipstick Normal (Normal); Ketone-Dipstick Negative (Negative); Leukocyte Esterase-Dipstick Negative /ul (Negative); Nitrite-Dipstick Negative (Negative); Occult Blood-Urine Negative /ul (Negative); Protein-Dipstick Negative (Negative); Urine Bilirubin Dipstick Negative (Negative); Urine Clarity Sl. Cloudy (Clear); Urine Urobilinogen Normal (Normal)
[2020-10-16 16:55] LABS: Amorphous Sediment 1+ PHOS; Squamous Epithelial Cells - UA 0-5 SEEN /hpf (5-10)
== END | disposition home or self-care (01) ==
LOC: LABSPEC 14:56
PROVIDERS: PCP Internal Medicine; Referring Provider Physician Assistant; Visit Provider Physician Assistant
DX: R35.0 Frequency of micturition (principal); R53.83 Other fatigue
CPT/HCPCS: 81001; 87086

== ENCOUNTER → 2020-10-30 06:45 | Outpatient (CLI) | payer MEDICARE, MEDICAID, SELFPAY ==
[2020-08-24 09:51] VITALS: BMI 24.0
[2020-10-29 07:57] VITALS: BMI 22.1
--- NOTE | 2020-10-30 08:53 | TELEMED_ITS ---
[facility] Telemed has confirmed receipt of a request for visit. This document confirms receipt of the order initiating the consult. To find the results of the consultation, please view the patient's reports for the scanned Telemed Consult.
== END ==
PROVIDERS: PCP Internal Medicine; Referring Provider Psychiatry & Neurology Neurology; Visit Provider Psychiatry & Neurology Neurology
DX: G31.84 Mild cognitive impairment of uncertain or unknown etiology (principal)
CPT/HCPCS: 95819

== ENCOUNTER → 2020-11-11 14:36 | Outpatient (CLI) | payer MEDICARE, MEDICAID, SELFPAY ==
[2020-11-02 10:13] VITALS: BMI 22.1
--- NOTE | 2020-11-11 14:40 | RAD_ITS ---
HISTORY: low back pain, si joint pain EXAMINATION/TECHNIQUE: XR Pelvis 1 or 2 Views: AP pelvis COMPARISON: None FINDINGS: PELVIC BONES: No displaced fracture, destructive or sclerotic lesions. Note that overlapping bowel shadows may however obscure fine detail. Sacroiliac joints are unremarkable. No widening of the pubic symphisis. HIPS: The articular structures are unremarkable. No displaced fracture seen in this frontal view. SOFT TISSUES: No soft tissue swelling or gas. Extensive colonic fecal retention. RAD/Pelvis 1 or 2 Views IMPRESSION: No acute findings. at 1942 Reported and signed by: Oc Morales MD Electronically Signed: Oc Morales MD at 19:41 EDT Tel , Service support ,
--- NOTE | 2020-11-11 14:40 | RAD_ITS ---
HISTORY: low back pain, SI joint pain EXAMINATION/TECHNIQUE: XR Spine Lumbar 2 or 3 Views: 3 views COMPARISON: None FINDINGS: VERTEBRAE: Preserved vertebral body height. No acute fracture. No spondylolisthesis. Preservation of the normal lumbar lordosis. DISCS: Mild disc space narrowing at L5-S1. INCLUDED ABDOMEN: Included bowel gas pattern is non-obstructive. RAD/Lumbar Spine 2 or 3 Views IMPRESSION: Mild degenerative disc disease at L5-S1. at 1719 Reported and signed by: Oc Morales MD Electronically Signed: Oc Morales MD at 17:17 EDT Tel , Service support ,
== END ==
PROVIDERS: PCP Internal Medicine; Referring Provider Physician Assistant; Visit Provider Physician Assistant
DX: M53.3 Sacrococcygeal disorders, not elsewhere classified (principal); M54.5 Low back pain
CPT/HCPCS: 72100; 72170

== ENCOUNTER → 2021-01-21 15:09 | Outpatient (CLI) | payer MEDICARE, MEDICAID, SELFPAY ==
[2021-01-21 16:35] LABS: Absolute Lymphocyte Count 1.57 X10^3/uL (0.83-4.51); Absolute Neutrophil Count 3.2 X10^3/uL (2.0-7.7); Basophil# 0.05 X10^3/uL; Basophil% 0.9 % (0-1); Eosinophil# 0.06 X10^3/uL; Eosinophils% 1.1 % (0-5); Hematocrit 38.5 % (37-47); Hemoglobin 11.9 g/dL (12.0-15.0); Lymphocyte # 1.57 X10^3/ul (0.83-4.51); Lymphocyte % 29.1 % (19-41); Mean Corp Hgb Conc 30.9 g/dL (32-36); Mean Corpuscular Hgb 28.2 pg (27.0-32.0); Mean Corpuscular Volume 91.2 fL (81-99); Mean Platelet Vol. 10.2 fl (6.2-12.0); Monocyte# 0.53 X10^3/uL; Monocyte% 9.8 % (0-10); NRBC Flagged by Analyzer 0 % (0-5); Neutrophil # 3.17 X10^3/uL (2.7-7.7); Neutrophil % 58.9 % (47-70); Platelet Count 237 K/mm3 (150-450); RBC Distribution Width CV 12.9 % (11.6-14.6); RBC Distribution Width SD 43.4 fl (35.1-43.9); Red Blood Count 4.22 M/mm3 (4.2-5.4); White Blood Count 5.4 K/mm3 (4.4-11.0)
[2021-01-21 16:56] LABS: ALB/GLOB Ratio 0.8 RATIO (0.9-2.4); AST(SGOT) 14 U/L (15-37); Alanine Aminotransfer ALT/SGPT 14 U/L (13-56); Albumin, Serum 3.4 g/dL (3.2-5.0); Alkaline Phosphatase 69 U/L (45-117); Anion Gap 6 (5-15); BUN 15 mg/dL (7-18); BUN/Creat Ratio 18.2 RATIO (10-20); Calcium,Total 8.5 mg/dL (8.5-10.1); Chloride 104 mmol/L (98-107); Creatinine, Serum 0.82 mg/dL (0.55-1.02); EST Glomerular Filtration Rate 78 mL/min (>60); Est Glom Filt Rate - Afr Amer 94 mL/min (>60); Glucose 77 mg/dL (74-106); Protein, Total 7.4 g/dL (6.4-8.2); Sodium Level 141 mmol/L (136-145); T4 Free Direct 1.06 ng/dL (0.76-1.46); Thyroid Stim Hormone (TSH) 2.97 uIU/mL (0.358-3.74)
== END ==
PROVIDERS: PCP Internal Medicine; Referring Provider Internal Medicine; Visit Provider Internal Medicine
DX: J44.9 Chronic obstructive pulmonary disease, unspecified (principal); F32.9 Major depressive disorder, single episode, unspecified; F41.9 Anxiety disorder, unspecified
CPT/HCPCS: 36415; 80053; 84439; 84443; 85025

== ENCOUNTER → 2021-02-11 13:42 | Outpatient (CLI) | payer MEDICARE, MEDICAID, SELFPAY ==
[2021-02-11 14:06] LABS: Base Excess 3 mmol/L (-2 to +2); Bicarbonate 28.3 mmol/L (22-26); Blood Gas Specimen Type ART; PO2 81 mmHG (75-100); SITE R Radial; SO2 95 % (95-99); Total Carbon Dioxide 30 mmol/L; pCO2 51.1 mmHg (35-45); pH 7.35 (7.35-7.45)
== END ==
PROVIDERS: PCP Internal Medicine; Referring Provider Psychiatry & Neurology Neurology; Visit Provider Psychiatry & Neurology Neurology
DX: R06.89 Other abnormalities of breathing (principal)
CPT/HCPCS: 36600; 82803

== ENCOUNTER → 2021-04-21 | Outpatient (CLI) | payer MEDICARE, MEDICAID, SELFPAY | END | disposition home or self-care (01) | LOC: LABSPEC 13:19 | PROVIDERS: PCP Internal Medicine; Visit Provider Internal Medicine | DX: U07.1 COVID-19 (principal) | CPT/HCPCS: 87635; U0005; U0003 ==

== ENCOUNTER 2021-06-18 15:02 | Outpatient (CLI) | payer MEDICARE, MEDICAID, SELFPAY ==
--- NOTE | 2021-06-18 15:08 | RAD_ITS ---
STUDY: X-RAY CHEST REASON FOR EXAM: Female, 50 years old. Worsening shortness of breath TECHNIQUE: Single AP portable view of the chest. COMPARISON: 03/03/2016 FINDINGS: Stable appearance of a left subclavian port. The lungs are hyperexpanded. There is loss of volume in the right upper lobe with retraction of the right hilum and marked pleural thickening with a lucency within the area of the pleural thickening. There is a mild diffuse interstitial pattern. There is a patchy opacity in the posterior aspect of the lung best seen on the lateral view which may represent an early pneumonia. There is borderline cardiomegaly. Normal mediastinum and patricio. Normal visualized pulmonary arteries. Normal visualized aortic arch and descending thoracic aorta. Normal visualized thoracic spine. Normal visualized ribs, clavicles, and shoulders. There is no demonstrated abnormality of the visualized soft tissue structures of the upper abdomen. RAD/Chest PA and Lateral IMPRESSION: No interval change Electronically Signed: Reuben Eckert MD at 17:01 EST ,
== END 2021-06-18 23:59 | disposition home or self-care (01) ==
LOC: RAD 15:05
PROVIDERS: PCP Internal Medicine; Referring Provider Nurse Practitioner Acute Care; Visit Provider Nurse Practitioner Acute Care
DX: R06.02 Shortness of breath (principal)
CPT/HCPCS: 71046

== ENCOUNTER → 2021-11-16 | Outpatient (CLI) | payer MEDICARE, MEDICAID, SELFPAY ==
[2021-11-16 18:48] LABS: Ferritin 35 ng/mL (8-252); Iron 53 ug/dL (50-170)
== END | disposition home or self-care (01) ==
LOC: MTLAB 15:14
PROVIDERS: PCP Internal Medicine; Referring Provider Psychiatry & Neurology Neurology; Visit Provider Psychiatry & Neurology Neurology
DX: Z86.2 Personal history of diseases of the blood and blood-forming organs and certain disorders involving the immune mechanism (principal)
CPT/HCPCS: 36415; 82728; 83540

== ENCOUNTER → 2021-12-02 | Outpatient (CLI) | payer MEDICARE, MEDICAID, SELFPAY ==
[2021-12-02 16:30] LABS: Absolute Lymphocyte Count 1.11 X10^3/uL (0.83-4.51); Absolute Neutrophil Count 5.2 X10^3/uL (2.0-7.7); Basophil# 0.05 X10^3/uL; Basophil% 0.7 % (0-1); Eosinophil# 0.02 X10^3/uL; Eosinophils% 0.3 % (0-5); Hematocrit 37.7 % (37-47); Hemoglobin 12.3 g/dL (12.0-15.0); Lymphocyte # 1.11 X10^3/ul (0.83-4.51); Mean Corp Hgb Conc 32.6 g/dL (32-36); Mean Corpuscular Hgb 29.9 pg (27.0-32.0); Mean Corpuscular Volume 91.7 fL (81-99); Mean Platelet Vol. 9.4 fl (6.2-12.0); Monocyte# 0.54 X10^3/uL; Monocyte% 7.8 % (0-10); NRBC Flagged by Analyzer 0 % (0-5); Neutrophil # 5.21 X10^3/uL (2.7-7.7); Neutrophil % 75.2 % (47-70); Platelet Count 247 K/mm3 (150-450); RBC Distribution Width CV 13.2 % (11.6-14.6); RBC Distribution Width SD 45.1 fl (35.1-43.9); Red Blood Count 4.11 M/mm3 (4.2-5.4); White Blood Count 6.9 K/mm3 (4.4-11.0)
[2021-12-02 16:43] LABS: ALB/GLOB Ratio 0.9 RATIO (0.9-2.4); AST(SGOT) 22 U/L (15-37); Alanine Aminotransfer ALT/SGPT 23 U/L (13-56); Albumin, Serum 3.6 g/dL (3.2-5.0); Alkaline Phosphatase 68 U/L (45-117); Anion Gap 7 (5-15); BUN 20 mg/dL (7-18); BUN/Creat Ratio 22.7 RATIO (10-20); Calcium,Total 9.5 mg/dL (8.5-10.1); Chloride 104 mmol/L (98-107); Creatinine, Serum 0.88 mg/dL (0.55-1.02); EST Glomerular Filtration Rate 72 mL/min (>60); Est Glom Filt Rate - Afr Amer 87 mL/min (>60); Glucose 107 mg/dL (74-106); Potassium 3.3 mmol/L (3.5-5.1); Protein, Total 7.6 g/dL (6.4-8.2); Sodium Level 139 mmol/L (136-145)
== END | disposition home or self-care (01) ==
LOC: BIMLAB 15:02
PROVIDERS: PCP Internal Medicine; Referring Provider Internal Medicine; Visit Provider Internal Medicine
DX: J44.9 Chronic obstructive pulmonary disease, unspecified (principal); F41.9 Anxiety disorder, unspecified; F32.9 Major depressive disorder, single episode, unspecified
CPT/HCPCS: 36415; 80053; 85025

== ENCOUNTER → 2022-02-02 | Outpatient (CLI) | payer MEDICARE, MEDICAID, SELFPAY ==
[2022-02-02 15:28] LABS: Anion Gap 4 (5-15); BUN 15 mg/dL (7-18); BUN/Creat Ratio 15.9 RATIO (10-20); Calcium,Total 9.1 mg/dL (8.5-10.1); Chloride 105 mmol/L (98-107); Creatinine, Serum 0.94 mg/dL (0.55-1.02); EST Glomerular Filtration Rate 66 mL/min (>60); Est Glom Filt Rate - Afr Amer 80 mL/min (>60); Glucose 81 mg/dL (74-106); Sodium Level 140 mmol/L (136-145)
== END | disposition home or self-care (01) ==
LOC: BIMLAB 14:08
PROVIDERS: PCP Internal Medicine; Referring Provider Internal Medicine; Visit Provider Internal Medicine
DX: E87.6 Hypokalemia (principal)
CPT/HCPCS: 36415; 80048

== ENCOUNTER → 2022-03-03 | Outpatient (CLI) | payer MEDICARE, MEDICAID, SELFPAY ==
--- NOTE | 2022-03-03 10:14 | BI_ITS ---
MAMMOGRAPHY - BILATERAL SCREENING REASON FOR EXAM: Female, 51 years old. Routine annual screening examination. PERTINENT HISTORY: Non-contributory. TECHNIQUE: Digital bilateral breast jared (3D mammographic acquisition) in the CC and MLO projections. 2-D mediolateral oblique (MLO) and craniocaudad (CC) views of both breasts were obtained. CAD: Full Field Digital Mammography with Computer Added Detection was performed. COMPARISON: None. Baseline examination. FINDINGS: A left-sided port is seen in the left axillary region. Breast Composition: The breasts are heterogeneously dense, which may obscure small masses. There are no dominant masses or suspicious calcifications. No other significant abnormalities are identified. BI/SCRN MAMM (CAD)W/JARED BILAT IMPRESSION: Negative screening mammogram. Yearly followup mammogram recommended. (A) ASSESSMENT CATEGORY: BIRADS Category 1: Negative. A letter regarding these results will be sent to the patient by the facility within 30 days. Approximately 10% of breast cancers are not detected by mammography. A normal mammogram should not delay biopsy of a clinically suspicious abnormality. [id number] Electronically Signed: Hermilo Chowdary MD at 11:17 EST ,
--- NOTE | 2022-03-03 10:53 | BD_ITS ---
STUDY: DUAL ENERGY X-RAY ABSORPTIOMETRY / DXA REASON FOR EXAM: Female, 51 years old. Screening for Osteoporosis TECHNIQUE: Bone Mineral Density (BMD) measurements of unilateral hip (left) were obtained. COMPARISON: None. FINDINGS: Lumbar Spine (L1-L4): g/cm2 (0.849) / T-score (-1.8) / Z-score (-0.9) Findings are suggestive of osteopenia with a moderate fracture risk. Left Femur Total: g/cm2 (0.630) / T-score (-2.6) / Z-score (-2.0) Left Femoral Neck: g/cm2 (0.580) / T-score (-2.4) / Z-score (-1.5) BD/Dexa Bone Density Study IMPRESSION: The patient is considered osteopenic as outlined below according to World [employer] Organization (WHO) criteria with a high fracture risk. Reference Information: The T-score is the number of standard deviations above or below the standard which is normal for young adults at their peak bone mineral density. The World Health Organization (WHO) interprets the T-scores as follows: Above -1 Normal bone density Between -1 and -2.5 Osteopenia Equal to / or below -2.5 Osteoporosis As a practical clinical guideline, osteopenia may be graded as follows: Mild -1 through -1.5 Moderate -1.6 through -2.0 Severe -2.1 through -2.4 The Z-score is the number of standard deviations above or below age-matched controls. A Z-score of less than -1.5 would be considered abnormal. References: 1. NIH Osteoporosis and Related Bone Diseases www osteo.org 2. International Society for Clinical Densitometry www iscd.org 3. National Osteoporosis Foundation www nof.org Electronically Signed: Hermilo Chowdary MD at 9:49 EST ,
== END | disposition home or self-care (01) ==
LOC: OPBD 10:13
PROVIDERS: PCP Internal Medicine; Visit Provider Internal Medicine
DX: Z12.31 Encounter for screening mammogram for malignant neoplasm of breast (principal); Z78.0 Asymptomatic menopausal state
CPT/HCPCS: 77063; 77067; 77080

== ENCOUNTER → 2022-04-07 | Outpatient (CLI) | payer MEDICARE, MEDICAID, SELFPAY ==
--- NOTE | 2022-04-07 13:17 | VDLE_ITS ---
Reason For Study: LEG PAIN RIGHT LEFT GSV is normal. GSV is normal. CFV is compressible, spontaneous, phasic, CFV is compressible, spontaneous, phasic, competent and demonstrates normal competent, and demonstrates normal augmentation. augmentation. FV is compressible, spontaneous, phasic, FV is compressible, spontaneous, phasic, competent and demonstrates normal competent and demonstrates normal augmentation. augmentation. POP V is compressible, spontaneous, phasic, POP V is compressible, spontaneous, phasic, competent and demonstrates normal competent and demonstrates normal augmentation. augmentation. T/P Trunk is compressible. T/P Trunk is compressible. PTV is compressible. PTV is compressible. RT PerV is compressible. LT PerV is compressible. Procedure This is a venous duplex using B-mode, color flow and spectral Doppler. Exam performed in department. The exam was diagnostic. A preliminary report was called and/or faxed to Dr. Monique. VL/Venous Duplex US - Shayan Extrem Interpretation Summary Deep veins of the bilateral lower extremities are patent and compressible segme ntally. There is no evidence of bilateral lower extremity deep vein thrombosis. The bilateral great saphenous veins appear patent and compressible segmentally. Ordering Physician: Dominik Monique Referring Physician: Rose Cardona Performed By: Faraz Boogie RVT
== END | disposition home or self-care (01) ==
LOC: CVS 13:17
PROVIDERS: PCP Internal Medicine; Referring Provider Psychiatry & Neurology Neurology; Visit Provider Psychiatry & Neurology Neurology
DX: M79.604 Pain in right leg (principal); M79.605 Pain in left leg
CPT/HCPCS: 93970

== ENCOUNTER 2023-01-02 12:33 | Outpatient (CLI) | payer MEDICARE, MEDICAID, SELFPAY ==
[2023-01-02 15:24] LABS: Absolute Neutrophil Count 5.2 X10^3/uL (2.0-7.7); Basophil# 0.05 X10^3/uL; Basophil% 0.7 % (0-1); Eosinophil# 0.02 X10^3/uL; Eosinophils% 0.3 % (0-5); Hematocrit 37.8 % (37-47); Hemoglobin 12.1 g/dL (12.0-15.0); Lymphocyte % 16.8 % (19-41); Mean Corpuscular Hgb 29.7 pg (27.0-32.0); Mean Corpuscular Volume 92.6 fL (81-99); Monocyte# 0.61 X10^3/uL; Monocyte% 8.6 % (0-10); NRBC Flagged by Analyzer 0 % (0-5); Neutrophil # 5.22 X10^3/uL (2.7-7.7); Neutrophil % 73.2 % (47-70); Platelet Count 304 K/mm3 (150-450); RBC Distribution Width CV 13.5 % (11.6-14.6); RBC Distribution Width SD 46.3 fl (35.1-43.9); Red Blood Count 4.08 M/mm3 (4.2-5.4); White Blood Count 7.1 K/mm3 (4.4-11.0)
[2023-01-02 15:58] LABS: Vitamin B12 975 pg/mL (211-911)
[2023-01-02 16:05] LABS: ALB/GLOB Ratio 0.8 RATIO (0.9-2.4); AST(SGOT) 18 U/L (15-37); Alanine Aminotransfer ALT/SGPT 25 U/L (13-56); Albumin, Serum 3.2 g/dL (3.2-5.0); Alkaline Phosphatase 76 U/L (45-117); Anion Gap 9 (5-15); BUN 13 mg/dL (7-18); BUN/Creat Ratio 16.8 RATIO (10-20); Calcium,Total 9.4 mg/dL (8.5-10.1); Chloride 103 mmol/L (98-107); Creatinine, Serum 0.77 mg/dL (0.55-1.02); EST Glomerular Filtration Rate 83 mL/min (>60); Est Glom Filt Rate - Afr Amer 100 mL/min (>60); Glucose 97 mg/dL (74-106); Magnesium 1.8 mg/dL (1.6-2.6); Potassium 3.5 mmol/L (3.5-5.1); Protein, Total 7.2 g/dL (6.4-8.2); Sodium Level 140 mmol/L (136-145); Thyroid Stim Hormone (TSH) 0.85 uIU/mL (0.358-3.74)
[2023-01-02 16:08] LABS: Hemoglobin A1c 5.2 % (3.8-5.6)
== END 2023-01-02 23:59 | disposition home or self-care (01) ==
LOC: MTLAB 12:35
PROVIDERS: PCP Family Medicine; Referring Provider Family Medicine; Visit Provider Family Medicine
DX: G62.9 Polyneuropathy, unspecified (principal)
CPT/HCPCS: 36415; 80053; 82607; 83036; 83735; 84443; 85025

== ENCOUNTER → 2024-02-28 | Outpatient (CLI) | payer MEDICARE, MEDICAID, SELFPAY | END | disposition home or self-care (01) | LOC: PSN 09:51 | PROVIDERS: PCP Nurse Practitioner Family; Referring Provider Psychiatry & Neurology Neurology; Visit Provider Psychiatry & Neurology Neurology | DX: M79.601 Pain in right arm (principal); G58.9 Mononeuropathy, unspecified; M54.2 Cervicalgia | CPT/HCPCS: 95886; 95910 ==

== ENCOUNTER → 2024-04-11 | Outpatient (CLI) | payer MEDICARE, MEDICAID, SELFPAY ==
--- NOTE | 2024-04-11 15:32 | BD_ITS ---
STUDY: DUAL ENERGY X-RAY ABSORPTIOMETRY / DXA REASON FOR EXAM: Female, 53 years old. [id number] TECHNIQUE: Bone Mineral Density (BMD) measurements of lumbar spine and left hip were obtained. COMPARISON: Comparison is made with prior study dated March 03, 2022. FINDINGS: Lumbar Spine (L1-L4): g/cm2 (0.871) / T-score (-1.6) / Z-score (-0.5) Findings are suggestive of osteopenia with a moderate fracture risk. Left Femur Total: g/cm2 (0.591) / T-score (-2.9) / Z-score (-2.2) Left Femoral Neck: g/cm2 (0.501) / T-score (-3.1) / Z-score (-2.1) The T-Scores on the most recent prior examination were: Lumbar Spine (L1-L4): There has been improvement of bone density since the previous examination. Left Femur Total: which represents a worsening of 6.2%. BD/Dexa Bone Density Study IMPRESSION: The patient is considered osteoporotic as outlined below according to World [employer] Organization (WHO) criteria with a high fracture risk. There has been worsening of bone density since the previous examination. Reference Information: The T-score is the number of standard deviations above or below the standard which is normal for young adults at their peak bone mineral density. The World Health Organization (WHO) interprets the T-scores as follows: Above -1 Normal bone density Between -1 and -2.5 Osteopenia Equal to / or below -2.5 Osteoporosis As a practical clinical guideline, osteopenia may be graded as follows: Mild -1 through -1.5 Moderate -1.6 through -2.0 Severe -2.1 through -2.4 The Z-score is the number of standard deviations above or below age-matched controls. A Z-score of less than -1.5 would be considered abnormal. References: 1. NIH Osteoporosis and Related Bone Diseases www osteo.org 2. International Society for Clinical Densitometry www iscd.org 3. National Osteoporosis Foundation www nof.org Electronically Signed: Hermilo Chowdary MD at 10:11 EST ,
== END | disposition home or self-care (01) ==
LOC: OPBD 15:26
PROVIDERS: PCP Nurse Practitioner Family; Referring Provider Internal Medicine; Visit Provider Internal Medicine
DX: M81.0 Age-related osteoporosis without current pathological fracture (principal)
CPT/HCPCS: 77080